=== PATIENT | female | born 1935 | race Caucasian/White ===

== ENCOUNTER 2024-03-14 18:04 | Inpatient (IN) | payer MEDICARE, BC, SELFPAY ==
[2024-03-14] VITALS (8 sets, daily range): BP systolic 104–124; BP diastolic 53–73; BMI 19.7
--- NOTE | 2024-03-14 12:52 | ED.GENMED ---
History of Present Illness
General
Chief Complaint: Skin Problem
Source: patient
Exam Limitations: none
Time Seen by Provider: 03/14/24 12:28
History of Present Illness
History of Present Illness:
88-year-old female insulin-dependent diabetic presents from [facility] with worsening redness and pain to the right third toe and foot. She denies fever. She thinks she has been on and off antibiotics for this wound. She has prior history of
multiple amputations onto the toes on her left foot. She denies chest pain or shortness of breath. She has a history of CHF, A-fib has a pacer defibrillator. No other complaints at this time
Past History
Past History
ED Past Medical History: Arrthythmia (AFib), Cancer (basal cell, breast), CHF, HTN, NIDDM, Other (difficulty with balance, DM, neuropathy, pancreatitis chronic A. fib, status post pacer defibrillator, fibromyalgia, PMR, AVMs, colon polyps) and Other
ED Past Surgical History: Cholecystectomy and Other (hysterectomy)
Social History
Tobacco: Non-smoker
Alcohol: None
Drug: None
Living: correction
Family History
Family History: Other (Father with HI in his 60s)
Phy Exam
Physical Exam
Physical Exam:
General: Well-appearing female no acute respiratory distress
HEENT: Normocephalic atraumatic neck is supple
Heart: Tachycardic
Lungs: Clear no wheeze
Abdomen: Soft nontender nondistended
Skin: Erythema to right third toe with wound to the medial aspect of the third toe dark in color. The erythema spreads to almost the midfoot on the right foot.
Vascular: The toes are warm to the touch on the right foot
Course
Orders/Labs/Results
Orders:
Orders
03/14/24 12:16
Electrocardiogram (*1) Urgent
Reason for Study: Other
Other Reason for Exam: Possible Sepsis
EKG- Treatment ONCE
03/14/24 12:40
CR Foot - Right Min 3 Views Urgent
Comment:
Reason For Exam: infection 3rd toe
03/14/24 13:06
Complete Blood Count/With Diff Urgent
Comprehensive Metabolic Panel Urgent
Blood Culture Q30M
LEDA Source: Blood/Venous
Specimen Description:
03/14/24 13:15
Blood Culture Q30M
LEDA Source: Blood/Venous
Specimen Description:
03/14/24 13:49
Acetaminophen [Tylenol] 650 mg PO NOW STA
03/14/24 14:40
Zosyn 3.375 grams IVPB NOW Piperacillin/Tazo 3.375 Gram [Zosyn] 3.375 gram in 50 ml IV NOW
03/14/24 16:00
*Vancomycin IV Pharmacy to Dose VANCOMYCIN Pharmacy to Dose [VANCOCIN Pharmacy to Dose] 1 each Pharmacy To Prepare [Call Pharmacy To Prepare] 0 ml IV PER PROTOCOL
Abnormal Lab Results
03/14/24
13:06
MCHC 31.2 L g/dL
(33.0-37.0)
RDW 17.3 H %
(11.5-14.5)
BUN 20 H mg/dl
(7-17)
Glucose 144 H mg/dl
(70-99)
Total Protein 6.1 L g/dl
(6.3-8.2)
03/14/24 13:06
03/14/24 13:06
Vital Signs
Initial and Last Documented VS:
Initial Vital Signs
Temp Pulse Resp BP Pulse Ox
98.2 F 118 20 121/68 100
03/14/24 12:05 03/14/24 12:05 03/14/24 12:05 03/14/24 12:05 03/14/24 12:05
Last Documented Vital Signs
Temp Pulse Resp BP Pulse Ox
98.2 F 118 20 121/68 100
03/14/24 12:05 03/14/24 12:05 03/14/24 12:05 03/14/24 12:05 03/14/24 12:05
MDM/Problems Addressed
Differential Diagnosis Includes:
Right foot diabetic foot wound/infection. Consider cellulitis versus underlying osteomyelitis. There is no evidence of drainable abscess
X-rays pending. Labs blood cultures pending. Will likely need admission to hospital for surgical intervention
*Critical Care Note
Total Time (30-74mins, 75-104mins- exclusive of procedures): Not Applicable
Update Note
Update Note:
X-ray shows no obvious osteomyelitis. Labs reviewed. Patient has diet foot infection/cellulitis. Will order antibiotics and admit to hospitalist
ED Attending Note
-
Portions of this chart may have been created with voice recognition software.� Occasional wrong word or��sound alike� substitutions may have occurred due to the inherent limitations of voice recognition software.
Discharge Plan
Departure
Patient Disposition: Admit
Date of Disposition: 03/14/24
Time of Disposition: 14:44
Admit to: Telemetry
Presentation/result/management discussed w/ accepting MD/DO: Hospitalist
Discharge Problem:
Cellulitis
Prescriptions:
No Action
estradiol [Estrace] 0.01 % (0.1 mg/gram) Cream
1 applic VAGINAL MOWEFR@2200 Qty: 0
acetaminophen 325 MG tablet
650 mg PO Q8HPRN MDD 3000 mg PRN (Reason: elevated temp>100)
atorvastatin 20 mg tablet
20 mg PO HS
magnesium hydroxide [Milk of Magnesia] 400 mg/5 mL Suspension
30 ml PO DAILY PRN (Reason: if no BM x 3 days)
bisacodyl [Dulcolax (bisacodyl)] 10 mg Suppository
10 mg [place] DAILY PRN (Reason: if MOM ineffective)
Fleet Enema 19-7 gram/118 mL Enema
118 ml [place] DAILY PRN (Reason: if dulcolax ineffective)
insulin lispro 100 unit/mL Solution
0 sliding scale dose SC MEALS
Rx Instructions:
03/14/2024, if BS<60 call md; 151-200 = 3 units; 201-250 = 6 units; 251-300 = 9 units; 301-350 = 12 units; 351-400 = 15 units; if BS>400 call md.
duloxetine 20 mg capsule,delayed release(DR/EC)
20 mg PO DAILY
potassium chloride 20 mEq Tablet Extended Release
20 meq PO DAILY
mirtazapine [Remeron] 15 mg Tablet
7.5 mg PO HS
aspirin 81 mg tablet,delayed release (DR/EC)
81 mg PO DAILY
pantoprazole 40 mg Tablet,Delayed Release (Dr/Ec)
40 mg PO BID Qty: 0 0RF
ferrous sulfate 325 mg (65 mg iron) tablet
325 mg PO DAILY Qty: 1 0RF
acetaminophen [Tylenol] 325 mg Tablet
650 mg PO TID MDD 3000 mg
metoprolol succinate 50 mg Tablet Extended Release 24 Hr
25 mg PO DAILY
Patient Comments:
03/14/2024, hold for SBP<100 and HR<60.
oxycodone 5 mg Tablet
5 mg PO Q8H PRN (Reason: severe pain)
Artificial Tears([id number]) 1-0.2-0.2 % Drops
1 drp BOTH EYES QID
azelastine 205.5 mcg (0.15 %) [place],Non-Aerosol
2 spray INTRANASAL BID
Jardiance 10 mg Tablet
10 mg PO DAILY
bumetanide 0.5 mg tablet
0.5 mg PO DAILY
insulin glargine [Lantus Solostar U-100 Insulin] 100 unit/mL (3 mL) insulin pen
15 unit SC DAILY
Referrals:
Baldo Martínez MD [Family Provider] -
Interventions
Interventions:
*Risk Screen - Suicide Last Done: 03/14/24 12:05
*General Assessment Last Done: 03/14/24 12:05
*Neglect/Abuse Screening Last Done: 03/14/24 12:05
Discharge Date and Time
Print Language: WELSH
[2024-03-14 13:16] LABS: % Basophils 0.5 % (0-2); % Eosinophils 4.8 % (0-6); % Immature Granulocytes 0.2 % (0-0.5); % Lymphocytes 20.6 % (20.5-51.1); % Monocytes 8.7 % (1.7-9.3); % Neutrophils 65.2 % (42.2-75.2); Absolute Eosinophils 0.3 10^3/uL (0-0.7); Absolute Lymphocytes 1.3 10^3/uL (1.2-3.4); Absolute Monocytes 0.5 10^3/uL (0.1-0.6); Hematocrit 39.7 % (37.0-47.0); Hemoglobin 12.4 g/dL (12.0-16.0); Mean Corp Hgb Conc. 31.2 g/dL (33.0-37.0); Mean Corpuscular Hgb 29.2 pg (27.0-31.0); Mean Corpuscular Volume 93.6 fL (81.0-99.0); Mean Platelet Volume 10.1 fL (7.4-10.4); Nucleated Red Blood Cells % 0 %; Platelet Count 193 10^3/uL (130-400); Red Blood Cell Count 4.24 10^6/uL (4.20-5.40); Red Cell Dist. Width 17.3 % (11.5-14.5); White Blood Cell Count 6.1 10^3/uL (4.8-10.8)
[2024-03-14 13:30] LABS: ALT (SGPT) 10 U/L (0-35); AST (SGOT) 24 U/L (14-36); Albumin 3.6 g/dl (3.5-5.0); Alkaline Phosphatase 98 U/L (38-126); Blood Urea Nitrogen 20 mg/dl (7-17); Calcium 9.1 mg/dl (8.4-10.2); Carbon Dioxide 29 mmol/L (22-30); Chloride 102 mmol/L (98-107); Glucose 144 mg/dl (70-99); Potassium 3.8 mmol/L (3.5-5.1); Sodium 137 mmol/L (135-145); Total Bilirubin 0.8 mg/dl (0.2-1.3); Total Protein 6.1 g/dl (6.3-8.2); eGFR > 60.00
[2024-03-14] MEDS: TYLENOL 650 MG PO ×2 (13:57→20:48)
[2024-03-14] MEDS: ZOSYN 50 IV ×2 (15:55→21:07)
--- NOTE | 2024-03-14 16:10 | HPS.HSE ---
Family Physician
-
Family Physician: Baldo Martínez
Chief Complaint
-
Right foot/toe pain/wound
History of Present Illness
87 female snf resident history of bilateral breast masses paroxysmal A-fib (not on anticoagulation due to hx GI bleeds) HFpEF status post pacer defibrillator moderate tricuspid regurgitation hypertension diabetes hyperlipidemia, hx toe
amputations left foot, fibromyalgia BELKIS not on CPAP anxiety/depression, recent hospitalization at this facility Sep 2023 for anemia rectal bleeding and COVID, presents with right foot/3rd toe pain/wound and associate erythema. Patient reports 3rd
toe wound has been present and progressive for past 5 weeks, treated with oral abx outpatient without improvement (unable to specify what abx and when). Denies fever chills but reports dysuria burning on urination unspecified duration. Bilateral
breast masses with associated ulcerations were noted last hospitalization for which patient was recommended to follow up with breast surgeon outpatient. Patient AOx3 reports bilateral breast lumps but denies following with Breast Surgeon
outpatient. Patient also reports being wheelchair bound for the past years and chronic double vision for the last 6 months corrected with glasses. Vital signs notable for sinus tachycardia, likely due to pain, otherwise stable respiratory status on
room air, no significant hypotension. Labs unremarkable. XR right foot noted no acute abn's. Wound however is concerning for possible probe to bone.
Medical History
Past Medical History
Past Medical History: Reports Other (as above)
Past Surgical History: Reports Other (as above)
Social History
Tobacco: Non-smoker
Alcohol: None
Drug: None
Personal:
Living: Group Home
Family History
Family History: Not pertinent (reviewed)
Allergies / Home Medications
Allergies reflects when Allergies were last updated in [facility].
Home Medications with original date entered in [facility]
Allergy/Medication List:
Allergies
Allergy/AdvReac Type Severity Reaction Status Date / Time
codeine Allergy Hives and Verified 03/14/24 12:15
'sick to
my stomach'
dofetilide [From Tikosyn] Allergy 'took all Verified 03/14/24 12:15
the K out
of my body
and I got
really
sick'
morphine Allergy pt states Verified 03/14/24 12:15
she is not
allergic
to this
oxycodone Allergy pt states Verified 03/14/24 12:15
this is
not an
allergy
tramadol Allergy pt states Verified 03/14/24 12:15
this is
not an
allergy
Home Medications
estradiol 0.01% (0.1 mg/gram) vaginal cream (Estrace) 1 applic vaginal MOWEFR@2200 Hormonal agent ##0 10/15/16
acetaminophen 325 mg tablet 650 mg PO Q8HPRN PRN elevated temp>100 07/03/17
atorvastatin 20 mg tablet 20 mg PO HS High cholesterol 12/27/22
bisacodyl 10 mg rectal suppository (Dulcolax (bisacodyl)) [address] DAILY PRN if MOM ineffective 12/27/22
duloxetine 20 mg capsule,delayed release 20 mg PO DAILY Mental Health/Anxiety 12/27/22
insulin lispro 100 unit/mL subcutaneous solution 0 sliding scale dose SC MEALS Diabetes 12/27/22
magnesium hydroxide 400 mg/5 mL oral suspension (Milk of Magnesia) 30 ml PO DAILY PRN if no BM x 3 days 12/27/22
sodium phosphates 19 gram-7 gram/118 mL enema (Fleet Enema) [address] DAILY PRN if dulcolax ineffective 12/27/22
potassium chloride 20 mEq tablet,extended release 20 meq PO DAILY Electrolyte Repletion 08/19/23
mirtazapine 15 mg tablet (Remeron) 7.5 mg PO HS Mental Health/Anxiety 09/13/23
aspirin 81 mg tablet,delayed release 81 mg PO DAILY Blood Clot Prevention/Tx 09/14/23
ferrous sulfate 325 mg (65 mg iron) tablet 325 mg PO DAILY Supplement #1 tab 10/10/23
pantoprazole 40 mg tablet,delayed release 40 mg PO BID Gastrointestinal issue #0 tabs 10/10/23
acetaminophen 325 mg tablet (Tylenol) 650 mg PO TID Pain 03/14/24
azelastine 205.5 mcg (0.15 %) nasal spray 2 spray intranasal BID Congestion 03/14/24
bumetanide 0.5 mg tablet 0.5 mg PO DAILY Fluid retention/Swelling 03/14/24
empagliflozin 10 mg tablet (Jardiance) 10 mg PO DAILY Heart Failure 03/14/24
insulin glargine 100 unit/mL (3 mL) subcutaneous pen (Lantus Solostar U-100 Insulin) 15 unit SC DAILY Diabetes 03/14/24
metoprolol succinate 50 mg tablet,extended release 24 hr 25 mg PO DAILY Heart Failure 03/14/24
oxycodone 5 mg tablet 5 mg PO Q8H PRN severe pain 03/14/24
peg [id number] 1 %-0.2 %-0.2 % eye drops (Artificial Tears ([id number])) 1 drp BOTH EYES QID Eye Condition 03/14/24
Review of Systems
-
A 12 point ROS was completed and negative except as noted: Yes
Physical Exam
Vital Signs
Vital Signs
Temp Pulse Resp BP Pulse Ox
98.2 F 118 20 121/68 100
03/14/24 12:05 03/14/24 12:05 03/14/24 12:05 03/14/24 12:05 03/14/24 12:05
Physical Exam
General: Other (as below)
Laboratory Results
-
03/14/24 13:06
03/14/24 13:06
Laboratory Results
Total Bilirubin 0.8 mg/dl (0.2-1.3) 03/14/24 13:06
AST 24 U/L (14-36) 03/14/24 13:06
ALT 10 U/L (0-35) 03/14/24 13:06
Alkaline Phosphatase 98 U/L (38-126) 03/14/24 13:06
Impression/Plan
-
ROS
General: Denies fever chills night sweats unexpected weight loss
Neuro: Denies seizure shaking loss of consciousness dizziness vertigo
Psych: denies depression hallucinations confusion manic episodes
Endocrine: Denies polyuria polydipsia polyphagia heat/cold intolerance
HEENT: reports chronic double vision for past 6 months corrected with glasses
Pulmonary: denies coughing hemoptysis sneezing sob dyspnea on exertion
Cardiovascular: denies chest pain palpitations leg swelling
Hematology: denies signs symptoms of anemia easy bruising/bleeding
Gastrointestinal: denies nausea vomiting diarrhea constipation hematemesis hematochezia melena
Genito-Urinary: Reports dysuria
Musculoskeletal: Reports right foot pain
Dermatology: reports right third toe ulceration/wound, right foot erythema
Physical Exam
General: No pallor, cyanosis, or jaundice.
HEENT: Throat clear. PERRLA Normocephalic atraumatic
NECK: Supple. No JVD Carotid Bruits
RESPIRATORY: Lungs clear to auscultation. No crackles wheezes stridor
CVS: S1, S2 Sinus tachy. No murmur, rub or gallop.
ABDOMEN: Soft, non-tender. No distension. BS+/normal.
EXTREMITIES: Right foot erythema 3rd toe wound with ulceration, Left foot s/p multiple toe amputations
FIXTURE BUILDER: Lethargic but arousable, oriented x3
IMPRESSION:
87 female snf resident history of bilateral breast masses paroxysmal A-fib (not on anticoagulation due to hx GI bleeds) HFpEF status post pacer defibrillator moderate tricuspid regurgitation hypertension diabetes hyperlipidemia, hx toe
amputations left foot, fibromyalgia BELKIS not on CPAP anxiety/depression, recent hospitalization at this facility Sep 2023 for anemia rectal bleeding and COVID, presents with right foot/3rd toe pain/wound and associate erythema. Patient reports 3rd
toe wound has been present and progressive for past 5 weeks, treated with oral abx outpatient without improvement (unable to specify what abx and when). Denies fever chills but reports dysuria burning on urination unspecified duration. Bilateral
breast masses with associated ulcerations were noted last hospitalization for which patient was recommended to follow up with breast surgeon outpatient. Patient AOx3 reports bilateral breast lumps but denies following with Breast Surgeon
outpatient. Patient also reports being wheelchair bound for the past years and chronic double vision for the last 6 months corrected with glasses. Vital signs notable for sinus tachycardia, likely due to pain, otherwise stable respiratory status on
room air, no significant hypotension. Initial Labs unremarkable. XR right foot noted no acute abn's. Wound however is concerning for possible probe to bone.
PLAN:
#Right diabetic foot wound infection
#Right 3rd toe ulceration
#Hx multiple Toe amputations left foot
cont empiric Vanc Zosyn
ID podiatry eval
tylenol prn fever/pain
pain control, cont home prn oxycodone
#Dysuria
check urinalysis reflex cx, abx as above
#Hx B/l Breast masses
Daughter Kirstin reports patient has followed up with Breast Surgeons at [place] (since discharge from this facility Sep 2023) and it was determined the masses were not malignant
#pAfib
#HFpEF s/p AICD/pacer
not on anticoagulation d/t hx GIB
cont home metoprolol with holding parameters
monitor on tele
currently sinus tachy d/t pain
cont home bumex with potassium supplementation
daily weight I/O
appears euvolemic at this time.
#Hx GIB
cont home protonix BID
#HTN
cont home metoprolol with holding parameters
#Diabetes
cont home lantus 15U
medium dose sliding scale
follow up A1c
#HLD
cont home statin
#BELKIS not on CPAP
observe
#Anxiety/Depression
cont home Mirtazapine
dvt ppx lovenox
gi ppx protonix
DNI as per patient
discussed with nurse and patient at bedside and patient's son Vasile and daughter MORENA Fulton over phone
I spent a total of 76 minutes with the patient or on the floor. More than 50% of this time involved counseling and coordination of care.
[2024-03-14] MEDS: VANCOCIN 300 MG IV (16:28)
[2024-03-14] MEDS: VANCOCIN 300 ML IV (16:28)
--- NOTE | 2024-03-14 19:30 | PTCARENOTE ---
Pt. received from Leana, JUAN x 3, vs stable, 93% RA, NSR with first degree AVB, call [facility] within reach.
[2024-03-14] MEDS: LOVENOX 40 MG SC (20:47)
[2024-03-14] MEDS: PROTONIX 40 MG PO (20:48)
[2024-03-14] MEDS: LIPITOR 20 MG PO (20:51)
[2024-03-14] MEDS: REMERON 7.5 MG PO (20:52)
[2024-03-14] MEDS: FLUSH (NSS) 2 FLUSH IV (21:08)
[2024-03-14] MEDS: ESTRACE 0.01% VAGINAL CREAM 1 APPLIC VAG (21:08)
[2024-03-14] MEDS: REFRESH EYE DROPS (PF) 1 DROPS BOTH EYES (21:11)
[2024-03-14 21:40] LABS: Glucose - Point of Care 148 mg/dl (70-99)
[2024-03-14 23:06] LABS: Urine Albumin Negative (Neg - Trace); Urine Bilirubin Negative (Negative); Urine Character Slightly Cloudy (Clear); Urine Color Yellow; Urine Glucose 3+ (Negative); Urine Ketone Negative (Negative); Urine Leukocyte 2+ (Negative); Urine Nitrite Negative (Negative); Urine Occult Blood Trace (Negative); Urine Specific Gravity 1.015 (<1.030); Urine Urobilinogen Negative (Neg - 1+)
[2024-03-14 23:24] LABS: Urine Squamous Cell >30 /LPF (Few)
[2024-03-14 23:25] LABS: Urine Urothelial Cell >30 /LPF (FEW)
[2024-03-14 23:31] LABS: Urine Yeast Few (Negative)
[2024-03-14 23:33] LABS: Urine Bacteria Moderate (Negative)
[2024-03-14 23:35] LABS: Urine Calcium Oxalate Crystals Seen
[2024-03-14 23:36] LABS: Urine White Cell >100 /HPF (0-5)
[2024-03-15 03:26] VITALS: BP 120/76
[2024-03-15] MEDS: ZOSYN 50 IV ×4 (05:14→21:01)
[2024-03-15 06:00] VITALS: BMI 19.3
[2024-03-15] MEDS: FLUSH (NSS) 2 FLUSH IV ×2 (06:26→21:01)
[2024-03-15] MEDS: VANCOCIN 150 IV (06:26)
[2024-03-15 07:07] VITALS: BP 130/80
[2024-03-15 07:45] LABS: Hematocrit 35.1 % (37.0-47.0); Hemoglobin 11.2 g/dL (12.0-16.0); Mean Corp Hgb Conc. 31.9 g/dL (33.0-37.0); Mean Corpuscular Hgb 29.2 pg (27.0-31.0); Mean Corpuscular Volume 91.4 fL (81.0-99.0); Mean Platelet Volume 10.2 fL (7.4-10.4); Platelet Count 196 10^3/uL (130-400); Red Blood Cell Count 3.84 10^6/uL (4.20-5.40); Red Cell Dist. Width 17.3 % (11.5-14.5); White Blood Cell Count 6.9 10^3/uL (4.8-10.8)
[2024-03-15 08:12] LABS: Blood Urea Nitrogen 17 mg/dl (7-17); Calcium 8.8 mg/dl (8.4-10.2); Carbon Dioxide 26 mmol/L (22-30); Chloride 104 mmol/L (98-107); Estimated Creatinine Clearance 46 ml/min; Glucose 97 mg/dl (70-99); Magnesium 1.7 mg/dl (1.6-2.3); Potassium 3.7 mmol/L (3.5-5.1); Sodium 139 mmol/L (135-145); eGFR > 60.00
[2024-03-15 08:15] LABS: Glucose - Point of Care 132 mg/dl (70-99)
[2024-03-15] MEDS: NOVOLOG FLEXPEN-MODERATE RESISTANCE SC (08:32)
--- NOTE | 2024-03-15 08:54 | W.PN.UPDATE ---
Update Note
Progress Note Update
dr shell to see pt
dw with her
--- NOTE | 2024-03-15 09:13 | PHA.VAN.IN ---
Assessment
- Assessment
Renal Function: Appears similar to baseline
Maximum Temperature: 99.2
Minimum Temperature: 98.2
Concomitant Antimicrobials: Piperacillin-tazobactam
AUC Dosing Plan
- Dosing Variables
Dosing Weight (kg): 52.7
Dosing CrCl (ml/min): 46
Vd coefficient (L/kg): 0.7
- Empiric Dosing
Initial / Loading Dose: Vanc 1500mg 03/14 at 1628
Maintenance Regimen: Vanc 750mg IV q24H
Estimated AUC (mcg*h/mL): 487
Estimated Peak (mcg*h/mL): 31.76
Estimated Trough (mcg/ml): 11.93
Estimated Half Life (H): 16.3
- Monitoring
No levels ordered at this time: Consider levels after 03/17 0600 dose
Pharmacokinetics Vancomycin I
- -
Patient Age: 88
Patient Sex: Female
Vancomycin Day #: 1
Indication: Skin And Soft Tissue
Requesting Provider: Nitin
Height / Weight:
Height 5 ft 5 in
Actual Weight 52.702 kg
IBW in k
Adjusted BW in kg: NA
Pertinent Past Medical History: Failed outpt abx for right 3rd toe wound (unknown abx)
- Vital Signs / Lab Results
Temp Pulse Resp BP Pulse Ox
98.2 F 119 17 120/76 96
03/15/24 03:26 03/15/24 03:26 03/15/24 03:26 03/15/24 03:26 03/15/24 03:26
Lab Results - Hematology
03/14/24 03/15/24
13:06 06:40
WBC 6.1 6.9
Lab Results - Chemistry
03/14/24 03/15/24
13:06 06:40
BUN 20 H 17
Creatinine 0.7 0.7
Estimated Creat Clear 46
Albumin 3.6
Lab Results - Urine
03/14/24
22:54
Urine Nitrite (Reflex) Negative
Leukocyte Esterase Rfl 2+ A
Urine WBC (Reflex) >100 A
Ur Squamous Epith Cells >30
Urine Bacteria (Reflex) Moderate A
--- NOTE | 2024-03-15 09:17 | W.PN.HOSP.TC ---
Today's Communication/Plan
-
see bold
Assessment / Plan
Assessment / Plan
HPI: 87 [facility] resident history of bilateral breast masses paroxysmal A-fib (not on anticoagulation due to hx GI bleeds) HFpEF status post pacer defibrillator moderate tricuspid regurgitation hypertension diabetes hyperlipidemia, hx toe
amputations left foot, fibromyalgia BELKIS not on CPAP anxiety/depression, recent hospitalization at this facility Sep 2023 for anemia rectal bleeding and COVID, presents with right foot/3rd toe pain/wound and associate erythema. Patient reports 3rd
toe wound has been present and progressive for past 5 weeks, treated with oral abx outpatient without improvement. Patient also reports being wheelchair bound for the past years and chronic double vision for the last 6 months corrected with glasses.
#Right diabetic foot wound infection
#Right 3rd toe ulceration
#Hx multiple Toe amputations left foot
Appreciate podiatry input, recommend vascular surgery consult, vascular studies ordered
Likely will need third toe amputation due to exposed bone
Continue IV Vanc Zosyn, pain meds
#Dysuria
Urine cultures pending, already on IV antibiotics for the above
#Hx B/l Breast masses
Daughter Kirstin reports patient has followed up with Breast Surgeons at [place] (since discharge from this facility Sep 2023) and it was determined the masses were not malignant
#pAfib
#HFpEF s/p AICD/pacer
not on anticoagulation d/t hx GIB
cont home metoprolol with holding parameters
currently sinus tachy d/t pain
cont home bumex with potassium supplementation
#Hx GIB
cont home protonix BID
#HTN
cont home metoprolol with holding parameters
#Diabetes
cont home lantus 15U
medium dose sliding scale
#HLD
cont home statin
#BELKIS not on CPAP
observe
#Anxiety/Depression
cont home Mirtazapine
DVT prophylaxis�subcu Lovenox
DNI as per patient
Total time spent to see the patient on the floor, examine the patient, review data and lab results, discuss treatment plan with patient, nursing staff around 51 minutes.
Physical Exam
General: No acute distress
HEENT: Normocephalic, Atraumatic, EOMI, MMM
Respiratory: Clear to Auscultation bilaterally
Cardiac: Normal S1/S2, Regular Rate and Rhythm
GI: Soft, Nontender, Nondistended, Normal Bowel Sounds
Extremities: No Clubbing, Cyanosis, or Edema
Left foot TMA
Right foot third necrotic toe
Neuro: Nonfocal/Grossly Intact
Psych: Calm, Cooperative
Derm: No Visible lesions
Anticipated Discharge: > 48 hours
Subjective/Interval History
-
Date of Service: March 15, 2024
Patient complains of severe right middle toe pain. No fever, no vomiting.
Objective Data
-
Labs:
Laboratory Results
03/15/24
06:40
WBC 6.9
Hgb 11.2 L
Hct 35.1 L
Plt Count 196
Sodium 139
Potassium 3.7
Chloride 104
Carbon Dioxide 26
BUN 17
Creatinine 0.7
Glucose 97
Calcium 8.8
Vital Signs:
Vital Signs
Temp Pulse Resp BP Pulse Ox
98.2 F 119 17 120/76 96
03/15/24 03:26 03/15/24 03:26 03/15/24 03:26 03/15/24 03:26 03/15/24 03:26
I&O
03/14/24 03/15/24 03/16/24
06:59 06:59 06:59
Intake Total 490 / 490
Balance 490 / 490
[2024-03-15] MEDS: ROXICODONE 5 MG PO ×2 (10:42→21:05)
[2024-03-15] MEDS: BUMEX 0.5 MG PO (10:43)
[2024-03-15] MEDS: PROTONIX 40 MG PO ×2 (10:43→20:59)
[2024-03-15] MEDS: JARDIANCE 10 MG PO (10:43)
[2024-03-15] MEDS: CYMBALTA DELAYED RELEASE 20 MG PO (10:43)
[2024-03-15] MEDS: ASPIR LOW (ENTERIC COATED) 81 MG PO (10:43)
[2024-03-15] MEDS: TOPROL XL 25 MG PO (10:46)
[2024-03-15] MEDS: KCL 20 MEQ PO (10:46)
[2024-03-15] MEDS: FEOSOL 325 MG PO (10:47)
[2024-03-15] MEDS: REFRESH EYE DROPS (PF) 1 DROPS BOTH EYES ×4 (10:48→21:00)
[2024-03-15 11:06] VITALS: BP 122/67
[2024-03-15 12:00] LABS: Glycohemoglobin (HgbA1c) 8.4 % (4.0-5.6)
--- NOTE | 2024-03-15 12:14 | W.CS.POD ---
Consult Summary - Podiatry
-
88 yo female residing at [facility] brought in to the hosp with Rt foot cellultis and Rt 3rd toe ulceration, She says that it started few wks ago and was treated which did not help heal and foot has gotten red, painful, she is
diabetic had LT partial foot amputation 2 yrs ago at [place] due to infection of her toes, She is stable LT foot. She is currently on IV abx , improved redness to lT foot, still painful toe , no fever, chills. She is awake, alert, oriented, no
acute distress.
Reviewed PMH, meds and allergies
Rt foot non palpable pedal pulses
Rt 3rd toe medial aspect / interdigital ulceration at PIPJ with exposed bone, has some purulence, improving erythema to forefoot, no necrosis , no foul odor noted. All other toes are with no open ulcerations . PResence of multiple digital
deformities noted, crowded toes
WBC count WNL
Xray no bone pathology,
A/P: Rt foot cellutlis
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
Digital deformities
Diabetic small vessel disease
Plan : Conrt IV abx
Will order non invasive vascular studies
possible Rt 3rd toe amputation needed due to exposed bone .
Will request vascular consult evaluation for healing potential after toe amputation .
Podiatry will follow
[2024-03-15 12:29] LABS: Glucose - Point of Care 217 mg/dl (70-99)
[2024-03-15] MEDS: TYLENOL 650 MG PO (13:02)
[2024-03-15] MEDS: NOVOLOG FLEXPEN-MODERATE RESISTANCE 3 UNITS SC (13:03)
--- NOTE | 2024-03-15 14:28 | CM ---
nc manager reviewed patient's chart and met with patient and patient resides at [facility], patient was able to use walker but lately she has been using the w/c at residential, plan is for patient to return to [facility] when stable foster care case manager left message for admissions at [facility] and sent a referral through [employer].
PCP: Dr Martínez
[facility]
Report [phone]

Plan; Patient to return to [facility] when stable.
[2024-03-15] MEDS: MORPHINE SULFATE 2 MG IV (15:15)
[2024-03-15 15:25] VITALS: BP 102/64
--- NOTE | 2024-03-15 15:49 | PTCARENOTE ---
Assumed care of pt from previous nurse. Pt with pain to right foot and toe, prn's provided, pain conts. TT to Dr. Adair, morphine ordered and provided, pt sleeping at this time. Pt call [facility] is within reach, pt rings elena. pt is on tele running sinus
tachy with first degree HB. Pt call [facility] is within reach, pt rings elena. will cont to monitor.
[2024-03-15 17:14] LABS: Glucose - Point of Care 195 mg/dl (70-99)
[2024-03-15] MEDS: NOVOLOG FLEXPEN-MODERATE RESISTANCE 1 UNITS SC (17:15)
[2024-03-15] MEDS: MIRALAX 17 GRAMS PO (17:15)
[2024-03-15] MEDS: TYLENOL 1000 MG PO ×2 (17:15→23:30)
[2024-03-15] MEDS: LOVENOX 40 MG SC (17:17)
[2024-03-15 19:58] VITALS: BP 104/56
[2024-03-15] MEDS: LIPITOR 20 MG PO (20:59)
[2024-03-15] MEDS: REMERON 7.5 MG PO (21:00)
[2024-03-15 21:21] LABS: Glucose - Point of Care 276 mg/dl (70-99)
[2024-03-15] MEDS: LANTUS 0.15 UNITS SC (23:30)
[2024-03-15 23:42] VITALS: BP 107/66
[2024-03-16 03:29] VITALS: BP 114/75
[2024-03-16] MEDS: FLUSH (NSS) 2 FLUSH IV (05:01)
[2024-03-16] MEDS: ZOSYN 50 IV ×4 (05:01→21:30)
[2024-03-16] MEDS: VANCOCIN 150 IV (05:05)
[2024-03-16 06:00] VITALS: BMI 19.5
[2024-03-16 07:12] VITALS: BP 137/77
[2024-03-16 07:48] LABS: Hematocrit 34.2 % (37.0-47.0); Hemoglobin 10.9 g/dL (12.0-16.0); Mean Corp Hgb Conc. 31.9 g/dL (33.0-37.0); Mean Corpuscular Hgb 29.4 pg (27.0-31.0); Mean Corpuscular Volume 92.2 fL (81.0-99.0); Mean Platelet Volume 10.2 fL (7.4-10.4); Platelet Count 171 10^3/uL (130-400); Red Blood Cell Count 3.71 10^6/uL (4.20-5.40); Red Cell Dist. Width 17.2 % (11.5-14.5); White Blood Cell Count 5.9 10^3/uL (4.8-10.8)
[2024-03-16 08:07] LABS: ALT (SGPT) < 10 U/L (0-35); AST (SGOT) 19 U/L (14-36); Alkaline Phosphatase 72 U/L (38-126); Blood Urea Nitrogen 19 mg/dl (7-17); Calcium 8.6 mg/dl (8.4-10.2); Carbon Dioxide 27 mmol/L (22-30); Chloride 100 mmol/L (98-107); Direct Bilirubin 0.3 mg/dl (0.0-0.4); Estimated Creatinine Clearance 41 ml/min; Glucose 92 mg/dl (70-99); Magnesium 1.8 mg/dl (1.6-2.3); Potassium 3.7 mmol/L (3.5-5.1); Sodium 136 mmol/L (135-145); Total Bilirubin 0.6 mg/dl (0.2-1.3); Total Protein 5.3 g/dl (6.3-8.2); eGFR > 60.00
[2024-03-16 08:56] LABS: Glucose - Point of Care 67 mg/dl (70-99)
--- NOTE | 2024-03-16 08:59 | PHA.VAN.FU ---
Vancomycin Assessment / Plan
- Assessment
Renal Function: Stable
WBC's are: Trending Down
In the past 24 hrs, patient has been: Afebrile
Concomitant Antimicrobials: Piperacillin-tazobactam
- Dosing Plan
Continue: Vanc 750mg IV Q24H
- Monitoring Plan
Peak Level: 03/17 at 0830
Trough Level: 03/18 at 0530
- Follow Up
Pharmacy will continue to follow.
Vancomycin Follow UP
- -
Patient Age: 88
Patient Sex: Female
Vancomycin Day #: 2
Indication: Skin And Soft Tissue
Requesting Provider: Nitin
Height / Weight:
Height 5 ft 5 in
Actual Weight 53.24 kg
IBW in k
Adjusted BW in kg: NA
Pertinent Past Medical History: Failed outpt abx for right 3rd toe wound (unknown abx)
- Vital Signs / Lab Results
Temp Pulse Resp BP Pulse Ox
97.9 F 111 20 114/75 96
03/16/24 03:29 03/16/24 03:29 03/16/24 03:29 03/16/24 03:29 03/16/24 03:29
Lab Results - Hematology
03/14/24 03/15/24 03/16/24
13:06 06:40 06:29
WBC 6.1 6.9 5.9
Lab Results - Chemistry
03/14/24 03/15/24 03/16/24
13:06 06:40 06:29
BUN 20 H 17 19 H
Creatinine 0.7 0.7 0.8
Estimated Creat Clear 46 41
Albumin 3.6 3.0 L
Microbiology Results
03/14/24 15:35 Blood Culture - Preliminary
Blood/Venous No Growth in 24 hours- Final report to follow
03/14/24 13:06 Blood Culture - Preliminary
Blood/Venous No Growth in 24 hours- Final report to follow
--- NOTE | 2024-03-16 09:11 | W.PN.HOSP.TC ---
Today's Communication/Plan
-
see bold
Assessment / Plan
Assessment / Plan
HPI: 87 female correction resident history of bilateral breast masses paroxysmal A-fib (not on anticoagulation due to hx GI bleeds) HFpEF status post pacer defibrillator moderate tricuspid regurgitation hypertension diabetes hyperlipidemia, hx toe
amputations left foot, fibromyalgia BELKIS not on CPAP anxiety/depression, recent hospitalization at this facility Sep 2023 for anemia rectal bleeding and COVID, presents with right foot/3rd toe pain/wound and associate erythema. Patient reports 3rd
toe wound has been present and progressive for past 5 weeks, treated with oral abx outpatient without improvement. Patient also reports being wheelchair bound for the past years and chronic double vision for the last 6 months corrected with glasses.
#Right diabetic foot wound infection
#Right 3rd toe ulceration
#Chronic critical limb ischemia
Appreciate podiatry input, vascular studies ordered
Likely will need third toe amputation due to exposed bone
Appreciate vascular surgery input, will need right lower extremity arteriogram tomorrow
Continue IV Vanc Zosyn, pain meds
#Peripheral artery disease
Continue aspirin, statin
#Dysuria
Urine cultures with Amairani, 10,000 colony
#Hx B/l Breast masses
Daughter Kirstin reports patient has followed up with [facility] at [facility] (since discharge from this facility Sep 2023) and it was determined the masses were not malignant
#pAfib
#HFpEF s/p AICD/pacer
not on anticoagulation d/t hx GIB
cont home metoprolol with holding parameters
currently sinus tachy d/t pain
cont home bumex with potassium supplementation
#Hx GIB
cont home protonix BID
#HTN
cont home metoprolol with holding parameters
#Diabetes
cont home lantus 15U
medium dose sliding scale
#HLD
cont home statin
#BELKIS not on CPAP
observe
#Anxiety/Depression
cont home Mirtazapine
DVT prophylaxis�subcu Lovenox
DNI as per patient
Total time spent to see the patient on the floor, examine the patient, review data and lab results, discuss treatment plan with patient, nursing staff around 35 minutes.
Physical Exam
General: No acute distress
HEENT: Normocephalic, Atraumatic, EOMI, MMM
Respiratory: Clear to Auscultation bilaterally
Cardiac: Normal S1/S2, Regular Rate and Rhythm
GI: Soft, Nontender, Nondistended, Normal Bowel Sounds
Extremities: No Clubbing, Cyanosis, or Edema
Left foot TMA
Right foot third necrotic toe
Neuro: Nonfocal/Grossly Intact
Psych: Calm, Cooperative
Derm: No Visible lesions
Anticipated Discharge: > 48 hours
Subjective/Interval History
-
Date of Service: March 16, 2024
Patient's right third toe pain has improved. No fever, no vomiting.
Objective Data
-
Labs:
Laboratory Results
03/16/24
06:29
WBC 5.9
Hgb 10.9 L
Hct 34.2 L
Plt Count 171
Sodium 136
Potassium 3.7
Chloride 100
Carbon Dioxide 27
BUN 19 H
Creatinine 0.8
Glucose 92
Calcium 8.6
Total Bilirubin 0.6
AST 19
ALT < 10
Alkaline Phosphatase 72
Vital Signs:
Vital Signs
Temp Pulse Resp BP Pulse Ox
97.9 F 111 20 114/75 96
03/16/24 03:29 03/16/24 03:29 03/16/24 03:29 03/16/24 03:29 03/16/24 03:29
I&O
03/15/24 03/16/24 03/17/24
06:59 06:59 06:59
Intake Total 490 / 490 470 / 470
Balance 490 / 490 470 / 470
[2024-03-16 09:16] LABS: Glucose - Point of Care 77 mg/dl (70-99)
[2024-03-16] MEDS: NOVOLOG FLEXPEN-MODERATE RESISTANCE SC ×2 (10:14→13:37)
[2024-03-16] MEDS: PROTONIX 40 MG PO ×2 (10:26→20:07)
[2024-03-16] MEDS: TOPROL XL 25 MG PO (10:26)
[2024-03-16] MEDS: FEOSOL 325 MG PO (10:26)
[2024-03-16] MEDS: BUMEX 0.5 MG PO (10:26)
[2024-03-16] MEDS: TYLENOL 1000 MG PO ×3 (10:27→21:30)
[2024-03-16] MEDS: KCL 20 MEQ PO (10:27)
[2024-03-16] MEDS: ASPIR LOW (ENTERIC COATED) 81 MG PO (10:27)
[2024-03-16] MEDS: JARDIANCE 10 MG PO (10:27)
[2024-03-16] MEDS: REFRESH EYE DROPS (PF) 1 DROPS BOTH EYES ×4 (10:28→21:31)
[2024-03-16] MEDS: CYMBALTA DELAYED RELEASE 20 MG PO (10:28)
[2024-03-16] MEDS: ROXICODONE 5 MG PO ×2 (10:28→20:40)
[2024-03-16] MEDS: MIRALAX 17 GRAMS PO (10:29)
[2024-03-16 11:15] VITALS: BP 126/72
[2024-03-16 11:25] LABS: Glucose - Point of Care 108 mg/dl (70-99)
--- NOTE | 2024-03-16 11:28 | W.PN.UPDATE ---
Update Note
Progress Note Update
Seen and examined. Full consultation to follow. Briefly 87-year-old female with extensive medical history. Known A-fib, heart failure with preserved ejection fraction, diabetes, hyperlipidemia, history of left foot toe amputations. Presents with
right foot and third toe pain and wound. She notes pain worse at night when she is in bed. She does note improvement with hanging the leg off the bed. She notes this has been present for about 5 weeks. She thinks it is from her toes rubbing
together. Of note she does note generalized lesions throughout her body (had undergone breast biopsies or excision of masses for breast masses, but notes that she has them all over her body including her right leg).
On exam/she is awake and alert. In no acute distress. Breathing is unlabored. Abdomen is soft, nondistended, nontender. Lower extremity with 2+ femoral pulses palpable bilaterally. Right thigh with a couple firm subcutaneous masses. She has a
1+/2+ palpable right popliteal pulse. Difficulty palpating left. Nonpalpable distally bilaterally. Right foot demonstrates evidence of dependent rubor and elevation pallor. Right third toe is noted with dry necrosis/gangrene.
Plan/ I had extensive discussion with the patient regarding findings. Discussed that she has chronic limb threatening ischemia. Discussed my recommendations for arteriogram and revascularization. Discussed the procedure as well as anticipated
outcomes. Discussed potential scenarios/outcomes of arteriography to be: #1 successful revascularization with endovascular technique, #2 need for staged surgical bypass (with pursuant discussion to assess candidacy for such procedure if needed), #3
no unreconstructable distal obliterative disease. In that scenario (third scenario) persistent limb loss throughout exist. Discussed procedural risks including but not limited to bleeding, arterial injury/worsened or acute limb ischemia, renal
failure. She understands all these things and wishes to proceed. She asked me to call her son and/or daughter. I spoke to her son over the phone and explained the entirety as I discussed with her. He understands all and agrees to proceed as well.
--- NOTE | 2024-03-16 12:22 | CON.VAS ---
Consultation
Consultation Request
Performing Provider: Amrik
Reason for Consultation: PAD evaluation
Medical History
-
Chief Complaint: Right foot and toe pain
History of Present Illness:
87-year-old female with extensive medical history. Known A-fib, heart failure with preserved ejection fraction, diabetes, hyperlipidemia, history of left foot toe amputations. Presents with right foot and third toe pain and wound. She notes pain
worse at night when she is in bed. She does note improvement with hanging the leg off the bed. She notes this has been present for about 5 weeks. She thinks it is from her toes rubbing together. Of note she does note generalized lesions
throughout her body (had undergone breast biopsies or excision of masses for breast masses, but notes that she has them all over her body including her right leg).
On exam/she is awake and alert. In no acute distress. Breathing is unlabored. Abdomen is soft, nondistended, nontender. Lower extremity with 2+ femoral pulses palpable bilaterally. Right thigh with a couple firm subcutaneous masses. She has a
1+/2+ palpable right popliteal pulse. Difficulty palpating left. Nonpalpable distally bilaterally. Right foot demonstrates evidence of dependent rubor and elevation pallor. Right third toe is noted with dry necrosis/gangrene.
Past Medical History
Past Medical History: Arrhythmias (afib, not on anticoagulation due to hx GI bleeds), CHF, HTN, IDDM, Valvular Disease, Psychiatric and Other (bilateral breast masses, hyperlipidemia, fibromyalgia, obstructive sleep apnea, anemia, rectal bleed,
recent COVID)
Past Surgical History: Cardiac (AICD) and Other (Left foot toe amputations)
Social History
Tobacco: Non-Smoker
Alcohol: None
Drug: None
Personal:
Living: [facility]
Family History
Family History: Reviewed & Not Pertinent
Allergies / Home Medications
Allergy/AdvReac Type Severity Reaction Status Date / Time
codeine Allergy Hives and Verified 03/14/24 12:15
'sick to
my stomach'
dofetilide [From Tikosyn] Allergy 'took all Verified 03/14/24 12:15
the K out
of my body
and I got
really
sick'
�Medication �Instructions �Recorded �Confirmed �Type
estradiol 0.01% (0.1 mg/gram) 1 applic vaginal MOWEFR@2200 10/15/16 03/14/24 History
vaginal cream (Estrace) Hormonal agent ##0
acetaminophen 325 mg tablet 650 mg PO Q8HPRN PRN elevated 07/03/17 03/14/24 History
temp>100
atorvastatin 20 mg tablet 20 mg PO HS High cholesterol 12/27/22 03/14/24 History
bisacodyl 10 mg rectal suppository 10 mg TX DAILY PRN if MOM 12/27/22 03/14/24 History
(Dulcolax (bisacodyl)) ineffective
duloxetine 20 mg capsule,delayed 20 mg PO DAILY Mental 12/27/22 03/14/24 History
release Health/Anxiety
insulin lispro 100 unit/mL 0 sliding scale dose SC MEALS 12/27/22 03/14/24 History
subcutaneous solution Diabetes
magnesium hydroxide 400 mg/5 mL 30 ml PO DAILY PRN if no BM x 3 12/27/22 03/14/24 History
oral suspension (Milk of Magnesia) days
sodium phosphates 19 gram-7 118 ml TX DAILY PRN if dulcolax 12/27/22 03/14/24 History
gram/118 mL enema (Fleet Enema) ineffective
potassium chloride 20 mEq 20 meq PO DAILY Electrolyte 08/19/23 03/14/24 History
tablet,extended release Repletion
mirtazapine 15 mg tablet (Remeron) 7.5 mg PO HS Mental Health/Anxiety 09/13/23 03/14/24 History
aspirin 81 mg tablet,delayed 81 mg PO DAILY Blood Clot 09/14/23 03/14/24 History
release Prevention/Tx
ferrous sulfate 325 mg (65 mg 325 mg PO DAILY Supplement #1 tab 10/10/23 03/14/24 Rx
iron) tablet
pantoprazole 40 mg tablet,delayed 40 mg PO BID Gastrointestinal 10/10/23 03/14/24 Rx
release issue #0 tabs
acetaminophen 325 mg tablet 650 mg PO TID Pain 03/14/24 03/14/24 History
(Tylenol)
azelastine 205.5 mcg (0.15 %) 2 spray intranasal BID Congestion 03/14/24 03/14/24 History
nasal spray
bumetanide 0.5 mg tablet 0.5 mg PO DAILY Fluid 03/14/24 03/14/24 History
retention/Swelling
empagliflozin 10 mg tablet 10 mg PO DAILY Heart Failure 03/14/24 03/14/24 History
(Jardiance)
insulin glargine 100 unit/mL (3 15 unit SC DAILY Diabetes 03/14/24 03/14/24 History
mL) subcutaneous pen (Lantus
Solostar U-100 Insulin)
metoprolol succinate 50 mg 25 mg PO DAILY Heart Failure 03/14/24 03/14/24 History
tablet,extended release 24 hr
oxycodone 5 mg tablet 5 mg PO Q8H PRN severe pain 03/14/24 03/14/24 History
peg [id number] 1 1 drp BOTH EYES QID Eye Condition 03/14/24 03/14/24 History
%-0.2 %-0.2 % eye drops
(Artificial Tears
([id number]))
Review of Systems
-
History Source: Patient
All other systems: Negative unless noted
Constitutional: Reports No Symptoms
EENT: Reports No Symptoms
Respiratory: Reports No Symptoms
Cardiac: Reports No Symptoms
Vascular: Denies Leg Pain / Claudication
Abdomen/GI: Reports No Symptoms
: Reports No Symptoms
Musculoskeletal: Reports Edema
Skin: Reports Other (Toe wounds)
Neurological: Reports No Symptoms
Endocrine: Reports No Symptoms
Physical Exam
Vital Signs
Temp Pulse Resp BP Pulse Ox
98.1 F 104 18 103/45 96
03/17/24 03:05 03/17/24 03:05 03/17/24 03:05 03/17/24 03:05 03/17/24 03:05
Physical Exam
General: No Apparent Distress
HEENT: Normocephalic and Atraumatic
Respiratory: Non Labored Respirations
Cardiac: Negative JVD
Breast: Deferred by me
GI: Soft and Non Tender
Musculoskeletal: No Clubbing, No Cyanosis and Edema
Skin: Other (See wound care notes)
Neuro: Awake, Alert and Oriented
Psych: Calm
Pulses: Bilateral Femoral: +2 and Right Popliteal: +1
Assessment / Plan
-
Plan/ I had extensive discussion with the patient regarding findings. Discussed that she has chronic limb threatening ischemia. Discussed my recommendations for arteriogram and revascularization. Discussed the procedure as well as anticipated
outcomes. Discussed potential scenarios/outcomes of arteriography to be: #1 successful revascularization with endovascular technique, #2 need for staged surgical bypass (with pursuant discussion to assess candidacy for such procedure if needed), #3
no unreconstructable distal obliterative disease. In that scenario (third scenario) persistent limb loss throughout exist. Discussed procedural risks including but not limited to bleeding, arterial injury/worsened or acute limb ischemia, renal
failure. She understands all these things and wishes to proceed. She asked me to call her son and/or daughter. I spoke to her son over the phone and explained the entirety as I discussed with her. He understands all and agrees to proceed as well.
Data Reviewed
-
Labs: Labs Reviewed by me
--- NOTE | 2024-03-16 12:50 | CON.ID ---
Consultation
-
Date/Time Consultation Requested: 03/14/23 18:26
Date/Time Consultation Performed: 03/16/24 12:52
Requesting Provider: Dr Taveras
Performing Provider: Dr Vela
Reason for Consultation: right 3rd toe diabetic wound infxn failed outpt
Chief Complaint / Past History
Chief Complaint
Right foot/toe pain/wound
History of Present Illness
Ms Alfredo is an 88 year old female with history of DM2 uncontrolled a1c 8.4, history of toe amputations L foot who presented here for right 3rd toe wound x5 weeks now with redness, tenderness. Pain in the foot worst at night and better with hanging
the leg off of the bed. No fevers or chills. She was treated with oral antibiotics as an outpatient however with progression. Providers have noted probe to bone from the wound. Previous surgeries were at [facility].
Reports some dysuria on arrival.
Since arrival here patient has been afebrile, bp stable, wbc 6.1 now 5.9, hgb 10.9, plt 171, no L shift, cr 0.8, a1c 8.4, t bili 0.6, ast 19, alt 10, alk phos 72, Xray foot: no acute osseous abnormalities noted, blood cultures x2 no growth at 24
hrs, UA contaminated with high number of squamous cells, urine culture with amairani albicans 10 K
Past History
Additional Past Medical History:
Arrthythmia (AFib), Cancer (basal cell, breast), CHF, HTN, NIDDM, Other (difficulty with balance, DM, neuropathy, pancreatitis chronic A. fib, status post pacer defibrillator, fibromyalgia, PMR, AVMs, colon polyps)
Additional Past Surgical History:
Cholecystectomy and Other (hysterectomy)
Allergy History:
codeine Allergy (Verified 03/14/24 12:15)
Hives and 'sick to my stomach'
dofetilide [From Tikosyn] Allergy (Verified 03/14/24 12:15)
'took all the K out of my body and I got really sick'
Medications Reviewed: Yes
Social History
Tobacco: Non-Smoker
Alcohol: None
Drug: None
Review of Systems
Review of Systems
General: Negative Fever or Chills
All systems: All other systems were reviewed and were negative
Vital Signs
Temp Pulse Resp BP Pulse Ox
98 F 96 18 137/77 99
03/16/24 07:12 03/16/24 07:12 03/16/24 07:12 03/16/24 07:12 03/16/24 07:12
Physical Exam
Physical Exam
Constitutional: No Acute Distress
Cardiovascular: Regular Rate and S1/S2; Negative Murmur or Rub
Pulmonary: Clear and Symmetric; Negative Wheezes, Rales or Rhonchi
Gastrointestinal: Soft, Non Tender, Non Distended and Normal Bowel Sounds
Skin: Warm and Dry; Negative Rash or Jaundice
Lab / Diagnostic Study Results
03/16/24 06:29
03/16/24 06:29
Abs Immat Gran (auto) 0.0 10^3/uL (0-0.05) 03/14/24 13:06
Absolute Neuts (auto) 4.0 10^3/uL (1.4-6.5) 03/14/24 13:06
Absolute Lymphs (auto) 1.3 10^3/uL (1.2-3.4) 03/14/24 13:06
Absolute Monos (auto) 0.5 10^3/uL (0.1-0.6) 03/14/24 13:06
Absolute Basos (auto) 0.0 10^3/uL (0-0.2) 03/14/24 13:06
Immature Gran % 0.2 % (0-0.5) 03/14/24 13:06
Neutrophils % 65.2 % (42.2-75.2) 03/14/24 13:06
Lymphocytes % 20.6 % (20.5-51.1) 03/14/24 13:06
Monocytes % 8.7 % (1.7-9.3) 03/14/24 13:06
Eosinophils % 4.8 % (0-6) 03/14/24 13:06
Basophils % 0.5 % (0-2) 03/14/24 13:06
Ur Squamous Epith Cells >30 /LPF (Few) 03/14/24 22:54
Microbiology Results
Micro:
03/14/24 22:54 Urine Culture - Final
Urine Amairani albicans
03/14/24 15:35 Blood Culture - Preliminary
Blood/Venous No Growth in 24 hours- Final report to follow
03/14/24 13:06 Blood Culture - Preliminary
Blood/Venous No Growth in 24 hours- Final report to follow
Assessment / Plan
Diabetic Foot infection
DM2 uncontrolled
Chronic Limb Threatening Ischemia
- blood cultures x2 in progress
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
- agree with amputation of the affected digit
- continue vancomcyin, mrsa nasal swab ordered
- continue zosyn for now
Urine culture with 10K yeast and >30 squamous cells on the UA
- not consistent with a UTI, yeast is contamination from skin jacque
[2024-03-16 15:00] VITALS: BP 113/68
[2024-03-16 16:45] LABS: Glucose - Point of Care 155 mg/dl (70-99)
[2024-03-16] MEDS: LOVENOX 40 MG SC (16:56)
[2024-03-16] MEDS: NOVOLOG FLEXPEN-MODERATE RESISTANCE 1 UNITS SC (16:57)
[2024-03-16 19:05] VITALS: BP 121/63
[2024-03-16] MEDS: LOPRESSOR 5 MG IV (20:08)
[2024-03-16 21:30] LABS: Glucose - Point of Care 258 mg/dl (70-99)
[2024-03-16] MEDS: REMERON 7.5 MG PO (21:30)
[2024-03-16] MEDS: LIPITOR 20 MG PO (21:31)
[2024-03-16] MEDS: LANTUS 0.15 UNITS SC (21:38)
[2024-03-16 23:05] VITALS: BP 105/53
--- NOTE | 2024-03-16 23:13 | PTCARENOTE ---
Patient`s HR sustaining in 120`s-140`s in afib at 1900. Nurse practitioner made aware. See MAR for new order. HR now in 90`s.
[2024-03-17] VITALS (22 sets, daily range): BP systolic 16–152; BP diastolic 45–93; BMI 20.3
[2024-03-17 03:35] LABS: Glucose - Point of Care 122 mg/dl (70-99)
[2024-03-17] MEDS: ZOSYN 50 IV ×4 (03:37→21:44)
[2024-03-17] MEDS: VANCOCIN 150 IV (06:01)
[2024-03-17 06:07] LABS: Glucose - Point of Care 105 mg/dl (70-99)
[2024-03-17] MEDS: NOVOLOG FLEXPEN-MODERATE RESISTANCE SC ×2 (06:09→13:16)
--- NOTE | 2024-03-17 07:38 | W.PN.HOSP.TC ---
Today's Communication/Plan
-
see bold
Assessment / Plan
Assessment / Plan
HPI: 87 female halfway resident history of bilateral breast masses paroxysmal A-fib (not on anticoagulation due to hx GI bleeds) HFpEF status post pacer defibrillator moderate tricuspid regurgitation hypertension diabetes hyperlipidemia, hx toe
amputations left foot, fibromyalgia BELKIS not on CPAP anxiety/depression, recent hospitalization at this facility Sep 2023 for anemia rectal bleeding and COVID, presents with right foot/3rd toe pain/wound and associate erythema. Patient reports 3rd
toe wound has been present and progressive for past 5 weeks, treated with oral abx outpatient without improvement. Patient also reports being wheelchair bound for the past years and chronic double vision for the last 6 months corrected with glasses.
#Right diabetic foot wound infection
#Right 3rd toe ulceration
Appreciate podiatry input, plan for right third toe amputation tomorrow
Consult cardiology for perioperative risk assessment since she has a history of paroxysmal atrial fibrillation, CHF status post AICD/pacer
Appreciate ID input, continue IV Vanc Zosyn, pain meds
#Chronic critical limb ischemia
#Peripheral artery disease
Appreciate vascular surgery input, s/p RLE arteriogram 03/17 showing no sign. iliac/fem/pop stenosis, occluded ARELIS s/p balloon
Follow-up on JC
Continue aspirin, statin
#Dysuria
Urine cultures with Amairani, 10,000 colony
Contaminated per ID
#Hx B/l Breast masses
Daughter Kirstin reports patient has followed up with [facility] at [facility] (since discharge from this facility Sep 2023) and it was determined the masses were not malignant
#pAfib
#HFpEF s/p AICD/pacer
not on anticoagulation d/t hx GIB
cont home metoprolol with holding parameters
currently sinus tachy d/t pain
cont home bumex with potassium supplementation
#Hx GIB
cont home protonix BID
#HTN
cont home metoprolol with holding parameters
#Diabetes
cont home lantus 15U
medium dose sliding scale
#HLD
cont home statin
#BELKIS not on CPAP
observe
#Anxiety/Depression
cont home Mirtazapine
DVT prophylaxis�subcu Lovenox
DNI as per patient
Total time spent to see the patient on the floor, examine the patient, review data and lab results, discuss treatment plan with patient, nursing staff around 52 minutes.
Physical Exam
General: No acute distress
HEENT: Normocephalic, Atraumatic, EOMI, MMM
Respiratory: Clear to Auscultation bilaterally
Cardiac: Normal S1/S2, Regular Rate and Rhythm
GI: Soft, Nontender, Nondistended, Normal Bowel Sounds
Extremities: No Clubbing, Cyanosis, or Edema
Left foot TMA
Right foot third necrotic toe
Neuro: Nonfocal/Grossly Intact
Psych: Calm, Cooperative
Derm: No Visible lesions
Anticipated Discharge: > 48 hours
Subjective/Interval History
-
Date of Service: March 17, 2024
Patient reports her right foot pain is tolerable. No fever, no vomiting.
Objective Data
-
Labs:
Laboratory Results
03/17/24
06:00
WBC Pending
Hgb Pending
Hct Pending
Plt Count Pending
Sodium Pending
Potassium Pending
Chloride Pending
Carbon Dioxide Pending
BUN Pending
Creatinine Pending
Glucose Pending
Calcium Pending
Vital Signs:
Vital Signs
Temp Pulse Resp BP Pulse Ox
98.1 F 104 18 103/45 96
03/17/24 03:05 03/17/24 03:05 03/17/24 03:05 03/17/24 03:05 03/17/24 03:05
I&O
03/16/24 03/17/24 03/18/24
06:59 06:59 06:59
Intake Total 470 / 470 1200 / 1200
Balance 470 / 470 1200 / 1200
--- NOTE | 2024-03-17 07:40 | W.SUR.PREOP ---
Pre-Operative Surgical Note
-
I have examined this patient prior to the performance of the scheduled procedure.
The patient's condition is unchanged from the time of the current History and
Physical and the patient is able to undergo the scheduled procedure.
--- NOTE | 2024-03-17 08:39 | W.SUR.POST ---
Surgical Immediate Post Op
Note
Pre Op Diagnosis: PAD
Post Op Diagnosis: Same
Procedure Performed: Right lower extremity arteriogram, balloon angioplasty and shockwave lithotripsy to the right anterior tibial artery
Primary Surgeon: Amrik
Anesthesia: Local and sedation
Estimated Blood Loss: < 5 cc
Fluids: See anesthesia flowsheet
Drains/Shunts: None
Specimens/Cultures: None
Doppler/Duplex/Angio (Y/N): Y
Complications: None
Operative Findings: Small vessel disease
[2024-03-17 08:54] LABS: Glucose - Point of Care 105 mg/dl (70-99)
[2024-03-17 09:52] LABS: Glucose - Point of Care 116 mg/dl (70-99)
[2024-03-17] MEDS: NSS 1000 IV (10:23)
--- NOTE | 2024-03-17 10:31 | OR.RPT ---
Operative Report
Operative Report
PROCEDURE DATE: 03/17/2024
Preoperative diagnosis: Chronic limb threatening ischemia right lower extremity with third toe ulcer/gangrene/exposed bone.
Postoperative diagnosis: Same
Procedure:
1. Duplex assisted left common femoral artery cannulation.
2. Aortogram and pelvic angiogram.
3. Right lower extremity arteriogram with third order vessel catheterization of right dorsalis pedis artery via left common femoral artery puncture.
4. Balloon angioplasty of right distal anterior tibial artery occlusion with 2 mm standard angioplasty balloon, 2.5 mm shockwave intravascular lithotripsy balloon, 2.5 mm standard angioplasty balloon.
5. Left femoral angiogram.
6. Supervision and interpretation.
Surgeon: Amrik
Coding Team Lead: None
Complications: None
Anesthesia: Local, sedation
Fluoroscopy:
18.9 min
30 mGy
8.50 Gy.cm2
Indications for procedure:
Right third toe gangrene/exposed bone. Nonpalpable pulses. Concern for PAD. Risk/benefit/alternatives of angiography were discussed. Patient understood all wish to proceed.
Description of procedure:
Patient was identified, brought to the operating room. Placed on the table in the supine position. After the adequate administration of anesthesia, the patient was prepped and draped in the standard surgical fashion. A standard preoperative
timeout was undertaken and everybody was in agreement with the plan.
The left common femoral artery was accessed with a micropuncture kit under direct duplex ultrasound guidance. A 5 Libyan sheath was then advanced over a 0.035 inch wire, and a gaitan's hook catheter was advanced into the abdominal aorta.
Aortogram and pelvic angiogram was obtained. Findings as follows:
Infrarenal aorta: Eccentric calcified plaque but no significant stenosis in the infrarenal aorta and bilateral common and external iliac arteries. Generalized slow flow noted throughout all vessels.
Using a floppy angled hydrophilic wire, the right common femoral artery was cannulated and the catheter was advanced. Right lower extremity arteriogram was obtained. Findings as follows:
Common femoral artery: Patent with no significant stenosis.
Profunda femoris artery: Patent with eccentric plaque but no significant stenosis.
Superficial femoral artery: Patent with eccentric plaque but no significant stenosis. The right superficial femoral artery was cannulated now and catheter advanced for the remainder of the lower extremity angiogram.
Popliteal artery: Patent with no significant stenosis.
Anterior tibial artery: Patent proximally with very slow filling and then occluded at the ankle for approximately 3 to 4 cm. Reconstituted flow seen in the dorsalis pedis from peroneal collaterals. Relatively small diseased dorsalis pedis artery
but could not see flow beyond the proximal to mid foot but could be from underfilling.
Tibial peroneal trunk: Patent with no significant stenosis.
Peroneal artery: Patent with no severe stenosis. However diminutive throughout its course and minimal collateralization's with 1 small collateral seen at the level of the ankle.
Posterior tibial artery: Patent with no significant stenosis. Relatively smaller stature throughout. At the level of the ankle became very small and gave rise to one of the plantar branches on the foot. Very diseased distal posterior tibial and
plantar (calcified plaque and small stature), but no treatable focal stenosis.
Relatively weak filling to the level of the toes. Mainly from the posterior tibial artery side from the plantar. However there is a little filling from collaterals from the DP.
At this point I exchanged for a Storq wire in the SFA and then an up and over 5 Libyan 70 cm sheath. The patient was given 4000 intervention is heparin. Next under roadmap assisted guidance I was able to cannulate the anterior tibial artery
(slightly difficult due to the angulation at the origin but I ended up using a 4 Libyan glide catheter to get the ankle right). Once I cannulated this, I used a 0.014 inch steerable verónica wire. With some difficulty was finally able to traverse
the area of occlusion and gain wire access into the dorsalis pedis artery. I then used a 2 mm angioplasty balloon to predilate the occlusion area. Angiogram demonstrated now reasonable flow through here but again noted very poor flow beyond the
proximal to mid foot in the DP. There was a small shelf of plaque in the proximal angioplasty site/occlusion site likely with a residual dissection here. At this point I felt that this artery therefore would be better treated with a shockwave
lithotripsy (intravascular lithotripsy) angioplasty balloon. I therefore then used a 2.5 mm x 40 mm shockwave balloon and inflated to 4 era and delivered 1 set of lithotripsy. I then inflated the balloon to 6 era and then deflated it. I pulled
negative on the balloon. However I was unable to advance the balloon more distally at all. I tried multiple times, I brennon further negative. Unable to advance it. I therefore then walked this balloon off and use a standard 2.5 mm balloon which I
was able to get through without any difficulty. I then performed balloon angioplasty with that balloon of that segment of the distal anterior tibial artery. Completion angiogram now demonstrated excellent result. No residual stenosis seen in the
prior occluded segment. However as noted earlier the DP barely filled beyond the proximal to mid foot. Very weak collaterals noted. Not much more I could render here at this point. Essentially obliterative small vessel disease. Therefore at
this point I withdrew my sheath to the left distal external iliac artery. Left femoral angiogram demonstrated good puncture in the left common femoral artery. At this point the catheters and wires were withdrawn. The sheath was withdrawn and
manual pressure was applied. Hemostasis was fully achieved. The patient tolerated the procedure well.
--- NOTE | 2024-03-17 10:59 | CM ---
Patient out of room to OR. CM reviewed chart and spoke with Francoise from [facility] [place]; update provided patient is a LTC patient and will return to SNF when medically appropriate. CM will need to sent updated clinical notes to [facility] when closer to discharge. CM
will continue to follow for discharge planning needs.
Plan; return to SNF; [facility] watch for possible IV antibioitic needs.
--- NOTE | 2024-03-17 11:03 | PHA.VAN.FU ---
Vancomycin Assessment / Plan
- Assessment
Renal Function: Stable
WBC's are: WNL
In the past 24 hrs, patient has been: Afebrile
Concomitant Antimicrobials: Piperacillin/Tazobactam
- Dosing Plan
Continue: 750mg Q24H
Patient was unavailable for peak level to be collected. Rescheduled Peak and Trough
- Monitoring Plan
Peak Level: 03/18 @ 08:30
Trough Level: 03/19 @ 05:30
- Follow Up
Pharmacy will continue to follow.
Vancomycin Follow UP
- -
Patient Age: 88
Patient Sex: Female
Vancomycin Day #: 3
Indication: Skin And Soft Tissue
Requesting Provider: Nitin
Height / Weight:
Height 5 ft 5 in
Actual Weight 55.423 kg
IBW in k
Adjusted BW in kg: NA
Pertinent Past Medical History: Failed outpt abx for right 3rd toe wound (unknown abx)
- Vital Signs / Lab Results
Temp Pulse Resp BP Pulse Ox
98.4 F 81 16 114/69 99
03/17/24 10:40 03/17/24 10:40 03/17/24 10:40 03/17/24 10:40 03/17/24 10:40
Lab Results - Hematology
03/14/24 03/15/24 03/16/24
13:06 06:40 06:29
WBC 6.1 6.9 5.9
Lab Results - Chemistry
03/14/24 03/15/24 03/16/24
13:06 06:40 06:29
BUN 20 H 17 19 H
Creatinine 0.7 0.7 0.8
Estimated Creat Clear 46 41
Albumin 3.6 3.0 L
Microbiology Results
03/16/24 15:25 Nasal Screen MRSA (PCR) - Final
Nose Staph aureus MRSA
03/14/24 15:35 Blood Culture - Preliminary
Blood/Venous No Growth in 48 hours- Final report to follow
03/14/24 13:06 Blood Culture - Preliminary
Blood/Venous No Growth in 48 hours- Final report to follow
03/14/24 22:54 Urine Culture - Final
Urine Amairani albicans
Therapeutic Drug Monitoring
Vancomycin Peak Cancelled 03/17/24 08:30
[2024-03-17 11:49] LABS: Glucose - Point of Care 137 mg/dl (70-99)
[2024-03-17] MEDS: JARDIANCE 10 MG PO (13:08)
[2024-03-17] MEDS: REFRESH EYE DROPS (PF) 1 DROPS BOTH EYES ×3 (13:08→21:52)
[2024-03-17] MEDS: MIRALAX 17 GRAMS PO (13:08)
[2024-03-17] MEDS: PROTONIX 40 MG PO ×2 (13:09→20:02)
[2024-03-17] MEDS: FEOSOL 325 MG PO (13:10)
[2024-03-17] MEDS: BUMEX 0.5 MG PO (13:10)
[2024-03-17] MEDS: ASPIR LOW (ENTERIC COATED) 81 MG PO (13:10)
[2024-03-17] MEDS: CYMBALTA DELAYED RELEASE 20 MG PO (13:11)
[2024-03-17] MEDS: TOPROL XL 25 MG PO (13:11)
[2024-03-17] MEDS: KCL 20 MEQ PO (13:11)
[2024-03-17] MEDS: REFRESH EYE DROPS (PF) BOTH EYES (13:11)
[2024-03-17] MEDS: TYLENOL PO (13:13)
[2024-03-17] MEDS: ROXICODONE 5 MG PO (13:29)
--- NOTE | 2024-03-17 15:07 | W.PN.UPDATE ---
Update Note
Progress Note Update
Called to see patient at bedside for new left foot tingling/coolness status post left groin puncture for angiogram.
At bedside patient is comfortable, denies pain, admits to tingling in the left foot. Patient has foot drop at baseline and not much function to test. Foot is cool to touch. Easily palpable +2 femoral and popliteal pulses. Doppler PT signal.
Left puncture site clean dry intact, soft, no drainage
Right foot warm with palpable DP pulse
Patient on her way downstairs to ultrasound for JC/TBI, I added left lower extremity duplex as well. Discussed with Dr. Rowley. Will continue to monitor.
--- NOTE | 2024-03-17 15:19 | W.PN.POD ---
Today's Communication
Today's Communication
For Rt 3rd toe amputation tomorrow afternoon
Assessment / Plan
-
Rt foot cellutlis with gangrenous changes to Rt 3rd toe
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
Digital deformities
Diabetic small vessel disease
Plan : Cont IV abx per ID.
Patient had Rt lower leg angiogram with balloon angioplasty to Rt AT, does show poor flow to the forefoot as per vascular surgery,
D/W Dr. Rowley , high risk of non healing after toe amputation.
Rt 3rd toe amputation needed due to exposed bone and gangrenous changes tot the toe
D/W patient's Son Vasile Kaur over he phone explained the possible risk of non healing and gangrenous changes with infection of the toe and leading to amputation, he understands and will d/w his mother as well, but he agrees to proceed with
amputation, no guarantees given to save the limb or life.
Patient will sign the consent after d/w her son.
Will schedule or toe amputation tomorrow afternoon.medical clearance by hsop service
Podiatry will follow
Subjective
Chief Complaint
rt foot cellultis and rt 3rd toe osteomyelitis .
Subjective
Patient seen at bedside, doing well, c/o painful Rt 3rd toe , improved redness to the Rt forefoot , no fever, chills. PT had angiogram this morning
Objective
Temp Pulse Resp BP Pulse Ox
98.0 F 97 18 133/79 100
03/17/24 13:30 03/17/24 13:30 03/17/24 13:30 03/17/24 13:30 03/17/24 13:30
03/17/24 06:00
Vital Signs and Lab results were reviewed.
Rt foot palpable Dp and diminished PT pedal pulses
Rt 3rd toe medial aspect / interdigital ulceration at PIPJ with exposed bone, has purplish discoloration to the toe , some purulence, improving erythema to forefoot, no foul odor noted. All other toes are with no open ulcerations . Presence of
multiple digital deformities noted, crowded toes
--- NOTE | 2024-03-17 16:14 | W.PN.ID1 ---
Date of Service
Date of Service: March 17, 2024
Today's Communication
- agree with amputation of the affected digit - planned for tomorrow afternoon
- continue vancomcyin; colonized with MRSA
- continue zosyn for now
- likely transition to oral antibiotics post operatively
Assessment / Plan
Diabetic Foot infection
DM2 uncontrolled
Chronic Limb Threatening Ischemia
- blood cultures x2 in progress
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
- agree with amputation of the affected digit - planned for tomorrow afternoon
- continue vancomcyin; colonized with MRSA
- continue zosyn for now
- likely transition to oral antibiotics post operatively
Urine culture with 10K yeast and >30 squamous cells on the UA
- not consistent with a UTI, yeast is contamination from skin jacque
Chief Complaint
-: Other (diabetic foot infection)
Subjective / Review of Systems
remains afebrile
bp stable
nasal screen positive for mrsa
note plans for Rt 3rd toe amputation tomorrow afternoon
s/p angiogram
toe with darkened skin around the wound, no longer red, it is quite cool
Vital Signs / Physical Exam
Vital Signs
Vital Signs
Temp Pulse Resp BP Pulse Ox
96.2 F L 104 18 152/93 100
03/17/24 14:30 03/17/24 14:30 03/17/24 14:30 03/17/24 14:30 03/17/24 14:30
Physical Exam
Constitutional: No Acute Distress
Cardiovascular: Regular Rate and S1/S2; Negative Murmur or Rub
Pulmonary: Clear and Symmetric; Negative Wheezes or Rales
Gastrointestinal: Soft, Non Tender, Non Distended and Normal Bowel Sounds
Skin: Warm and Dry; Negative Rash or Jaundice
Wound: Other (no erythema, warmth; toe is cool and with necrotic tissue around the wound)
Objective Data
Lab Data
Lab Results
03/17/24 06:00
Estimated Creat Clear 41 ml/min 03/16/24 06:29
Total Bilirubin 0.6 mg/dl (0.2-1.3) 03/16/24 06:29
AST 19 U/L (14-36) 03/16/24 06:29
ALT < 10 U/L (0-35) 03/16/24 06:29
Alkaline Phosphatase 72 U/L (38-126) 03/16/24 06:29
Most recent labs reviewed.
Micro Results:
03/14/24 15:35 Blood Culture - Preliminary
Blood/Venous No Growth in 72 hours- Final report to follow
03/14/24 13:06 Blood Culture - Preliminary
Blood/Venous No Growth in 72 hours- Final report to follow
03/16/24 15:25 Nasal Screen MRSA (PCR) - Final
Nose Staph aureus MRSA
03/14/24 22:54 Urine Culture - Final
Urine Amairani albicans
[2024-03-17] MEDS: TYLENOL 1000 MG PO ×2 (16:31→21:44)
[2024-03-17] MEDS: MORPHINE SULFATE 2 MG IV (16:32)
[2024-03-17 16:42] LABS: Glucose - Point of Care 321 mg/dl (70-99)
--- NOTE | 2024-03-17 16:49 | CON.CAR ---
Addendum entered and electronically signed by Elly Proctor MD 03/17/24 19:21:
I saw and examined the patient.
The BULB WEEDER's note was reviewed and I agree with the note.
Comment: a 88-year-old female (known to her primary lye boiler, Dr. Garcia at [facility]), with paroxysmal atrial fibrillation (no oral anticoagulation due to prior GI bleeding), ICD, HFpEF(recovered EF),mild to mod MR, Pulmonary hypertnesion
dyslipidemia, NIDDM, tricuspid regurgitation, PAD, and BELKIS who we are asked to see in preop risk stratification prior to 3 toe amputaton on ther right foot. OVerall, she is without complaint. She has no cp or sob. She is in the wheelchair typically
and can ambulate about 200ft with a walker. She is rrr, no m/r/g, lungs are CTA. 3 toe is red with areas of necrosis. ECG shows accelerate junction with poor jaramillo progression, compare to the prior junciton has replaced afib. She has an elevated
but not prohibitive risk to proceeding to ampuation tomorrow. She is not in any chf. She has no cp. She has not had issues with anesthesia in the past.
She has stable chronic cardiac disease. Will follow up post procedure.
Original Note:
Consultation
Consultation Request
Date/Time Consultation Requested: 03/17/2024 16:00
Date/Time Consultation Performed: 03/17/2024 16:15
Requesting Provider: Dr. Adair
Performing Provider: RONAL Hernandez for Dr. Proctor
Reason for Consultation: Pre-op risk assessment
Medical History
-
Chief Complaint: Rigth 3rd toe pain
History of Present Illness:
Jessi Alfredo is a 88-year-old female (known to her primary lye boiler, Dr. Garcia at [facility]), with paroxysmal atrial fibrillation (no oral anticoagulation due to prior GI bleeding), ICD, HFpEF, dyslipidemia, NIDDM, tricuspid regurgitation, PAD,
and BELKIS who presented to the emergency department with pain in her right third toe. She had an associated wound. She had tried outpatient antibiotics and the wound did not appear any better. She believes the wound started more than 1 month ago.
The pain in her foot was worse at night and would improve with hanging it over the side of the bed. Today, she had a right lower extremity arteriogram with Dr. Rowley. Recommendation for amputation was made. Podiatry is planning for this tomorrow
pending the outcome of cardiac risk assessment.
Past Medical History
Past Medical History: Arrhythmias (paroxysmal atrial fibrillation), CHF, Hypercholesterolemia, NIDDM, Valvular Disease (Tricuspid regurgitation) and Other (PAD, BELKIS, GIB)
Social History
Tobacco: Non-Smoker
Alcohol: None
Drug: None
Personal:
Living: Alf
Employment: Retired
Family History
Family History: Reviewed & Not Pertinent
Allergies / Home Medications
Allergy/AdvReac Type Severity Reaction Status Date / Time
codeine Allergy Hives and Verified 03/14/24 12:15
'sick to
my stomach'
dofetilide [From Tikosyn] Allergy 'took all Verified 03/14/24 12:15
the K out
of my body
and I got
really
sick'
�Medication �Instructions �Recorded �Confirmed �Type
estradiol 0.01% (0.1 mg/gram) 1 applic vaginal MOWEFR@2200 10/15/16 03/14/24 History
vaginal cream (Estrace) Hormonal agent ##0
acetaminophen 325 mg tablet 650 mg PO Q8HPRN PRN elevated 07/03/17 03/14/24 History
temp>100
atorvastatin 20 mg tablet 20 mg PO HS High cholesterol 12/27/22 03/14/24 History
bisacodyl 10 mg rectal suppository 10 mg MO DAILY PRN if MOM 12/27/22 03/14/24 History
(Dulcolax (bisacodyl)) ineffective
duloxetine 20 mg capsule,delayed 20 mg PO DAILY Mental 12/27/22 03/14/24 History
release Health/Anxiety
insulin lispro 100 unit/mL 0 sliding scale dose SC MEALS 12/27/22 03/14/24 History
subcutaneous solution Diabetes
magnesium hydroxide 400 mg/5 mL 30 ml PO DAILY PRN if no BM x 3 12/27/22 03/14/24 History
oral suspension (Milk of Magnesia) days
sodium phosphates 19 gram-7 118 ml MO DAILY PRN if dulcolax 12/27/22 03/14/24 History
gram/118 mL enema (Fleet Enema) ineffective
potassium chloride 20 mEq 20 meq PO DAILY Electrolyte 08/19/23 03/14/24 History
tablet,extended release Repletion
mirtazapine 15 mg tablet (Remeron) 7.5 mg PO HS Mental Health/Anxiety 09/13/23 03/14/24 History
aspirin 81 mg tablet,delayed 81 mg PO DAILY Blood Clot 09/14/23 03/14/24 History
release Prevention/Tx
ferrous sulfate 325 mg (65 mg 325 mg PO DAILY Supplement #1 tab 10/10/23 03/14/24 Rx
iron) tablet
pantoprazole 40 mg tablet,delayed 40 mg PO BID Gastrointestinal 10/10/23 03/14/24 Rx
release issue #0 tabs
acetaminophen 325 mg tablet 650 mg PO TID Pain 03/14/24 03/14/24 History
(Tylenol)
azelastine 205.5 mcg (0.15 %) 2 spray intranasal BID Congestion 03/14/24 03/14/24 History
nasal spray
bumetanide 0.5 mg tablet 0.5 mg PO DAILY Fluid 03/14/24 03/14/24 History
retention/Swelling
empagliflozin 10 mg tablet 10 mg PO DAILY Heart Failure 03/14/24 03/14/24 History
(Jardiance)
insulin glargine 100 unit/mL (3 15 unit SC DAILY Diabetes 03/14/24 03/14/24 History
mL) subcutaneous pen (Lantus
Solostar U-100 Insulin)
metoprolol succinate 50 mg 25 mg PO DAILY Heart Failure 03/14/24 03/14/24 History
tablet,extended release 24 hr
oxycodone 5 mg tablet 5 mg PO Q8H PRN severe pain 03/14/24 03/14/24 History
peg [id number] 1 1 drp BOTH EYES QID Eye Condition 03/14/24 03/14/24 History
%-0.2 %-0.2 % eye drops
(Artificial Tears
([id number]))
Review of Systems
-
History Source: Patient
All other systems: Negative unless noted
Constitutional: No Symptoms
EENT: No Symptoms
Respiratory: No Symptoms
Cardiac: No Symptoms
Abdomen/GI: No Symptoms
: No Symptoms
Musculoskeletal: Joint Pain (right 3rd toe)
Skin: No Symptoms
Neurological: No Symptoms
Endocrine: No Symptoms
Hematologic/Lymphatic: No Symptoms
Physical Exam
Vital Signs
Temp Pulse Resp BP Pulse Ox
96.2 F L 104 18 152/93 100
03/17/24 14:30 03/17/24 14:30 03/17/24 14:30 03/17/24 14:30 03/17/24 14:30
Lab Results
03/17/24 06:00
Physical Exam
General: Well Developed, No Apparent Distress and Comfortable
HEENT: Normocephalic, Anicteric and Moist Mucous Membranes
Respiratory: Clear and Non Labored Respirations
Cardiac: S1/S2 and Regular Rhythm
Breast: Deferred by me
GI: Soft, Non Tender, Non Distended and Normal Bowel Sounds
Rectal: Deferred by Provider
Genito-urinary: No Costovertebral Tender
Musculoskeletal: No Clubbing, No Cyanosis and No Edema
Skin: Warm and Dry
Neuro: AO x 3
Hematologic/Lymphatic: No Lymphadenopathy
Psych: Calm
Impression / Plan
-
Cardiac risk assessment - right third toe amputation
-Denies chest pain & anginal symptoms
-She is wheelchair bound
-Pre-op EKG ordered
Right diabetic foot wound with third toe ulceration, amputation per podiatry tomorrow
Paroxysmal atrial fibrillation
-Currently in sinus
-No oral anticoagulation due to prior GI bleed
HFpEF, chronic
-She does not appear to be in acute/decompensated heart failure
-Continue current medical therapy
ICD, appears Biotronik, followed by [facility]
NIDDM, per primary
Tricuspid regurgitation, moderate, maintain euvolemia
PAD, vascular surgery following
Data Reviewed
-
Radiology: Report Reviewed by me (Right foot XR: No acute osseous abnormalities.)
Medical Tests (Nuc Med, Echo etc): Report Reviewed by me (Prior TTE)
Labs: Labs Reviewed by me
Old Records: Requested
[2024-03-17 17:19] LABS: Blood Urea Nitrogen 23 mg/dl (7-17); Calcium 8.3 mg/dl (8.4-10.2); Carbon Dioxide 24 mmol/L (22-30); Chloride 100 mmol/L (98-107); Estimated Creatinine Clearance 43 ml/min; Glucose 311 mg/dl (70-99); Magnesium 1.7 mg/dl (1.6-2.3); Potassium 4.4 mmol/L (3.5-5.1); Sodium 133 mmol/L (135-145); eGFR > 60.00
[2024-03-17] MEDS: LOVENOX 40 MG SC (18:02)
[2024-03-17] MEDS: NOVOLOG FLEXPEN-MODERATE RESISTANCE 7 UNITS SC (18:02)
[2024-03-17 20:49] LABS: Glucose - Point of Care 358 mg/dl (70-99)
[2024-03-17] MEDS: REMERON 7.5 MG PO (21:44)
[2024-03-17] MEDS: LIPITOR 20 MG PO (21:44)
[2024-03-17] MEDS: ESTRACE 0.01% VAGINAL CREAM 1 APPLIC VAG (21:45)
[2024-03-17] MEDS: LANTUS 0.15 UNITS SC (21:45)
[2024-03-18] VITALS (14 sets, daily range): BP systolic 99–146; BP diastolic 61–89; BMI 20.3
[2024-03-18 00:12] LABS: Glucose - Point of Care 295 mg/dl (70-99)
[2024-03-18] MEDS: NOVOLOG FLEXPEN-MODERATE RESISTANCE 5 UNITS SC (00:55)
[2024-03-18] MEDS: ZOSYN 50 IV ×4 (04:35→22:09)
[2024-03-18] MEDS: VANCOCIN 150 IV (05:16)
--- NOTE | 2024-03-18 06:14 | W.PN.HOSP.TC ---
Today's Communication/Plan
-
NPO for right 3rd toe amputation with podiatry
at elevated risk surgical complication but risk is not prohibitive
pain control
glycemic control
cont abx
Assessment / Plan
Assessment / Plan
HPI: 87 female assisted resident history of bilateral breast masses paroxysmal A-fib (not on anticoagulation due to hx GI bleeds) HFpEF status post pacer defibrillator moderate tricuspid regurgitation hypertension diabetes hyperlipidemia, hx toe
amputations left foot, fibromyalgia BELKIS not on CPAP anxiety/depression, recent hospitalization at this facility Sep 2023 for anemia rectal bleeding and COVID, presents with right foot/3rd toe pain/wound and associate erythema. Patient reports 3rd
toe wound has been present and progressive for past 5 weeks, treated with oral abx outpatient without improvement. Patient also reports being wheelchair bound for the past years and chronic double vision for the last 6 months corrected with glasses.
#Right diabetic foot wound infection
#Right 3rd toe ulceration
Appreciate podiatry input, plan for right third toe amputation today 03/18
Cardiology eval appreciated pt at elevated risk but risk is not prohibitive to surgery
Appreciate ID input, continue IV Vanc Zosyn, pain meds
#Chronic critical limb ischemia
#Peripheral artery disease
JC results appreciated
Appreciate vascular surgery input, s/p RLE arteriogram 03/17 showing no sign. iliac/fem/pop stenosis, occluded ARELIS s/p balloon
Continue aspirin, statin
#Dysuria
Urine cultures with Amairani, 10,000 colony
Contaminated per ID
#Hx B/l Breast masses
Daughter Kirstin reports patient has followed up with [facility] at [place] (since discharge from this facility Sep 2023) and it was determined the masses were not malignant
Patient however is noted to have multiple bumps throughout her body including inner right thigh and forehead
#pAfib
#HFpEF s/p AICD/pacer
not on anticoagulation d/t hx GIB
cont home metoprolol with holding parameters
currently sinus tachy d/t pain
cont home bumex with potassium supplementation
#Hx GIB
cont home protonix BID
#HTN
cont home metoprolol with holding parameters
#Diabetes
cont home lantus 15U
medium dose sliding scale
#HLD
cont home statin
#BELKIS not on CPAP
observe
#Anxiety/Depression
cont home Mirtazapine
DVT prophylaxis�subcu Lovenox
DNI as per patient
Total time spent to see the patient on the floor, examine the patient, review data and lab results, discuss treatment plan with patient, nursing staff around 52 minutes.
Physical Exam
General: No acute distress
HEENT: Normocephalic, Atraumatic, EOMI, MMM
Respiratory: Clear to Auscultation bilaterally
Cardiac: Normal S1/S2, Regular Rate and Rhythm
GI: Soft, Nontender, Nondistended, Normal Bowel Sounds
Extremities: No Clubbing, Cyanosis, or Edema, swelling inner right thigh noted tender to palpation
Left foot TMA
Right foot third necrotic toe
Neuro: Lethargic but arousable conversant coherent
Psych: Calm, Cooperative
Derm: palpable bump noted on patient's forehead and inner right thigh
Anticipated Discharge: 24 - 48 hours
Subjective/Interval History
-
Date of Service: March 18, 2024
No acute distress resting comfortably in bed. pain controlled with current pain regimen. Lethargic but arousable conversant coherent.
Objective Data
-
Labs:
Laboratory Results
03/18/24
06:00
WBC Pending
Hgb Pending
Hct Pending
Plt Count Pending
Sodium Pending
Potassium Pending
Chloride Pending
Carbon Dioxide Pending
BUN Pending
Creatinine Pending
Glucose Pending
Calcium Pending
Vital Signs:
Vital Signs
Temp Pulse Resp BP Pulse Ox
98.0 F 105 20 99/61 95
03/18/24 03:15 03/18/24 03:15 03/18/24 03:15 03/18/24 03:15 03/18/24 03:15
I&O
03/16/24 03/17/24 03/18/24
06:59 06:59 06:59
Intake Total 470 / 470 1200 / 1200 1540 / 1540
Balance 470 / 470 1200 / 1200 1540 / 1540
[2024-03-18 06:48] LABS: Glucose - Point of Care 224 mg/dl (70-99)
[2024-03-18] MEDS: NOVOLOG FLEXPEN-MODERATE RESISTANCE 3 UNITS SC ×2 (07:11→12:02)
[2024-03-18 08:23] LABS: Hematocrit 32.8 % (37.0-47.0); Hemoglobin 10.3 g/dL (12.0-16.0); Mean Corp Hgb Conc. 31.4 g/dL (33.0-37.0); Mean Corpuscular Volume 92.4 fL (81.0-99.0); Mean Platelet Volume 9.7 fL (7.4-10.4); Platelet Count 171 10^3/uL (130-400); Red Blood Cell Count 3.55 10^6/uL (4.20-5.40); Red Cell Dist. Width 16.6 % (11.5-14.5); White Blood Cell Count 6.6 10^3/uL (4.8-10.8)
[2024-03-18] MEDS: BUMEX 0.5 MG PO (08:39)
[2024-03-18] MEDS: CYMBALTA DELAYED RELEASE 20 MG PO (08:39)
[2024-03-18] MEDS: ASPIR LOW (ENTERIC COATED) 81 MG PO (08:39)
[2024-03-18] MEDS: REFRESH EYE DROPS (PF) 1 DROPS BOTH EYES ×2 (08:40→12:05)
[2024-03-18] MEDS: FEOSOL 325 MG PO (08:40)
[2024-03-18] MEDS: JARDIANCE 10 MG PO (08:40)
[2024-03-18] MEDS: PROTONIX 40 MG PO (08:40)
[2024-03-18] MEDS: KCL 20 MEQ PO (08:40)
[2024-03-18] MEDS: TOPROL XL 25 MG PO (08:40)
[2024-03-18] MEDS: TYLENOL 1000 MG PO ×2 (08:40→15:34)
[2024-03-18] MEDS: MIRALAX 17 GRAMS PO (08:40)
[2024-03-18 08:44] LABS: Vancomycin Peak 20.5 ug/ml (18-26)
[2024-03-18 08:50] LABS: Blood Urea Nitrogen 27 mg/dl (7-17); Calcium 8.6 mg/dl (8.4-10.2); Carbon Dioxide 27 mmol/L (22-30); Chloride 100 mmol/L (98-107); Estimated Creatinine Clearance 38 ml/min; Glucose 211 mg/dl (70-99); Magnesium 1.8 mg/dl (1.6-2.3); Potassium 4.4 mmol/L (3.5-5.1); Sodium 135 mmol/L (135-145); eGFR > 60.00
--- NOTE | 2024-03-18 09:01 | PHA.VAN.FU ---
Vancomycin Assessment / Plan
- Assessment
Renal Function: Stable
WBC's are: WNL
Concomitant Antimicrobials: piperacillin/tazobactam
- Dosing Plan
Continue: Vanc 750mg Q24H
- Monitoring Plan
Peak Level: peak = 20.5 - will assess with trough in AM
Trough Level: 03/19 05:30
Monitoring Comments: levels drawn after 3rd maintenance dose
- Follow Up
Pharmacy will continue to follow.
Vancomycin Follow UP
- -
Patient Age: 88
Patient Sex: Female
Vancomycin Day #: 4
Indication: Skin And Soft Tissue
Requesting Provider: Nitin
Pertinent Antimicrobial Allergies:
no pertinent antibiotic allergies
Height / Weight:
Height 5 ft 5 in
Actual Weight 55.338 kg
IBW in k
Adjusted BW in kg: NA
Pertinent Past Medical History: DM 2
- Vital Signs / Lab Results
Temp Pulse Resp BP Pulse Ox
97.7 F 89 16 116/74 95
03/18/24 08:46 03/18/24 08:46 03/18/24 08:46 03/18/24 08:46 03/18/24 08:46
Lab Results - Hematology
03/16/24 03/17/24 03/18/24
06: 06:00 08:11
WBC 5.9 Cancelled 6.6
Lab Results - Chemistry
03/16/24 03/17/24 03/18/24
06:29 16:41 08:11
BUN 19 H 23 H 27 H
Creatinine 0.8 0.8 0.9
Estimated Creat Clear 41 43 38
Albumin 3.0 L
Microbiology Results
03/14/24 15:35 Blood Culture - Preliminary
Blood/Venous No Growth in 72 hours- Final report to follow
03/14/24 13:06 Blood Culture - Preliminary
Blood/Venous No Growth in 72 hours- Final report to follow
03/16/24 15:25 Nasal Screen MRSA (PCR) - Final
Nose Staph aureus MRSA
03/14/24 22:54 Urine Culture - Final
Urine Amairani albicans
Therapeutic Drug Monitoring
Vancomycin Peak 20.5 ug/ml (18-26) 03/18/24 08:11
--- NOTE | 2024-03-18 09:08 | W.PN.VS ---
Today's Communication / Plan
-
See below.
Assessment/Plan
-
Assessment: 88-year-old female POD #1 Right lower extremity arteriogram and Balloon angioplasty of right distal anterior tibial artery occlusion with 2 mm standard angioplasty balloon, 2.5 mm shockwave intravascular lithotripsy balloon, 2.5 mm
standard angioplasty balloon
Plan:
Can remove left groin Tegaderm dressing later this afternoon and can keep open to air
Patient can follow-up in our office as scheduled, appointment left in discharge instructions
Prior to discharge will obtain venous ultrasound to evaluate for possibility of endovascular limflow procedure (if patient continues to have difficulty healing at right foot), will continue workup for this procedure in the outpatient setting
We will sign off please call with questions or concerns
Subjective Data
-
Date of Service: March 18, 2024
Patient seen and examined at bedside, denies left groin pain at puncture site but does endorse continued pain at the right third digit wound. Denies nausea, vomiting, fever, and chills. Denies changes to left foot.
Objective Data
-
Vital Signs
Temp Pulse Resp BP Pulse Ox
97.7 F 89 16 116/74 95
03/18/24 08:46 03/18/24 08:46 03/18/24 08:46 03/18/24 08:46 03/18/24 08:46
Intake and Output
03/17/24 03/18/24 03/19/24
06:59 06:59 06:59
Intake Total 1200 / 1200 2019
Balance 1200 / 1200 2019
Intake:
Oral fluids 1200 / 1200 1919 / 1919
IV piggybacks 100 / 100
Other:
Number of approximated MODERATE 5
amounts of urine
How many times incontinent 3 2
MODERATE amount urine
How many times incontinent 3
SATURATED amount urine
Lab Results
03/18/24 08:11
03/18/24 08:11
Calcium 8.6 mg/dl (8.4-10.2) 03/18/24 08:11
Magnesium 1.8 mg/dl (1.6-2.3) 03/18/24 08:11
Total Bilirubin 0.6 mg/dl (0.2-1.3) 03/16/24 06:29
Direct Bilirubin 0.3 mg/dl (0.0-0.4) 03/16/24:
AST 19 U/L (14-36) 03/16/24:
ALT < 10 U/L (0-35) 03/16/24:
Alkaline Phosphatase 72 U/L (38-126) 03/16/24 06:29
Total Protein 5.3 g/dl (6.3-8.2) L 03/16/24 06:29
Albumin 3.0 g/dl (3.5-5.0) L 03/16/24 06:29
Physical Exam
-
No apparent distress, resting bed comfortably
Irregular rhythm, no tachycardia
No dyspnea on room air
ABD flat, nontender, nondistended
Left groin site CDI, surrounding areas soft, no evidence of hematoma
Doppler right foot DP and PT signal, left foot with dopplerable PT signal, bilateral feet warm
--- NOTE | 2024-03-18 09:56 | PTCARENOTE ---
pt aaox3. states no pain or sob. room air. breath sounds clear. right 3rd toe black.
--- NOTE | 2024-03-18 10:17 | W.PN.ID1 ---
Date of Service
Date of Service: March 18, 2024
Today's Communication
- continue vancomcyin; colonized with MRSA
- continue zosyn for now
- likely transition to oral antibiotics post operatively
Assessment / Plan
Diabetic Foot infection
DM2 uncontrolled
Chronic Limb Threatening Ischemia
- blood cultures x2 in progress
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
- agree with amputation of the affected digit - planned for tomorrow afternoon
- continue vancomcyin; colonized with MRSA
- continue zosyn for now
- likely transition to oral antibiotics post operatively
Urine culture with 10K yeast and >30 squamous cells on the UA
- not consistent with a UTI, yeast is contamination from skin jacque
Chief Complaint
-: Other (diabetic foot infection)
Subjective / Review of Systems
afebrile
bp stable
without leukocytosis
cr stable
amputation pending
Vital Signs / Physical Exam
Vital Signs
Vital Signs
Temp Pulse Resp BP Pulse Ox
97.7 F 89 16 116/74 95
03/18/24 07:05 03/18/24 07:05 03/18/24 07:05 03/18/24 08:40 03/18/24 07:05
Physical Exam
Constitutional: No Acute Distress
Cardiovascular: Regular Rate and S1/S2; Negative Murmur or Rub
Pulmonary: Clear and Symmetric; Negative Wheezes or Rales
Gastrointestinal: Soft, Non Tender, Non Distended and Normal Bowel Sounds
Musculoskeletal: Other (necrotic tissue of the right 3rd toe stable without surrounding cellulitis at this tis)
Skin: Warm and Dry; Negative Rash or Jaundice
Objective Data
Lab Data
Lab Results
03/18/24 08:11
03/18/24 08:11
Estimated Creat Clear 38 ml/min 03/18/24 08:11
Total Bilirubin 0.6 mg/dl (0.2-1.3) 03/16/24 06:29
AST 19 U/L (14-36) 03/16/24 06:29
ALT < 10 U/L (0-35) 03/16/24 06:29
Alkaline Phosphatase 72 U/L (38-126) 03/16/24 06:29
Most recent labs reviewed.
Micro Results:
03/14/24 15:35 Blood Culture - Preliminary
Blood/Venous No Growth in 72 hours- Final report to follow
03/14/24 13:06 Blood Culture - Preliminary
Blood/Venous No Growth in 72 hours- Final report to follow
03/16/24 15:25 Nasal Screen MRSA (PCR) - Final
Nose Staph aureus MRSA
03/14/24 22:54 Urine Culture - Final
Urine Amairani albicans
[2024-03-18] MEDS: ROXICODONE 5 MG PO (10:45)
[2024-03-18 11:50] LABS: Glucose - Point of Care 208 mg/dl (70-99)
--- NOTE | 2024-03-18 17:34 | PTCARENOTE ---
pt taken to or.
[2024-03-18 17:40] LABS: Glucose - Point of Care 150 mg/dl (70-99)
--- NOTE | 2024-03-18 18:50 | W.SUR.POST ---
Surgical Immediate Post Op
Note
Pre Op Diagnosis: Rt 3rd toe acute osteomyelitis and gangrene
Post Op Diagnosis: Same as above
Procedure Performed: Right 3rd toe amputation with primary closure
Primary Surgeon: Velma Goddard
Secondary Surgeons: None
Anesthesia: MAC with local block
Estimated Blood Loss: 2cc's
Fluids: None
Drains/Shunts: None
Specimens/Cultures: Aerobic and anaerobic
Doppler/Duplex/Angio (Y/N): N
Complications: None
Operative Findings: No deep tissue purulence noted, scanat blood flow to the surgical wound margins
[2024-03-18 18:54] LABS: Glucose - Point of Care 130 mg/dl (70-99)
--- NOTE | 2024-03-18 19:30 | PTCARENOTE ---
Pt returned to [facility] from OR. Pt is AAOx3, VS stable. Pt resting comfortably in bed, denies pain at this time. Will continue to monitor.
[2024-03-18] MEDS: LOVENOX 40 MG SC (21:05)
[2024-03-18] MEDS: PROTONIX PO ×2 (21:05→21:08)
[2024-03-18] MEDS: REFRESH EYE DROPS (PF) BOTH EYES ×2 (21:08→22:16)
[2024-03-18] MEDS: NOVOLOG FLEXPEN-MODERATE RESISTANCE SC (21:12)
[2024-03-18 21:27] LABS: Glucose - Point of Care 120 mg/dl (70-99)
[2024-03-18] MEDS: LANTUS 0.15 UNITS SC (22:09)
[2024-03-18] MEDS: REMERON PO (22:16)
[2024-03-18] MEDS: LIPITOR PO (22:16)
[2024-03-18] MEDS: TYLENOL PO (22:17)
[2024-03-19 03:21] VITALS: BP 146/94
[2024-03-19] MEDS: ZOSYN 50 IV ×2 (04:06→09:00)
[2024-03-19 05:28] LABS: Hematocrit 31.9 % (37.0-47.0); Hemoglobin 10.2 g/dL (12.0-16.0); Mean Corpuscular Hgb 29.1 pg (27.0-31.0); Mean Corpuscular Volume 90.9 fL (81.0-99.0); Platelet Count 178 10^3/uL (130-400); Red Blood Cell Count 3.51 10^6/uL (4.20-5.40); Red Cell Dist. Width 17.1 % (11.5-14.5); White Blood Cell Count 7.4 10^3/uL (4.8-10.8)
[2024-03-19 05:49] LABS: Vancomycin Trough 14.3 ug/ml (5-20)
[2024-03-19] MEDS: VANCOCIN 150 IV (05:56)
[2024-03-19 05:59] LABS: ALT (SGPT) < 10 U/L (0-35); AST (SGOT) 22 U/L (14-36); Albumin 3.1 g/dl (3.5-5.0); Alkaline Phosphatase 56 U/L (38-126); Blood Urea Nitrogen 29 mg/dl (7-17); Calcium 8.4 mg/dl (8.4-10.2); Carbon Dioxide 28 mmol/L (22-30); Chloride 103 mmol/L (98-107); Estimated Creatinine Clearance 42 ml/min; Glucose 45 mg/dl (70-99); Magnesium 1.9 mg/dl (1.6-2.3); Phosphorus 3.4 mg/dl (2.5-4.5); Potassium 3.5 mmol/L (3.5-5.1); Sodium 138 mmol/L (135-145); Total Bilirubin 0.5 mg/dl (0.2-1.3); Total Protein 5.6 g/dl (6.3-8.2); eGFR > 60.00
[2024-03-19 06:00] VITALS: BMI 20.6
[2024-03-19 06:04] LABS: Glucose - Point of Care 50 mg/dl (70-99)
[2024-03-19 06:25] LABS: Glucose - Point of Care 69 mg/dl (70-99)
[2024-03-19 07:00] VITALS: BP 116/78
[2024-03-19 07:01] LABS: Glucose - Point of Care 121 mg/dl (70-99)
--- NOTE | 2024-03-19 07:26 | W.PN.HOSP.TC ---
Addendum entered and electronically signed by Chino Taveras MD 03/20/24 08:02:
Chronic HFpEF
Original Note:
Today's Communication/Plan
-
pain control
glycemic control
wound care as per Podiatry
Monitor of Abx
increased beta daniel as per Cardio
Assessment / Plan
Assessment / Plan
HPI: 87 [facility] resident history of bilateral breast masses paroxysmal A-fib (not on anticoagulation due to hx GI bleeds) HFpEF status post pacer defibrillator moderate tricuspid regurgitation hypertension diabetes hyperlipidemia, hx toe
amputations left foot, fibromyalgia BELKIS not on CPAP anxiety/depression, recent hospitalization at this facility Sep 2023 for anemia rectal bleeding and COVID, presents with right foot/3rd toe pain/wound and associate erythema. Patient reports 3rd
toe wound has been present and progressive for past 5 weeks, treated with oral abx outpatient without improvement. Patient also reports being wheelchair bound for the past years and chronic double vision for the last 6 months corrected with glasses.
#Right diabetic foot wound infection
#Right 3rd toe ulceration
Appreciate podiatry input, right third toe amputation e 03/18
-Patient to use wheel chair for 2 wks, to help heal her amputation site well.
-follow up post op care next SundayMarch 26
Appreciate ID input, empiric IV Vanc Zosyn discontinued following amputation
pain control
#Chronic critical limb ischemia
#Peripheral artery disease
JC results appreciated
Appreciate vascular surgery input, s/p RLE arteriogram 03/17 showing no sign. iliac/fem/pop stenosis, occluded ARELIS s/p balloon
Continue aspirin, statin
#shooting pain suspect neuropathic
low dose gabapentin 100 mg tid started
#Dysuria
Urine cultures with Amairani, 10,000 colony
Contaminated per ID
#Hx B/l Breast masses
Daughter Kirstin reports patient has followed up with [facility] at [place] (since discharge from this facility Sep 2023) and it was determined the masses were not malignant
Patient however is noted to have multiple bumps throughout her body including inner right thigh and forehead. Reports lumps have been present for years. Also reports lumps were previously worked up but unclear as to results of the work up. Will
defer further work up/evaluation/consultations to primary care provider at this time.
#pAfib
#HFpEF s/p AICD/pacer
not on anticoagulation d/t hx GIB
cont home metoprolol with holding parameters, increased from 25 mg to 50 mg daily as per Cardio
cont home bumex with potassium supplementation
#Hx GIB
cont home protonix BID
#HTN
cont home metoprolol with holding parameters
#Diabetes
cont home lantus 15U
medium dose sliding scale
Regular diet as per patient's request
#HLD
cont home statin
#BELKIS not on CPAP
observe
#Anxiety/Depression
cont home Mirtazapine
DVT prophylaxis�subcu Lovenox
DNI as per patient
Total time spent to see the patient on the floor, examine the patient, review data and lab results, discuss treatment plan with patient, nursing staff around 52 minutes.
Physical Exam
General: No acute distress
HEENT: Normocephalic, Atraumatic, EOMI, MMM
Respiratory: Clear to Auscultation bilaterally
Cardiac: Normal S1/S2, Regular Rate and Rhythm
GI: Soft, Nontender, Nondistended, Normal Bowel Sounds
Extremities: No Clubbing, Cyanosis, or Edema, swelling inner right thigh noted tender to palpation
Left foot TMA
Right foot third necrotic toe
Neuro: Lethargic but arousable conversant coherent
Psych: Calm, Cooperative
Derm: palpable bump noted on patient's forehead and inner right thigh
Anticipated Discharge: Within 24 hours
Subjective/Interval History
-
Date of Service: March 19, 2024
requesting regular diet, refusing to eat as result for dietary restrictions. Diet subsequently switched to regular as per patient's wishes. Patient also reports pain somewhat well controlled. Notes shooting pain suspect neuropathic.
Objective Data
-
Labs:
Laboratory Results
03/19/24
05:18
WBC 7.4
Hgb 10.2 L
Hct 31.9 L
Plt Count 178
Sodium 138
Potassium 3.5
Chloride 103
Carbon Dioxide 28
BUN 29 H
Creatinine 0.8
Glucose 45 L*
Calcium 8.4
Total Bilirubin 0.5
AST 22
ALT < 10
Alkaline Phosphatase 56
Vital Signs:
Vital Signs
Temp Pulse Resp BP Pulse Ox
98.7 F 78 20 146/94 98
03/19/24 03:21 03/19/24 03:21 03/19/24 03:21 03/19/24 03:21 03/19/24 03:21
I&O
03/18/24 03/19/24 03/20/24
06:59 06:59 06:59
Intake Total 2019 1110 / 1110
Balance 2019 1110 / 1110
[2024-03-19 07:30] LABS: Glucose - Point of Care 105 mg/dl (70-99)
[2024-03-19] MEDS: NOVOLOG FLEXPEN-MODERATE RESISTANCE SC ×3 (08:25→17:41)
[2024-03-19] MEDS: REFRESH EYE DROPS (PF) 1 DROPS BOTH EYES ×4 (08:32→21:28)
[2024-03-19] MEDS: KCL 20 MEQ PO (08:33)
[2024-03-19] MEDS: TYLENOL 1000 MG PO ×3 (08:33→21:27)
[2024-03-19] MEDS: TOPROL XL 25 MG PO ×2 (08:33→13:05)
[2024-03-19] MEDS: PROTONIX 40 MG PO ×2 (08:33→21:27)
[2024-03-19] MEDS: CYMBALTA DELAYED RELEASE 20 MG PO (08:33)
[2024-03-19] MEDS: FEOSOL 325 MG PO (08:33)
[2024-03-19] MEDS: ASPIR LOW (ENTERIC COATED) 81 MG PO (08:34)
[2024-03-19] MEDS: BUMEX 0.5 MG PO (08:34)
[2024-03-19] MEDS: JARDIANCE 10 MG PO (08:34)
[2024-03-19] MEDS: MIRALAX 17 GRAMS PO (08:34)
--- NOTE | 2024-03-19 09:04 | PHA.VAN.FU ---
Vancomycin Assessment / Plan
- Assessment
Renal Function: Stable (BUN slowly increasing 17-->19-->23-->27-->29)
WBC's are: WNL
In the past 24 hrs, patient has been: Afebrile
Concomitant Antimicrobials: piperacillin/tazobactam
- Assessment - Therapeutic Drug Monitoring
Extrapolated Cmax (mcg/mL): 21.2
Peak level was drawn: Appropriately (drawn ~1.9H after end of previous infusion)
Extrapolated Cmin (mcg/mL): 14.3
Trough Drawn: Appropriately
Levels were drawn: At steady state (levels drawn after 3rd maintenance dose)
Calculated AUC (mcg*h/mL): 421
Calculated ke: 0.0171
Calculated half life (H): 40.6
Calculated Vd (L): 105 (~1.9 L/kg)
Calculated Vanc CL (ml/min): 29.7
- Dosing Plan
Adjust Regimen to: dosing by level given prolonged half-life - expect additional accumulation
Dosing Comments: vanc clearance may be decreased post vascular procedures
Received 750mg dose this AM at 05:56
- Monitoring Plan
Random Level: 03/20 0600 to follow trend
- Follow Up
Pharmacy will continue to follow.
Vancomycin Follow UP
- -
Patient Age: 88
Patient Sex: Female
Vancomycin Day #: 5
Indication: Skin And Soft Tissue
Requesting Provider: Dr. Taveras / Mir[facility]
Pertinent Antimicrobial Allergies:
no pertinent antibiotic allergies
Height / Weight:
Height 5 ft 5 in
Actual Weight 56.019 kg
IBW in k
Pertinent Past Medical History: DM 2
- Vital Signs / Lab Results
Temp Pulse Resp BP Pulse Ox
97.6 F 102 14 116/78 97
03/19/24 07:00 03/19/24 07:00 03/19/24 07:00 03/19/24 07:00 03/19/24 07:00
Lab Results - Hematology
03/17/24 03/18/24 03/19/24
06:00 08:11 05:18
WBC Cancelled 6.6 7.4
Lab Results - Chemistry
03/17/24 03/18/24 03/19/24
16:41 08:11 05:18
BUN 23 H 27 H 29 H
Creatinine 0.8 0.9 0.8
Estimated Creat Clear 43 38 42
Albumin 3.1 L
Microbiology Results
03/18/24 18:18 Gram Stain - Preliminary
Toe
03/14/24 15:35 Blood Culture - Preliminary
Blood/Venous No Growth in 4 days- Final report to follow
03/14/24 13:06 Blood Culture - Preliminary
Blood/Venous No Growth in 4 days- Final report to follow
03/16/24 15:25 Nasal Screen MRSA (PCR) - Final
Nose Staph aureus MRSA
Therapeutic Drug Monitoring
Vancomycin Peak 20.5 ug/ml (18-26) 03/18/24 08:11
Vancomycin Trough 14.3 ug/ml (5-20) 03/19/24 05:18
[2024-03-19 09:08] LABS: Glucose - Point of Care 95 mg/dl (70-99)
--- NOTE | 2024-03-19 10:26 | PN.CDI ---
CDI
- -
CDI:
Physician Documentation Request
Admit Date: 03/14/24 18:04
Dear Doctor Nitin,
Patient admitted for critical limb ischemia.
03/18 Hospitalist PN: 'HFpEF s/p AICD/pacer, not on anticoagulation d/t hx GIB, cont home metoprolol with holding parameters'
Clarify which of the following accurately represents the acuity of the heart failure. Possible options might include:
Chronic
Acute
Other
Use of terms such as suspected, likely, concern for, or probable (associated with a specific diagnosis that is being evaluated, monitored, or treated as if it exists) are acceptable and can be coded in the inpatient setting, when documented at the
time of discharge.
Thank you,
Holli Smith RN, BSN
CDI Specialist
Available via [facility] text
Please use your independent medical judgment in providing your response.
[2024-03-19 11:17] VITALS: BP 126/86
--- NOTE | 2024-03-19 11:36 | W.PN.CD ---
Addendum entered and electronically signed by Gary Raygoza MD 03/19/24 17:19:
I saw and examined the patient.
The [employer] SPECIALIST's note was reviewed and I agree with the note.
Comment: BB and monitor tele
Original Note:
Today's Communication / Plan
-
increase BB and monitor tele and BP
Impression / Plan
-
88-year-old female (known to her primary stratigraphy teacher, Dr. Garcia at [facility]), with paroxysmal atrial fibrillation (no oral anticoagulation due to prior GI bleeding), ICD, HFpEF(recovered EF),mild to mod MR, Pulmonary hypertension, dyslipidemia,
NIDDM, tricuspid regurgitation, PAD, and BELKIS who is now s/p right 3rd toe amputation.
Right 3rd toe osteo and gangrene s/p right third toe amputation 03/18/24:
-post-op management per podiatry
-seems to be recovering well overall
Paroxysmal atrial fibrillation
-currently in AFIB, rates mildly elevated. No symptoms- denies CP, SOB, palpitations. Looks good overall. Earlier this admit said to have accelerated junctional rhythm, as well as sinus. Will increase BB and follow.
-No oral anticoagulation due to prior GI bleed
HFpEF, chronic
-stable
-does not appear volume overloaded
-follow volume
ICD, appears Biotronik, followed by [facility]
NIDDM, per primary
Tricuspid regurgitation, moderate, maintain euvolemia
PAD, vascular surgery following
Physical Exam
Vital Signs/Labs
Vital Signs
Temp Pulse Resp BP Pulse Ox
97.9 F 110 14 126/86 97
03/19/24 11:17 03/19/24 11:17 03/19/24 11:17 03/19/24 11:17 03/19/24 11:19
03/18/24 03/19/24 03/20/24
06:59 06:59 06:59
Actual Weight 55.338 kg 56.019 kg
03/19/24 05:18
03/19/24 05:18
Magnesium 1.9 mg/dl (1.6-2.3) 03/19/24 05:18
Physical Exam
Constitutional: No acute distress
EENT: Anicteric
Cardiovascular: Rhythm/rate is irregular
Respiratory: Respiratory effort normal and Lungs clear to auscul.
Neuro/Psych: AO x 3
Other: Skin (right leg dressing CDI)
Data Reviewed
-
Date of Service: March 19, 2024
EKG: Other (Tele AFIB RVR 110's)
Labs: Labs Reviewed by me
--- NOTE | 2024-03-19 11:41 | W.PN.POD ---
Today's Communication
Today's Communication
Patient stable from podiatry
Assessment / Plan
-
S/P Rt 3rd toe amputation with primary closure POD #1
Rt foot cellutlis - resolved
Digital deformities
Diabetic small vessel disease
Plan : abx per ID.
Changed surgical dressings, Applied adaptic, dry gauze, kerlix, once daily.
Patient to use wheel chair for 2 wks, to help heal her amputation site well.
Patient stable per podiatry to d/c
Patient will follow up in my office for all post op care next SundayMarch 26
Subjective
Chief Complaint
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
Subjective
Patient seen at bedside, doing well, no new complaints, resolved Rt foot pain. No fever, chills, Minimal strike through bleeding in Rt foot surgical dressings , denies any Rt calf pain, no numbness or tingling of the foot
Objective
Temp Pulse Resp BP Pulse Ox
97.9 F 110 14 126/86 97
03/19/24 11:17 03/19/24 11:17 03/19/24 11:17 03/19/24 11:17 03/19/24 11:19
03/19/24 05:18
03/19/24 05:18
Vital Signs and Lab results were reviewed.
Rt foot intact ct vascular status, rt foot palpable DP , no edema
Rt 3rd tote amputation site clean, dry, no bleeding, surgical margins appear pink, no necrosis, well coapted wound margins, intact sutures, Resolved erythema to Rt forefoot. no drainage,
[2024-03-19 11:47] LABS: Glucose - Point of Care 52 mg/dl (70-99)
[2024-03-19] MEDS: ROXICODONE 5 MG PO ×2 (11:52→19:52)
[2024-03-19 12:06] LABS: Glucose - Point of Care 51 mg/dl (70-99)
[2024-03-19 12:24] LABS: Glucose - Point of Care 79 mg/dl (70-99)
--- NOTE | 2024-03-19 14:43 | W.PN.ID1 ---
Date of Service
Date of Service: March 19, 2024
Today's Communication
- s/p amputation of the affected digit - infected tissue has been resected and patient closed primarirly
- stop antibiotics
- follow up with podiatry
Assessment / Plan
Diabetic Foot infection s/p amputation
DM2 uncontrolled
Chronic Limb Threatening Ischemia
- blood cultures x2 NGTD
- s/p amputation of the affected digit - infected tissue has been resected and patient closed primarirly
- stop antibiotics
- follow up with podiatry
Chief Complaint
-: Other (diabetic foot infection)
Subjective / Review of Systems
afebrile
bp stable
without leukocytosis
cr stable
s/p amputation of infected tissue with primary closure
Vital Signs / Physical Exam
Vital Signs
Vital Signs
Temp Pulse Resp BP Pulse Ox
97.9 F 110 14 126/86 97
03/19/24 11:17 03/19/24 11:17 03/19/24 11:17 03/19/24 11:17 03/19/24 14:03
Physical Exam
Constitutional: No Acute Distress
Cardiovascular: Regular Rate
Pulmonary: Symmetric and Non Labored
Gastrointestinal: Non Tender and Non Distended
Skin: Warm and Dry; Negative Rash or Jaundice
Wound: Other (dressing clean, dry, intact, deferred take down)
Objective Data
Lab Data
Lab Results
03/19/24 05:18
03/19/24 05:18
Estimated Creat Clear 42 ml/min 03/19/24 05:18
Total Bilirubin 0.5 mg/dl (0.2-1.3) 03/19/24 05:18
AST 22 U/L (14-36) 03/19/24 05:18
ALT < 10 U/L (0-35) 03/19/24 05:18
Alkaline Phosphatase 56 U/L (38-126) 03/19/24 05:18
Most recent labs reviewed.
Micro Results:
03/18/24 18:18 Wound Culture - Preliminary
Toe Staphylococcus aureus
Gram Stain - Preliminary
03/18/24 18:18 Anaerobic Culture - Preliminary
Toe Culture pending. Anaerobic cultures are examined after 3
days incubation. Additional information to follow.
03/14/24 13:06 Blood Culture - Final
Blood/Venous No Growth - Final Report
03/14/24 15:35 Blood Culture - Preliminary
Blood/Venous No Growth in 4 days- Final report to follow
03/16/24 15:25 Nasal Screen MRSA (PCR) - Final
Nose Staph aureus MRSA
03/14/24 22:54 Urine Culture - Final
Urine Amairani albicans
--- NOTE | 2024-03-19 14:49 | PTCARENOTE ---
Q2H x2 accuchecks per protocol after hypoglycemia on previous shift. Morning accucheck resulted 105. Pt refused breakfast due to dietary restriction. Stated she wouldn't eat unless you was able to order exactly what she wanted. Importance of dietary
restriction in setting of diabetic ulcer stressed to patient. Pt states she wanted to go back to sleep. Lunchtime accucheck completed, resulting 52. OJ administered with follow up accucheck resulting 51. Additional OJ administration with accucheck
79. Lunch ordered for patient and patient ate.
[2024-03-19 14:52] LABS: Glucose - Point of Care 118 mg/dl (70-99)
[2024-03-19 15:00] VITALS: BP 116/73
--- NOTE | 2024-03-19 15:24 | CM ---
CM reviewed chart- ADC 1-2 days
POD#1 toe amp
Pt LTC resident from [facility]
Updated clinicals sent via [facility] to [facility]F
Discharge Disposition- return [facility] for LTC
phone [phone]/fax [phone]
[2024-03-19 16:19] LABS: Glucose - Point of Care 122 mg/dl (70-99)
[2024-03-19] MEDS: MORPHINE SULFATE 2 MG IV ×2 (17:43→21:35)
[2024-03-19] MEDS: LOVENOX 40 MG SC (17:43)
[2024-03-19] MEDS: NEURONTIN 100 MG PO ×2 (17:44→21:26)
--- NOTE | 2024-03-19 18:27 | PTCARENOTE ---
Pt now with HRs 130s - 150s in A Fib. BP 127/60. Denying palpitations. Dr. Grossman notified. New order for Metoprolol Succinate 50mg PO X1.
[2024-03-19 19:20] VITALS: BP 100/61
[2024-03-19 21:09] LABS: Glucose - Point of Care 149 mg/dl (70-99)
[2024-03-19] MEDS: LIPITOR 20 MG PO (21:26)
[2024-03-19] MEDS: REMERON 7.5 MG PO (21:26)
[2024-03-19] MEDS: TOPROL XL 50 MG PO (21:29)
[2024-03-19] MEDS: LANTUS 0.15 UNITS SC (21:30)
[2024-03-19] MEDS: ESTRACE 0.01% VAGINAL CREAM 1 APPLIC VAG (22:36)
[2024-03-19 23:25] VITALS: BP 109/76
[2024-03-20 02:49] LABS: Glucose - Point of Care 57 mg/dl (70-99)
[2024-03-20 03:19] LABS: Glucose - Point of Care 45 mg/dl (70-99)
[2024-03-20 03:25] VITALS: BP 148/101
[2024-03-20 03:39] LABS: Glucose - Point of Care 62 mg/dl (70-99)
[2024-03-20 04:00] LABS: Glucose - Point of Care 69 mg/dl (70-99)
[2024-03-20 04:39] LABS: Glucose - Point of Care 71 mg/dl (70-99)
--- NOTE | 2024-03-20 04:59 | PTCARENOTE ---
Patient 3 am BG was 57, per protocol, given juice and rechecked 15 minutes later with result of 45. After 45 result, rechecked 15 minutes later with result of 62, contacted Provider with no new order other than to keep repeating juice and rechecking
in 15 minutes. Next recheck after juice was 69. Patient given another juice and rechecked 15 minutes later at 71. Next check in 2 hours. Patient asymptomatic entire time.
[2024-03-20 05:18] VITALS: BMI 20.6
--- NOTE | 2024-03-20 06:20 | PTCARENOTE ---
Patient heart rate fluctuated throughout shift from 80s-140s but never sustaining higher than 109. Patient denies palpitations or chest discomfort. call out clerk AMBULANCE DRIVER made aware with no new orders at this time.
[2024-03-20 06:41] LABS: Glucose - Point of Care 105 mg/dl (70-99)
[2024-03-20] MEDS: MORPHINE SULFATE 2 MG IV ×4 (06:43→23:25)
[2024-03-20 07:00] VITALS: BP 106/77
--- NOTE | 2024-03-20 07:19 | W.PN.HOSP.TC ---
Today's Communication/Plan
-
pain control
cont low dose gabapentin
start Tizanidine 2mg TID w/ holding parameters
abx as per ID
glycemic control
rate control as per Cardio
Assessment / Plan
Assessment / Plan
HPI: 87 female halfway resident history of bilateral breast masses paroxysmal A-fib (not on anticoagulation due to hx GI bleeds) HFpEF status post pacer defibrillator moderate tricuspid regurgitation hypertension diabetes hyperlipidemia, hx toe
amputations left foot, fibromyalgia BELKIS not on CPAP anxiety/depression, recent hospitalization at this facility Sep 2023 for anemia rectal bleeding and COVID, presents with right foot/3rd toe pain/wound and associate erythema. Patient reports 3rd
toe wound has been present and progressive for past 5 weeks, treated with oral abx outpatient without improvement. Patient also reports being wheelchair bound for the past years and chronic double vision for the last 6 months corrected with glasses.
#Right diabetic foot wound infection
#Right 3rd toe ulceration
Appreciate podiatry input, right third toe amputation Tue 03/18
-Patient to use wheel chair for 2 wks, to help heal her amputation site well.
-follow up post op care next SundayMarch 26
Appreciate ID input, empiric IV Vanc Zosyn discontinued following amputation, wound cx pos for MRSA however, started on oral doxycycline
pain control
#Chronic critical limb ischemia
#Peripheral artery disease
JC results appreciated
Appreciate vascular surgery input, s/p RLE arteriogram 03/17 showing no sign. iliac/fem/pop stenosis, occluded ARELIS s/p balloon
Continue aspirin, statin
#shooting pain suspect neuropathic, spasticity noted
low dose gabapentin 100 mg tid started, cont
tizanidine added TID with holding parameters if sedated
#Dysuria
Urine cultures with Amairani, 10,000 colony
Contaminated per ID
#Hx B/l Breast masses
Daughter Kirstin reports patient has followed up with [facility] at [place] (since discharge from this facility Sep 2023) and it was determined the masses were not malignant
Patient however is noted to have multiple bumps throughout her body including inner right thigh and forehead. Reports lumps have been present for years. Also reports lumps were previously worked up but unclear as to results of the work up. Will
defer further work up/evaluation/consultations to primary care provider at this time.
#pAfib
#Chronic HFpEF s/p AICD/pacer
not on anticoagulation d/t hx GIB
cont home metoprolol with holding parameters, gradually increased from 25 mg daily to 50 mg BID as per Cardio
cont home bumex with potassium supplementation
#Hx GIB
cont home protonix BID
#HTN
cont home metoprolol with holding parameters
#Diabetes
cont home lantus 15U
medium dose sliding scale
Regular diet as per patient's request
#HLD
cont home statin
#BELKIS not on CPAP
observe
#Anxiety/Depression
cont home Mirtazapine
DVT prophylaxis�subcu Lovenox
DNI as per patient
Total time spent to see the patient on the floor, examine the patient, review data and lab results, discuss treatment plan with patient, nursing staff around 52 minutes.
Physical Exam
General: No acute distress
HEENT: Normocephalic, Atraumatic, EOMI, MMM
Respiratory: Clear to Auscultation bilaterally
Cardiac: Normal S1/S2, Regular Rate and Rhythm
GI: Soft, Nontender, Nondistended, Normal Bowel Sounds
Extremities: No Clubbing, Cyanosis, or Edema, swelling inner right thigh noted tender to palpation
Left foot TMA
Right foot third necrotic toe
Neuro: Lethargic but arousable conversant coherent
Psych: Calm, Cooperative
Derm: palpable bump noted on patient's forehead and inner right thigh
Anticipated Discharge: 24 - 48 hours
Subjective/Interval History
-
Date of Service: March 20, 2024
Continues to report shooting pain/spasticity. HR notably elevated possibly d/t pain vs uncontrolled afib
Objective Data
-
Labs:
Laboratory Results
03/20/24
06:00
WBC Pending
Hgb Pending
Hct Pending
Plt Count Pending
Sodium Pending
Potassium Pending
Chloride Pending
Carbon Dioxide Pending
BUN Pending
Creatinine Pending
Glucose Pending
Calcium Pending
Vital Signs:
Vital Signs
Temp Pulse Resp BP Pulse Ox
97.8 F 111 20 148/101 97
03/20/24 03:25 03/20/24 03:25 03/20/24 03:25 03/20/24 03:25 03/20/24 03:25
I&O
03/19/24 03/20/24 03/21/24
06:59 06:59 06:59
Intake Total 1999 1590 / 1590 960 / 960
Balance 1999 1590 / 1590 960 / 960
[2024-03-20] MEDS: TYLENOL 1000 MG PO ×3 (07:37→21:21)
[2024-03-20] MEDS: NEURONTIN 100 MG PO ×3 (07:38→21:21)
[2024-03-20] MEDS: CYMBALTA DELAYED RELEASE 20 MG PO (07:38)
[2024-03-20] MEDS: TOPROL XL 50 MG PO ×2 (07:39→19:13)
[2024-03-20] MEDS: ASPIR LOW (ENTERIC COATED) 81 MG PO (07:40)
[2024-03-20] MEDS: PROTONIX 40 MG PO ×2 (07:40→19:10)
[2024-03-20] MEDS: KCL 20 MEQ PO (07:40)
[2024-03-20] MEDS: ROXICODONE 5 MG PO (07:40)
[2024-03-20] MEDS: REFRESH EYE DROPS (PF) 1 DROPS BOTH EYES ×4 (07:41→21:24)
[2024-03-20] MEDS: FEOSOL 325 MG PO (07:41)
[2024-03-20] MEDS: BUMEX 0.5 MG PO (07:41)
[2024-03-20] MEDS: MIRALAX PO (07:50)
[2024-03-20 07:53] LABS: Hematocrit 31.7 % (37.0-47.0); Hemoglobin 10.4 g/dL (12.0-16.0); Mean Corp Hgb Conc. 32.8 g/dL (33.0-37.0); Mean Corpuscular Hgb 29.4 pg (27.0-31.0); Mean Corpuscular Volume 89.5 fL (81.0-99.0); Mean Platelet Volume 10.3 fL (7.4-10.4); Platelet Count 175 10^3/uL (130-400); Red Blood Cell Count 3.54 10^6/uL (4.20-5.40); Red Cell Dist. Width 17.3 % (11.5-14.5); White Blood Cell Count 6.9 10^3/uL (4.8-10.8)
[2024-03-20 08:35] LABS: Glucose - Point of Care 108 mg/dl (70-99)
[2024-03-20 08:52] LABS: Blood Urea Nitrogen 27 mg/dl (7-17); Calcium 8.6 mg/dl (8.4-10.2); Carbon Dioxide 26 mmol/L (22-30); Chloride 103 mmol/L (98-107); Estimated Creatinine Clearance 38 ml/min; Glucose 90 mg/dl (70-99); Magnesium 1.9 mg/dl (1.6-2.3); Phosphorus 3.8 mg/dl (2.5-4.5); Potassium 4.6 mmol/L (3.5-5.1); Sodium 137 mmol/L (135-145); eGFR > 60.00
[2024-03-20] MEDS: NOVOLOG FLEXPEN-MODERATE RESISTANCE SC ×3 (10:21→18:12)
[2024-03-20] MEDS: JARDIANCE PO (10:21)
--- NOTE | 2024-03-20 10:39 | CM ---
Per physician patient possible for return to SNF soon pending medical needs. CM will update Francoise at [facility]. CM will continue to follow for discharge planning needs.
Plan; return to SNF
--- NOTE | 2024-03-20 10:42 | W.PN.CD ---
Today's Communication / Plan
-
I increased metoprolol
Impression / Plan
-
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 Garcia at [facility]), with paroxysmal atrial fibrillation (no oral anticoagulation due to prior GI bleeding), ICD, HFpEF(recovered EF),mild to mod MR, Pulmonary hypertension, dyslipidemia,
NIDDM, tricuspid regurgitation, PAD, and BELKIS who is now s/p right 3rd toe amputation.
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
- No cardiac complication detected
Atrial fibrillation, pattern uncertain, pt says she is always in AFib but I am not certain I can rely on her Hx
Rates still over 100 ==> will increaes metoprolol 50 daily => 50 BID.
-No oral anticoagulation due to prior GI bleed
HFpEF, chronic
-stable
-does not appear volume overloaded
-follow volume
ICD, appears Biotronik, followed by [facility]
NIDDM, per primary
Tricuspid regurgitation, moderate, maintain euvolemia
PAD, vascular surgery following
Subjective:
No CP or dyspnea or palpitations
Physical Exam
Vital Signs/Labs
Vital Signs
Temp Pulse Resp BP Pulse Ox
98.1 F 124 16 106/77 91
03/20/24 07:00 03/20/24 07:00 03/20/24 07:00 03/20/24 07:00 03/20/24 07:00
03/19/24 03/20/24 03/21/24
06:59 06:59 06:59
Actual Weight 56.019 kg 56.245 kg
03/20/24 07:32
03/20/24 07:32
Magnesium 1.9 mg/dl (1.6-2.3) 03/20/24 07:32
Physical Exam
Constitutional: No acute distress
Cardiovascular: Rhythm/rate is irregular
Respiratory: Respiratory effort normal
GI: Distention absent
Neuro/Psych: Alert
Data Reviewed
-
Date of Service: March 20, 2024
[2024-03-20 11:24] VITALS: BP 120/65
[2024-03-20 12:10] LABS: Glucose - Point of Care 120 mg/dl (70-99)
--- NOTE | 2024-03-20 12:16 | W.PN.ID1 ---
Date of Service
Date of Service: March 20, 2024
Today's Communication
- start doxycycline 100 mg PO BID x6 weeks
- follow up with podiatry
Assessment / Plan
Diabetic Foot infection s/p amputation
DM2 uncontrolled
Chronic Limb Threatening Ischemia
- operative culture from the margin with MRSA, path pending
- blood cultures x2 NGTD
- start doxycycline 100 mg PO BID x6 weeks
- follow up with podiatry
Chief Complaint
-: Other (diabetic foot infection)
Subjective / Review of Systems
afebrile
bp stable
without leukocytosis
cr stable
03/18 wound cx: staph aureus
Vital Signs / Physical Exam
Vital Signs
Vital Signs
Temp Pulse Resp BP Pulse Ox
97.9 F 89 14 120/65 91
03/20/24 11:24 03/20/24 11:24 03/20/24 11:24 03/20/24 11:24 03/20/24 11:24
Physical Exam
Constitutional: No Acute Distress
Cardiovascular: Regular Rate
Pulmonary: Clear and Symmetric; Negative Wheezes or Rales
Gastrointestinal: Non Distended and Normal Bowel Sounds
Skin: Dry; Negative Rash or Jaundice
Wound: Other (dressing clean, dry intact)
Objective Data
Lab Data
Lab Results
03/20/24 07:32
03/20/24 07:32
Estimated Creat Clear 38 ml/min 03/20/24 07:32
Total Bilirubin 0.5 mg/dl (0.2-1.3) 03/19/24 05:18
AST 22 U/L (14-36) 03/19/24 05:18
ALT < 10 U/L (0-35) 03/19/24 05:18
Alkaline Phosphatase 56 U/L (38-126) 03/19/24 05:18
Most recent labs reviewed.
Micro Results:
03/18/24 18:18 Wound Culture - Preliminary
Toe Staph aureus MRSA
Gram Stain - Preliminary
03/14/24 15:35 Blood Culture - Final
Blood/Venous No Growth - Final Report
03/18/24 18:18 Anaerobic Culture - Preliminary
Toe Culture pending. Anaerobic cultures are examined after 3
days incubation. Additional information to follow.
03/14/24 13:06 Blood Culture - Final
Blood/Venous No Growth - Final Report
03/16/24 15:25 Nasal Screen MRSA (PCR) - Final
Nose Staph aureus MRSA
03/14/24 22:54 Urine Culture - Final
Urine Amairani albicans
Care Review
Plan reviewed with: Physician (podiatry - culture)
[2024-03-20] MEDS: VIBRAMYCIN 100 MG PO ×2 (14:15→19:10)
[2024-03-20 15:00] VITALS: BP 97/61
[2024-03-20] MEDS: ZANAFLEX PO (16:44)
[2024-03-20 16:50] LABS: Glucose - Point of Care 111 mg/dl (70-99)
[2024-03-20] MEDS: LOVENOX 40 MG SC (18:13)
[2024-03-20 19:00] VITALS: BP 118/71
[2024-03-20] MEDS: LIPITOR 20 MG PO (21:21)
[2024-03-20] MEDS: REMERON 7.5 MG PO (21:21)
[2024-03-20] MEDS: ZANAFLEX 2 MG PO (21:21)
[2024-03-20] MEDS: LANTUS 0.15 UNITS SC (21:28)
[2024-03-20 21:29] LABS: Glucose - Point of Care 237 mg/dl (70-99)
[2024-03-20 23:15] VITALS: BP 99/63
[2024-03-21] VITALS (7 sets, daily range): BP systolic 83–118; BP diastolic 56–75; BMI 21.2
[2024-03-21 03:12] LABS: Glucose - Point of Care 203 mg/dl (70-99)
[2024-03-21] MEDS: ROXICODONE 5 MG PO (04:41)
--- NOTE | 2024-03-21 07:21 | W.PN.HOSP.TC ---
Today's Communication/Plan
-
glycemic control
rate control
pain control
cont gabapentin
cont abx
discontinue tizanidine
Assessment / Plan
Assessment / Plan
HPI: 87 female care home resident history of bilateral breast masses paroxysmal A-fib (not on anticoagulation due to hx GI bleeds) HFpEF status post pacer defibrillator moderate tricuspid regurgitation hypertension diabetes hyperlipidemia, hx toe
amputations left foot, fibromyalgia BELKIS not on CPAP anxiety/depression, recent hospitalization at this facility Sep 2023 for anemia rectal bleeding and COVID, presents with right foot/3rd toe pain/wound and associate erythema. Patient reports 3rd
toe wound has been present and progressive for past 5 weeks, treated with oral abx outpatient without improvement. Patient also reports being wheelchair bound for the past years and chronic double vision for the last 6 months corrected with glasses.
#Right diabetic foot wound infection
#Right 3rd toe ulceration
Appreciate podiatry input, right third toe amputation Tue 03/18
-Patient to use wheel chair for 2 wks, to help heal her amputation site well.
-follow up post op care next SundayMarch 26
Appreciate ID input, empiric IV Vanc Zosyn discontinued following amputation, wound cx pos for MRSA however, started on oral doxycycline 100 mg BID for 6 weeks
pain control
#Chronic critical limb ischemia
#Peripheral artery disease
JC results appreciated
Appreciate vascular surgery input, s/p RLE arteriogram 03/17 showing no sign. iliac/fem/pop stenosis, occluded ARELIS s/p balloon
Continue aspirin, statin
#shooting pain suspect neuropathic, spasticity noted
low dose gabapentin 100 mg tid started, cont
tizanidine added but later discontinued d/t sedation
#Dysuria
Urine cultures with Amairani, 10,000 colony
Contaminated per ID
#Hx B/l Breast masses
Daughter Kirstin reports patient has followed up with [facility] at [place] (since discharge from this facility Sep 2023) and it was determined the masses were not malignant
Patient however is noted to have multiple bumps throughout her body including inner right thigh and forehead. Reports lumps have been present for years. Also reports lumps were previously worked up but unclear as to results of the work up. Will
defer further work up/evaluation/consultations to primary care provider at this time.
#pAfib
#intermittently tachy
#Chronic HFpEF s/p AICD/pacer
not on anticoagulation d/t hx GIB
cont home metoprolol with holding parameters, gradually increased from 25 mg daily to 50 mg BID as per Cardio
cont home bumex with potassium supplementation
ECHO appreciated EF mildly reduced EF 45-50% moderate MR moderate TR
Mild Hypotension with associate tachycardia suspect low volume
-small IVF boluses 250 cc given x2 03/21
#Hx GIB
cont home protonix BID
#HTN
cont home metoprolol with holding parameters
#Diabetes
cont home lantus 15U
medium dose sliding scale
Regular diet as per patient's request
#HLD
cont home statin
#BELKIS not on CPAP
observe
#Anxiety/Depression
cont home Mirtazapine
DVT prophylaxis�subcu Lovenox
DNI as per patient
Total time spent to see the patient on the floor, examine the patient, review data and lab results, discuss treatment plan with patient, nursing staff around 52 minutes.
Physical Exam
General: No acute distress
HEENT: Normocephalic, Atraumatic, EOMI, MMM
Respiratory: Clear to Auscultation bilaterally
Cardiac: Normal S1/S2, Regular Rate and Rhythm
GI: Soft, Nontender, Nondistended, Normal Bowel Sounds
Extremities: No Clubbing, Cyanosis, or Edema, swelling inner right thigh noted tender to palpation
Left foot TMA
Right foot third necrotic toe
Neuro: Lethargic but arousable conversant coherent
Psych: Calm, Cooperative
Derm: palpable bump noted on patient's forehead and inner right thigh
Anticipated Discharge: 24 - 48 hours
Subjective/Interval History
-
Date of Service: March 21, 2024
Patient seems more sedated this morning. Notably tachy. Low though normotensive pressures. Continues to report uncontrolled pain.
Objective Data
-
Labs:
Laboratory Results
03/21/24
06:00
WBC Pending
Hgb Pending
Hct Pending
Plt Count Pending
Sodium Pending
Potassium Pending
Chloride Pending
Carbon Dioxide Pending
BUN Pending
Creatinine Pending
Glucose Pending
Calcium Pending
Vital Signs:
Vital Signs
Temp Pulse Resp BP Pulse Ox
98.4 F 110 18 99/64 96
03/21/24 03:57 03/21/24 03:57 03/21/24 03:57 03/21/24 04:04 03/21/24 03:57
I&O
03/20/24 03/21/24 03/22/24
06:59 06:59 06:59
Intake Total 1590 / 1590 1919
Balance 1590 / 1590 1919
[2024-03-21 07:49] LABS: Glucose - Point of Care 214 mg/dl (70-99)
[2024-03-21] MEDS: KCL 20 MEQ PO (08:14)
[2024-03-21] MEDS: VIBRAMYCIN 100 MG PO ×2 (08:14→20:27)
[2024-03-21] MEDS: BUMEX 0.5 MG PO (08:14)
[2024-03-21] MEDS: TYLENOL 1000 MG PO ×3 (08:15→22:01)
[2024-03-21] MEDS: NEURONTIN 100 MG PO ×3 (08:16→20:27)
[2024-03-21] MEDS: TOPROL XL 50 MG PO ×2 (08:16→20:27)
[2024-03-21] MEDS: JARDIANCE 10 MG PO (08:16)
[2024-03-21] MEDS: ZANAFLEX 2 MG PO (08:17)
[2024-03-21] MEDS: CYMBALTA DELAYED RELEASE 20 MG PO (08:17)
[2024-03-21] MEDS: ASPIR LOW (ENTERIC COATED) 81 MG PO (08:17)
[2024-03-21] MEDS: PROTONIX 40 MG PO ×2 (08:17→20:27)
[2024-03-21] MEDS: REFRESH EYE DROPS (PF) 1 DROPS BOTH EYES ×4 (08:17→20:27)
[2024-03-21] MEDS: FEOSOL 325 MG PO (08:17)
[2024-03-21] MEDS: NOVOLOG FLEXPEN-MODERATE RESISTANCE 3 UNITS SC (08:18)
[2024-03-21] MEDS: MIRALAX 17 GRAMS PO (08:18)
[2024-03-21 08:46] LABS: Hematocrit 33.9 % (37.0-47.0); Hemoglobin 10.9 g/dL (12.0-16.0); Mean Corp Hgb Conc. 32.2 g/dL (33.0-37.0); Mean Corpuscular Hgb 29.3 pg (27.0-31.0); Mean Corpuscular Volume 91.1 fL (81.0-99.0); Mean Platelet Volume 10.8 fL (7.4-10.4); Platelet Count 192 10^3/uL (130-400); Red Blood Cell Count 3.72 10^6/uL (4.20-5.40); Red Cell Dist. Width 17.4 % (11.5-14.5); White Blood Cell Count 7.1 10^3/uL (4.8-10.8)
--- NOTE | 2024-03-21 09:02 | W.PN.POD ---
Today's Communication
Today's Communication
Patient stable from podiatry
Assessment / Plan
-
S/P Rt 3rd toe amputation with primary closure POD #3
Rt foot cellutlis - resolved
Digital deformities
Diabetic small vessel disease
Plan : abx per ID.
Changed surgical dressings, Applied adaptic, dry gauze, kerlix, once daily.
Patient to use wheel chair for 2 wks, to help heal her amputation site well.
Patient stable per podiatry to d/c
Patient will follow up in my office for all post op care in 1 wk after discharge
Subjective
Chief Complaint
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
Subjective
Patient seen at bedside, doing well, no new complaints, resolved Rt foot pain. No fever, chills, Minimal strike through bleeding in Rt foot surgical dressings , denies any Rt calf pain, no numbness or tingling of the foot
Objective
Temp Pulse Resp BP Pulse Ox
97.4 F 118 18 90/60 91
03/21/24 07:00 03/21/24 07:00 03/21/24 07:00 03/21/24 07:00 03/21/24 07:00
03/21/24 07:54
Vital Signs and Lab results were reviewed.
Rt foot intact ct vascular status, rt foot palpable DP , no edema
Rt 3rd tote amputation site clean, dry, no bleeding, surgical margins appear pink, no necrosis, well coapted wound margins, intact sutures, Resolved erythema to Rt forefoot. no drainage,
[2024-03-21 09:07] LABS: Blood Urea Nitrogen 28 mg/dl (7-17); Calcium 8.6 mg/dl (8.4-10.2); Carbon Dioxide 27 mmol/L (22-30); Chloride 103 mmol/L (98-107); Estimated Creatinine Clearance 39 ml/min; Glucose 133 mg/dl (70-99); Phosphorus 3.2 mg/dl (2.5-4.5); Potassium 4.7 mmol/L (3.5-5.1); Sodium 136 mmol/L (135-145); eGFR > 60.00
--- NOTE | 2024-03-21 09:32 | W.PN.CD ---
Today's Communication / Plan
-
-Heart rates fairly controlled overall.
-Continue Toprol-XL 50 mg BID (dose was increased yesterday), which should be home dose.
-No further cardiac recommendations at this time; patient can follow-up with her primary Automatic Dr[employer] Re[employer] as an outpatient.
Impression / Plan
-
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 Garcia at [facility]), with paroxysmal atrial fibrillation (no oral anticoagulation due to prior GI bleeding), ICD, HFpEF(recovered EF),mild to mod MR, Pulmonary hypertension, dyslipidemia,
NIDDM, tricuspid regurgitation, PAD, and BELKIS who is now s/p right 3rd toe amputation.
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
- No cardiac complication detected
Paroxysmal atrial fibrillation:
-Heart rates fairly controlled overall.
-Continue Toprol-XL 50 mg BID (dose was increased yesterday), which should be home dose.
-No oral anticoagulation due to prior GI bleed
HFpEF, chronic
-stable
-Continue current dose of Bumex.
ICD, appears Biotronik, followed by [facility]
NIDDM, per primary
Tricuspid regurgitation, moderate, maintain euvolemia
PAD, vascular surgery following
Subjective:
No major events overnight.
Physical Exam
Vital Signs/Labs
Vital Signs
Temp Pulse Resp BP Pulse Ox
97.4 F 118 18 90/60 91
03/21/24 07:00 03/21/24 07:00 03/21/24 07:00 03/21/24 07:00 03/21/24 07:00
03/20/24 03/21/24 03/22/24
06:59 06:59 06:59
Actual Weight 56.245 kg 57.805 kg
03/21/24 07:54
03/21/24 07:54
Magnesium 2.0 mg/dl (1.6-2.3) 03/21/24 07:54
Physical Exam
Constitutional: No acute distress and Comfortable
EENT: Anicteric
Cardiovascular: Pedal edema is absent, Rhythm/rate is irregular, Systolic murmur present (09/29) and S1S2 is normal
Respiratory: Respiratory effort normal and Lungs clear to auscul.
GI: Soft
Neuro/Psych: Alert
Other: Skin (Warm, dry)
Data Reviewed
-
Date of Service: March 21, 2024
EKG: Tracing Personally Visualized and interpreted (Telemetry: A-fib)
Labs: Labs Reviewed by me
[2024-03-21] MEDS: NSS 250 IV ×2 (10:05→17:43)
[2024-03-21] MEDS: MORPHINE SULFATE 2 MG IV ×2 (12:15→22:01)
[2024-03-21 12:16] LABS: Glucose - Point of Care 149 mg/dl (70-99)
[2024-03-21] MEDS: NOVOLOG FLEXPEN-MODERATE RESISTANCE SC ×2 (12:18→17:44)
--- NOTE | 2024-03-21 12:58 | CM ---
Patient not for discharge today per physician. CM updated [facility] admissions. Please call to admissions over the weekend if patient is for discharge. [phone]. CM will continue to follow for discharge planning needs.
Plan; discharge back to [facility] pending physician assessment
call report to [phone]/fax [phone]
--- NOTE | 2024-03-21 15:28 | W.PN.ID1 ---
Date of Service
Date of Service: March 21, 2024
Today's Communication
start doxycycline 100 mg PO BID x6 weeks
ID service will no longer actively follow this patient please recall for further questions
Assessment / Plan
Diabetic Foot infection s/p amputation
DM2 uncontrolled
Chronic Limb Threatening Ischemia
- operative culture from the margin with MRSA, path pending
- blood cultures x2 NGTD
- start doxycycline 100 mg PO BID x6 weeks
- follow up with podiatry
ID service will no longer actively follow this patient please recall for further questions
Chief Complaint
-: Other (diabetic foot infection)
Subjective / Review of Systems
afebrile
bp stable
without leukocytosis
cr stable
complains of cough - sounds nonproductive
Vital Signs / Physical Exam
Vital Signs
Vital Signs
Temp Pulse Resp BP Pulse Ox
97.6 F 113 16 112/75 91
03/21/24 11:12 03/21/24 11:12 03/21/24 11:12 03/21/24 11:12 03/21/24 11:12
Physical Exam
Constitutional: No Acute Distress
Cardiovascular: Regular Rate and S1/S2; Negative Murmur or Rub
Pulmonary: Clear and Symmetric; Negative Wheezes or Rales
Gastrointestinal: Soft, Non Tender, Non Distended and Normal Bowel Sounds
Skin: Warm and Dry; Negative Rash or Jaundice
Objective Data
Lab Data
Lab Results
03/21/24 07:54
03/21/24 07:54
Estimated Creat Clear 39 ml/min 03/21/24 07:54
Total Bilirubin 0.5 mg/dl (0.2-1.3) 03/19/24 05:18
AST 22 U/L (14-36) 03/19/24 05:18
ALT < 10 U/L (0-35) 03/19/24 05:18
Alkaline Phosphatase 56 U/L (38-126) 03/19/24 05:18
Most recent labs reviewed.
Micro Results:
03/18/24 18:18 Anaerobic Culture - Preliminary
Toe Culture pending. Anaerobic cultures are examined after 3
days incubation. Additional information to follow.
03/18/24 18:18 Wound Culture - Preliminary
Toe Staph aureus MRSA
Gram Stain - Preliminary
03/14/24 15:35 Blood Culture - Final
Blood/Venous No Growth - Final Report
03/14/24 13:06 Blood Culture - Final
Blood/Venous No Growth - Final Report
03/16/24 15:25 Nasal Screen MRSA (PCR) - Final
Nose Staph aureus MRSA
03/14/24 22:54 Urine Culture - Final
Urine Amairani albicans
[2024-03-21 17:01] LABS: Glucose - Point of Care 134 mg/dl (70-99)
[2024-03-21] MEDS: LOVENOX 40 MG SC (17:45)
[2024-03-21] MEDS: REMERON 7.5 MG PO (20:27)
[2024-03-21] MEDS: LIPITOR 20 MG PO (20:27)
[2024-03-21] MEDS: ESTRACE 0.01% VAGINAL CREAM 1 APPLIC VAG (20:28)
[2024-03-21 21:40] LABS: Glucose - Point of Care 228 mg/dl (70-99)
[2024-03-21] MEDS: LANTUS 0.15 UNITS SC (22:01)
[2024-03-22] VITALS (8 sets, daily range): BP systolic 92–131; BP diastolic 59–79; BMI 21.0
[2024-03-22] MEDS: ROXICODONE 5 MG PO (00:29)
[2024-03-22 03:14] LABS: Glucose - Point of Care 187 mg/dl (70-99)
[2024-03-22] MEDS: MORPHINE SULFATE 2 MG IV (03:18)
--- NOTE | 2024-03-22 07:10 | W.PN.HOSP.TC ---
Today's Communication/Plan
-
ibuprofen added for mod pain, oxycodone reserved for severe pain, morphine remains available for breakthrough pain
glycemic control
rate control
gabapentin discontinued d/t concern oversedation
Assessment / Plan
Assessment / Plan
HPI: 87 female retirement resident history of bilateral breast masses paroxysmal A-fib (not on anticoagulation due to hx GI bleeds) HFpEF status post pacer defibrillator moderate tricuspid regurgitation hypertension diabetes hyperlipidemia, hx toe
amputations left foot, fibromyalgia BELKIS not on CPAP anxiety/depression, recent hospitalization at this facility Sep 2023 for anemia rectal bleeding and COVID, presents with right foot/3rd toe pain/wound and associate erythema. Patient reports 3rd
toe wound has been present and progressive for past 5 weeks, treated with oral abx outpatient without improvement. Patient also reports being wheelchair bound for the past years and chronic double vision for the last 6 months corrected with glasses.
#Right diabetic foot wound infection
#Right 3rd toe ulceration
Appreciate podiatry input, right third toe amputation 03/18
-Patient to use wheel chair for 2 wks, to help heal her amputation site well.
-follow up post op care next SundayMarch 26
Appreciate ID input, empiric IV Vanc Zosyn discontinued following amputation, wound cx pos for MRSA however, started on oral doxycycline 100 mg BID for 6 weeks
pain control ibuprofen added for moderate pain, oxycodone for severe pain, morphine for breakthrough
#Chronic critical limb ischemia
#Peripheral artery disease
JC results appreciated
Appreciate vascular surgery input, s/p RLE arteriogram 03/17 showing no sign. iliac/fem/pop stenosis, occluded ARELIS s/p balloon
Continue aspirin, statin
#shooting pain suspect neuropathic, spasticity noted
gabapentin and tizanidine started later discontinued d/t concern oversedation
#Dysuria
Urine cultures with Amairani, 10,000 colony
Contaminated per ID
#Hx B/l Breast masses
Daughter Kirstin reports patient has followed up with [facility] at [place] (since discharge from this facility Sep 2023) and it was determined the masses were not malignant
Patient however is noted to have multiple bumps throughout her body including inner right thigh and forehead. Reported lumps have been present for years. Also reported lumps were previously worked up but unclear as to results of the work up were.
Will defer further work up/evaluation/consultations to outpatient primary care provider at this time.
#pAfib
#intermittently tachy
#Chronic HFpEF s/p AICD/pacer
not on anticoagulation d/t hx GIB
cont home metoprolol with holding parameters, gradually increased from 25 mg daily to 50 mg BID as per Cardio
cont home bumex with potassium supplementation
ECHO appreciated EF mildly reduced EF 45-50% moderate MR moderate TR
Mild Hypotension with associate tachycardia suspect low volume vs oversedation
-small IVF boluses 250 cc given x2 03/21
-BP since improved
#Hx GIB
cont home protonix BID
#HTN
cont home metoprolol with holding parameters
#Diabetes
cont home lantus 15U
medium dose sliding scale
Regular diet as per patient's request
#HLD
cont home statin
#BELKIS not on CPAP
observe
#Anxiety/Depression
cont home Mirtazapine
DVT prophylaxis�subcu Lovenox
DNI as per patient
Total time spent to see the patient on the floor, examine the patient, review data and lab results, discuss treatment plan with patient, nursing staff around 52 minutes.
Physical Exam
General: No acute distress
HEENT: Normocephalic, Atraumatic, EOMI, MMM
Respiratory: Clear to Auscultation bilaterally
Cardiac: Normal S1/S2, Regular Rate and Rhythm
GI: Soft, Nontender, Nondistended, Normal Bowel Sounds
Extremities: No Clubbing, Cyanosis, or Edema, swelling inner right thigh noted tender to palpation
Left foot TMA
Right foot third necrotic toe
Neuro: Lethargic but arousable conversant coherent
Psych: Calm, Cooperative
Derm: palpable bump noted on patient's forehead and inner right thigh
Anticipated Discharge: 24 - 48 hours
Subjective/Interval History
-
Date of Service: March 22, 2024
Seen and examined at bedside in no acute distress resting comfortably in bed. Lethargic but arousable. Continues to report pain though appears improved at this time. Drifting off to sleep in the middle of conversation. Reports sleep associated
hallucinations. Conversation concerning for oversedation.
Objective Data
-
Labs:
Laboratory Results
03/22/24
06:00
WBC Pending
Hgb Pending
Hct Pending
Plt Count Pending
Sodium Pending
Potassium Pending
Chloride Pending
Carbon Dioxide Pending
BUN Pending
Creatinine Pending
Glucose Pending
Calcium Pending
Vital Signs:
Vital Signs
Temp Pulse Resp BP Pulse Ox
99.2 F 80 18 114/69 96
03/22/24 03:26 03/22/24 03:26 03/22/24 03:26 03/22/24 03:26 03/22/24 03:26
I&O
03/21/24 03/22/24 03/23/24
06:59 06:59 06:59
Intake Total 1919 1020 / 1020
Balance 1919 1020 / 1020
[2024-03-22 08:39] LABS: Hematocrit 31.7 % (37.0-47.0); Hemoglobin 10.1 g/dL (12.0-16.0); Mean Corp Hgb Conc. 31.9 g/dL (33.0-37.0); Mean Corpuscular Hgb 29.4 pg (27.0-31.0); Mean Corpuscular Volume 92.4 fL (81.0-99.0); Mean Platelet Volume 11.4 fL (7.4-10.4); Platelet Count 194 10^3/uL (130-400); Red Blood Cell Count 3.43 10^6/uL (4.20-5.40); Red Cell Dist. Width 17.5 % (11.5-14.5); White Blood Cell Count 7.7 10^3/uL (4.8-10.8)
[2024-03-22] MEDS: TYLENOL 1000 MG PO ×3 (09:19→21:33)
[2024-03-22] MEDS: CYMBALTA DELAYED RELEASE 20 MG PO (09:19)
[2024-03-22] MEDS: VIBRAMYCIN 100 MG PO ×2 (09:19→20:23)
[2024-03-22] MEDS: TOPROL XL 50 MG PO ×2 (09:20→20:24)
[2024-03-22] MEDS: REFRESH EYE DROPS (PF) 1 DROPS BOTH EYES ×4 (09:21→21:33)
[2024-03-22 09:22] LABS: Glucose - Point of Care 150 mg/dl (70-99)
[2024-03-22] MEDS: FEOSOL 325 MG PO (09:22)
[2024-03-22] MEDS: BUMEX PO (09:22)
[2024-03-22] MEDS: ASPIR LOW (ENTERIC COATED) 81 MG PO (09:22)
[2024-03-22] MEDS: PROTONIX 40 MG PO ×2 (09:23→20:23)
[2024-03-22] MEDS: KCL 20 MEQ PO (09:23)
[2024-03-22] MEDS: NEURONTIN 100 MG PO (09:23)
[2024-03-22] MEDS: NOVOLOG FLEXPEN-MODERATE RESISTANCE 1 UNITS SC (09:24)
[2024-03-22] MEDS: JARDIANCE 10 MG PO (09:24)
[2024-03-22] MEDS: MIRALAX PO (09:31)
[2024-03-22] MEDS: SENOKOT-S 1 TABLET PO (09:37)
[2024-03-22 10:06] LABS: Blood Urea Nitrogen 32 mg/dl (7-17); Calcium 8.4 mg/dl (8.4-10.2); Carbon Dioxide 24 mmol/L (22-30); Chloride 103 mmol/L (98-107); Estimated Creatinine Clearance 35 ml/min; Glucose 165 mg/dl (70-99); Magnesium 1.8 mg/dl (1.6-2.3); Phosphorus 3.4 mg/dl (2.5-4.5); Potassium 4.4 mmol/L (3.5-5.1); Sodium 133 mmol/L (135-145); eGFR 54.19
[2024-03-22 12:45] LABS: Glucose - Point of Care 207 mg/dl (70-99)
[2024-03-22] MEDS: NOVOLOG FLEXPEN-MODERATE RESISTANCE 3 UNITS SC ×2 (12:50→17:03)
[2024-03-22 16:44] LABS: Glucose - Point of Care 210 mg/dl (70-99)
[2024-03-22] MEDS: LOVENOX 40 MG SC (17:04)
[2024-03-22 21:26] LABS: Glucose - Point of Care 277 mg/dl (70-99)
[2024-03-22] MEDS: LANTUS 0.15 UNITS SC (21:33)
[2024-03-22] MEDS: REMERON 7.5 MG PO (21:33)
[2024-03-22] MEDS: LIPITOR 20 MG PO (21:33)
[2024-03-23 03:14] VITALS: BP 109/58
[2024-03-23 05:17] VITALS: BMI 21.4
--- NOTE | 2024-03-23 06:31 | W.PN.HOSP.TC ---
Today's Communication/Plan
-
ibuprofen converted to scheduled
morphine reduced from 2 to 1mg severe breakthrough pain given concerns oversedation
pain control
glycemic control
wound care
Assessment / Plan
Assessment / Plan
HPI: 87 female [facility] resident history of bilateral breast masses paroxysmal A-fib (not on anticoagulation due to hx GI bleeds) HFpEF status post pacer defibrillator moderate tricuspid regurgitation hypertension diabetes hyperlipidemia, hx toe
amputations left foot, fibromyalgia BELKIS not on CPAP anxiety/depression, recent hospitalization at this facility Sep 2023 for anemia rectal bleeding and COVID, presents with right foot/3rd toe pain/wound and associate erythema. Patient reports 3rd
toe wound has been present and progressive for past 5 weeks, treated with oral abx outpatient without improvement. Patient also reports being wheelchair bound for the past years and chronic double vision for the last 6 months corrected with glasses.
#Right diabetic foot wound infection
#Right 3rd toe ulceration
Appreciate podiatry input, right third toe amputation 03/18
-Patient to use wheel chair for 2 wks, to help heal her amputation site well.
-follow up post op care next SundayMarch 26
Appreciate ID input, empiric IV Vanc Zosyn discontinued following amputation, wound cx pos for MRSA however, started on oral doxycycline 100 mg BID for 6 weeks
pain control ibuprofen switched to schedule (hasn't been receiving as mod prn), oxycodone for mod severe pain, morphine for breakthrough (dose reduced to 1 mg from 2 given concern oversedation)
#Chronic critical limb ischemia
#Peripheral artery disease
JC results appreciated
Appreciate vascular surgery input, s/p RLE arteriogram 03/17 showing no sign. iliac/fem/pop stenosis, occluded ARELIS s/p balloon
Continue aspirin, statin
#shooting pain suspect neuropathic, spasticity noted
gabapentin and tizanidine started later discontinued d/t concern oversedation
#Dysuria
Urine cultures with Amairani, 10,000 colony
Contaminated per ID
#Hx B/l Breast masses
Daughter Kirstin reports patient has followed up with [facility] at [place] (since discharge from this facility Sep 2023) and it was determined the masses were not malignant
Patient however is noted to have multiple bumps throughout her body including inner right thigh and forehead. Reported lumps have been present for years (past 2 years as per daughter). Also reported lumps were previously worked up but unclear as
to results of the work up were. Will defer further work up/evaluation/consultations to outpatient primary care provider at this time.
#Reported hx post-menopause vaginal bleeding
discussed with daughter Kirstin, patient has outpatient follow up gynecology due
#pAfib
#intermittently tachy (resolved)
#Chronic HFpEF s/p AICD/pacer
not on anticoagulation d/t hx GIB
cont home metoprolol with holding parameters, gradually increased from 25 mg daily to 50 mg BID as per Cardio
cont home bumex with potassium supplementation
ECHO appreciated EF mildly reduced EF 45-50% moderate MR moderate TR
Mild Hypotension with associate tachycardia suspect low volume vs oversedation
-small IVF boluses 250 cc given x2 03/21
-BP since improved
#Hx GIB
cont home protonix BID
#HTN
cont home metoprolol with holding parameters
#Diabetes
cont home lantus 15U
medium dose sliding scale
Regular diet as per patient's request
#HLD
cont home statin
#BELKIS not on CPAP
observe
#Anxiety/Depression
cont home Mirtazapine
DVT prophylaxis�subcu Lovenox
DNI as per patient
Discussed with patient bedside and patient's daughter Kirstin over phone
Total time spent to see the patient on the floor, examine the patient, review data and lab results, discuss treatment plan with patient, nursing staff around 52 minutes.
Physical Exam
General: No acute distress
HEENT: Normocephalic, Atraumatic, EOMI, MMM
Respiratory: Clear to Auscultation bilaterally
Cardiac: Normal S1/S2, Regular Rate and Rhythm
GI: Soft, Nontender, Nondistended, Normal Bowel Sounds
Extremities: No Clubbing, Cyanosis, or Edema, swelling inner right thigh noted tender to palpation
Left foot TMA
Right foot third necrotic toe
Neuro: Lethargic but arousable conversant coherent
Psych: Calm, Cooperative
Derm: palpable bump noted on patient's forehead and inner right thigh
Anticipated Discharge: 24 - 48 hours
Subjective/Interval History
-
Date of Service: March 23, 2024
Pain uncontrolled this morning requiring morphine for severe breakthrough pain causing sedation.
Objective Data
-
Labs:
Laboratory Results
03/23/24
06:00
WBC Pending
Hgb Pending
Hct Pending
Plt Count Pending
Sodium Pending
Potassium Pending
Chloride Pending
Carbon Dioxide Pending
BUN Pending
Creatinine Pending
Glucose Pending
Calcium Pending
Vital Signs:
Vital Signs
Temp Pulse Resp BP Pulse Ox
98.1 F 82 18 109/58 98
03/23/24 03:14 03/23/24 03:14 03/23/24 03:14 03/23/24 03:14 03/23/24 03:14
I&O
03/21/24 03/22/24 03/23/24
06:59 06:59 06:59
Intake Total 1919 1020 / 1020 1230 / 1230
Balance 1919 1020 / 1020 1230 / 1230
[2024-03-23 07:10] LABS: Hematocrit 32.5 % (37.0-47.0); Hemoglobin 10.8 g/dL (12.0-16.0); Mean Corp Hgb Conc. 33.2 g/dL (33.0-37.0); Mean Corpuscular Hgb 29.8 pg (27.0-31.0); Mean Corpuscular Volume 89.5 fL (81.0-99.0); Mean Platelet Volume 10.4 fL (7.4-10.4); Platelet Count 231 10^3/uL (130-400); Red Blood Cell Count 3.63 10^6/uL (4.20-5.40); Red Cell Dist. Width 17.7 % (11.5-14.5); White Blood Cell Count 7.9 10^3/uL (4.8-10.8)
[2024-03-23 07:29] LABS: Blood Urea Nitrogen 32 mg/dl (7-17); Calcium 8.4 mg/dl (8.4-10.2); Carbon Dioxide 23 mmol/L (22-30); Chloride 106 mmol/L (98-107); Estimated Creatinine Clearance 39 ml/min; Glucose 145 mg/dl (70-99); Magnesium 1.9 mg/dl (1.6-2.3); Potassium 3.9 mmol/L (3.5-5.1); Sodium 137 mmol/L (135-145); eGFR > 60.00
[2024-03-23 08:00] VITALS: BP 97/47
[2024-03-23] MEDS: VIBRAMYCIN 100 MG PO ×2 (08:30→20:00)
[2024-03-23] MEDS: REFRESH EYE DROPS (PF) 1 DROPS BOTH EYES ×4 (08:30→21:18)
[2024-03-23] MEDS: KCL 20 MEQ PO (08:30)
[2024-03-23] MEDS: ROXICODONE 5 MG PO ×2 (08:30)
[2024-03-23] MEDS: TYLENOL 1000 MG PO ×3 (08:30→21:13)
[2024-03-23] MEDS: ASPIR LOW (ENTERIC COATED) 81 MG PO (08:31)
[2024-03-23] MEDS: TOPROL XL 50 MG PO ×2 (08:31→20:00)
[2024-03-23 08:32] LABS: Glucose - Point of Care 146 mg/dl (70-99)
[2024-03-23] MEDS: JARDIANCE 10 MG PO (08:32)
[2024-03-23] MEDS: MIRALAX PO (08:32)
[2024-03-23] MEDS: PROTONIX 40 MG PO ×2 (08:32→20:00)
[2024-03-23] MEDS: FEOSOL 325 MG PO (08:33)
[2024-03-23] MEDS: BUMEX PO (08:37)
[2024-03-23] MEDS: CYMBALTA DELAYED RELEASE 20 MG PO (08:37)
[2024-03-23] MEDS: NOVOLOG FLEXPEN-MODERATE RESISTANCE SC ×2 (08:39→12:27)
[2024-03-23] MEDS: MORPHINE SULFATE 2 MG IV (09:31)
[2024-03-23 11:31] LABS: Glucose - Point of Care 142 mg/dl (70-99)
[2024-03-23 12:08] VITALS: BP 113/58
[2024-03-23] MEDS: MOTRIN 400 MG PO ×3 (12:28→23:54)
[2024-03-23 15:30] VITALS: BP 115/59
[2024-03-23 16:50] LABS: Glucose - Point of Care 184 mg/dl (70-99)
[2024-03-23] MEDS: NOVOLOG FLEXPEN-MODERATE RESISTANCE 1 UNITS SC (17:37)
[2024-03-23] MEDS: LOVENOX 40 MG SC (17:41)
[2024-03-23 19:20] VITALS: BP 102/54
[2024-03-23 21:07] LABS: Glucose - Point of Care 258 mg/dl (70-99)
[2024-03-23] MEDS: LANTUS 0.15 UNITS SC (21:12)
[2024-03-23] MEDS: LIPITOR 20 MG PO (21:13)
[2024-03-23] MEDS: REMERON 7.5 MG PO (21:13)
[2024-03-23 23:55] VITALS: BP 108/56
[2024-03-24 03:31] VITALS: BP 99/54
[2024-03-24 06:00] VITALS: BMI 21.3
[2024-03-24] MEDS: MOTRIN 400 MG PO ×3 (06:08→17:29)
[2024-03-24 07:20] VITALS: BP 115/58
[2024-03-24 07:30] LABS: Hematocrit 30.4 % (37.0-47.0); Hemoglobin 9.6 g/dL (12.0-16.0); Mean Corp Hgb Conc. 31.6 g/dL (33.0-37.0); Mean Corpuscular Hgb 29.4 pg (27.0-31.0); Mean Corpuscular Volume 93.3 fL (81.0-99.0); Mean Platelet Volume 10.4 fL (7.4-10.4); Platelet Count 225 10^3/uL (130-400); Red Blood Cell Count 3.26 10^6/uL (4.20-5.40); Red Cell Dist. Width 17.9 % (11.5-14.5); White Blood Cell Count 6.6 10^3/uL (4.8-10.8)
[2024-03-24 08:00] LABS: Glucose - Point of Care 81 mg/dl (70-99)
[2024-03-24] MEDS: CYMBALTA DELAYED RELEASE 20 MG PO (08:15)
[2024-03-24] MEDS: BUMEX 0.5 MG PO (08:15)
[2024-03-24] MEDS: NOVOLOG FLEXPEN-MODERATE RESISTANCE SC ×2 (08:15→12:29)
[2024-03-24] MEDS: FEOSOL 325 MG PO (08:15)
[2024-03-24] MEDS: TYLENOL 1000 MG PO ×3 (08:15→23:05)
[2024-03-24] MEDS: KCL 20 MEQ PO (08:15)
[2024-03-24] MEDS: TOPROL XL 50 MG PO ×2 (08:15→21:06)
[2024-03-24] MEDS: ASPIR LOW (ENTERIC COATED) 81 MG PO (08:15)
[2024-03-24] MEDS: PROTONIX 40 MG PO ×2 (08:15→21:02)
[2024-03-24] MEDS: REFRESH EYE DROPS (PF) 1 DROPS BOTH EYES ×4 (08:15→21:03)
[2024-03-24] MEDS: MIRALAX 17 GRAMS PO (08:16)
[2024-03-24] MEDS: JARDIANCE 10 MG PO (08:17)
[2024-03-24] MEDS: VIBRAMYCIN 100 MG PO ×2 (08:17→21:02)
[2024-03-24 08:20] LABS: Blood Urea Nitrogen 39 mg/dl (7-17); Calcium 8.3 mg/dl (8.4-10.2); Carbon Dioxide 23 mmol/L (22-30); Chloride 108 mmol/L (98-107); Estimated Creatinine Clearance 29 ml/min; Glucose 81 mg/dl (70-99); Magnesium 1.9 mg/dl (1.6-2.3); Phosphorus 3.4 mg/dl (2.5-4.5); Potassium 4.1 mmol/L (3.5-5.1); Sodium 139 mmol/L (135-145); eGFR 43.54
--- NOTE | 2024-03-24 09:07 | W.PN.HOSP.TC ---
Today's Communication/Plan
-
Discharge tomorrow
Assessment / Plan
Assessment / Plan
HPI: 87 female [facility] resident history of bilateral breast masses paroxysmal A-fib (not on anticoagulation due to hx GI bleeds) HFpEF status post pacer defibrillator moderate tricuspid regurgitation hypertension diabetes hyperlipidemia, hx toe
amputations left foot, fibromyalgia BELKIS not on CPAP anxiety/depression, recent hospitalization at this facility Sep 2023 for anemia rectal bleeding and COVID, presents with right foot/3rd toe pain/wound and associate erythema. Patient reports 3rd
toe wound has been present and progressive for past 5 weeks, treated with oral abx outpatient without improvement. Patient also reports being wheelchair bound for the past years and chronic double vision for the last 6 months corrected with glasses.
#Right diabetic foot wound infection
#Right 3rd toe ulceration
Appreciate podiatry input, s/p right third toe amputation e 03/18
-Patient to use wheel chair for 2 wks, to help heal her amputation site well.
-follow up post op care next SundayMarch 26
Appreciate ID input, empiric IV Vanc Zosyn discontinued following amputation, wound cx pos for MRSA however, started on oral doxycycline 100 mg BID for 6 weeks
pain control ibuprofen switched to schedule (hasn't been receiving as mod prn), oxycodone for mod severe pain, has not required - morphine for breakthrough (dose reduced to 1 mg from 2 given concern oversedation)
#Chronic critical limb ischemia
#Peripheral artery disease
JC results appreciated
Appreciate vascular surgery input, s/p RLE arteriogram 03/17 showing no significant iliac/fem/pop stenosis, occluded ARELIS s/p balloon
Continue aspirin, statin
#shooting pain suspect neuropathic, spasticity noted
gabapentin and tizanidine started later discontinued d/t concern oversedation
#Dysuria
Urine cultures with Amairani, 10,000 colony
Contaminated per ID
#Hx B/l Breast masses
Daughter Kirstin reports patient has followed up with [facility] at [place] (since discharge from this facility Sep 2023) and it was determined the masses were not malignant
Patient however is noted to have multiple bumps throughout her body including inner right thigh and forehead. Reported lumps have been present for years (past 2 years as per daughter). Also reported lumps were previously worked up but unclear as
to results of the work up were. Will defer further work up/evaluation/consultations to outpatient primary care provider at this time.
#Reported hx post-menopause vaginal bleeding
discussed with daughter Kirstin, patient has outpatient follow up gynecology due
#pAfib
#intermittently tachy (resolved)
#Chronic HFpEF s/p AICD/pacer
not on anticoagulation d/t hx GIB
cont home metoprolol with holding parameters, gradually increased from 25 mg daily to 50 mg BID as per Cardio
cont home bumex with potassium supplementation
ECHO appreciated EF mildly reduced EF 45-50% moderate MR moderate TR
Mild Hypotension with associate tachycardia suspect low volume vs oversedation
-small IVF boluses 250 cc given x2 03/21
-BP since improved
#Hx GIB
cont home protonix BID
#HTN
cont home metoprolol with holding parameters
#Diabetes
cont home lantus 15U
medium dose sliding scale
Regular diet as per patient's request
#HLD
cont home statin
#BELKIS not on CPAP
observe
#Anxiety/Depression
cont home Mirtazapine
DVT prophylaxis�subcu Lovenox
DNI as per patient
Total time spent to see the patient on the floor, examine the patient, review data and lab results, discuss treatment plan with patient, nursing staff around 37 minutes.
Physical Exam
General: No acute distress
HEENT: Normocephalic, Atraumatic, EOMI, MMM
Respiratory: Clear to Auscultation bilaterally
Cardiac: Normal S1/S2, Regular Rate and Rhythm
GI: Soft, Nontender, Nondistended, Normal Bowel Sounds
Extremities: No Clubbing, Cyanosis, or Edema, swelling inner right thigh noted tender to palpation
Left foot TMA
Right foot third toe amp side dressed
Neuro: Lethargic but arousable conversant coherent
Psych: Calm, Cooperative
Derm: palpable bump noted on patient's forehead and inner right thigh
Anticipated Discharge: Within 24 hours
Subjective/Interval History
-
Date of Service: March 24, 2024
Patient reports that her foot pain is tolerable. She complains of pain on her sacrum. No fever, no vomiting.
Objective Data
-
Labs:
Laboratory Results
03/24/24
06:26
WBC 6.6
Hgb 9.6 L
Hct 30.4 L
Plt Count 225
Sodium 139
Potassium 4.1
Chloride 108 H
Carbon Dioxide 23
BUN 39 H
Creatinine 1.2 H
Glucose 81
Calcium 8.3 L
Vital Signs:
Vital Signs
Temp Pulse Resp BP Pulse Ox
97.6 F 61 18 115/58 96
03/24/24 07:20 03/24/24 07:20 03/24/24 07:20 03/24/24 07:20 03/24/24 07:20
I&O
03/23/24 03/24/24 03/25/24
06:59 06:59 06:59
Intake Total 1230 / 1230 360 / 360
Balance 1230 / 1230 360 / 360
[2024-03-24 11:00] VITALS: BP 94/45
[2024-03-24 12:28] LABS: Glucose - Point of Care 139 mg/dl (70-99)
[2024-03-24 15:15] VITALS: BP 107/63
[2024-03-24 15:55] LABS: Glucose - Point of Care 171 mg/dl (70-99)
[2024-03-24] MEDS: NOVOLOG FLEXPEN-MODERATE RESISTANCE 1 UNITS SC (16:03)
--- NOTE | 2024-03-24 16:54 | CM ---
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
will need medical nec form for ambulance .
Shayla
report [phone]
fax [phone]
PLAN Return to [facility]
[2024-03-24] MEDS: LOVENOX 40 MG SC (17:29)
[2024-03-24] MEDS: LIPITOR 20 MG PO (21:02)
[2024-03-24] MEDS: REMERON 7.5 MG PO (21:03)
[2024-03-24] MEDS: ESTRACE 0.01% VAGINAL CREAM 1 APPLIC VAG (21:05)
[2024-03-24 21:43] LABS: Glucose - Point of Care 199 mg/dl (70-99)
[2024-03-24] MEDS: LANTUS 0.15 UNITS SC (22:19)
[2024-03-24] MEDS: TYLENOL PO ×2 (22:20→22:27)
[2024-03-24] MEDS: TUMS 2 TABLET PO (22:24)
[2024-03-24 23:08] VITALS: BP 132/71
[2024-03-25] MEDS: MOTRIN PO ×2 (00:57→11:26)
[2024-03-25] MEDS: ROXICODONE 5 MG PO ×2 (03:37→17:11)
[2024-03-25] MEDS: MOTRIN 400 MG PO (05:55)
[2024-03-25 06:00] VITALS: BMI 21.4
[2024-03-25 07:09] LABS: Hematocrit 31.2 % (37.0-47.0); Mean Corp Hgb Conc. 32.1 g/dL (33.0-37.0); Mean Corpuscular Hgb 29.7 pg (27.0-31.0); Mean Corpuscular Volume 92.6 fL (81.0-99.0); Mean Platelet Volume 10.4 fL (7.4-10.4); Platelet Count 247 10^3/uL (130-400); Red Blood Cell Count 3.37 10^6/uL (4.20-5.40); White Blood Cell Count 7.3 10^3/uL (4.8-10.8)
[2024-03-25 07:30] VITALS: BP 107/51
[2024-03-25 07:30] LABS: Glucose - Point of Care 119 mg/dl (70-99)
[2024-03-25] MEDS: NOVOLOG FLEXPEN-MODERATE RESISTANCE SC ×3 (08:05→17:13)
[2024-03-25] MEDS: TYLENOL 1000 MG PO ×2 (08:07→22:12)
[2024-03-25] MEDS: BUMEX 0.5 MG PO (08:07)
[2024-03-25] MEDS: REFRESH EYE DROPS (PF) 1 DROPS BOTH EYES ×4 (08:07→22:10)
[2024-03-25] MEDS: FEOSOL 325 MG PO (08:07)
[2024-03-25] MEDS: VIBRAMYCIN 100 MG PO ×2 (08:07→22:10)
[2024-03-25] MEDS: PROTONIX 40 MG PO ×2 (08:09→22:12)
[2024-03-25] MEDS: ASPIR LOW (ENTERIC COATED) 81 MG PO (08:09)
[2024-03-25] MEDS: CYMBALTA DELAYED RELEASE 20 MG PO (08:09)
[2024-03-25] MEDS: TOPROL XL 50 MG PO ×2 (08:09→22:11)
[2024-03-25] MEDS: KCL 20 MEQ PO (08:09)
[2024-03-25] MEDS: JARDIANCE 10 MG PO (08:09)
[2024-03-25] MEDS: MIRALAX PO (08:10)
[2024-03-25 08:26] LABS: Chloride 108 mmol/L (98-107); Sodium 138 mmol/L (135-145)
[2024-03-25 08:28] LABS: Blood Urea Nitrogen 39 mg/dl (7-17); Calcium 8.4 mg/dl (8.4-10.2); Carbon Dioxide 21 mmol/L (22-30); Estimated Creatinine Clearance 27 ml/min; Glucose 129 mg/dl (70-99); Magnesium 1.9 mg/dl (1.6-2.3); Phosphorus 3.7 mg/dl (2.5-4.5); Potassium 4.2 mmol/L (3.5-5.1); eGFR 39.55
--- NOTE | 2024-03-25 09:08 | W.PN.HOSP.TC ---
Addendum entered and electronically signed by Villa Adair MD 03/25/24 16:40:
#Acute kidney injury
Discontinue ibuprofen
Hold Bumex
Trend creatinine
Original Note:
Today's Communication/Plan
-
see bold
Assessment / Plan
Assessment / Plan
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
amputations left foot, fibromyalgia BELKIS not on CPAP anxiety/depression, recent hospitalization at this facility Sep 2023 for anemia rectal bleeding and COVID, presents with right foot/3rd toe pain/wound and associate erythema. Patient reports 3rd
toe wound has been present and progressive for past 5 weeks, treated with oral abx outpatient without improvement. Patient also reports being wheelchair bound for the past years and chronic double vision for the last 6 months corrected with glasses.
#Right diabetic foot wound infection
#Right 3rd toe ulceration
Appreciate podiatry input, s/p right third toe amputation 03/18
-Patient to use wheel chair for 2 wks, to help heal her amputation site well.
-follow up post op care next SundayMarch 26
Appreciate ID input, empiric IV Vanc Zosyn discontinued following amputation, wound cx pos for MRSA however, started on oral doxycycline 100 mg BID for 6 weeks
pain control ibuprofen switched to schedule (hasn't been receiving as mod prn), oxycodone for mod severe pain, has not required - morphine for breakthrough (dose reduced to 1 mg from 2 given concern oversedation)
#Severe intertrigo
Start miconazole ointment, Diflucan
Already on antibiotics for the above
#Chronic critical limb ischemia
#Peripheral artery disease
JC results appreciated
Appreciate vascular surgery input, s/p RLE arteriogram 03/17 showing no significant iliac/fem/pop stenosis, occluded ARELIS s/p balloon
Continue aspirin, statin
#shooting pain suspect neuropathic, spasticity noted
gabapentin and tizanidine started later discontinued d/t concern oversedation
#Dysuria
Urine cultures with Amairani, 10,000 colony
Contaminated per ID
#Hx B/l Breast masses
Daughter Kirstin reports patient has followed up with [facility] at [place] (since discharge from this facility Sep 2023) and it was determined the masses were not malignant
Patient however is noted to have multiple bumps throughout her body including inner right thigh and forehead. Reported lumps have been present for years (past 2 years as per daughter). Also reported lumps were previously worked up but unclear as
to results of the work up were. Will defer further work up/evaluation/consultations to outpatient primary care provider at this time.
#Reported hx post-menopause vaginal bleeding
discussed with daughter Kirstin, patient has outpatient follow up gynecology due
#pAfib
#intermittently tachy (resolved)
#Chronic HFpEF s/p AICD/pacer
not on anticoagulation d/t hx GIB
cont home metoprolol with holding parameters, gradually increased from 25 mg daily to 50 mg BID as per Cardio
cont home bumex with potassium supplementation
ECHO appreciated EF mildly reduced EF 45-50% moderate MR moderate TR
Mild Hypotension with associate tachycardia suspect low volume vs oversedation
-s/p small IVF boluses 250 cc given x2 03/21
-BP since improved
#Hx GIB
cont home protonix BID
#HTN
cont home metoprolol with holding parameters
#Diabetes
cont home lantus 15U
medium dose sliding scale
Regular diet as per patient's request
#HLD
cont home statin
#BELKIS not on CPAP
observe
#Anxiety/Depression
cont home Mirtazapine
DVT prophylaxis�subcu Lovenox
DNI as per patient
Total time spent to see the patient on the floor, examine the patient, review data and lab results, discuss treatment plan with patient, nursing staff around 40 minutes.
Physical Exam
General: No acute distress
HEENT: Normocephalic, Atraumatic, EOMI, MMM
Respiratory: Clear to Auscultation bilaterally
Cardiac: Normal S1/S2, Regular Rate and Rhythm
GI: Soft, Nontender, Nondistended, Normal Bowel Sounds
Extremities: No Clubbing, Cyanosis, or Edema, swelling inner right thigh noted tender to palpation
Left foot TMA
Right foot third toe amp side dressed
Neuro: Lethargic but arousable conversant coherent
Psych: Calm, Cooperative
Derm: palpable bump noted on patient's forehead and inner right thigh
Beefy red erythematous dermatitis noted at gluteal crack extending to the groin
Anticipated Discharge: Within 24 hours
Subjective/Interval History
-
Date of Service: March 25, 2024
Patient complains of severe pain in her bottom. No fever, no vomiting.
Objective Data
-
Labs:
Laboratory Results
03/25/24 03/25/24
06:12 06:13
WBC 7.3
Hgb 10.0 L
Hct 31.2 L
Plt Count 247
Sodium 138
Potassium 4.2
Chloride 108 H
Carbon Dioxide 21 L
BUN 39 H
Creatinine 1.3 H
Glucose 129 H
Calcium 8.4
Vital Signs:
Vital Signs
Temp Pulse Resp BP Pulse Ox
98.6 F 65 17 107/51 96
03/25/24 07:30 03/25/24 07:30 03/25/24 07:30 03/25/24 07:30 03/25/24 07:30
I&O
03/24/24 03/25/24 03/26/24
06:59 06:59 06:59
Intake Total 360 / 360 1140 / 1140
Balance 360 / 360 1140 / 1140
[2024-03-25 11:23] LABS: Glucose - Point of Care 115 mg/dl (70-99)
[2024-03-25 12:49] LABS: Urine Albumin 2+ (Neg - Trace); Urine Bilirubin Negative (Negative); Urine Character Very Cloudy (Clear); Urine Color Yellow; Urine Glucose 2+ (Negative); Urine Ketone Negative (Negative); Urine Leukocyte 2+ (Negative); Urine Nitrite Negative (Negative); Urine Occult Blood 3+ (Negative); Urine Specific Gravity 1.015 (<1.030); Urine Urobilinogen Negative (Neg - 1+)
[2024-03-25 13:11] LABS: Urine White Cell >100 /HPF (0-5)
[2024-03-25] MEDS: DIFLUCAN 100 MG PO (14:39)
[2024-03-25] MEDS: MYCOSTATIN OINTMENT 1 APPLIC TOPICAL ×2 (14:39→22:13)
--- NOTE | 2024-03-25 15:33 | W.PN.POD ---
Addendum entered and electronically signed by Estiven Jarquin DPM 03/25/24 15:39:
Daily wound care with dry gauze and kerlix , no adaptic needed
Original Note:
Today's Communication
Today's Communication
Patient stable per podiatry.
Assessment / Plan
-
S/P Rt 3rd toe amputation with primary closure 03/18
Rt foot cellutlis - resolved
Digital deformities
Diabetic small vessel disease
Plan : abx per ID.
Changed Rt foot dressings, Applied dry gauze, kerlix, once daily.
Patient to use wheel chair for 2 wks, to help heal her amputation site well.
Patient stable per podiatry
Patient will follow up in my office for all post op care in 1 wk after discharge
Subjective
Chief Complaint
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
Subjective
Patient seen at bedside, doing well, no new complaints, resolved Rt foot pain. No fever, chills, Minimal strike through bleeding in Rt foot surgical dressings , denies any Rt calf pain, no numbness or tingling of the foot
Objective
Temp Pulse Resp BP Pulse Ox
98.6 F 65 17 107/51 98
03/25/24 07:30 03/25/24 07:30 03/25/24 07:30 03/25/24 07:30 03/25/24 08:15
03/25/24 06:12
03/25/24 06:13
Vital Signs and Lab results were reviewed.
Rt foot intact ct vascular status, rt foot palpable DP , no edema
Rt 3rd tote amputation site clean, dry, no bleeding, surgical margins appear pink, no necrosis, well coapted wound margins, intact sutures, Resolved erythema to Rt forefoot. no drainage,
--- NOTE | 2024-03-25 15:45 | PN.CDI ---
CDI
- -
CDI:
Physician Documentation Request
Admit Date: 03/14/24 18:04
Dear Doctor Do,
Patient admitted with foot wound infection.
Laboratory Tests
03/23/24 03/24/24
07:04 06:26
Creatinine 0.9 1.2 H
Clarify which of the following accurately represents the patient's renal status:
TATIANA
Rise in creatinine only
Other
Criteria for TATIANA*
1 Increase in serum creatinine by > or = to 0.3 mg/dL (> or = to 26.5 micromol/L) within 48 hours, OR
2 Increase in serum creatinine to > or = to 1.5 times baseline, which is known or presumed to have occurred within 7 days, OR
3 Urine volume < 0.5 nL/kg/hour for six hours
Use of terms such as suspected, likely, concern for, or probable (associated with a specific diagnosis that is being evaluated, monitored, or treated as if it exists) are acceptable and can be coded in the inpatient setting, when documented at the
time of discharge.
Thank you,
Holli Smith RN, BSN
CDI Specialist
Available via [place] text
Please use your independent medical judgment in providing your response.
*Source: Kidney Disease: Improving Global Outcomes (KDIGO) 2012
[2024-03-25 15:49] VITALS: BP 118/60
[2024-03-25] MEDS: LOVENOX 40 MG SC (17:09)
[2024-03-25] MEDS: TYLENOL PO (17:09)
[2024-03-25 17:11] LABS: Glucose - Point of Care 123 mg/dl (70-99)
[2024-03-25 22:02] LABS: Glucose - Point of Care 172 mg/dl (70-99)
[2024-03-25] MEDS: LIPITOR 20 MG PO (22:09)
[2024-03-25] MEDS: REMERON 7.5 MG PO (22:10)
[2024-03-25] MEDS: LANTUS 0.15 UNITS SC (22:16)
[2024-03-25 23:49] VITALS: BP 118/65
[2024-03-26 06:00] VITALS: BMI 21.1
[2024-03-26 07:47] LABS: Glucose - Point of Care 111 mg/dl (70-99)
[2024-03-26 07:58] VITALS: BP 101/48
--- NOTE | 2024-03-26 08:28 | W.PN.HOSP.TC ---
Today's Communication/Plan
-
Pure wick
Wound care
Assessment / Plan
Assessment / Plan
HPI: 87 female [facility] resident history of bilateral breast masses paroxysmal A-fib (not on anticoagulation due to hx GI bleeds) HFpEF status post pacer defibrillator moderate tricuspid regurgitation hypertension diabetes hyperlipidemia, hx toe
amputations left foot, fibromyalgia BELKIS not on CPAP anxiety/depression, recent hospitalization at this facility Sep 2023 for anemia rectal bleeding and COVID, presents with right foot/3rd toe pain/wound and associate erythema. Patient reports 3rd
toe wound has been present and progressive for past 5 weeks, treated with oral abx outpatient without improvement. Patient also reports being wheelchair bound for the past years and chronic double vision for the last 6 months corrected with glasses.
#Right diabetic foot wound infection
#Right 3rd toe ulceration
Appreciate podiatry input, s/p right third toe amputation 03/18
-Patient to use wheel chair for 2 wks, to help heal her amputation site well.
-follow up post op care next SundayMarch 26
Appreciate ID input, empiric IV Vanc Zosyn discontinued following amputation, wound cx pos for MRSA however, started on oral doxycycline 100 mg BID for 6 weeks
pain control ibuprofen switched to schedule (hasn't been receiving as mod prn), oxycodone for mod severe pain, has not required - morphine for breakthrough (dose reduced to 1 mg from 2 given concern oversedation)
#Severe intertrigo
Started miconazole ointment, Diflucan 03/25
Pure wick to avoid moisture, wound care
Already on antibiotics for the above
#Acute kidney injury
Discontinue ibuprofen
Resolved, resume Bumex
#Chronic critical limb ischemia
#Peripheral artery disease
JC results appreciated
Appreciate vascular surgery input, s/p RLE arteriogram 03/17 showing no significant iliac/fem/pop stenosis, occluded ARELIS s/p balloon
Continue aspirin, statin
#shooting pain suspect neuropathic, spasticity noted
gabapentin and tizanidine started later discontinued d/t concern oversedation
#Dysuria
Urine cultures with Amairani, 10,000 colony
Contaminated per ID
#Hx B/l Breast masses
Daughter Kirstin reports patient has followed up with [facility] at [place] (since discharge from this facility Sep 2023) and it was determined the masses were not malignant
Patient however is noted to have multiple bumps throughout her body including inner right thigh and forehead. Reported lumps have been present for years (past 2 years as per daughter). Also reported lumps were previously worked up but unclear as
to results of the work up were. Will defer further work up/evaluation/consultations to outpatient primary care provider at this time.
#Reported hx post-menopause vaginal bleeding
discussed with daughter Kirstin, patient has outpatient follow up gynecology due
#pAfib
#intermittently tachy (resolved)
#Chronic HFpEF s/p AICD/pacer
not on anticoagulation d/t hx GIB
cont home metoprolol with holding parameters, gradually increased from 25 mg daily to 50 mg BID as per Cardio
cont home bumex with potassium supplementation
ECHO appreciated EF mildly reduced EF 45-50% moderate MR moderate TR
Mild Hypotension with associate tachycardia suspect low volume vs oversedation
-s/p small IVF boluses 250 cc given x2 03/21
-BP since improved
#Hx GIB
cont home protonix BID
#HTN
cont home metoprolol with holding parameters
#Diabetes
cont home lantus 15U
medium dose sliding scale
Regular diet as per patient's request
#HLD
cont home statin
#BELKIS not on CPAP
observe
#Anxiety/Depression
cont home Mirtazapine
DVT prophylaxis�subcu Lovenox
DNI as per patient
Total time spent to see the patient on the floor, examine the patient, review data and lab results, discuss treatment plan with patient, nursing staff around 50 minutes.
Physical Exam
General: No acute distress
HEENT: Normocephalic, Atraumatic, EOMI, MMM
Respiratory: Clear to Auscultation bilaterally
Cardiac: Normal S1/S2, Regular Rate and Rhythm
GI: Soft, Nontender, Nondistended, Normal Bowel Sounds
Extremities: No Clubbing, Cyanosis, or Edema, swelling inner right thigh noted tender to palpation
Left foot TMA
Right foot third toe amp side dressed
Neuro: Lethargic but arousable conversant coherent
Psych: Calm, Cooperative
Derm: palpable bump noted on patient's forehead and inner right thigh
Beefy red erythematous dermatitis noted at gluteal crack extending to the groin
Anticipated Discharge: 24 - 48 hours
Subjective/Interval History
-
Date of Service: March 25, 2024
Patient's sacrum and groin pain is mildly improved. No fever, no vomiting.
Objective Data
-
Labs:
Laboratory Results
03/25/24 03/25/24
06:12 06:13
WBC 7.3
Hgb 10.0 L
Hct 31.2 L
Plt Count 247
Sodium 138
Potassium 4.2
Chloride 108 H
Carbon Dioxide 21 L
BUN 39 H
Creatinine 1.3 H
Glucose 129 H
Calcium 8.4
Vital Signs:
Vital Signs
Temp Pulse Resp BP Pulse Ox
99.1 F 64 17 118/60 99
03/25/24 15:49 03/25/24 15:49 03/25/24 15:49 03/25/24 15:49 03/25/24 15:49
I&O
03/24/24 03/25/24 03/26/24
06:59 06:59 06:59
Intake Total 360 / 360 1140 / 1140
Balance 360 / 360 1140 / 1140
[2024-03-26] MEDS: ROXICODONE 5 MG PO ×2 (09:25→22:06)
[2024-03-26] MEDS: MIRALAX 17 GRAMS PO (09:26)
[2024-03-26] MEDS: CYMBALTA DELAYED RELEASE 20 MG PO (09:29)
[2024-03-26] MEDS: PROTONIX 40 MG PO ×2 (09:29→21:02)
[2024-03-26] MEDS: REFRESH EYE DROPS (PF) 1 DROPS BOTH EYES ×4 (09:30→22:58)
[2024-03-26] MEDS: TOPROL XL 50 MG PO ×2 (09:30→21:03)
[2024-03-26] MEDS: TYLENOL 1000 MG PO ×3 (09:30→21:53)
[2024-03-26] MEDS: VIBRAMYCIN 100 MG PO ×2 (09:30→21:04)
[2024-03-26] MEDS: KCL 20 MEQ PO (09:31)
[2024-03-26] MEDS: JARDIANCE 10 MG PO (09:31)
[2024-03-26] MEDS: FEOSOL 325 MG PO (09:31)
[2024-03-26] MEDS: ASPIR LOW (ENTERIC COATED) 81 MG PO (09:32)
[2024-03-26] MEDS: DIFLUCAN 100 MG PO (09:33)
[2024-03-26] MEDS: NOVOLOG FLEXPEN-MODERATE RESISTANCE SC ×3 (09:33→15:44)
[2024-03-26] MEDS: MYCOSTATIN OINTMENT 1 APPLIC TOPICAL ×2 (09:34→21:02)
--- NOTE | 2024-03-26 10:00 | WOUNDNOTE ---
R 3RD TOE AMP
--- NOTE | 2024-03-26 10:00 | WOUNDNOTE ---
[facility] RN note: Patient admitted with R diabetic foot infection. S/p L 3rd toe amp by Dr. Jarquin 03/18/24. Patient resides at [facility].
See H&P for complete history.
PMH: bilateral breast non malignant masses, a fib, CHF, pacer/AICD, HTN, DM, L foot toe amp, BELKIS, anxiety/depression.
Wound Location and type/assessment: Patient admitted with: MASD rosalie/coccyx skin patient states she's had prior to admission. Coccyx/rosalie skin with denuded open skin area and is very tender. Patient incontinent of urine.
Appetite: fair.
Pressure redistribution devices in place: [employer] Accumax. Patient turns herself frequently in bed. Pillow off loading heels.
Plan: Rosalie care given. Antifungal ointment and Calazime applied. Diaper removed. RN Kirstin agrees with no diaper for patient in bed. Kirstin to evaluate if Purewick appropriate. Draw sheet and Ultrasorb pad applied (long ways). Heels off bed with
pillows. Air chair cushion placed under sacral/buttocks. Dr. Adair was in during beginning of visit. R 3rd toe amp site dressing changed. Will update and clarify dressing changes with Dr. Jarquin.
Care plan to be updated and will follow as needed. Patient to follow up with Dr. Jarquin.
--- NOTE | 2024-03-26 10:15 | WOUNDNOTE ---
[facility] RN Note: Hitesh texted Dr. Jarquin R toe amp pictures and that gauze pad stuck during removal this morning and asked to clarify if the dressing change is dry gauze or adaptic and dry gauze. R 3rd toe amp incision with some dry brown and
moist yellow tissue, scant serous drainage. +erythema just dorsal/proximal of incision. Dry gauze was applied today per rural route carrier's report yesterday. Dr. Jarquin responded can apply adaptic and gauze (no Xeroform). Nursing care plan and
discharge instructions updated.
[2024-03-26 10:59] LABS: Hematocrit 34.9 % (37.0-47.0); Mean Corp Hgb Conc. 31.5 g/dL (33.0-37.0); Mean Corpuscular Hgb 29.5 pg (27.0-31.0); Mean Corpuscular Volume 93.6 fL (81.0-99.0); Mean Platelet Volume 10.5 fL (7.4-10.4); Platelet Count 262 10^3/uL (130-400); Red Blood Cell Count 3.73 10^6/uL (4.20-5.40); Red Cell Dist. Width 18.3 % (11.5-14.5); White Blood Cell Count 6.6 10^3/uL (4.8-10.8)
[2024-03-26 12:37] LABS: Blood Urea Nitrogen 37 mg/dl (7-17); Calcium 8.3 mg/dl (8.4-10.2); Carbon Dioxide 21 mmol/L (22-30); Chloride 111 mmol/L (98-107); Estimated Creatinine Clearance 35 ml/min; Glucose 85 mg/dl (70-99); Magnesium 1.8 mg/dl (1.6-2.3); Phosphorus 4.2 mg/dl (2.5-4.5); Potassium 4.6 mmol/L (3.5-5.1); Sodium 139 mmol/L (135-145); eGFR 54.19
[2024-03-26 12:41] LABS: Glucose - Point of Care 88 mg/dl (70-99)
[2024-03-26 14:58] VITALS: BP 99/52
--- NOTE | 2024-03-26 15:02 | CM ---
Per , probable d/c Sunday. Francoise/ Shayla updated.
[facility] updated.
will need medical nec form for ambulance.
[facility] ([facility]
report [phone]
fax [phone]
Plan:Return to [facility]
[2024-03-26 15:36] LABS: Glucose - Point of Care 117 mg/dl (70-99)
[2024-03-26] MEDS: LOVENOX 40 MG SC (15:44)
--- NOTE | 2024-03-26 17:56 | PTCARENOTE ---
Seen by wound care today- air cushion provided for patient while in bed. Patient turned every 2 hours, she is able to assist with this, no brief used. Purewick placed as per recommendation to keep rosalie skin dry . Patient pain controlled with
Tylenol and roxycodone. Able to make her needs known.
[2024-03-26 21:40] LABS: Glucose - Point of Care 171 mg/dl (70-99)
[2024-03-26] MEDS: REMERON 7.5 MG PO (21:53)
[2024-03-26] MEDS: LIPITOR 20 MG PO (21:58)
[2024-03-26] MEDS: LANTUS 0.15 UNITS SC (21:59)
[2024-03-26] MEDS: ESTRACE 0.01% VAGINAL CREAM 1 APPLIC VAG (22:02)
[2024-03-26 23:00] VITALS: BP 119/58
[2024-03-26] MEDS: TUMS 2 TABLET PO (23:09)
[2024-03-27 06:00] VITALS: BMI 21.7
[2024-03-27 07:00] VITALS: BP 156/68
[2024-03-27 08:04] LABS: Glucose - Point of Care 77 mg/dl (70-99)
[2024-03-27] MEDS: KCL 20 MEQ PO (08:22)
[2024-03-27] MEDS: VIBRAMYCIN 100 MG PO ×2 (08:22→19:49)
[2024-03-27] MEDS: MIRALAX 17 GRAMS PO (08:22)
[2024-03-27] MEDS: TOPROL XL 50 MG PO ×2 (08:22→19:50)
[2024-03-27] MEDS: REFRESH EYE DROPS (PF) 1 DROPS BOTH EYES ×4 (08:22→22:24)
[2024-03-27] MEDS: ASPIR LOW (ENTERIC COATED) 81 MG PO (08:22)
[2024-03-27] MEDS: TYLENOL 1000 MG PO ×3 (08:23→22:25)
[2024-03-27] MEDS: JARDIANCE 10 MG PO (08:23)
[2024-03-27] MEDS: FEOSOL 325 MG PO (08:23)
[2024-03-27] MEDS: BUMEX 0.5 MG PO (08:23)
[2024-03-27] MEDS: DIFLUCAN 100 MG PO (08:23)
[2024-03-27] MEDS: CYMBALTA DELAYED RELEASE 20 MG PO (08:23)
[2024-03-27] MEDS: PROTONIX 40 MG PO ×2 (08:23→19:49)
[2024-03-27] MEDS: MYCOSTATIN OINTMENT 1 APPLIC TOPICAL ×2 (08:24→19:48)
[2024-03-27] MEDS: ROXICODONE 5 MG PO ×2 (08:27→19:49)
[2024-03-27] MEDS: NOVOLOG FLEXPEN-MODERATE RESISTANCE SC ×3 (08:40→18:01)
[2024-03-27 08:51] LABS: Blood Urea Nitrogen 32 mg/dl (7-17); Calcium 8.6 mg/dl (8.4-10.2); Carbon Dioxide 23 mmol/L (22-30); Chloride 111 mmol/L (98-107); Estimated Creatinine Clearance 39 ml/min; Glucose 64 mg/dl (70-99); Potassium 4.5 mmol/L (3.5-5.1); Sodium 140 mmol/L (135-145); eGFR > 60.00
--- NOTE | 2024-03-27 08:56 | W.PN.HOSP.TC ---
Today's Communication/Plan
-
Discharge to the group home tomorrow
Assessment / Plan
Assessment / Plan
HPI: 87 female group home resident history of bilateral breast masses paroxysmal A-fib (not on anticoagulation due to hx GI bleeds) HFpEF status post pacer defibrillator moderate tricuspid regurgitation hypertension diabetes hyperlipidemia, hx toe
amputations left foot, fibromyalgia BELKIS not on CPAP anxiety/depression, recent hospitalization at this facility Sep 2023 for anemia rectal bleeding and COVID, presents with right foot/3rd toe pain/wound and associate erythema. Patient reports 3rd
toe wound has been present and progressive for past 5 weeks, treated with oral abx outpatient without improvement. Patient also reports being wheelchair bound for the past years and chronic double vision for the last 6 months corrected with glasses.
#Right diabetic foot wound infection
#Right 3rd toe ulceration
Appreciate podiatry input, s/p right third toe amputation 03/18
-Patient to use wheel chair for 2 wks, to help heal her amputation site well.
Appreciate ID input, empiric IV Vanc Zosyn discontinued following amputation, wound cx pos for MRSA however, started on oral doxycycline 100 mg BID for 6 weeks
pain control ibuprofen switched to schedule (hasn't been receiving as mod prn), oxycodone for mod severe pain, has not required - morphine for breakthrough (dose reduced to 1 mg from 2 given concern oversedation)
#Severe intertrigo
Started miconazole ointment, Diflucan 03/25
Pure wick to avoid moisture, wound care
Already on antibiotics for the above
#Acute kidney injury
Discontinue ibuprofen
Resolved, resume Bumex
#Dysuria
03/25 Urine cultures with greater than 100,000 colonies of gram-negative rods, follow-up on sensitivities
#Chronic critical limb ischemia
#Peripheral artery disease
JC results appreciated
Appreciate vascular surgery input, s/p RLE arteriogram 03/17 showing no significant iliac/fem/pop stenosis, occluded ARELIS s/p balloon
Continue aspirin, statin
#shooting pain suspect neuropathic, spasticity noted
gabapentin and tizanidine started later discontinued d/t concern oversedation
#Hx B/l Breast masses
Daughter Kirstin reports patient has followed up with [facility] at [place] (since discharge from this facility Sep 2023) and it was determined the masses were not malignant
Patient however is noted to have multiple bumps throughout her body including inner right thigh and forehead. Reported lumps have been present for years (past 2 years as per daughter). Also reported lumps were previously worked up but unclear as
to results of the work up were. Will defer further work up/evaluation/consultations to outpatient primary care provider at this time.
#Reported hx post-menopause vaginal bleeding
discussed with daughter Kirstin, patient has outpatient follow up gynecology due
#pAfib
#intermittently tachy (resolved)
#Chronic HFpEF s/p AICD/pacer
not on anticoagulation d/t hx GIB
cont home metoprolol with holding parameters, gradually increased from 25 mg daily to 50 mg BID as per Cardio
cont home bumex with potassium supplementation
ECHO appreciated EF mildly reduced EF 45-50% moderate MR moderate TR
Mild Hypotension with associate tachycardia suspect low volume vs oversedation
-s/p small IVF boluses 250 cc given x2 03/21
-BP since improved
#Hx GIB
cont home protonix BID
#HTN
cont home metoprolol with holding parameters
#Diabetes
cont home lantus 15U
medium dose sliding scale
Regular diet as per patient's request
#HLD
cont home statin
#BELKIS not on CPAP
observe
#Anxiety/Depression
cont home Mirtazapine
DVT prophylaxis�subcu Lovenox
DNI as per patient
Total time spent to see the patient on the floor, examine the patient, review data and lab results, discuss treatment plan with patient, nursing staff around 38 minutes.
Physical Exam
General: No acute distress
HEENT: Normocephalic, Atraumatic, EOMI, MMM
Respiratory: Clear to Auscultation bilaterally
Cardiac: Normal S1/S2, Regular Rate and Rhythm
GI: Soft, Nontender, Nondistended, Normal Bowel Sounds
Extremities: No Clubbing, Cyanosis, or Edema, swelling inner right thigh noted tender to palpation
Left foot TMA
Right foot third toe amp side dressed
Neuro: Lethargic but arousable conversant coherent
Psych: Calm, Cooperative
Derm: palpable bump noted on patient's forehead and inner right thigh
Beefy red erythematous dermatitis noted at gluteal crack extending to the groin
Anticipated Discharge: Within 24 hours
Subjective/Interval History
-
Date of Service: March 27, 2024
Patient complains of her right foot pain, and her sacral pain. Both are overall improved. No fever, no vomiting.
Objective Data
-
Labs:
Laboratory Results
03/27/24
08:10
Sodium 140
Potassium 4.5
Chloride 111 H
Carbon Dioxide 23
BUN 32 H
Creatinine 0.9
Glucose 64 L
Calcium 8.6
Vital Signs:
Vital Signs
Temp Pulse Resp BP Pulse Ox
98.0 F 67 18 156/68 98
03/27/24 07:00 03/27/24 07:00 03/27/24 07:00 03/27/24 07:00 03/27/24 07:00
I&O
03/26/24 03/27/24 03/28/24
06:59 06:59 06:59
Intake Total 1020 / 1020 680 / 680
Output Total 100 / 100
Balance 1020 / 1020 580 / 580
[2024-03-27 12:12] LABS: Glucose - Point of Care 73 mg/dl (70-99)
[2024-03-27 15:00] VITALS: BP 122/74
[2024-03-27] MEDS: LOVENOX 40 MG SC (17:26)
[2024-03-27 17:53] LABS: Glucose - Point of Care 121 mg/dl (70-99)
[2024-03-27 21:55] LABS: Glucose - Point of Care 191 mg/dl (70-99)
[2024-03-27] MEDS: LANTUS 0.15 UNITS SC (22:23)
[2024-03-27] MEDS: REMERON 7.5 MG PO (22:24)
[2024-03-27] MEDS: LIPITOR 20 MG PO (22:24)
[2024-03-27 23:00] VITALS: BP 138/76
[2024-03-28] MEDS: ROXICODONE 5 MG PO ×3 (01:21→18:20)
[2024-03-28 07:24] LABS: Glucose - Point of Care 49 mg/dl (70-99)
[2024-03-28 07:40] LABS: Glucose - Point of Care 56 mg/dl (70-99)
[2024-03-28 08:07] LABS: Glucose - Point of Care 101 mg/dl (70-99)
[2024-03-28 08:25] VITALS: BP 121/59
[2024-03-28] MEDS: MYCOSTATIN OINTMENT 1 APPLIC TOPICAL ×2 (08:40→20:48)
[2024-03-28] MEDS: MIRALAX 17 GRAMS PO (08:40)
[2024-03-28] MEDS: NOVOLOG FLEXPEN-MODERATE RESISTANCE SC ×2 (08:40→11:32)
[2024-03-28] MEDS: TYLENOL 1000 MG PO ×2 (08:41→16:07)
--- NOTE | 2024-03-28 08:41 | W.PN.HOSP.TC ---
Addendum entered and electronically signed by Villa Adair MD 03/28/24 15:23:
Patient hypoglycemic this morning, blood sugar 49. She was asymptomatic.
Will decrease Lantus from 15 units units at bedtime to 5 units at bedtime.
Original Note:
Today's Communication/Plan
-
see bold
Assessment / Plan
Assessment / Plan
HPI: 87 female [facility] resident history of bilateral breast masses paroxysmal A-fib (not on anticoagulation due to hx GI bleeds) HFpEF status post pacer defibrillator moderate tricuspid regurgitation hypertension diabetes hyperlipidemia, hx toe
amputations left foot, fibromyalgia BELKIS not on CPAP anxiety/depression, recent hospitalization at this facility Sep 2023 for anemia rectal bleeding and COVID, presents with right foot/3rd toe pain/wound and associate erythema. Patient reports 3rd
toe wound has been present and progressive for past 5 weeks, treated with oral abx outpatient without improvement. Patient also reports being wheelchair bound for the past years and chronic double vision for the last 6 months corrected with glasses.
#Right diabetic foot wound infection
#Right 3rd toe ulceration
Appreciate podiatry input, s/p right third toe amputation 03/18
-Patient to use wheel chair for 2 wks, to help heal her amputation site well.
Appreciate ID input, empiric IV Vanc Zosyn discontinued following amputation, wound cx pos for MRSA however, started on oral doxycycline 100 mg BID for 6 weeks
pain control ibuprofen switched to schedule (hasn't been receiving as mod prn), oxycodone for mod severe pain, has not required - morphine for breakthrough (dose reduced to 1 mg from 2 given concern oversedation)
#Severe intertrigo
Started miconazole ointment, Diflucan 03/25
Pure wick to avoid moisture, wound care
Already on antibiotics for the above
#Acute kidney injury
Discontinue ibuprofen
Resolved, resume Bumex
#Dysuria
#Acute urinary tract infection
03/25 Urine cultures growing greater than 100,000 colonies of Enterobacter, start cefdinir 300 mg twice a day for 5 days on 03/28
#Chronic critical limb ischemia
#Peripheral artery disease
JC results appreciated
Appreciate vascular surgery input, s/p RLE arteriogram 03/17 showing no significant iliac/fem/pop stenosis, occluded ARELIS s/p balloon
Continue aspirin, statin
#shooting pain suspect neuropathic, spasticity noted
gabapentin and tizanidine started later discontinued d/t concern oversedation
#Hx B/l Breast masses
Daughter Kirstin reports patient has followed up with [facility] at [place] (since discharge from this facility Sep 2023) and it was determined the masses were not malignant
Patient however is noted to have multiple bumps throughout her body including inner right thigh and forehead. Reported lumps have been present for years (past 2 years as per daughter). Also reported lumps were previously worked up but unclear as
to results of the work up were. Will defer further work up/evaluation/consultations to outpatient primary care provider at this time.
#Reported hx post-menopause vaginal bleeding
discussed with daughter Kirstin, patient has outpatient follow up gynecology due
#pAfib
#intermittently tachy (resolved)
#Chronic HFpEF s/p AICD/pacer
not on anticoagulation d/t hx GIB
Patient was tachycardic, increase Toprol XL from 50 mg twice a day to 75 mg twice a day
cont home bumex with potassium supplementation
ECHO appreciated EF mildly reduced EF 45-50% moderate MR moderate TR
Mild Hypotension with associate tachycardia suspect low volume vs oversedation
-s/p small IVF boluses 250 cc given x2 03/21
-BP since improved
#Hx GIB
cont home protonix BID
#HTN
cont home metoprolol with holding parameters
#Diabetes
cont home lantus 15U
medium dose sliding scale
Regular diet as per patient's request
#HLD
cont home statin
#BELKIS not on CPAP
observe
#Anxiety/Depression
cont home Mirtazapine
DVT prophylaxis�subcu Lovenox
DNI as per patient
Total time spent to see the patient on the floor, examine the patient, review data and lab results, discuss treatment plan with patient, nursing staff around 51 minutes.
Physical Exam
General: No acute distress
HEENT: Normocephalic, Atraumatic, EOMI, MMM
Respiratory: Clear to Auscultation bilaterally
Cardiac: Normal S1/S2, tachycardic rate and Rhythm
GI: Soft, Nontender, Nondistended, Normal Bowel Sounds
Extremities: No Clubbing, Cyanosis, or Edema, swelling inner right thigh noted tender to palpation
Left foot TMA
Right foot third toe amp side dressed
Neuro: Lethargic but arousable conversant coherent
Psych: Calm, Cooperative
Derm: palpable bump noted on patient's forehead and inner right thigh
Beefy red erythematous dermatitis noted at gluteal crack extending to the groin
Anticipated Discharge: Within 24 hours
Subjective/Interval History
-
Date of Service: March 28, 2024
Patient complains of right foot pain and pain in her sacrum. No fever, no vomiting.
Objective Data
-
Vital Signs:
Vital Signs
Temp Pulse Resp BP Pulse Ox
98.0 F 105 14 121/59 95
03/28/24 08:25 03/28/24 08:25 03/28/24 08:25 03/28/24 08:25 03/28/24 08:25
I&O
03/27/24 03/28/24 03/29/24
06:59 06:59 06:59
Intake Total 680 / 680 840 / 840
Output Total 100 / 100 600 / 600
Balance 580 / 580 240 / 240
[2024-03-28] MEDS: ASPIR LOW (ENTERIC COATED) 81 MG PO (08:42)
[2024-03-28] MEDS: VIBRAMYCIN 100 MG PO ×2 (08:42→20:50)
[2024-03-28] MEDS: BUMEX 0.5 MG PO (08:42)
[2024-03-28] MEDS: REFRESH EYE DROPS (PF) 1 DROPS BOTH EYES ×3 (08:43→17:23)
[2024-03-28] MEDS: FEOSOL 325 MG PO (08:43)
[2024-03-28] MEDS: PROTONIX 40 MG PO ×2 (08:43→20:50)
[2024-03-28] MEDS: DIFLUCAN 100 MG PO (08:43)
[2024-03-28] MEDS: JARDIANCE 10 MG PO (08:43)
[2024-03-28] MEDS: TOPROL XL 50 MG PO (08:44)
[2024-03-28] MEDS: KCL 20 MEQ PO (08:44)
[2024-03-28] MEDS: CYMBALTA DELAYED RELEASE 20 MG PO (08:44)
[2024-03-28 10:08] LABS: Glucose - Point of Care 127 mg/dl (70-99)
--- NOTE | 2024-03-28 10:08 | PTCARENOTE ---
BS 49 this am recheck after 4 oz of juice it was 55. Recheck after another 4 oz of juice 101. 2 hour check was 127
[2024-03-28 11:32] LABS: Glucose - Point of Care 128 mg/dl (70-99)
[2024-03-28] MEDS: TOPROL XL 25 MG PO (12:14)
--- NOTE | 2024-03-28 12:41 | PTCARENOTE ---
Hospitalist aware of low blood sugar this am, Also aware heart rate 106. EKG completed and sent to physician.
--- NOTE | 2024-03-28 14:26 | CM ---
Per , probable d/c Sunday. Francosie/ Shayla updated.
Will need medical nec form for ambulance.
[facility]
report [phone]
fax [phone]
Plan:Return to [facility]
[2024-03-28 15:39] VITALS: BP 126/74
[2024-03-28] MEDS: OMNICEF 300 MG PO ×2 (16:07→20:49)
[2024-03-28 16:30] LABS: Glucose - Point of Care 172 mg/dl (70-99)
[2024-03-28] MEDS: NOVOLOG FLEXPEN-MODERATE RESISTANCE 1 UNITS SC (16:39)
[2024-03-28] MEDS: LOVENOX 40 MG SC (17:22)
[2024-03-28] MEDS: TOPROL XL 75 MG PO (20:50)
[2024-03-28 21:35] LABS: Glucose - Point of Care 218 mg/dl (70-99)
[2024-03-28 23:32] VITALS: BP 127/77
[2024-03-29] MEDS: LANTUS 0.05 UNITS SC ×2 (00:26→22:26)
[2024-03-29] MEDS: LIPITOR 20 MG PO ×2 (00:27→22:26)
[2024-03-29] MEDS: REMERON 7.5 MG PO ×2 (00:27→22:26)
[2024-03-29] MEDS: REFRESH EYE DROPS (PF) 1 DROPS BOTH EYES ×5 (00:27→22:26)
[2024-03-29] MEDS: TYLENOL 1000 MG PO ×4 (00:28→22:27)
[2024-03-29] MEDS: ESTRACE 0.01% VAGINAL CREAM 1 APPLIC VAG (00:45)
[2024-03-29 02:54] LABS: Glucose - Point of Care 127 mg/dl (70-99)
[2024-03-29 06:22] VITALS: BMI 20.9
[2024-03-29 07:34] LABS: Glucose - Point of Care 85 mg/dl (70-99)
[2024-03-29] MEDS: NOVOLOG FLEXPEN-MODERATE RESISTANCE SC (07:35)
[2024-03-29] MEDS: ASPIR LOW (ENTERIC COATED) 81 MG PO (07:36)
[2024-03-29] MEDS: PROTONIX 40 MG PO ×2 (07:36→20:40)
[2024-03-29] MEDS: BUMEX 0.5 MG PO (07:36)
[2024-03-29] MEDS: CYMBALTA DELAYED RELEASE 20 MG PO (07:36)
[2024-03-29] MEDS: VIBRAMYCIN 100 MG PO ×2 (07:37→20:40)
[2024-03-29] MEDS: DIFLUCAN 100 MG PO (07:37)
[2024-03-29] MEDS: ROXICODONE 5 MG PO ×2 (07:37→14:57)
[2024-03-29] MEDS: KCL 20 MEQ PO (07:37)
[2024-03-29] MEDS: FEOSOL 325 MG PO (07:37)
[2024-03-29] MEDS: TOPROL XL 75 MG PO ×2 (07:38→20:44)
[2024-03-29] MEDS: MYCOSTATIN OINTMENT 1 APPLIC TOPICAL ×2 (07:38→20:42)
[2024-03-29] MEDS: OMNICEF 300 MG PO (07:38)
[2024-03-29] MEDS: JARDIANCE 10 MG PO (07:38)
[2024-03-29] MEDS: MIRALAX 17 GRAMS PO (07:39)
[2024-03-29 07:52] VITALS: BP 118/58
--- NOTE | 2024-03-29 08:06 | W.PN.HOSP.TC ---
Today's Communication/Plan
-
see bold
Assessment / Plan
Assessment / Plan
HPI: 87 female long term resident history of bilateral breast masses paroxysmal A-fib (not on anticoagulation due to hx GI bleeds) HFpEF status post pacer defibrillator moderate tricuspid regurgitation hypertension diabetes hyperlipidemia, hx toe
amputations left foot, fibromyalgia BELKIS not on CPAP anxiety/depression, recent hospitalization at this facility Sep 2023 for anemia rectal bleeding and COVID, presents with right foot/3rd toe pain/wound and associate erythema. Patient reports 3rd
toe wound has been present and progressive for past 5 weeks, treated with oral abx outpatient without improvement. Patient also reports being wheelchair bound for the past years and chronic double vision for the last 6 months corrected with glasses.
#Right diabetic foot wound infection
#Right 3rd toe ulceration
Appreciate podiatry input, s/p right third toe amputation Tue 03/18
-Patient to use wheel chair for 2 wks, to help heal her amputation site well.
Appreciate ID input, empiric IV Vanc Zosyn discontinued following amputation, wound cx pos for MRSA however, started on oral doxycycline 100 mg BID for 6 weeks
pain control ibuprofen switched to schedule (hasn't been receiving as mod prn), oxycodone for mod severe pain, has not required - morphine for breakthrough (dose reduced to 1 mg from 2 given concern oversedation)
#Severe intertrigo
Started miconazole ointment, Diflucan 03/25
03/29 Inserted saeed to avoid moisture, wound care
Already on antibiotics for the above
#Acute kidney injury
Discontinue ibuprofen
Resolved, resumed Bumex
#Dysuria
#Acute urinary tract infection
03/25 Urine cultures growing greater than 100,000 colonies of Enterobacter & ESBL + E Coli
Started merrem 03/29, rec for 3 days
#Chronic critical limb ischemia
#Peripheral artery disease
JC results appreciated
Appreciate vascular surgery input, s/p RLE arteriogram 03/17 showing no significant iliac/fem/pop stenosis, occluded ARELIS s/p balloon
Continue aspirin, statin
#shooting pain suspect neuropathic, spasticity noted
gabapentin and tizanidine started later discontinued d/t concern oversedation
#Hx B/l Breast masses
Daughter Kirstin reports patient has followed up with [facility] at [place] (since discharge from this facility Sep 2023) and it was determined the masses were not malignant
Patient however is noted to have multiple bumps throughout her body including inner right thigh and forehead. Reported lumps have been present for years (past 2 years as per daughter). Also reported lumps were previously worked up but unclear as
to results of the work up were. Will defer further work up/evaluation/consultations to outpatient primary care provider at this time.
#Reported hx post-menopause vaginal bleeding
discussed with daughter Kirstin, patient has outpatient follow up gynecology due
#pAfib
#intermittently tachy (resolved)
#Chronic HFpEF s/p AICD/pacer
not on anticoagulation d/t hx GIB
Patient was tachycardic, increased Toprol XL from 50 mg twice a day to 75 mg twice a day
cont home bumex with potassium supplementation
ECHO appreciated EF mildly reduced EF 45-50% moderate MR moderate TR
Mild Hypotension with associate tachycardia suspect low volume vs oversedation
-s/p small IVF boluses 250 cc given x2 03/21
-BP since improved
#Hx GIB
cont home protonix BID
#HTN
cont home metoprolol with holding parameters
#Diabetes
decreased lantus to 5 U HS due to hypoglycemia
medium dose sliding scale
Regular diet as per patient's request
#HLD
cont home statin
#BELKIS not on CPAP
observe
#Anxiety/Depression
cont home Mirtazapine
DVT prophylaxis�subcu Lovenox
DNI as per patient
Total time spent to see the patient on the floor, examine the patient, review data and lab results, discuss treatment plan with patient, nursing staff around 50 minutes.
Physical Exam
General: No acute distress
HEENT: Normocephalic, Atraumatic, EOMI, MMM
Respiratory: Clear to Auscultation bilaterally
Cardiac: Normal S1/S2, tachycardic rate and Rhythm
GI: Soft, Nontender, Nondistended, Normal Bowel Sounds
Extremities: No Clubbing, Cyanosis, or Edema, swelling inner right thigh noted tender to palpation
Left foot TMA
Right foot third toe amp side dressed
Neuro: Lethargic but arousable conversant coherent
Psych: Calm, Cooperative
Derm: palpable bump noted on patient's forehead and inner right thigh
Beefy red erythematous dermatitis noted at gluteal crack extending to the groin
Anticipated Discharge: 24 - 48 hours
Subjective/Interval History
-
Date of Service: March 29, 2024
Patient complains of pain in her right foot as well as sacrum. No fever, no vomiting.
Objective Data
-
Labs:
Laboratory Results
03/29/24
06:00
WBC Pending
Hgb Pending
Hct Pending
Plt Count Pending
Sodium Pending
Potassium Pending
Chloride Pending
Carbon Dioxide Pending
BUN Pending
Creatinine Pending
Glucose Pending
Calcium Pending
Vital Signs:
Vital Signs
Temp Pulse Resp BP Pulse Ox
97.1 F 58 18 118/58 97
03/29/24 07:52 03/29/24 07:52 03/29/24 07:52 03/29/24 07:52 03/29/24 07:52
I&O
03/28/24 03/29/24 03/30/24
06:59 06:59 06:59
Intake Total 840 / 840 960 / 960
Output Total 600 / 600 1600 / 1600
Balance 240 / 240 -640 / -640
--- NOTE | 2024-03-29 09:57 | PTOTSP ---
Speech Language Pathology:
Clinical Swallow Evaluation
88F admitted since 03/14 for rt diabetic foot wound infection. New c/o difficulty swallowing w/ globus sensation. Discharge planned for today.
P/w mildly impaired oropharyngeal swallow characterized by slow mastication and intermittent globus sensation with regular solids. Endorses s/s concerning for esophageal dysphagia.
Recommendations:
1. Soft and bite sized diet (IDDSI 6), thin liquid (IDDSI 0)
2. Medications as tolerated
3. Safe swallowing strategies/aspiration precautions: small bites, single sips, alternate bites and sips (1:1), opt for soft/moist foods
4. Reflux precautions: upright 90 degrees up to 30 minutes after eating
5. Per d/c today, recommend f/u with [facility] service at the next level of care to assess diet level tolerance and reinforce/continue to train safe swallowing strategies. Might benefit from outpatient GI consult if s/s of esophageal dysphagia persist.
--- NOTE | 2024-03-29 10:53 | CM ---
Addendum entered by Gricelda Alaniz RN 03/29/24 10:56:
IMM reviewed with patient and placed on chart.
Original Note:
Plan: Discharge to [facility]
report [phone]
fax [phone]
Medical necessity and transport forms on chart.
[2024-03-29] MEDS: MORPHINE SULFATE 1 MG IV ×2 (10:58→12:06)
[2024-03-29 11:41] LABS: Glucose - Point of Care 172 mg/dl (70-99)
[2024-03-29 11:44] LABS: Hematocrit 32.4 % (37.0-47.0); Hemoglobin 10.9 g/dL (12.0-16.0); Mean Corp Hgb Conc. 33.6 g/dL (33.0-37.0); Mean Corpuscular Hgb 29.8 pg (27.0-31.0); Mean Corpuscular Volume 88.5 fL (81.0-99.0); Mean Platelet Volume 10.2 fL (7.4-10.4); Platelet Count 193 10^3/uL (130-400); Red Blood Cell Count 3.66 10^6/uL (4.20-5.40); Red Cell Dist. Width 17.7 % (11.5-14.5); White Blood Cell Count 6.5 10^3/uL (4.8-10.8)
[2024-03-29] MEDS: NOVOLOG FLEXPEN-MODERATE RESISTANCE 1 UNITS SC ×2 (11:44→16:59)
[2024-03-29] MEDS: STERILE WATER FOR INJECTION 10 ML IV ×2 (12:50→20:39)
[2024-03-29] MEDS: MERREM 500 MG IV ×2 (12:50→20:39)
[2024-03-29 15:00] VITALS: BP 127/68
[2024-03-29 15:32] LABS: Blood Urea Nitrogen 26 mg/dl (7-17); Calcium 8.8 mg/dl (8.4-10.2); Carbon Dioxide 24 mmol/L (22-30); Chloride 106 mmol/L (98-107); Estimated Creatinine Clearance 44 ml/min; Glucose 145 mg/dl (70-99); Magnesium 1.7 mg/dl (1.6-2.3); Phosphorus 4.6 mg/dl (2.5-4.5); Potassium 4.7 mmol/L (3.5-5.1); Sodium 135 mmol/L (135-145); eGFR > 60.00
[2024-03-29 16:04] LABS: Glucose - Point of Care 173 mg/dl (70-99)
[2024-03-29] MEDS: LOVENOX 40 MG SC (16:59)
[2024-03-29 21:46] LABS: Glucose - Point of Care 288 mg/dl (70-99)
[2024-03-29 23:00] VITALS: BP 129/68
[2024-03-30] MEDS: ROXICODONE 5 MG PO ×4 (01:18→23:21)
[2024-03-30] MEDS: MERREM 500 MG IV ×3 (03:08→19:57)
[2024-03-30] MEDS: STERILE WATER FOR INJECTION 10 ML IV ×3 (03:08→19:57)
[2024-03-30 06:00] VITALS: BMI 20.7
[2024-03-30 07:00] VITALS: BP 126/58
[2024-03-30] MEDS: BUMEX 0.5 MG PO (07:38)
[2024-03-30] MEDS: NOVOLOG FLEXPEN-MODERATE RESISTANCE SC (07:38)
[2024-03-30 07:39] LABS: Glucose - Point of Care 125 mg/dl (70-99)
[2024-03-30] MEDS: ASPIR LOW (ENTERIC COATED) 81 MG PO (07:39)
[2024-03-30] MEDS: DIFLUCAN 100 MG PO (07:39)
[2024-03-30] MEDS: PROTONIX 40 MG PO ×2 (07:39→19:57)
[2024-03-30] MEDS: KCL 20 MEQ PO (07:39)
[2024-03-30] MEDS: TOPROL XL 75 MG PO ×2 (07:39→20:06)
[2024-03-30] MEDS: FEOSOL 325 MG PO (07:39)
[2024-03-30] MEDS: VIBRAMYCIN 100 MG PO ×2 (07:40→19:59)
[2024-03-30] MEDS: TYLENOL 1000 MG PO ×3 (07:40→21:43)
[2024-03-30] MEDS: REFRESH EYE DROPS (PF) 1 DROPS BOTH EYES ×4 (07:40→21:43)
[2024-03-30] MEDS: MYCOSTATIN OINTMENT 1 APPLIC TOPICAL ×2 (07:41→19:59)
[2024-03-30] MEDS: MIRALAX PO (07:41)
[2024-03-30] MEDS: JARDIANCE 10 MG PO (07:49)
[2024-03-30] MEDS: CYMBALTA DELAYED RELEASE 20 MG PO (07:49)
--- NOTE | 2024-03-30 08:34 | W.PN.HOSP.TC ---
Today's Communication/Plan
-
see bold
Assessment / Plan
Assessment / Plan
HPI: 87 female [facility] resident history of bilateral breast masses paroxysmal A-fib (not on anticoagulation due to hx GI bleeds) HFpEF status post pacer defibrillator moderate tricuspid regurgitation hypertension diabetes hyperlipidemia, hx toe
amputations left foot, fibromyalgia BELKIS not on CPAP anxiety/depression, recent hospitalization at this facility Sep 2023 for anemia rectal bleeding and COVID, presents with right foot/3rd toe pain/wound and associate erythema. Patient reports 3rd
toe wound has been present and progressive for past 5 weeks, treated with oral abx outpatient without improvement. Patient also reports being wheelchair bound for the past years and chronic double vision for the last 6 months corrected with glasses.
#Right diabetic foot wound infection
#Right 3rd toe ulceration
Appreciate podiatry input, s/p right third toe amputation Tue 03/18
-Patient to use wheel chair for 2 wks, to help heal her amputation site well.
Appreciate ID input, empiric IV Vanc Zosyn discontinued following amputation, wound cx pos for MRSA however, started on oral doxycycline 100 mg BID for 6 weeks
pain control ibuprofen switched to schedule (hasn't been receiving as mod prn), oxycodone for mod severe pain, has not required - morphine for breakthrough (dose reduced to 1 mg from 2 given concern oversedation)
#Dysuria
#Acute urinary tract infection
#Acute ESBL positive E. coli and Enterobacter UTI
03/25 Urine cultures growing greater than 100,000 colonies of Enterobacter & ESBL + E Coli
Started merrem 03/29, rec for 3 days through 03/31
#Severe intertrigo
Started miconazole ointment, Diflucan 03/25
03/29 Inserted saeed to avoid moisture, wound care
Recommend maintaining Saeed for 1 week upon discharge to promote wound healing
Already on antibiotics for the above
#Acute kidney injury
Discontinue ibuprofen
Resolved, resumed Bumex
#Chronic critical limb ischemia
#Peripheral artery disease
JC results appreciated
Appreciate vascular surgery input, s/p RLE arteriogram 03/17 showing no significant iliac/fem/pop stenosis, occluded ARELIS s/p balloon
Continue aspirin, statin
#shooting pain suspect neuropathic, spasticity noted
gabapentin and tizanidine started later discontinued d/t concern oversedation
#Hx B/l Breast masses
Daughter Kirstin reports patient has followed up with [facility] at [place] (since discharge from this facility Sep 2023) and it was determined the masses were not malignant
Patient however is noted to have multiple bumps throughout her body including inner right thigh and forehead. Reported lumps have been present for years (past 2 years as per daughter). Also reported lumps were previously worked up but unclear as
to results of the work up were. Will defer further work up/evaluation/consultations to outpatient primary care provider at this time.
#Reported hx post-menopause vaginal bleeding
discussed with daughter Kirstin, patient has outpatient follow up gynecology due
#pAfib
#intermittently tachy (resolved)
#Chronic HFpEF s/p AICD/pacer
not on anticoagulation d/t hx GIB
03/28 Patient was tachycardic, increased Toprol XL from 50 mg twice a day to 75 mg twice a day
cont home bumex with potassium supplementation
ECHO appreciated EF mildly reduced EF 45-50% moderate MR moderate TR
Mild Hypotension with associate tachycardia suspect low volume vs oversedation
-s/p small IVF boluses 250 cc given x2 03/21
-BP since improved
#Hx GIB
cont home protonix BID
#HTN
cont home metoprolol with holding parameters
#Diabetes
Decreased lantus to 5 U HS due to hypoglycemia
medium dose sliding scale
Regular diet as per patient's request
#HLD
cont home statin
#BELKIS not on CPAP
observe
#Anxiety/Depression
cont home Mirtazapine
DVT prophylaxis�subcu Lovenox
DNI as per patient
Total time spent to see the patient on the floor, examine the patient, review data and lab results, discuss treatment plan with patient, nursing staff around 51 minutes.
Physical Exam
General: No acute distress
HEENT: Normocephalic, Atraumatic, EOMI, MMM
Respiratory: Clear to Auscultation bilaterally
Cardiac: Normal S1/S2, tachycardic rate and Rhythm
GI: Soft, Nontender, Nondistended, Normal Bowel Sounds
Extremities: No Clubbing, Cyanosis, or Edema, swelling inner right thigh noted tender to palpation
Left foot TMA
Right foot third toe amp side dressed
Neuro: Lethargic but arousable conversant coherent
Psych: Calm, Cooperative
Derm: palpable bump noted on patient's forehead and inner right thigh
Beefy red erythematous dermatitis noted at gluteal crack extending to the groin
Anticipated Discharge: 24 - 48 hours
Subjective/Interval History
-
Date of Service: March 30, 2024
Patient complains of right foot pain, and sacrum pain. No fever, no vomiting.
Objective Data
-
Vital Signs:
Vital Signs
Temp Pulse Resp BP Pulse Ox
97.3 F 59 18 126/58 98
03/30/24 07:00 03/30/24 07:39 03/30/24 07:00 03/30/24 07:39 03/30/24 07:00
I&O
03/29/24 03/30/24 03/31/24
06:59 06:59 06:59
Intake Total 960 / 960 720 / 720
Output Total 1600 / 1600 1900 / 1900
Balance -640 / -640 -1180 / -1180
[2024-03-30 11:21] LABS: Glucose - Point of Care 202 mg/dl (70-99)
[2024-03-30] MEDS: NOVOLOG FLEXPEN-MODERATE RESISTANCE 3 UNITS SC ×2 (11:24→17:01)
[2024-03-30 15:00] VITALS: BP 96/38
[2024-03-30 16:54] LABS: Glucose - Point of Care 213 mg/dl (70-99)
[2024-03-30] MEDS: LOVENOX 40 MG SC (17:01)
[2024-03-30] MEDS: SENOKOT-S 1 TABLET PO (20:03)
[2024-03-30] MEDS: MILK OF MAGNESIA 30 ML PO (20:04)
[2024-03-30] MEDS: LIPITOR 20 MG PO (21:43)
[2024-03-30] MEDS: REMERON 7.5 MG PO (21:43)
[2024-03-30 22:05] LABS: Glucose - Point of Care 128 mg/dl (70-99)
[2024-03-30] MEDS: LANTUS 0.05 UNITS SC (22:10)
[2024-03-30 23:33] VITALS: BP 112/54
[2024-03-31] MEDS: STERILE WATER FOR INJECTION 10 ML IV ×3 (03:14→20:03)
[2024-03-31] MEDS: MERREM 500 MG IV ×3 (03:14→20:03)
[2024-03-31 03:22] LABS: Glucose - Point of Care 154 mg/dl (70-99)
[2024-03-31 06:00] VITALS: BMI 20.4
[2024-03-31 07:00] VITALS: BP 109/44
--- NOTE | 2024-03-31 07:35 | W.PN.HOSP.TC ---
Today's Communication/Plan
-
Last day of IV merrem
cont doxycycline as per ID
glycemic control
pain control
trial low dose gabapentin
Assessment / Plan
Assessment / Plan
HPI: 87 [facility] history of bilateral breast masses paroxysmal A-fib (not on anticoagulation due to hx GI bleeds) HFpEF status post pacer defibrillator moderate tricuspid regurgitation hypertension diabetes hyperlipidemia, hx toe
amputations left foot, fibromyalgia BELKIS not on CPAP anxiety/depression, recent hospitalization at this facility Sep 2023 for anemia rectal bleeding and COVID, presents with right foot/3rd toe pain/wound and associate erythema. Patient reports 3rd
toe wound has been present and progressive for past 5 weeks, treated with oral abx outpatient without improvement. Patient also reports being wheelchair bound for the past years and chronic double vision for the last 6 months corrected with glasses.
#Right diabetic foot wound infection
#Right 3rd toe ulceration
Appreciate podiatry input, s/p right third toe amputation Tue 03/18
-Patient to use wheel chair for 2 wks, to help heal her amputation site well.
Appreciate ID input, empiric IV Vanc Zosyn discontinued following amputation, wound cx pos for MRSA however, started on oral doxycycline 100 mg BID for 6 weeks
oxycodone for mod severe pain, morphine for breakthrough (dose reduced to 1 mg from 2 given concern oversedation)
#Dysuria
#Acute urinary tract infection
#Acute ESBL positive E. coli and Enterobacter UTI
03/25 Urine cultures growing greater than 100,000 colonies of Enterobacter & ESBL + E Coli
Started merrem 03/29, rec for 3 days through 03/31
#Severe intertrigo
Started miconazole ointment, Diflucan 03/25
03/29 Inserted saeed to avoid moisture, wound care
Recommend maintaining Saeed for 1 week upon discharge to promote wound healing
Already on antibiotics for the above
#Acute kidney injury
Discontinued ibuprofen
Resolved, resumed Bumex
#Chronic critical limb ischemia
#Peripheral artery disease
JC results appreciated
Appreciate vascular surgery input, s/p RLE arteriogram 03/17 showing no significant iliac/fem/pop stenosis, occluded ARELIS s/p balloon
Continue aspirin, statin
#shooting pain likely neuropathy
trial gabapentin resumed (previously discontinued d/t concern oversedation mental status since improved on reduced opiate/morphine as above)
#Hx B/l Breast masses
Daughter Kirstin reports patient has followed up with [facility] at [place] (since discharge from this facility Sep 2023) and it was determined the masses were not malignant
Patient however is noted to have multiple bumps throughout her body including inner right thigh and forehead. Reported lumps have been present for years (past 2 years as per daughter). Also reported lumps were previously worked up but unclear as
to results. Will defer further work up/evaluation/consultations to outpatient primary care provider at this time.
#Reported hx post-menopause vaginal bleeding
discussed with daughter Kirstin, patient has outpatient follow up gynecology due
#pAfib
#intermittently tachy (resolved)
#Chronic HFpEF s/p AICD/pacer
not on anticoagulation d/t hx GIB
03/28 Patient was tachycardic, increased Toprol XL from 50 mg twice a day to 75 mg twice a day
cont home bumex with potassium supplementation
ECHO appreciated EF mildly reduced EF 45-50% moderate MR moderate TR
Mild Hypotension with associate tachycardia suspect low volume vs oversedation
-s/p small IVF boluses 250 cc given x2 03/21
-BP since improved
#Hx GIB
cont home protonix BID
#HTN
cont home metoprolol with holding parameters
#Diabetes
Decreased lantus to 5 U HS due to hypoglycemia
medium dose sliding scale
Regular diet as per patient's request
#HLD
cont home statin
#BELKIS not on CPAP
observe
#Anxiety/Depression
cont home Mirtazapine
DVT prophylaxis�subcu Lovenox
DNI as per patient
Total time spent to see the patient on the floor, examine the patient, review data and lab results, discuss treatment plan with patient, nursing staff around 51 minutes.
Physical Exam
General: No acute distress
HEENT: Normocephalic, Atraumatic, EOMI, MMM
Respiratory: Clear to Auscultation bilaterally
Cardiac: Normal S1/S2, tachycardic rate and Rhythm
GI: Soft, Nontender, Nondistended, Normal Bowel Sounds
Extremities: No Clubbing, Cyanosis, or Edema, swelling inner right thigh noted tender to palpation
Left foot TMA
Right foot third toe amp side dressed
Neuro: Lethargic but arousable conversant coherent
Psych: Calm, Cooperative
Derm: palpable bump noted on patient's forehead and inner right thigh
Beefy red erythematous dermatitis noted at gluteal crack extending to the groin
Anticipated Discharge: 24 - 48 hours
Subjective/Interval History
-
Date of Service: March 31, 2024
Continues to report shooting pain paraesthesia RLE foot.
Objective Data
-
Labs:
Laboratory Results
03/31/24
06:59
WBC Pending
Hgb Pending
Hct Pending
Plt Count Pending
Sodium Pending
Potassium Pending
Chloride Pending
Carbon Dioxide Pending
BUN Pending
Creatinine Pending
Glucose Pending
Calcium Pending
Vital Signs:
Vital Signs
Temp Pulse Resp BP Pulse Ox
98 F 58 15 112/54 94
03/30/24 23:33 03/30/24 23:33 03/30/24 23:33 03/30/24 23:33 03/30/24 23:33
I&O
03/30/24 03/31/24 04/01/24
06:59 06:59 06:59
Intake Total 720 / 720 660 / 660
Output Total 1900 / 1900 1215 / 1215
Balance -1180 / -1180 -555 / -555
[2024-03-31 07:47] LABS: Glucose - Point of Care 108 mg/dl (70-99)
[2024-03-31] MEDS: VIBRAMYCIN 100 MG PO ×2 (07:54→19:46)
[2024-03-31] MEDS: NOVOLOG FLEXPEN-MODERATE RESISTANCE SC ×2 (07:54→12:18)
[2024-03-31] MEDS: ASPIR LOW (ENTERIC COATED) 81 MG PO (07:54)
[2024-03-31] MEDS: MIRALAX 17 GRAMS PO (07:54)
[2024-03-31] MEDS: REFRESH EYE DROPS (PF) 1 DROPS BOTH EYES ×4 (07:54→21:16)
[2024-03-31] MEDS: KCL 20 MEQ PO (07:55)
[2024-03-31] MEDS: BUMEX PO (07:57)
[2024-03-31] MEDS: PROTONIX 40 MG PO ×2 (07:58→19:46)
[2024-03-31] MEDS: FEOSOL 325 MG PO (07:58)
[2024-03-31] MEDS: DIFLUCAN 100 MG PO (07:58)
[2024-03-31] MEDS: TOPROL XL PO ×2 (08:02→20:07)
[2024-03-31] MEDS: TYLENOL 1000 MG PO ×3 (08:03→21:15)
[2024-03-31 08:04] LABS: Hematocrit 33.3 % (37.0-47.0); Hemoglobin 11.1 g/dL (12.0-16.0); Mean Corp Hgb Conc. 33.3 g/dL (33.0-37.0); Mean Corpuscular Hgb 29.6 pg (27.0-31.0); Mean Corpuscular Volume 88.8 fL (81.0-99.0); Mean Platelet Volume 10.2 fL (7.4-10.4); Platelet Count 271 10^3/uL (130-400); Red Blood Cell Count 3.75 10^6/uL (4.20-5.40); Red Cell Dist. Width 17.6 % (11.5-14.5); White Blood Cell Count 6.2 10^3/uL (4.8-10.8)
[2024-03-31] MEDS: CYMBALTA DELAYED RELEASE 20 MG PO (08:06)
[2024-03-31] MEDS: JARDIANCE 10 MG PO (08:06)
[2024-03-31] MEDS: MYCOSTATIN OINTMENT 1 APPLIC TOPICAL ×2 (08:12→19:48)
[2024-03-31 08:47] LABS: Blood Urea Nitrogen 27 mg/dl (7-17); Calcium 8.8 mg/dl (8.4-10.2); Carbon Dioxide 25 mmol/L (22-30); Chloride 104 mmol/L (98-107); Estimated Creatinine Clearance 43 ml/min; Glucose 104 mg/dl (70-99); Magnesium 1.9 mg/dl (1.6-2.3); Phosphorus 4.2 mg/dl (2.5-4.5); Potassium 4.6 mmol/L (3.5-5.1); Sodium 136 mmol/L (135-145); eGFR > 60.00
[2024-03-31 11:41] LABS: Glucose - Point of Care 111 mg/dl (70-99)
--- NOTE | 2024-03-31 13:09 | CM ---
Patient not medically cleared for d/c. Possibly tomorrow.
[facility] liaison Francoise updated.
Plan: Discharge to [facility] when medically stable.
[facility]
report [phone]
fax [phone]
Medical necessity and transport forms on chart.
[2024-03-31 15:00] VITALS: BP 103/42
[2024-03-31] MEDS: MORPHINE SULFATE 1 MG IV ×2 (15:30→20:01)
[2024-03-31 16:52] LABS: Glucose - Point of Care 216 mg/dl (70-99)
[2024-03-31] MEDS: NOVOLOG FLEXPEN-MODERATE RESISTANCE 3 UNITS SC (17:06)
[2024-03-31] MEDS: LOVENOX 40 MG SC (17:07)
[2024-03-31] MEDS: ROXICODONE 5 MG PO (17:08)
[2024-03-31 21:15] LABS: Glucose - Point of Care 192 mg/dl (70-99)
[2024-03-31] MEDS: LANTUS 0.05 UNITS SC (21:15)
[2024-03-31] MEDS: ESTRACE 0.01% VAGINAL CREAM 1 APPLIC VAG (21:15)
[2024-03-31] MEDS: LIPITOR 20 MG PO (21:16)
[2024-03-31] MEDS: NEURONTIN 100 MG PO (21:16)
[2024-03-31] MEDS: REMERON 7.5 MG PO (21:16)
[2024-03-31 23:53] VITALS: BP 94/45
[2024-04-01 06:00] VITALS: BMI 20.1
[2024-04-01 07:00] VITALS: BP 125/45
[2024-04-01 07:19] LABS: Glucose - Point of Care 126 mg/dl (70-99)
--- NOTE | 2024-04-01 07:34 | W.PN.HOSP.TC ---
Today's Communication/Plan
-
Gabapentin changed to 300 mg HS to minimize daytime sleepiness/sedation
cont pain control
glycemic control
wound care
Assessment / Plan
Assessment / Plan
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
amputations left foot, fibromyalgia BELKIS not on CPAP anxiety/depression, recent hospitalization at this facility Sep 2023 for anemia rectal bleeding and COVID, presents with right foot/3rd toe pain/wound and associate erythema. Patient reports 3rd
toe wound has been present and progressive for past 5 weeks, treated with oral abx outpatient without improvement. Patient also reports being wheelchair bound for the past years and chronic double vision for the last 6 months corrected with glasses.
#Right diabetic foot wound infection
#Right 3rd toe ulceration
Appreciate podiatry input, s/p right third toe amputation Tue 03/18
-Patient to use wheel chair for 2 wks, to help heal her amputation site well.
Appreciate ID input, empiric IV Vanc Zosyn discontinued following amputation, wound cx pos for MRSA however, started on oral doxycycline 100 mg BID for 6 weeks
oxycodone for mod severe pain, morphine for breakthrough (dose reduced to 1 mg from 2 given concern oversedation)
gabapentin added to pain regimen as below
#Dysuria
#Acute urinary tract infection
#Acute ESBL positive E. coli and Enterobacter UTI
03/25 Urine cultures growing greater than 100,000 colonies of Enterobacter & ESBL + E Coli
completed 3 days merrem, dysuria since resolved
#Severe intertrigo
Started miconazole ointment, Diflucan 03/25
03/29 Inserted saeed to avoid moisture, wound care
Recommend maintaining Saeed for 1 week upon discharge to promote wound healing
Already on antibiotics for the above
#Acute kidney injury
Discontinued ibuprofen
Resolved, resumed Bumex
#Chronic critical limb ischemia
#Peripheral artery disease
JC results appreciated
Appreciate vascular surgery input, s/p RLE arteriogram 03/17 showing no significant iliac/fem/pop stenosis, occluded ARELIS s/p balloon
Continue aspirin, statin
#shooting pain likely neuropathy
trial gabapentin resumed (previously discontinued d/t concern oversedation mental status since improved on reduced opiate/morphine as above)
Pain improved but again seems overly sedated, 100 mg TID gabapentin converted to 300 mg HS in order to avoid daytime sedation
#Hx B/l Breast masses
#Multiple palpable skin bumps on body including forehead and right inner thigh
Daughter Kirstin reports patient has followed up with [facility] at [place] (since discharge from this facility Sep 2023) and it was determined the masses were not malignant
Patient however is noted to have multiple bumps throughout her body including inner right thigh and forehead. Reported lumps have been present for years (past 2 years as per daughter). Also reported lumps were previously worked up but unclear as
to results.
Outpatient follow up w/ dermatology recommended.
#Reported hx post-menopause vaginal bleeding
discussed with daughter Kirstin, patient has outpatient follow up gynecology due
#pAfib
#intermittently tachy (resolved)
#Chronic HFpEF s/p AICD/pacer
not on anticoagulation d/t hx GIB
03/28 Patient was tachycardic, increased Toprol XL from 50 mg twice a day to 75 mg twice a day
cont home bumex with potassium supplementation
ECHO appreciated EF mildly reduced EF 45-50% moderate MR moderate TR
Mild Hypotension with associate tachycardia suspect low volume vs oversedation
-s/p small IVF boluses 250 cc given x2 03/21
-BP since improved
#Hx GIB
cont home protonix BID
#HTN
cont home metoprolol with holding parameters
#Diabetes
Decreased lantus to 5 U HS due to hypoglycemia
medium dose sliding scale
Regular diet as per patient's request
#HLD
cont home statin
#BELKIS not on CPAP
observe
#Anxiety/Depression
cont home Mirtazapine
DVT prophylaxis�subcu Lovenox
DNI as per patient
Total time spent to see the patient on the floor, examine the patient, review data and lab results, discuss treatment plan with patient, nursing staff around 51 minutes.
Physical Exam
General: No acute distress
HEENT: Normocephalic, Atraumatic, EOMI, MMM
Respiratory: Clear to Auscultation bilaterally
Cardiac: Normal S1/S2, tachycardic rate and Rhythm
GI: Soft, Nontender, Nondistended, Normal Bowel Sounds
Extremities: No Clubbing, Cyanosis, or Edema, swelling inner right thigh noted tender to palpation
Left foot TMA
Right foot third toe amp side dressed
Neuro: Lethargic but arousable conversant coherent
Psych: Calm, Cooperative
Derm: palpable bump noted on patient's forehead and inner right thigh
Anticipated Discharge: 24 - 48 hours
Subjective/Interval History
-
Date of Service: April 01, 2024
Sedated but arousable though limited conversation. Reports pain significantly improved but feeling 'goofy' possibly d/t pain meds including newly started gabapentin.
Objective Data
-
Vital Signs:
Vital Signs
Temp Pulse Resp BP Pulse Ox
98.1 F 69 14 94/45 95
03/31/24 23:53 03/31/24 23:53 03/31/24 23:53 03/31/24 23:53 03/31/24 23:53
I&O
03/31/24 04/01/24 04/02/24
06:59 06:59 06:59
Intake Total 660 / 660 240 / 240
Output Total 1215 / 1215 475 / 475
Balance -555 / -555 -235 / -235
[2024-04-01] MEDS: NOVOLOG FLEXPEN-MODERATE RESISTANCE SC (08:58)
[2024-04-01] MEDS: TYLENOL 1000 MG PO ×3 (09:02→21:46)
[2024-04-01] MEDS: VIBRAMYCIN 100 MG PO ×2 (09:02→20:08)
[2024-04-01] MEDS: DIFLUCAN 100 MG PO (09:03)
[2024-04-01] MEDS: KCL 20 MEQ PO (09:03)
[2024-04-01] MEDS: ASPIR LOW (ENTERIC COATED) 81 MG PO (09:03)
[2024-04-01] MEDS: JARDIANCE 10 MG PO (09:03)
[2024-04-01] MEDS: PROTONIX 40 MG PO ×2 (09:03→20:08)
[2024-04-01] MEDS: REFRESH EYE DROPS (PF) 1 DROPS BOTH EYES ×4 (09:03→21:46)
[2024-04-01] MEDS: CYMBALTA DELAYED RELEASE 20 MG PO (09:03)
[2024-04-01] MEDS: TOPROL XL 75 MG PO ×2 (09:03→20:09)
[2024-04-01] MEDS: FEOSOL 325 MG PO (09:04)
[2024-04-01] MEDS: MIRALAX 17 GRAMS PO (09:04)
[2024-04-01] MEDS: BUMEX 0.5 MG PO (09:04)
[2024-04-01] MEDS: NEURONTIN 100 MG PO (09:04)
[2024-04-01] MEDS: MYCOSTATIN OINTMENT 1 APPLIC TOPICAL ×2 (09:06→20:16)
[2024-04-01 14:28] LABS: Glucose - Point of Care 184 mg/dl (70-99)
[2024-04-01] MEDS: NOVOLOG FLEXPEN-MODERATE RESISTANCE 1 UNITS SC (14:31)
[2024-04-01 15:00] VITALS: BP 109/51
[2024-04-01 15:37] LABS: Venous Blood Gas B.E. 1.3 mmol/L (-4 to +4); Venous Blood Gas HCO3 26.6 mmol/L (22-27); Venous Blood Gas pCO2 44 mmHg (35-48); Venous Blood Gas pH 7.39 (7.32-7.43); Venous Blood Gas pO2 191 mmHg (30-50)
[2024-04-01] MEDS: LOVENOX 40 MG SC (17:22)
[2024-04-01 18:22] LABS: Glucose - Point of Care 227 mg/dl (70-99)
[2024-04-01] MEDS: NOVOLOG FLEXPEN-MODERATE RESISTANCE 3 UNITS SC (18:23)
[2024-04-01] MEDS: REMERON 7.5 MG PO (21:46)
[2024-04-01] MEDS: NEURONTIN 300 MG PO (21:46)
[2024-04-01] MEDS: LIPITOR 20 MG PO (21:46)
[2024-04-01] MEDS: LANTUS 0.05 UNITS SC (21:47)
[2024-04-01 21:48] LABS: Glucose - Point of Care 253 mg/dl (70-99)
[2024-04-02 00:12] VITALS: BP 94/39
[2024-04-02] MEDS: ROXICODONE 5 MG PO (01:30)
[2024-04-02] MEDS: MORPHINE SULFATE 1 MG IV (05:16)
--- NOTE | 2024-04-02 07:18 | W.PN.HOSP.TC ---
Today's Communication/Plan
-
pain control
start 2mg Tizanidine Bedtime
check CT lumbar spine
Glycemic control
Assessment / Plan
Assessment / Plan
HPI: 87 female [facility] history of bilateral breast masses paroxysmal A-fib (not on anticoagulation due to hx GI bleeds) HFpEF status post pacer defibrillator moderate tricuspid regurgitation hypertension diabetes hyperlipidemia, hx toe
amputations left foot, fibromyalgia BELKIS not on CPAP anxiety/depression, recent hospitalization at this facility Sep 2023 for anemia rectal bleeding and COVID, presents with right foot/3rd toe pain/wound and associate erythema. Patient reports 3rd
toe wound has been present and progressive for past 5 weeks, treated with oral abx outpatient without improvement. Patient also reports being wheelchair bound for the past years and chronic double vision for the last 6 months corrected with glasses.
#Right diabetic foot wound infection
#Right 3rd toe ulceration
Appreciate podiatry input, s/p right third toe amputation Tue 03/18
-Patient to use wheel chair for 2 wks, to help heal her amputation site well.
Appreciate ID input, empiric IV Vanc Zosyn discontinued following amputation, wound cx pos for MRSA however, started on oral doxycycline 100 mg BID for 6 weeks
oxycodone for mod severe pain, morphine for breakthrough (dose reduced to 1 mg from 2 given concern oversedation)
gabapentin added to pain regimen as below
#Dysuria
#Acute urinary tract infection
#Acute ESBL positive E. coli and Enterobacter UTI
03/25 Urine cultures growing greater than 100,000 colonies of Enterobacter & ESBL + E Coli
completed 3 days merrem, dysuria since resolved
#Severe intertrigo
Started miconazole ointment, Diflucan 03/25
03/29 Inserted saeed to avoid moisture, wound care
Recommend maintaining Saeed for 1 week upon discharge to promote wound healing
Already on antibiotics for the above
#Acute kidney injury
Discontinued ibuprofen
Resolved, resumed Bumex
#Chronic critical limb ischemia
#Peripheral artery disease
JC results appreciated
Appreciate vascular surgery input, s/p RLE arteriogram 03/17 showing no significant iliac/fem/pop stenosis, occluded ARELIS s/p balloon
Continue aspirin, statin
#shooting pain likely neuropathy
trial gabapentin resumed (previously discontinued d/t concern oversedation mental status since improved on reduced opiate/morphine as above)
Pain improved but concerns for oversedation, 100 mg TID gabapentin converted to 300 mg HS in order to avoid daytime sedation
Tizanidine 2 mg bedtime started 04/[address] lumbar spine
#Hx B/l Breast masses
#Multiple palpable skin bumps on body including forehead and right inner thigh
Daughter Kirstin reports patient has followed up with [facility] at [place] (since discharge from this facility Sep 2023) and it was determined the masses were not malignant
Patient however is noted to have multiple bumps throughout her body including inner right thigh and forehead. Reported lumps have been present for years (past 2 years as per daughter). Also reported lumps were previously worked up but unclear as
to results.
Discussed with surgery who recommends outpatient follow up for biopsy.
#Reported hx post-menopause vaginal bleeding
discussed with daughter Kirstin, patient has outpatient follow up gynecology due
#pAfib
#intermittently tachy (resolved)
#Chronic HFpEF s/p AICD/pacer
not on anticoagulation d/t hx GIB
03/28 Patient was tachycardic, increased Toprol XL from 50 mg twice a day to 75 mg twice a day
cont home bumex with potassium supplementation
ECHO appreciated EF mildly reduced EF 45-50% moderate MR moderate TR
Mild Hypotension with associate tachycardia suspect low volume vs oversedation
-s/p small IVF boluses 250 cc given x2 03/21
-BP since improved
#Hx GIB
cont home protonix BID
#HTN
cont home metoprolol with holding parameters
#Diabetes
Decreased lantus to 5 U HS due to hypoglycemia
medium dose sliding scale
Regular diet as per patient's request
#HLD
cont home statin
#BELKIS not on CPAP
observe
#Anxiety/Depression
cont home Mirtazapine
DVT prophylaxis�subcu Lovenox
DNI as per patient
Total time spent to see the patient on the floor, examine the patient, review data and lab results, discuss treatment plan with patient, nursing staff around 51 minutes.
Physical Exam
General: No acute distress
HEENT: Normocephalic, Atraumatic, EOMI, MMM
Respiratory: Clear to Auscultation bilaterally
Cardiac: Normal S1/S2, tachycardic rate and Rhythm
GI: Soft, Nontender, Nondistended, Normal Bowel Sounds
Extremities: No Clubbing, Cyanosis, or Edema, swelling inner right thigh noted tender to palpation
Left foot TMA
Right foot third toe amp side dressed
Neuro: AOx3
Psych: Calm, Cooperative
Derm: palpable bump noted on patient's forehead and inner right thigh
Anticipated Discharge: 24 - 48 hours
Subjective/Interval History
-
Date of Service: April 02, 2024
Continues to report periodic uncontrolled shooting pain burning sole of foot required prn morphine this morning.
Objective Data
-
Labs:
Laboratory Results
04/02/24
07:01
WBC Pending
Hgb Pending
Hct Pending
Plt Count Pending
Sodium Pending
Potassium Pending
Chloride Pending
Carbon Dioxide Pending
BUN Pending
Creatinine Pending
Glucose Pending
Calcium Pending
Vital Signs:
Vital Signs
Temp Pulse Resp BP Pulse Ox
98.4 F 75 17 94/39 94
04/02/24 00:12 04/02/24 00:12 04/02/24 00:12 04/02/24 00:12 04/02/24 00:12
I&O
04/01/24 04/02/24 04/03/24
06:59 06:59 06:59
Intake Total 240 / 240 720 / 720
Output Total 475 / 475 1900 / 190
Balance -235 / -235 -1180 / -1180
[2024-04-02 07:25] VITALS: BP 100/44
[2024-04-02 07:51] LABS: Glucose - Point of Care 220 mg/dl (70-99)
[2024-04-02 08:07] LABS: Blood Urea Nitrogen 27 mg/dl (7-17); Calcium 8.6 mg/dl (8.4-10.2); Carbon Dioxide 27 mmol/L (22-30); Chloride 104 mmol/L (98-107); Estimated Creatinine Clearance 42 ml/min; Glucose 176 mg/dl (70-99); Magnesium 1.9 mg/dl (1.6-2.3); Phosphorus 4.2 mg/dl (2.5-4.5); Potassium 4.5 mmol/L (3.5-5.1); Sodium 137 mmol/L (135-145); eGFR > 60.00
[2024-04-02] MEDS: TYLENOL 1000 MG PO ×3 (09:06→22:20)
[2024-04-02] MEDS: REFRESH EYE DROPS (PF) 1 DROPS BOTH EYES ×4 (09:06→22:20)
[2024-04-02] MEDS: KCL 20 MEQ PO (09:06)
[2024-04-02] MEDS: JARDIANCE 10 MG PO (09:07)
[2024-04-02] MEDS: VIBRAMYCIN 100 MG PO ×2 (09:07→22:20)
[2024-04-02] MEDS: CYMBALTA DELAYED RELEASE 20 MG PO (09:08)
[2024-04-02] MEDS: DIFLUCAN 100 MG PO (09:08)
[2024-04-02] MEDS: FEOSOL 325 MG PO (09:08)
[2024-04-02] MEDS: PROTONIX 40 MG PO ×2 (09:08→22:19)
[2024-04-02] MEDS: ASPIR LOW (ENTERIC COATED) 81 MG PO (09:08)
[2024-04-02] MEDS: TOPROL XL PO (09:09)
[2024-04-02] MEDS: MIRALAX 17 GRAMS PO (09:10)
[2024-04-02] MEDS: MYCOSTATIN OINTMENT 1 APPLIC TOPICAL ×2 (09:10→20:20)
[2024-04-02] MEDS: BUMEX PO (09:11)
[2024-04-02] MEDS: NOVOLOG FLEXPEN-MODERATE RESISTANCE 3 UNITS SC ×2 (09:13→17:13)
[2024-04-02 09:18] LABS: Hematocrit 31.7 % (37.0-47.0); Hemoglobin 10.5 g/dL (12.0-16.0); Mean Corp Hgb Conc. 33.1 g/dL (33.0-37.0); Mean Corpuscular Hgb 30.3 pg (27.0-31.0); Mean Corpuscular Volume 91.4 fL (81.0-99.0); Mean Platelet Volume 10.2 fL (7.4-10.4); Platelet Count 228 10^3/uL (130-400); Red Blood Cell Count 3.47 10^6/uL (4.20-5.40); Red Cell Dist. Width 17.5 % (11.5-14.5); White Blood Cell Count 6.4 10^3/uL (4.8-10.8)
[2024-04-02 11:21] VITALS: BMI 20.1
--- NOTE | 2024-04-02 11:48 | CM ---
Patient not medically cleared for d/c. Pain management.
[facility] liaison Francoise updated.
Plan: Discharge to [facility] when medically stable, possibly tomorrow.
[facility]
report [phone]
fax [phone]
Medical necessity and transport forms on chart.
[2024-04-02 12:25] LABS: Glucose - Point of Care 138 mg/dl (70-99)
[2024-04-02] MEDS: NOVOLOG FLEXPEN-MODERATE RESISTANCE SC (12:26)
[2024-04-02 15:00] VITALS: BP 116/58
--- NOTE | 2024-04-02 15:40 | WOUNDNOTE ---
R 3RD TO AMP SITE (LATERAL EDGE)
--- NOTE | 2024-04-02 15:45 | WOUNDNOTE ---
R 3RD TOE AMP SITE
[2024-04-02 16:34] LABS: Glucose - Point of Care 226 mg/dl (70-99)
--- NOTE | 2024-04-02 16:40 | WOUNDNOTE ---
[facility] RN note: Patient seen around 1540. R 3rd toe amp incision with dry black scab appearance with some pink tissue on 4th toe side. Scant serous drainage. Less erythema locally. Sacral/rosalie excoriation improved from last week. Fungal appearing rash
remained. Patient has a Shaw catheter. Skin on heels intact. R pedal pulse heard via portable Doppler. Appetite good. R foot dressing changed. Heels off bed with pillow. Patient turned to L semi side lying position. Patient can turn self in bed.
Instructed patient pressure injury prevention measures. Updated and discussed air mattress vs air overlay with REECE Mason who will plan to switch bed to an air bed or add an air overlay. t/c Spoke with supervisor film processing Mark and requested an
air bed (red sign). Updated Dr. Jarquin via tiger text including L 3rd toe amp site picture. Dr. Jarquin responded to add clean with saline to wound care instructions. Clarified pressure tank operator prefers Kerlix over Emery wrap. Care plan and
discharge instructions updated. Will follow as needed.
[2024-04-02] MEDS: LOVENOX 40 MG SC (17:13)
[2024-04-02 20:28] VITALS: BP 105/44
[2024-04-02 21:59] LABS: Glucose - Point of Care 164 mg/dl (70-99)
[2024-04-02] MEDS: LANTUS 0.05 UNITS SC (22:17)
[2024-04-02] MEDS: ESTRACE 0.01% VAGINAL CREAM 1 APPLIC VAG (22:18)
[2024-04-02] MEDS: TOPROL XL 75 MG PO (22:19)
[2024-04-02] MEDS: REMERON 7.5 MG PO (22:20)
[2024-04-02] MEDS: LIPITOR 20 MG PO (22:20)
[2024-04-02] MEDS: NEURONTIN 300 MG PO (22:20)
[2024-04-02] MEDS: ZANAFLEX 2 MG PO (22:21)
[2024-04-02 23:30] VITALS: BP 106/51
--- NOTE | 2024-04-03 06:50 | W.PN.HOSP.TC ---
Today's Communication/Plan
-
cont pain control
likely discharge tomorrow back to SNF
Assessment / Plan
Assessment / Plan
HPI: 87 female intermediate resident history of bilateral breast masses paroxysmal A-fib (not on anticoagulation due to hx GI bleeds) HFpEF status post pacer defibrillator moderate tricuspid regurgitation hypertension diabetes hyperlipidemia, hx toe
amputations left foot, fibromyalgia BELKIS not on CPAP anxiety/depression, recent hospitalization at this facility Sep 2023 for anemia rectal bleeding and COVID, presents with right foot/3rd toe pain/wound and associate erythema. Patient reports 3rd
toe wound has been present and progressive for past 5 weeks, treated with oral abx outpatient without improvement. Patient also reports being wheelchair bound for the past years and chronic double vision for the last 6 months corrected with glasses.
#Right diabetic foot wound infection
#Right 3rd toe ulceration
Appreciate podiatry input, s/p right third toe amputation Tue 03/18
-Patient to use wheel chair for 2 wks, to help heal her amputation site well.
Appreciate ID input, empiric IV Vanc Zosyn discontinued following amputation, wound cx pos for MRSA however, started on oral doxycycline 100 mg BID for 6 weeks
oxycodone for mod severe pain, morphine for breakthrough (dose reduced to 1 mg from 2 given concern oversedation)
gabapentin added to pain regimen as below
#Dysuria
#Acute urinary tract infection
#Acute ESBL positive E. coli and Enterobacter UTI
03/25 Urine cultures growing greater than 100,000 colonies of Enterobacter & ESBL + E Coli
completed 3 days merrem, dysuria since resolved
#Severe intertrigo
Started miconazole ointment, Diflucan 03/25
03/29 Inserted saeed to avoid moisture, wound care
Recommend maintaining Saeed for 1 week upon discharge to promote wound healing
Already on antibiotics for the above
#Acute kidney injury
Discontinued ibuprofen
Resolved, resumed Bumex
#Chronic critical limb ischemia
#Peripheral artery disease
JC results appreciated
Appreciate vascular surgery input, s/p RLE arteriogram 03/17 showing no significant iliac/fem/pop stenosis, occluded ARELIS s/p balloon
Continue aspirin, statin
#shooting pain likely neuropathy
trial gabapentin resumed (previously discontinued d/t concern oversedation mental status since improved on reduced opiate/morphine as above)
Pain improved but concerns for oversedation, 100 mg TID gabapentin converted to 300 mg HS in order to avoid daytime sedation
Tizanidine 2 mg bedtime started 04/02 further improvement in pain control noted with improvement daytime sleepiness/sedation
CT lumbar spine noted degenerative disc disease no compression fractures
#Hx B/l Breast masses
#Multiple palpable skin bumps on body including forehead and right inner thigh
Daughter Kirstin reports patient has followed up with [facility] at [place] (since discharge from this facility Sep 2023) and it was determined the masses were not malignant
Patient however is noted to have multiple bumps throughout her body including inner right thigh and forehead. Reported lumps have been present for years (past 2 years as per daughter). Also reported lumps were previously worked up but unclear as
to results.
Discussed with surgery who recommends outpatient follow up for biopsy.
#Reported hx post-menopause vaginal bleeding
discussed with daughter Kirstin, patient has outpatient follow up gynecology due
#pAfib
#intermittently tachy (resolved)
#Chronic HFpEF s/p AICD/pacer
not on anticoagulation d/t hx GIB
03/28 Patient was tachycardic, increased Toprol XL from 50 mg twice a day to 75 mg twice a day
cont home bumex with potassium supplementation
ECHO appreciated EF mildly reduced EF 45-50% moderate MR moderate TR
Mild Hypotension with associate tachycardia suspect low volume vs oversedation
-s/p small IVF boluses 250 cc given x2 03/21
-BP since improved
#Hx GIB
cont home protonix BID
#HTN
cont home metoprolol with holding parameters
#Diabetes
Decreased lantus to 5 U HS due to hypoglycemia
medium dose sliding scale
Regular diet as per patient's request
#HLD
cont home statin
#BELKIS not on CPAP
observe
#Anxiety/Depression
cont home Mirtazapine
DVT prophylaxis�subcu Lovenox
DNI as per patient
Total time spent to see the patient on the floor, examine the patient, review data and lab results, discuss treatment plan with patient, nursing staff around 40 minutes.
Physical Exam
General: No acute distress
HEENT: Normocephalic, Atraumatic, EOMI, MMM
Respiratory: Clear to Auscultation bilaterally
Cardiac: Normal S1/S2, tachycardic rate and Rhythm
GI: Soft, Nontender, Nondistended, Normal Bowel Sounds
Extremities: No Clubbing, Cyanosis, or Edema, swelling inner right thigh noted tender to palpation
Left foot TMA
Right foot third toe amp side dressed
Neuro: AOx3
Psych: Calm, Cooperative
Derm: palpable bump noted on patient's forehead and inner right thigh
Anticipated Discharge: Within 24 hours
Subjective/Interval History
-
Date of Service: April 03, 2024
Pain improved. Has not required prn morphine since start Tizanidine bedtime alongside gabapentin. Reports sleeping well overnight without issues.
Objective Data
-
Labs:
Laboratory Results
04/03/24
06:00
WBC Pending
Hgb Pending
Hct Pending
Plt Count Pending
Sodium Pending
Potassium Pending
Chloride Pending
Carbon Dioxide Pending
BUN Pending
Creatinine Pending
Glucose Pending
Calcium Pending
Vital Signs:
Vital Signs
Temp Pulse Resp BP Pulse Ox
98.3 F 66 14 106/51 99
04/02/24 23:30 04/02/24 23:30 04/02/24 23:30 04/02/24 23:30 04/02/24 23:30
I&O
04/01/24 04/02/24 04/03/24
06:59 06:59 06:59
Intake Total 240 / 240 720 / 720 480 / 480
Output Total 475 / 475 1900 / 1900 1425 / 1425
Balance -235 / -235 -1180 / -1180 -945 / -945
[2024-04-03 07:29] LABS: Glucose - Point of Care 284 mg/dl (70-99)
[2024-04-03 07:51] VITALS: BP 112/64
[2024-04-03 08:39] LABS: Hematocrit 31.8 % (37.0-47.0); Hemoglobin 10.4 g/dL (12.0-16.0); Mean Corp Hgb Conc. 32.7 g/dL (33.0-37.0); Mean Corpuscular Hgb 29.5 pg (27.0-31.0); Mean Corpuscular Volume 90.1 fL (81.0-99.0); Mean Platelet Volume 9.9 fL (7.4-10.4); Platelet Count 216 10^3/uL (130-400); Red Blood Cell Count 3.53 10^6/uL (4.20-5.40); Red Cell Dist. Width 17.6 % (11.5-14.5); White Blood Cell Count 5.6 10^3/uL (4.8-10.8)
[2024-04-03] MEDS: VIBRAMYCIN 100 MG PO ×2 (08:39→19:33)
[2024-04-03] MEDS: TYLENOL 1000 MG PO ×3 (08:39→22:21)
[2024-04-03] MEDS: CYMBALTA DELAYED RELEASE 20 MG PO (08:39)
[2024-04-03] MEDS: NOVOLOG FLEXPEN-MODERATE RESISTANCE 5 UNITS SC (08:39)
[2024-04-03] MEDS: TOPROL XL 75 MG PO ×2 (08:40→19:28)
[2024-04-03] MEDS: JARDIANCE 10 MG PO (08:41)
[2024-04-03] MEDS: KCL 20 MEQ PO (08:41)
[2024-04-03] MEDS: PROTONIX 40 MG PO ×2 (08:41→19:33)
[2024-04-03] MEDS: MIRALAX 17 GRAMS PO (08:41)
[2024-04-03] MEDS: ASPIR LOW (ENTERIC COATED) 81 MG PO (08:41)
[2024-04-03] MEDS: BUMEX 0.5 MG PO (08:41)
[2024-04-03] MEDS: FEOSOL 325 MG PO (08:41)
[2024-04-03] MEDS: REFRESH EYE DROPS (PF) 1 DROPS BOTH EYES ×4 (08:41→22:21)
[2024-04-03] MEDS: MYCOSTATIN OINTMENT 1 APPLIC TOPICAL ×2 (08:42→19:37)
[2024-04-03 09:18] LABS: Blood Urea Nitrogen 26 mg/dl (7-17); Calcium 8.7 mg/dl (8.4-10.2); Carbon Dioxide 26 mmol/L (22-30); Chloride 105 mmol/L (98-107); Estimated Creatinine Clearance 48 ml/min; Glucose 169 mg/dl (70-99); Magnesium 1.9 mg/dl (1.6-2.3); Phosphorus 4.4 mg/dl (2.5-4.5); Potassium 4.5 mmol/L (3.5-5.1); Sodium 137 mmol/L (135-145); eGFR > 60.00
[2024-04-03 10:22] VITALS: BMI 20.5
[2024-04-03 11:44] LABS: Glucose - Point of Care 72 mg/dl (70-99)
[2024-04-03] MEDS: NOVOLOG FLEXPEN-MODERATE RESISTANCE SC (12:18)
--- NOTE | 2024-04-03 12:39 | W.PN.POD ---
Today's Communication
Today's Communication
Patient stable per podiatry to D/C
Assessment / Plan
-
S/P Rt 3rd toe amputation with primary closure 03/18, POD #16
Digital deformities
Diabetic small vessel disease
Plan : Removed all sutures from RT 3rd toe amputation site
Applied dry gauze dressings once daily.
Will start Santyl to Rt 3rd toe area with dressing changes
Patient to use wheel chair for 2 wks, to help heal her amputation site well.
Patient stable per podiatry to D/C
Patient will follow up in my office for all post op care in 1 wk after discharge
Subjective
Chief Complaint
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
Subjective
Patient seen at bedside, doing well, no new pedal complaints offered, She was getting treated for UTI , she is alert, awake and oriented, No SOB, no CP, No fever, chills, She is probably getting D/C ed to her NF
Objective
Temp Pulse Resp BP Pulse Ox
97.7 F 58 16 112/64 98
04/03/24 07:51 04/03/24 07:51 04/03/24 07:51 04/03/24 07:51 04/03/24 07:51
04/03/24 08:07
04/03/24 08:07
Vital Signs and Lab results were reviewed.
Rt foot intact vascular status, rt foot palpable DP , no edema
Rt 3rd tote amputation site with some loose fibrous slough noted, no local erythema, no active drainage noted, no SOI, slowly healing, sutures noted, no bleeding, no necrosis,
--- NOTE | 2024-04-03 13:20 | CM ---
Plan: Per Attending, patient will be stable for discharge tomorrow, 04/04. Notified Francoise @ [facility]
Report [phone]

Medical necessity and transport forms on chart.
[2024-04-03 14:40] VITALS: BP 128/60
[2024-04-03 16:32] LABS: Glucose - Point of Care 186 mg/dl (70-99)
[2024-04-03] MEDS: NOVOLOG FLEXPEN-MODERATE RESISTANCE 1 UNITS SC (16:47)
[2024-04-03] MEDS: LOVENOX 40 MG SC (16:49)
[2024-04-03] MEDS: ROXICODONE 5 MG PO (19:36)
[2024-04-03 21:55] LABS: Glucose - Point of Care 249 mg/dl (70-99)
[2024-04-03] MEDS: REMERON 7.5 MG PO (22:20)
[2024-04-03] MEDS: LANTUS 0.05 UNITS SC (22:20)
[2024-04-03] MEDS: LIPITOR 20 MG PO (22:21)
[2024-04-03] MEDS: NEURONTIN 300 MG PO (22:21)
[2024-04-03] MEDS: ZANAFLEX 2 MG PO (22:21)
[2024-04-03 23:40] VITALS: BP 110/53
[2024-04-04 06:02] VITALS: BMI 20.3
[2024-04-04 07:15] VITALS: BP 109/45
--- NOTE | 2024-04-04 07:31 | W.PN.HOSP.TC ---
Today's Communication/Plan
-
discharge
Assessment / Plan
Assessment / Plan
HPI: 87 female [facility] resident history of bilateral breast masses paroxysmal A-fib (not on anticoagulation due to hx GI bleeds) HFpEF status post pacer defibrillator moderate tricuspid regurgitation hypertension diabetes hyperlipidemia, hx toe
amputations left foot, fibromyalgia BELKIS not on CPAP anxiety/depression, recent hospitalization at this facility Sep 2023 for anemia rectal bleeding and COVID, presents with right foot/3rd toe pain/wound and associate erythema. Patient reports 3rd
toe wound has been present and progressive for past 5 weeks, treated with oral abx outpatient without improvement. Patient also reports being wheelchair bound for the past years and chronic double vision for the last 6 months corrected with glasses.
#Right diabetic foot wound infection
#Right 3rd toe ulceration
Appreciate podiatry input, s/p right third toe amputation Tue 03/18
-Patient to use wheel chair for 2 wks, to help heal her amputation site well.
Appreciate ID input, empiric IV Vanc Zosyn discontinued following amputation, wound cx pos for MRSA however, started on oral doxycycline 100 mg BID for 6 weeks
oxycodone for mod severe pain, morphine for breakthrough (dose reduced to 1 mg from 2 given concern oversedation) has not needed morphine since start gabapentin and tizanidine as below
gabapentin added to pain regimen as below
#Dysuria
#Acute urinary tract infection
#Acute ESBL positive E. coli and Enterobacter UTI
03/25 Urine cultures growing greater than 100,000 colonies of Enterobacter & ESBL + E Coli
completed 3 days merrem, dysuria since resolved
#Severe intertrigo
Started miconazole ointment, completed 9 days Diflucan 03/25
03/29 Inserted saeed to avoid moisture, wound care
Recommend maintaining Saeed for 1 week upon discharge to promote wound healing
#Acute kidney injury
Discontinued ibuprofen
Resolved, resumed Bumex
#Chronic critical limb ischemia
#Peripheral artery disease
JC results appreciated
Appreciate vascular surgery input, s/p RLE arteriogram 03/17 showing no significant iliac/fem/pop stenosis, occluded ARELIS s/p balloon
Continue aspirin, statin
#shooting pain likely neuropathy
trial gabapentin resumed (previously discontinued d/t concern oversedation mental status since improved on reduced opiate/morphine as above)
Pain improved but concerns for oversedation, 100 mg TID gabapentin converted to 300 mg HS in order to avoid daytime sedation
Tizanidine 2 mg bedtime started 04/02 further improvement in pain control noted with improvement daytime sleepiness/sedation
CT lumbar spine noted degenerative disc disease no compression fractures
#Hx B/l Breast masses
#Multiple palpable skin bumps on body including forehead and right inner thigh
Daughter Kirstin reports patient has followed up with [facility] at [place] (since discharge from this facility Sep 2023) and it was determined the masses were not malignant
Patient however is noted to have multiple bumps throughout her body including inner right thigh and forehead. Reported lumps have been present for years (past 2 years as per daughter). Also reported lumps were previously worked up but unclear as
to results.
Discussed with surgery who recommends outpatient follow up for biopsy.
#Reported hx post-menopause vaginal bleeding
discussed with daughter Kirstin, patient has outpatient follow up gynecology due
#pAfib
#intermittently tachy (resolved)
#Chronic HFpEF s/p AICD/pacer
not on anticoagulation d/t hx GIB
03/28 Patient was tachycardic, increased Toprol XL from 50 mg twice a day to 75 mg twice a day
cont home bumex with potassium supplementation
ECHO appreciated EF mildly reduced EF 45-50% moderate MR moderate TR
#Hx GIB
cont home protonix BID
#HTN
cont home metoprolol with holding parameters
#Diabetes
Decreased lantus to 5 U HS due to hypoglycemia
medium dose sliding scale
Regular diet as per patient's request
#HLD
cont home statin
#BELKIS not on CPAP
observe
#Anxiety/Depression
cont home Mirtazapine
DVT prophylaxis�subcu Lovenox
DNI as per patient
Medically stable for discharge back to SNF with outpatient follow up recommendations
Discussed with Patient at bedside and patient's daughter Kirstin over phone
Total Time Preparing Discharge __50 minutes including examination of the patient, summary of the hospital stay, instructions for continuing care to all relevant caregivers; and preparation of discharge records, prescriptions, and referral
forms if necessary.
Physical Exam
General: No acute distress
HEENT: Normocephalic, Atraumatic, EOMI, MMM
Respiratory: Clear to Auscultation bilaterally
Cardiac: Normal S1/S2, tachycardic rate and Rhythm
GI: Soft, Nontender, Nondistended, Normal Bowel Sounds
Extremities: No Clubbing, Cyanosis, or Edema, swelling inner right thigh noted tender to palpation
Left foot TMA
Right foot third toe amp side dressed
Neuro: AOx3
Psych: Calm, Cooperative
Derm: palpable bump noted on patient's forehead and inner right thigh
Anticipated Discharge: Today
Subjective/Interval History
-
Date of Service: April 04, 2024
Seen and examined at bedside in no acute distress resting comfortably in bed. denies new acute issues at this time. Reports overall feeling well. Pain well controlled at this time.
Objective Data
-
Labs:
Laboratory Results
04/04/24
06:00
WBC Cancelled
Hgb Cancelled
Hct Cancelled
Plt Count Cancelled
Sodium Cancelled
Potassium Cancelled
Chloride Cancelled
Carbon Dioxide Cancelled
BUN Cancelled
Creatinine Cancelled
Glucose Cancelled
Calcium Cancelled
Vital Signs:
Vital Signs
Temp Pulse Resp BP Pulse Ox
98.5 F 75 17 110/53 95
04/03/24 23:40 04/03/24 23:40 04/03/24 23:40 04/03/24 23:40 04/03/24 23:40
I&O
04/03/24 04/04/24 04/05/24
06:59 06:59 06:59
Intake Total 480 / 480 960 / 960
Output Total 1425 / 1425 1200 / 1200
Balance -945 / -945 -240 / -240
[2024-04-04 07:51] LABS: Glucose - Point of Care 156 mg/dl (70-99)
[2024-04-04] MEDS: CYMBALTA DELAYED RELEASE 20 MG PO (08:05)
[2024-04-04] MEDS: TYLENOL 1000 MG PO ×2 (08:05→15:08)
[2024-04-04] MEDS: REFRESH EYE DROPS (PF) 1 DROPS BOTH EYES ×2 (08:05→12:11)
[2024-04-04] MEDS: VIBRAMYCIN 100 MG PO (08:05)
[2024-04-04] MEDS: MIRALAX 17 GRAMS PO (08:05)
[2024-04-04] MEDS: FEOSOL 325 MG PO (08:06)
[2024-04-04] MEDS: PROTONIX 40 MG PO (08:06)
[2024-04-04] MEDS: JARDIANCE 10 MG PO (08:06)
[2024-04-04] MEDS: KCL 20 MEQ PO (08:08)
[2024-04-04] MEDS: ASPIR LOW (ENTERIC COATED) 81 MG PO (08:08)
[2024-04-04] MEDS: SANTYL OINTMENT 1 APPLIC TOPICAL (08:09)
[2024-04-04] MEDS: NOVOLOG FLEXPEN-MODERATE RESISTANCE 1 UNITS SC ×2 (08:09→14:17)
[2024-04-04] MEDS: BUMEX PO (08:23)
[2024-04-04] MEDS: TOPROL XL PO (08:24)
[2024-04-04] MEDS: MYCOSTATIN OINTMENT 1 APPLIC TOPICAL (08:27)
[2024-04-04 13:51] LABS: Glucose - Point of Care 191 mg/dl (70-99)
--- NOTE | 2024-04-04 14:29 | CM ---
Plan: stable for discharge today 04/04.
Notified Francoise @ [facility]
Notified son of transport time.
Ambulance transport forms on chart.
IMM completed.
[facility]
Report [phone]
[2024-04-04 15:10] VITALS: BP 151/78
--- NOTE | 2024-04-04 15:26 | W.DCSUMMARY ---
Discharge Summary
Discharge Data
Date of Admission: 03/14/24
Date of Discharge: 04/04/24
-
Pending Results: No
Discharge Plan
-
Patient Disposition: Care Home/SNF
Discharge Diagnosis/Procedures: Right diabetic foot wound infection
Right 3rd toe ulceration
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
Urinary tract infection due to multidrug resistant bacteria, completed IV antibiotics treatment.
Severe Intertrigo maintain Shaw for 1 week upon discharge to promote wound healing
Acute kidney injury resolved
Chronic critical limb ischemia, Peripheral artery disease, status post right lower extremity arteriogram 03/17 showing no significant iliac/fem/pop stenosis, occluded Anterior Tibial Artery status post balloon angioplasty
Neuropathy/Muscle Spasm
Skin Lesions Bumps including right inner thigh mass
paroxysmal atrial fibrillation
Chronic Heart Failure Preserved Ejection fraction status post AICD/pacer
History GI bleed
Hypertension
Diabetes
Hyperlipidemia
Anxiety/Depression
Obstructive Sleep Apnea not on CPAP
Condition: Fair
Diet: Regular
Activity: Do not bear weight R leg and Other activity
Additional Activity: Wheelchair for 2 weeks to promote healing amputation site
Driving Restrictions: No driving
Bathing Restrictions: None
Blood Work: Please repeat CBC and BMP with primary care provider in 1 week of discharge.
Activity Restrictions/Additional Instructions:
Wound Care Instructions
R 3rd toe amp incisional wound-clean with saline, Santyl ointment, cover with dry gauze with a few drops of saline on it, cover with dry dressing. Change daily.
NWB RLE. Darco shoe. Patient to use wheel chair for 2 wks, to help heal her amputation site well.
Elevate heels off bed with pillow/s.
Pressure redistributing chair cushion (i.e. Air chair cushion).
Antifungal ointment to sacral/buttocks/rosalie followed by zinc barrier ointment bid.
Patient to follow up in mold parter Dr. Jarquin's office for all post op care in 1 wk after discharge
Follow up at wound care center if needed, call for an appointment.
ID recommending doxycycline 100 mg twice a day, 04/30/24 last day of antibiotics.
Gabpentin and Tizanidine bedtime started for neuropathy/muscle spasm.
Home Metoprolol increased to 75 mg twice a day for better heart rate control paroxysmal atrial fibrillation.
Oxycodone as needed for severe pain has been prescribed for 5 days.
Insulin Lantus has been reduced to 5U at bedtime due to episodes of hypoglycemia
Please follow up with primary care provider and Podiatry in 1 week of discharge. In 1-2 weeks of discharge, follow up with vascular surgeon and (for evaluation/biopsy skin lesion/masses) follow up with surgeon.
Please take medications as prescribed/recommended and follow up with primary care provider and/or other healthcare provider involved in your care for refills and/or further adjustment to your medication regimen as necessary.
Stand Alone Forms: DC Instr - Vascular OR
Referrals:
Baldo Martínez MD [Family Provider] - in one week
Tod Goel MD [Active] - in one to two weeks
Henry Rowley MD [Active] - in one to two weeks
Estiven Jarquin DPM [Specified Professional Personl] - in one week
Prescriptions:
New
nystatin 100,000 unit/gram Ointment
1 applic topical BID Qty: 15 0RF
gabapentin 300 mg Capsule
300 mg PO HS 30 Days Qty: 30 0RF
Santyl 250 unit/gram Ointment
1 applic topical DAILY Qty: 30 0RF
doxycycline hyclate 100 mg Capsule
100 mg PO Q12 Qty: 53 0RF
Rx Instructions:
Last day of antibiotics 04/30/24
metoprolol succinate 25 mg Tablet Extended Release 24 Hr
75 mg PO BID 30 Days Qty: 180 0RF
tizanidine 2 mg Tablet
2 mg PO HS 30 Days Qty: 30 0RF
oxycodone 5 mg tablet
5 mg PO DAILYPRN PRN (Reason: severe pain) Qty: 5 0RF
Continued
estradiol [Estrace] 0.01 % (0.1 mg/gram) Cream
1 applic VAGINAL MOWEFR@2200 Qty: 0
acetaminophen 325 MG tablet
650 mg PO Q8HPRN MDD 3000 mg PRN (Reason: elevated temp>100)
atorvastatin 20 mg tablet
20 mg PO HS
magnesium hydroxide [Milk of Magnesia] 400 mg/5 mL Suspension
30 ml PO DAILY PRN (Reason: if no BM x 3 days)
bisacodyl [Dulcolax (bisacodyl)] 10 mg Suppository
10 mg MD DAILY PRN (Reason: if MOM ineffective)
Fleet Enema 19-7 gram/118 mL Enema
118 ml MD DAILY PRN (Reason: if dulcolax ineffective)
insulin lispro 100 unit/mL Solution
0 sliding scale dose SC MEALS
Rx Instructions:
03/14/2024, if BS<60 call md; 151-200 = 3 units; 201-250 = 6 units; 251-300 = 9 units; 301-350 = 12 units; 351-400 = 15 units; if BS>400 call md.
duloxetine 20 mg capsule,delayed release(DR/EC)
20 mg PO DAILY
potassium chloride 20 mEq Tablet Extended Release
20 meq PO DAILY
mirtazapine [Remeron] 15 mg Tablet
7.5 mg PO HS
aspirin 81 mg tablet,delayed release (DR/EC)
81 mg PO DAILY
pantoprazole 40 mg Tablet,Delayed Release (Dr/Ec)
40 mg PO BID Qty: 0 0RF
ferrous sulfate 325 mg (65 mg iron) tablet
325 mg PO DAILY Qty: 1 0RF
acetaminophen [Tylenol] 325 mg Tablet
650 mg PO TID MDD 3000 mg
Artificial Tears(gv-vugy-pjud) 1-0.2-0.2 % Drops
1 drp BOTH EYES QID
azelastine 205.5 mcg (0.15 %) [place],Non-Aerosol
2 spray INTRANASAL BID
Jardiance 10 mg Tablet
10 mg PO DAILY
bumetanide 0.5 mg tablet
0.5 mg PO DAILY
Changed
insulin glargine [Lantus Solostar U-100 Insulin] 100 unit/mL (3 mL) insulin pen
5 unit SC DAILY Qty: 0 0RF
Discontinued
metoprolol succinate 50 mg Tablet Extended Release 24 Hr
25 mg PO DAILY
Patient Comments:
03/14/2024, hold for SBP<100 and HR<60.
oxycodone 5 mg Tablet
5 mg PO Q8H PRN (Reason: severe pain)
Discharge Orders:
Discharge Patient (As Directed); Ordered 04/04/24
Ordered By: Chino Taveras
Discharge Date and Time
Print Language: SAUDI ARABIAN
== END 2024-04-04 17:00 | DRG 279 ==
LOC: 4 WEST ACU 18:04
PROVIDERS: Emergency Medicine; Family Medicine; ADMITTING PHYSICIAN Internal Medicine; CONSULT PHYSICIAN Internal Medicine Cardiovascular Disease; CONSULT PHYSICIAN Student in an Organized Health Care Education/Training Program; CONSULT PHYSICIAN Surgery Vascular Surgery; EMERGENCY PHYSICIAN Emergency Medicine; FAMILY PHYSICIAN Internal Medicine; OTHER PHYSICIAN Podiatrist Foot & Ankle Surgery
PROC: B4101ZZ Fluoroscopy of Abdominal Aorta using Low Osmolar Contrast (ICD-10-PCS; 2024-03-17)
PROC: B41F1ZZ Fluoroscopy of Right Lower Extremity Arteries using Low Osmolar Contrast (ICD-10-PCS; 2024-03-17)
PROC: 04FP3ZZ Fragmentation of Right Anterior Tibial Artery, Percutaneous Approach (ICD-10-PCS; 2024-03-17)
PROC: B41C1ZZ Fluoroscopy of Pelvic Arteries using Low Osmolar Contrast (ICD-10-PCS; 2024-03-17)
PROC: 0Y6T0Z0 Detachment at Right 3rd Toe, Complete, Open Approach (ICD-10-PCS; 2024-03-18)
DX: E11.52 Type 2 diabetes mellitus with diabetic peripheral angiopathy with gangrene (principal); I50.32 Chronic diastolic (congestive) heart failure; K86.1 Other chronic pancreatitis; L03.115 Cellulitis of right lower limb; M86.171 Other acute osteomyelitis, right ankle and foot; N39.0 Urinary tract infection, site not specified; N17.9 Acute kidney failure, unspecified; E11.69 Type 2 diabetes mellitus with other specified complication; I70.235 Atherosclerosis of native arteries of right leg with ulceration of other part of foot; E11.621 Type 2 diabetes mellitus with foot ulcer; I48.0 Paroxysmal atrial fibrillation; L97.519 Non-pressure chronic ulcer of other part of right foot with unspecified severity; E78.5 Hyperlipidemia, unspecified; E11.628 Type 2 diabetes mellitus with other skin complications; M79.7 Fibromyalgia; I11.0 Hypertensive heart disease with heart failure; G47.33 Obstructive sleep apnea (adult) (pediatric); I08.1 Rheumatic disorders of both mitral and tricuspid valves; E11.65 Type 2 diabetes mellitus with hyperglycemia; F32.A Depression, unspecified; F41.9 Anxiety disorder, unspecified; N63.20 Unspecified lump in the left breast, unspecified quadrant; N63.10 Unspecified lump in the right breast, unspecified quadrant; M35.3 Polymyalgia rheumatica; L30.4 Erythema intertrigo; N95.0 Postmenopausal bleeding; E11.40 Type 2 diabetes mellitus with diabetic neuropathy, unspecified; I95.9 Hypotension, unspecified; E11.649 Type 2 diabetes mellitus with hypoglycemia without coma; Z22.322 Carrier or suspected carrier of Methicillin resistant Staphylococcus aureus; Z79.4 Long term (current) use of insulin; Z79.82 Long term (current) use of aspirin; Z79.899 Other long term (current) drug therapy; Z86.16 Personal history of COVID-19; Z89.432 Acquired absence of left foot; Z95.810 Presence of automatic (implantable) cardiac defibrillator; Z99.3 Dependence on wheelchair
CPT/HCPCS: 88305; 88311; 72131; 73630; 75625; 75716; 76937; 80048; 80053; 80202; 81003; 81015; 82248; 82805; 82962; 83036; 83735; 84100; 85025; 85027; 86850; 86900; 86901; 87040; 87070; 87075; 87077; 87086; 87147; 87186; 87205; 87641; 92610; 93005; 93306; 93922; 93925; 93971; 96365; 96375; 99285; C1725; C1769; C1894; C9772; Q9967

== ENCOUNTER → 2024-08-15 09:37 | Outpatient (REF) | payer MEDICARE, BC, SELFPAY | LOC: RAD 09:37 | PROVIDERS: ATTENDING PHYSICIAN Surgery Vascular Surgery | DX: I73.9 Peripheral vascular disease, unspecified (principal); Z01.818 Encounter for other preprocedural examination | CPT/HCPCS: 93922; 93925 ==

== ENCOUNTER 2024-09-10 06:25 | Inpatient (IN) | payer MEDICARE, BC, SELFPAY ==
[2024-09-10] VITALS (16 sets, daily range): BP systolic 98–126; BP diastolic 63–96; BMI 26.6
[2024-09-10 07:30] LABS: Hematocrit 42.9 % (37.0-47.0); Hemoglobin 13.5 g/dL (12.0-16.0); Mean Corp Hgb Conc. 31.5 g/dL (33.0-37.0); Mean Corpuscular Volume 98.6 fL (81.0-99.0); Mean Platelet Volume 11.1 fL (7.4-10.4); Platelet Count 136 10^3/uL (130-400); Red Blood Cell Count 4.35 10^6/uL (4.20-5.40); Red Cell Dist. Width 15.4 % (11.5-14.5); White Blood Cell Count 6.6 10^3/uL (4.8-10.8)
[2024-09-10 07:31] LABS: Glucose - Point of Care 260 mg/dl (70-99)
[2024-09-10] MEDS: PERIDEX 0.12% ORAL RINSE 15 ML PO (07:31)
[2024-09-10] MEDS: BACTROBAN NASAL 1 GRAM NASAL (07:31)
[2024-09-10] MEDS: NSS 500 IV (07:31)
[2024-09-10 07:47] LABS: Blood Urea Nitrogen 29 mg/dl (7-17); Calcium 9.3 mg/dl (8.4-10.2); Carbon Dioxide 31 mmol/L (22-30); Chloride 96 mmol/L (98-107); Estimated Creatinine Clearance 44 ml/min; Glucose 280 mg/dl (70-99); Potassium 4.8 mmol/L (3.5-5.1); Sodium 135 mmol/L (135-145); eGFR > 60.00
[2024-09-10 10:15] LABS: Glucose - Point of Care 177 mg/dl (70-99)
[2024-09-10 11:59] LABS: Glucose - Point of Care 175 mg/dl (70-99)
[2024-09-10] MEDS: LOPRESSOR 5 MG IV (12:21)
[2024-09-10 12:40] LABS: INR 1.21; PT 15.8 Sec (11.4-14.6)
[2024-09-10 12:41] LABS: APTT 43.3 Sec (23.4-35.0)
[2024-09-10] MEDS: XARELTO 2.5 MG PO ×2 (14:44→21:41)
[2024-09-10] MEDS: NSS 1000 IV (14:47)
--- NOTE | 2024-09-10 15:02 | OR.RPT ---
Operative Report
Operative Report
PROCEDURE DATE: 09/10/24
Preoperative diagnosis: Chronic limb threatening ischemia (CLTI) right lower extremity.
Postoperative diagnosis: Same
Procedure:
1.� Duplex assisted cannulation of right lower extremity lateral plantar vein.
2.� Duplex assisted cannulation of right distal common femoral/proximal superficial femoral artery.
3.� Balloon angioplasty of proximal posterior tibial artery with 3 mm angioplasty balloon.
4.� Transcatheter arterialization of the deep veins (TADV) right lower extremity - LimFlow procedure with placement of overlapping LimFlow stents (5.5 mm x 200 mm, 5.5 mm x 150 mm, 5.5 to 3.5 mm tapered 60 mm length). (CPT CODE 0620T)
5.� Balloon angioplasty of deep veins including pedal venous system/pedal venous loop.
6.� Supervision and interpretation.
Surgeon: Amrik
Flute Teacher: None
Complications: None
Anesthesia: General
Indications for procedure:
Chronic limb threatening ischemia with distal small vessel obliterative disease.� Prior had angioplastied distal anterior artery. No further revasc options. Had discussed TADV. Risk/benefits and alternatives of attempted LimFlow procedure were
all fully discussed.� In addition the risk of technical inability to perform this were discussed.� Patient understood all wished to proceed.
Description of procedure:
Patient was identified, brought to the operating room. Placed on the table in the supine position. After the adequate administration of anesthesia and perioperative antibiotics, the patient was prepped and draped in the standard surgical fashion.
A standard preoperative timeout was undertaken and everybody was in agreement with the plan.
Duplex assisted cannulation of the right lower extremity lateral plantar vein on the foot was attempted. I gained access but could not pass the wire. I therefore then used a sterile tourniquet to the right calf to help increase the girth of the
vein to access. Again I was able to access it now but again had difficulty with wire. I therefore then turned my probe to the longitudinal direction then was able to clearly visualize my needle and wire going to the vein. I then still had a
little difficulty with the wire but saw that I was in the true lumen and therefore was able to just push forward and able to guide the wire through and it went easily after that. It appeared that it was getting held up on a valve.
An 0.018 wire was inserted and upsized to a 4Fr sheath. A glidewire was advanced through the Lateral Plantar Vein into the Posterior Tibial Vein. Attention was then turned to the patient�s right groin. We first obtained antegrade percutaneous access
in the right distal common femoral/proximal superficial artery (slightly high bifurcation) using fluoroscopic and ultrasound guidance. This was done with a micropuncture kit. And then via the micropuncture sheath, I exchanged out for a 0.035 inch
wire and then upsized to a 5Fr sheath over a SeeClickFix wire, which was advanced into the Superficial Femoral Artery (SFA). We obtained a right lower extremity angiogram, Which confirmed successful access in the superficial femoral artery. Also Right
lower extremity runoff demonstrated patent SFA and popliteal artery. However, the filling of the tibials was very slow on today's angiogram. The anterior tibial, tibioperoneal trunk and then posterior tibial/peroneal artery all filled proximally.
However, if feeling distally was very slow, and this was a change compared to her prior angiogram a few months prior. The peroneal artery now appeared to be the dominant runoff vessel and give collaterals in the ankle to the foot. The posterior
tibial artery now appear to cut off at the ankle. On delayed imaging there was some collateral filling around which reconstituted a plantar which was very weakly filling the foot.
Based on this finding, and this change in the runoff compared to the last angiogram, I favored maintaining flow through the [place] peroneal artery, and performing our LimFlow TADV percutaneous anastomosis between the posterior tibial vein and
posterior tibial artery.
Next, I exchanged my 0.018 inch wire in the venous system over a CXI catheter for a 0.014 inch run-through wire.
Over a 0.035 inch wire, the sheath was upsized to a 7Fr x 45cm Kameron sheath. Systemic heparin was administered. Under roadmap assisted guidance using a steerable Salome advantage of 0.018 inch wire and a 2.6 Kyrgyz CXI catheter, I gained access into
the posterior tibial artery. I then exchanged for a 0.014 inch wire (SOLAR PROJECT COORDINATION SPECIALIST wire). We advanced the LimFlow ARC� Arterial Catheter into the proximal Right Posterior Tibial Artery. However, I initially had difficulty advancing that arterial catheter
into the posterior tibial artery, and therefore angioplastied the proximal posterior tibial artery with a 3.0 mm angioplasty balloon. I then was able to advance the arterial catheter. I advanced the LimFlow V-Ceiver� Venous Catheter to the
Posterior Tibial vein from the Lateral Plantar Vein sheath at the same approximate level. The fluoroscopy unit was rotated in such a way as to overlay the crossing device and snare. The LimFlow crossing device (ARC) needle was deployed into the
Posterior Tibial Vein. A 0.014 wire was advanced through the crossing device into the venous snare (V-Ceiver) where it was captured and subsequently withdrawn through the venous sheath, providing through and through wire access. Of course, this did
not happen with the first attempt, and several attempts had to be made changing the obliquity of the gantry, and rotating the needle until we found to the right angle. Once we had through and through wire access, we then advanced the CXI (2.6F)
catheter all the way from the arterial entry site out the venous sheath, and exchanged for a 0.018 Salome Advantage wire.
The arteriovenous connection was ballooned with a 3.0 x40 balloon. Next, the forward cutting LimFlow Vector� Valvulotome was advanced from the arterial sheath across the arteriovenous connection into the Posterior Tibial Vein. The valvulotome was
deployed and advanced down the vein in order to lyse the venous valves to the distal-most aspect of the Lateral Plantar Vein. A 5 x 200 balloon was used to angioplasty the donor vein to confirm adequate valve effacement and absence of stricture
within the donor vein in preparation for stent placement. There was an area of residual stenosis near the ankle for which I could not get the balloon to completely expand. Focal area of stenosis. Tried advancing a 0.035 inch wire based
high-pressure balloon but could not advance it due to some disease/narrowing in the posterior tibial artery proximally. I did use a 0.018 inch additional balloon to try to angioplasty but could not resolve the waist. Then I used the valvulotome
again to lyse some more of the valve there. And then I was able to angioplasty slightly better and got a better result but not complete obliteration of that stenosis. However, elected to proceed with stenting at this point. I then deployed two
LimFlow cylindrical stent grafts (5.5mm x 200mm distally and 5.5mm x 150mm overlapping more proximally) in the Posterior Tibial Vein from the ankle extending proximally up the calf. Next the tapered conical stent (3.5-5.5mm x 60 mm) was deployed
proximally across the level of the arteriovenous connection. We used a Glow and Tell tape adhered to the patient's calf to facilitate marking positions of the arteriovenous anastomosis and the lengths of stents.
The stent grafts were post-dilated to 3.5mm in the arterial segment and 5.5mm in the venous segment. And in fact, now when I angioplasty that distal segment of the stent where there was slight residual stenosis, the waist completely resolved and I
was able to angioplasty it to full profile.
At this point, angiography demonstrated excellent filling across the arteriovenous anastomosis through the stents and into the posterior tibial vein at the level of the ankle. At the ankle, there was then filling on the medial aspect and then up
the deep veins. However it did not cross the pedal loop onto the medial veins.
Plantar sheath was retracted to allow for wiring of the metatarsal aspect of the Lateral Plantar Vein (the through and through wire was withdrawn out of the venous sheath and was used to steer through the pedal venous loop). I was indeed able to
gain wire access around the loop, ascending up the medial veins. We reintroduced the valvulotome (Vector) and advanced to efface any remaining valves in the distal aspect of the Lateral Plantar Vein. A 3.0 x 80 balloon was placed across the venous
pedal loop and was inflated. The pedal sheath was removed and venous access hemostasis was obtained. The balloon was then deflated and removed. A completion angiogram demonstrated some still limited flow around the venous loop. We felt that there
was likely a residual valve in the vicinity of the distal calcaneus. Therefore we used a valvulotome yet again and clearly lysed an additional valve. I then exchanged for a 4 mm angioplasty balloon and ballooned the loop with a 4 mm angioplasty
balloon. Completion angiogram demonstrated some improvement but still some distal hold-up. Therefore I then advanced the valvulotome even further onto the region of the metatarsals. Now I again ballooned with a 4 mm angioplasty balloon.
Completion angiogram now demonstrated widely patent stents and robust filling of the pedal venous system into the pedal loop. At this point I was very satisfied with results.
We exchanged for a short 6 Kyrgyz sheath in the right groin (arterial). The patient was taken to the recovery room where the sheath was withdrawn and manual pressure was applied to the puncture site. Hemostasis was fully achieved. The patient had
excellent dopplerable signals in the distal posterior tibial vein/lateral plantar vein and outflow anterior tibial vein as well.. Dry sterile dressings had been applied.
[2024-09-10] MEDS: REFRESH EYE DROPS (PF) 1 DROPS BOTH EYES ×3 (15:58→21:41)
[2024-09-10 17:38] LABS: Glucose - Point of Care 241 mg/dl (70-99)
[2024-09-10] MEDS: TYLENOL 650 MG PO (19:39)
[2024-09-10] MEDS: ROXICODONE 5 MG PO (20:43)
[2024-09-10 21:35] LABS: Glucose - Point of Care 380 mg/dl (70-99)
[2024-09-10] MEDS: TOPROL XL 75 MG PO (21:40)
[2024-09-10] MEDS: PROTONIX 40 MG PO (21:40)
[2024-09-10] MEDS: NEURONTIN 400 MG PO (21:40)
[2024-09-10] MEDS: ZANAFLEX 2 MG PO (21:40)
[2024-09-10] MEDS: ZINC OXIDE OINTMENT 1 APPLIC TOPICAL (21:42)
[2024-09-10] MEDS: LANTUS 0.05 UNITS SC (21:42)
[2024-09-10] MEDS: REMERON 7.5 MG PO (21:44)
[2024-09-10] MEDS: LIPITOR 20 MG PO (21:44)
[2024-09-10] MEDS: NOVOLOG FLEXPEN 5 UNITS SC (22:12)
[2024-09-11] VITALS (8 sets, daily range): BP systolic 91–115; BP diastolic 59–73; BMI 21.5
[2024-09-11 00:17] LABS: Glucose - Point of Care 360 mg/dl (70-99)
[2024-09-11] MEDS: NOVOLOG FLEXPEN 10 UNITS SC (00:48)
[2024-09-11 03:17] LABS: Glucose - Point of Care 293 mg/dl (70-99)
[2024-09-11 07:28] LABS: Glucose - Point of Care 202 mg/dl (70-99)
--- NOTE | 2024-09-11 08:36 | W.PN.VS ---
Addendum entered and electronically signed by Henry Rowley MD 09/11/24 13:40:
Seen and examined with SHELBIE Arias. Agree with findings as noted below. I had seen her earlier this a.m., this is a late entry. Right groin flat, no hematoma puncture site. Right foot warm. No hematoma puncture site. Foot is soft, compartments
soft. Foot is warm. Excellent phasic signals in the foot veins including the posterior tibial vein, plantar vein as well as around onto the dorsal foot veins. Plan/as discussed and noted below. Continue Compass protocol Xarelto.
Addendum entered and electronically signed by RONAL Childs 09/11/24 10:55:
Heart rate noted to be 120�130s irregular, atrial fibrillation rhythm, consulted cardiology for recommendations on medical management of increased rate.
Original Note:
Today's Communication / Plan
-
Patient seen and examined at bedside with Dr. Henry Rowley, below plan reviewed with attending.
Assessment/Plan
-
Assessment: 88-year-old female POD #1
1. Duplex assisted cannulation of right lower extremity lateral plantar vein.
2. Duplex assisted cannulation of right distal common femoral/proximal superficial femoral artery.
3. Balloon angioplasty of proximal posterior tibial artery with 3 mm angioplasty balloon.
4. Transcatheter arterialization of the deep veins (TADV) right lower extremity - LimFlow procedure with placement of overlapping LimFlow stents (5.5 mm x 200 mm, 5.5 mm x 150 mm, 5.5 to 3.5 mm tapered 60 mm length). (CPT CODE 0620T)
5. Balloon angioplasty of deep veins including pedal venous system/pedal venous loop.
6. Supervision and interpretation.
Plan:
Intermittent tachycardia noted, will obtain twelve-lead EKG. patient with history of atrial fibrillation, continuing home medication metoprolol
Continue Compass protocol of Xarelto 2.5 mg p.o. twice daily and aspirin 81 mg p.o. daily for newly placed stents
Possible discharge later this afternoon
Subjective Data
-
Date of Service: September 11, 2024
Patient seen and evaluated bedside, offers no complaints. Ports adequate postoperative pain management. Denies nausea, vomiting, fever, and chills. Intermittent episodes of tachycardia noted on vital sign checks, patient endorses history of
permanent atrial fibrillation.
Objective Data
-
Vital Signs
Temp Pulse Resp BP Pulse Ox
97.7 F 127 16 92/59 95
09/11/24 07:40 09/11/24 07:40 09/11/24 07:40 09/11/24 07:40 09/11/24 07:40
Intake and Output
09/10/24 09/11/24 09/12/24
06:59 06:59 06:59
Intake Total 540 / 540
Balance 540 / 540
Intake:
IV fluids (Total) 300 / 300
NSS 300 / 300
IV piggybacks 240 / 240
Other:
How many times incontinent 1
Calcium 9.3 mg/dl (8.4-10.2) 09/10/24 07:18
Physical Exam
-
No apparent distress, resting bed comfortably
Irregular rhythm
No dyspnea on room air
ABD flat, nontender, nondistended
Right groin site CDI, surrounding areas soft, no evidence of hematoma, right foot puncture site CDI
Doppler right foot DP and PT signal, bilateral feet warm
[2024-09-11 08:38] LABS: Hematocrit 34.2 % (37.0-47.0); Hemoglobin 11.1 g/dL (12.0-16.0); Mean Corp Hgb Conc. 32.5 g/dL (33.0-37.0); Mean Corpuscular Hgb 31.1 pg (27.0-31.0); Mean Corpuscular Volume 95.8 fL (81.0-99.0); Mean Platelet Volume 11.5 fL (7.4-10.4); Platelet Count 125 10^3/uL (130-400); Red Blood Cell Count 3.57 10^6/uL (4.20-5.40); Red Cell Dist. Width 15.1 % (11.5-14.5); White Blood Cell Count 6.6 10^3/uL (4.8-10.8)
[2024-09-11] MEDS: FEOSOL 325 MG PO (08:51)
[2024-09-11] MEDS: NOVOLOG FLEXPEN-LOW RESISTANCE 2 UNITS SC (08:51)
[2024-09-11] MEDS: PROTONIX 40 MG PO ×2 (08:51→20:03)
[2024-09-11] MEDS: ASPIR LOW (ENTERIC COATED) 81 MG PO (08:51)
[2024-09-11] MEDS: TOPROL XL PO (08:52)
[2024-09-11 08:53] LABS: INR 1.49; PT 18.5 Sec (11.4-14.6)
[2024-09-11] MEDS: CYMBALTA DELAYED RELEASE 20 MG PO (08:53)
[2024-09-11] MEDS: XARELTO 2.5 MG PO ×2 (08:53→20:03)
[2024-09-11] MEDS: BUMEX PO (08:53)
[2024-09-11] MEDS: FARXIGA 10 MG PO (08:53)
[2024-09-11] MEDS: KCL 20 MEQ PO (08:53)
[2024-09-11] MEDS: REFRESH EYE DROPS (PF) 1 DROPS BOTH EYES ×4 (08:53→21:33)
[2024-09-11] MEDS: ZINC OXIDE OINTMENT 1 APPLIC TOPICAL ×2 (08:54→21:33)
[2024-09-11] MEDS: TOPROL XL 75 MG PO (09:07)
[2024-09-11] MEDS: BUMEX 0.5 MG PO (09:08)
[2024-09-11 09:28] LABS: Blood Urea Nitrogen 40 mg/dl (7-17); Calcium 8.5 mg/dl (8.4-10.2); Carbon Dioxide 24 mmol/L (22-30); Chloride 98 mmol/L (98-107); Estimated Creatinine Clearance 39 ml/min; Glucose 197 mg/dl (70-99); Potassium 4.7 mmol/L (3.5-5.1); Sodium 132 mmol/L (135-145); eGFR > 60.00
--- NOTE | 2024-09-11 11:03 | CON.CAR ---
Addendum entered and electronically signed by Vasile Lincoln MD 09/11/24 15:10:
Patient seen and examined in collaboration with CARTON STAMPER; agree with below. 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
peripheral vascular disease who underwent vascular procedure today as documented below. Cardiology was consulted atrial fibrillation with RVR.
-A-fib with RVR: The patient currently has heart rates in 120-130 bpm
-The patient has had transient renal insufficiency over the past year (creatinine is currently normal); will try to not use digoxin for now.
-Will increase Toprol-XL to 100 mg twice daily, although blood pressure may limit aggressive uptitration of this.
-Continue awake overnight monitor.
-Will reassess tomorrow; may ultimately have to use digoxin if blood pressure limits up titration of beta-daniel.
Original Note:
Consultation
Consultation Request
Date/Time Consultation Requested: 09/11/24 1054
Date/Time Consultation Performed: 09/11/24 1100
Requesting Provider: Barbara Arias NP
Performing Provider: Alla VILLEDA for Dr. Lincoln
Reason for Consultation: AFIB with RVR
Medical History
-
Chief Complaint: PAD
History of Present Illness:
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
lower extremity s/p surgery with Dr. Rowley 09/10/24. We are consulted due to AFIB with RVR. She does not feel it. Blood pressures are soft. She reports post-op pain, but is in no distress at the time of my assessment.
Past Medical History
Past Medical History: Arrhythmias, CHF, Hypercholesterolemia and Other (as above)
Social History
Tobacco: Non-Smoker
Living: [facility]
Family History
Family History: Reviewed & Not Pertinent
Allergies / Home Medications
Allergy/AdvReac Type Severity Reaction Status Date / Time
codeine Allergy Unknown Hives and Verified 09/10/24 07:28
'sick to
my stomach'
dofetilide [From Tikosyn] Allergy 'took all Verified 09/10/24 07:28
the K out
of my body
and I got
really
sick'
morphine Allergy Unknown Verified 09/10/24 07:28
�Medication �Instructions �Recorded �Confirmed �Type
atorvastatin 20 mg tablet 20 mg PO HS High cholesterol 12/27/22 09/10/24 History
bisacodyl 10 mg rectal suppository 10 mg MD DAILY PRN if MOM 12/27/22 09/09/24 History
(Dulcolax (bisacodyl)) ineffective
duloxetine 20 mg capsule,delayed 20 mg PO DAILY depression/anxiety 12/27/22 09/10/24 History
release
insulin lispro 100 unit/mL 0 sliding scale dose SC MEALS 12/27/22 09/10/24 History
subcutaneous solution Diabetes
magnesium hydroxide 400 mg/5 mL 30 ml PO DAILY PRN if no BM x 3 12/27/22 09/10/24 History
oral suspension (Milk of Magnesia) days
sodium phosphates 19 gram-7 118 ml MD DAILY PRN if dulcolax 12/27/22 09/10/24 History
gram/118 mL enema (Fleet Enema) ineffective
potassium chloride 20 mEq 20 meq PO DAILY Electrolyte 08/19/23 09/10/24 History
tablet,extended release Repletion
mirtazapine 15 mg tablet (Remeron) 7.5 mg PO HS Mental Health/Anxiety 09/13/23 09/10/24 History
aspirin 81 mg tablet,delayed 81 mg PO DAILY Blood Clot 09/14/23 09/10/24 History
release Prevention/Tx
ferrous sulfate 325 mg (65 mg 325 mg PO DAILY Supplement #1 tab 10/10/23 09/10/24 Rx
iron) tablet
pantoprazole 40 mg tablet,delayed 40 mg PO BID Gastrointestinal 10/10/23 09/10/24 Rx
release issue #0 tabs
acetaminophen 325 mg tablet 650 mg PO TID Pain 03/14/24 09/10/24 History
(Tylenol)
bumetanide 0.5 mg tablet 0.5 mg PO DAILY Fluid 03/14/24 09/10/24 History
retention/Swelling
peg [id number] 1 1 drp BOTH EYES QID Eye Condition 03/14/24 09/10/24 History
%-0.2 %-0.2 % eye drops
(Artificial Tears
([id number]))
metoprolol succinate 25 mg 75 mg (3 x 25 mg) PO BID 30 days 04/04/24 09/10/24 Rx
tablet,extended release 24 hr #180 tabs
tizanidine 2 mg tablet 2 mg PO HS 30 days #30 tabs 04/04/24 09/10/24 Rx
canagliflozin 100 mg tablet 100 mg PO DAILY Diabetes 09/09/24 09/10/24 History
(Invokana)
cranberry fruit 450 mg tablet 450 mg PO DAILY Supplement 09/09/24 09/10/24 History
(cranberry)
dextrose 40 % oral gel (Glucose 1 ea PO PRN PRN hypoglycemia 09/09/24 09/10/24 History
Gel)
gabapentin 400 mg capsule 400 mg PO HS pain 09/09/24 09/10/24 History
glucagon HCl 1 mg solution for 1 mg IM PRN PRN hypoglycemia 09/09/24 09/10/24 History
injection (Glucagon (HCl)
Emergency Kit)
insulin glargine 100 unit/mL (3 5 unit SC HS Diabetes 09/09/24 09/10/24 History
mL) subcutaneous pen (Lantus
Solostar U-100 Insulin)
oxycodone 5 mg tablet 5 mg PO Q8H Pain 09/09/24 09/10/24 History
zinc oxide 13 % topical cream 1 applic topical BID Skin Issues 09/09/24 09/10/24 History
Review of Systems
-
History Source: Patient
All other systems: Negative unless noted
Musculoskeletal: Other (RLE discomfort and non-healing wound)
Physical Exam
Vital Signs
Temp Pulse Resp BP Pulse Ox
97.7 F 122 16 101/70 95
09/11/24 07:40 09/11/24 09:07 09/11/24 07:40 09/11/24 09:08 09/11/24 07:40
Lab Results
09/11/24 07:31
09/11/24 07:31
Physical Exam
General: Well Developed and No Apparent Distress
HEENT: Normocephalic and Anicteric
Respiratory: Clear and Non Labored Respirations
Cardiac: Irregular Rhythm (tachcyardia)
Musculoskeletal: No Edema
Skin: Warm and Dry
Neuro: Awake and Alert
Psych: Calm
Impression / Plan
-
Chronic limb threatening ischemia to right lower extremity s/p surgery with Dr. Rowley 09/10/24:
-surgery details: Duplex assisted cannulation of right lower extremity lateral plantar vein. Duplex assisted cannulation of right distal common femoral/proximal superficial femoral artery. Balloon angioplasty of proximal posterior tibial artery
with 3 mm angioplasty balloon. Transcatheter arterialization of the deep veins right lower extremity - LimFlow procedure with placement of overlapping LimFlow stents. Balloon angioplasty of deep veins including pedal venous system/pedal venous loop.
-post-op management per vascular surgery
AFIB, likely persistent or permanent at this point:
-per chart, not on OAC due to hx GIB
-rates fast 120-130 range. She does not feel it. Continue metoprolol- will increase dose for better rate-control. Follow telemetry.
HFmEF:
-does not appear volume overloaded to assessment
-on bumex as OP
-follow volume
BS ICD in place:
-follow telemetry
Data Reviewed
-
EKG: Tracing Personally Visualized and interpreted (AFIB 126 BPM)
Radiology: Report Reviewed by me
Medical Tests (Nuc Med, Echo etc): Report Reviewed by me (Echo 03/21/24: EF is 45 to 50%. Mild diffuse hypokinesis. Severe biatrial dilation. Moderate mitral regurgitation. Moderate tricuspid regurgitation. PAP 40 mmHg.)
Labs: Labs Reviewed by me
--- NOTE | 2024-09-11 11:30 | CM ---
Patient seen at bedside.
IA Completed.
Dx: Chronic limb threatening ischemia RLE
procedure by Dr. Rowley 09/10
Patient is a LTC resident of [facility] - referral entered in [facility]
Spoke with Francoise ross has bed hold
PLOF: Francoise states assist 1 w/c
DME: wheelchair
PCP: Dr. Maier
Pharmacy: [facility]
PLAN: Discharge when medically stable, Return to [facility]
--- NOTE | 2024-09-11 12:33 | PN.CDI ---
CDI
- -
CDI:
Physician Documentation Request
Admit Date: 09/10/24 06:25
Dear Vascular,
Please review the following and provide your response in the progress notes.
Clinical Indicators:
- 09/10 RN skin assessments indicate Stage 1 sacrum pressure injury, POA
Physician documentation of the type and location of wounds is required for compliant documentation. Based on the above clinical findings and your assessment, please provide the following in your progress note:
1. Location of the ulcer/wound, including laterality.
2. Type (etiology) of ulcer/wound:
- Diabetic ulcer
- Pressure (decubitus) ulcer
- Other
Use of terms such as suspected, likely, concern for, or probable (associated with a specific diagnosis that is being evaluated, monitored, or treated as if it exists) are acceptable and can be coded in the inpatient setting, when documented at the
time of discharge.
Thank you,
Aleisha Genao RN
CDI Specialist
Please use your independent medical judgment in providing your response.
*Source: National Pressure Ulcer Advisory Panel (NPUAP)
[2024-09-11 12:55] LABS: Glucose - Point of Care 299 mg/dl (70-99)
[2024-09-11] MEDS: NOVOLOG FLEXPEN-LOW RESISTANCE 3 UNITS SC (13:04)
[2024-09-11] MEDS: ROXICODONE 5 MG PO ×2 (13:51→20:02)
[2024-09-11 17:33] LABS: Glucose - Point of Care 237 mg/dl (70-99)
[2024-09-11] MEDS: NOVOLOG FLEXPEN-MODERATE RESISTANCE 3 UNITS SC (17:34)
[2024-09-11 21:07] LABS: Glucose - Point of Care 240 mg/dl (70-99)
[2024-09-11] MEDS: NEURONTIN 400 MG PO (21:32)
[2024-09-11] MEDS: LIPITOR 20 MG PO (21:33)
[2024-09-11] MEDS: TOPROL XL 100 MG PO (21:33)
[2024-09-11] MEDS: REMERON 7.5 MG PO (21:33)
[2024-09-11] MEDS: ZANAFLEX 2 MG PO (21:33)
[2024-09-11] MEDS: LANTUS 0.05 UNITS SC (21:34)
[2024-09-11] MEDS: TYLENOL 650 MG PO (21:34)
[2024-09-12 03:10] VITALS: BP 112/76
[2024-09-12 06:26] VITALS: BMI 21.6
[2024-09-12 06:37] LABS: Hematocrit 36.6 % (37.0-47.0); Hemoglobin 12.3 g/dL (12.0-16.0); Mean Corp Hgb Conc. 33.6 g/dL (33.0-37.0); Mean Corpuscular Hgb 31.5 pg (27.0-31.0); Mean Corpuscular Volume 93.8 fL (81.0-99.0); Mean Platelet Volume 11.4 fL (7.4-10.4); Platelet Count 146 10^3/uL (130-400); White Blood Cell Count 8.5 10^3/uL (4.8-10.8)
[2024-09-12 07:01] LABS: Blood Urea Nitrogen 55 mg/dl (7-17); Calcium 8.5 mg/dl (8.4-10.2); Carbon Dioxide 22 mmol/L (22-30); Chloride 97 mmol/L (98-107); Estimated Creatinine Clearance 32 ml/min; Glucose 259 mg/dl (70-99); Potassium 4.8 mmol/L (3.5-5.1); Sodium 131 mmol/L (135-145); eGFR 48.33
[2024-09-12 07:15] VITALS: BP 108/74
--- NOTE | 2024-09-12 08:11 | W.PN.CD ---
Today's Communication / Plan
-
- Rate are better controlled
- Watchman implant assessment as outpatient.
Impression / Plan
-
Chronic limb threatening ischemia to right lower extremity s/p surgery with Dr. Rowley 09/10/24:
-surgery details: Duplex assisted cannulation of right lower extremity lateral plantar vein. Duplex assisted cannulation of right distal common femoral/proximal superficial femoral artery. Balloon angioplasty of proximal posterior tibial artery
with 3 mm angioplasty balloon. Transcatheter arterialization of the deep veins right lower extremity - LimFlow procedure with placement of overlapping LimFlow stents. Balloon angioplasty of deep veins including pedal venous system/pedal venous loop.
-post-op management per vascular surgery
AFIB, likely persistent or permanent at this point:
-per chart, not on OAC due to hx GIB
-CHADSVasc is at least 6 (Age, gender, HTN, PAD, DM, CHF)
-rates are improved now
-Continue metoprolol- will increase dose for better rate-control. Follow telemetry.
Stroke prevention
-Given GI bleed and inability to stay on terminal clerk anticoagulation warrants alternative stoke prevention measures like Watchman
-High CHADSvasc score - should consider either Eliquis 2.5 mg BID (Weight and Age).
HFmEF:
-does not appear volume overloaded to assessment
-on bumex as OP
-follow volume
BS ICD in place:
-follow telemetry
Physical Exam
Vital Signs/Labs
Vital Signs
Temp Pulse Resp BP Pulse Ox
98.7 F 136 18 112/76 96
09/12/24 03:10 09/12/24 03:10 09/12/24 03:10 09/12/24 03:10 09/12/24 03:10
09/11/24 09/12/24 09/13/24
06:59 06:59 06:59
Actual Weight 58.695 kg 59.012 kg
09/12/24 06:23
09/12/24 06:23
PT 18.5 Sec (11.4-14.6) H 09/11/24 07:31
INR 1.49 09/11/24 07:31
APTT 42.0 Sec (23.4-35.0) H 09/11/24 07:31
Physical Exam
Constitutional: No acute distress and Comfortable
EENT: Anicteric and Moist mucous membranes
Cardiovascular: Rhythm/rate is irregular, JVD present and Systolic murmur present
Respiratory: Respiratory effort normal, Wheeze Absent and Crackles Absent
GI: Soft and Non tender
Neuro/Psych: Alert and Oriented
Data Reviewed
-
Date of Service: September 12, 2024
Medical Decision Making: Reviewed Test Results, Test Interpretation and Review of Case with other Provider
EKG: Tracing Personally Visualized and interpreted
Echo: Report Reviewed by me
Labs: Labs Reviewed by me
Old Records: Reviewed
[2024-09-12 08:21] LABS: Glucose - Point of Care 268 mg/dl (70-99)
--- NOTE | 2024-09-12 08:39 | W.PN.VS ---
Today's Communication / Plan
-
Discussed with Dr. Shaw
Assessment/Plan
-
Assessment: 88-year-old female POD #2
1. Duplex assisted cannulation of right lower extremity lateral plantar vein.
2. Duplex assisted cannulation of right distal common femoral/proximal superficial femoral artery.
3. Balloon angioplasty of proximal posterior tibial artery with 3 mm angioplasty balloon.
4. Transcatheter arterialization of the deep veins (TADV) right lower extremity - LimFlow procedure with placement of overlapping LimFlow stents (5.5 mm x 200 mm, 5.5 mm x 150 mm, 5.5 to 3.5 mm tapered 60 mm length). (CPT CODE 0620T)
5. Balloon angioplasty of deep veins including pedal venous system/pedal venous loop.
6. Supervision and interpretation.
Plan:
Appreciate cardiology, evaluating tachycardia
Continue Compass protocol of Xarelto 2.5 mg p.o. twice daily and aspirin 81 mg p.o. daily for newly placed stents
Possible discharge later today pending clearance by cardiology
Subjective Data
-
Date of Service: September 12, 2024
Patient seen at bedside this a.m. Patient offers no complaints at this time. Foot warm.
Objective Data
-
Vital Signs
Temp Pulse Resp BP Pulse Ox
98.7 F 136 18 112/76 96
09/12/24 03:10 09/12/24 03:10 09/12/24 03:10 09/12/24 03:10 09/12/24 03:10
Intake and Output
09/11/24 09/12/24 09/13/24
06:59 06:59 06:59
Intake Total 540 / 1020 1320 / 1320
Balance 540 / 1020 1320 / 1320
Intake:
Oral fluids 1320 / 1320
IV fluids (Total) 300 / 300
NSS 300 / 300
IV piggybacks 240 / 240
Other:
How many times incontinent 1
How many times incontinent 2
MODERATE amount urine
How many times incontinent 2
SATURATED amount urine
Lab Results
09/12/24 06:23
09/12/24 06:23
Calcium 8.5 mg/dl (8.4-10.2) 09/12/24 06:23
Physical Exam
-
No apparent distress, resting bed comfortably
Irregular rhythm
No dyspnea on room air
ABD flat, nontender, nondistended
Right groin site CDI, surrounding areas soft, no evidence of hematoma, right foot puncture site CDI
Doppler right foot DP and PT signal, bilateral feet warm
[2024-09-12] MEDS: NOVOLOG FLEXPEN-MODERATE RESISTANCE 5 UNITS SC ×2 (09:39→14:00)
[2024-09-12] MEDS: FEOSOL 325 MG PO (09:40)
[2024-09-12] MEDS: ASPIR LOW (ENTERIC COATED) 81 MG PO (09:40)
[2024-09-12] MEDS: KCL 20 MEQ PO (09:40)
[2024-09-12] MEDS: REFRESH EYE DROPS (PF) 1 DROPS BOTH EYES ×4 (09:41→22:33)
[2024-09-12] MEDS: PROTONIX 40 MG PO ×2 (09:41→20:02)
[2024-09-12] MEDS: CYMBALTA DELAYED RELEASE 20 MG PO (09:41)
[2024-09-12] MEDS: TOPROL XL 100 MG PO ×2 (09:41→20:02)
[2024-09-12] MEDS: BUMEX 0.5 MG PO (09:42)
[2024-09-12] MEDS: FARXIGA 10 MG PO (09:42)
[2024-09-12] MEDS: ZINC OXIDE OINTMENT 1 APPLIC TOPICAL ×2 (09:43→20:04)
[2024-09-12] MEDS: XARELTO 2.5 MG PO ×2 (09:43→20:02)
[2024-09-12 11:51] VITALS: BP 103/77
--- NOTE | 2024-09-12 12:18 | CM ---
Patient seen at bedside.
Resides at [facility] - bed hold per Francoise liaison
cardio to eval tachycardia
Called Francoise liaison & updated
PLAN: [facility] when medically stable
Report #: [phone]
Fax #: [phone]
Transportation forms on chart
[2024-09-12 12:37] LABS: Glucose - Point of Care 262 mg/dl (70-99)
--- NOTE | 2024-09-12 15:38 | W.PN.UPDATE ---
Update Note
Progress Note Update
Pts HR remains 115-135, I reached out to Cardiology for recommendations, they are evaluating.
[2024-09-12 15:45] VITALS: BP 111/69
[2024-09-12 17:37] LABS: Glucose - Point of Care 202 mg/dl (70-99)
[2024-09-12] MEDS: NOVOLOG FLEXPEN-HIGH RESISTANCE 4 UNITS SC (17:38)
[2024-09-12 19:20] VITALS: BP 118/77
[2024-09-12 21:33] LABS: Glucose - Point of Care 198 mg/dl (70-99)
[2024-09-12] MEDS: LIPITOR 20 MG PO (22:31)
[2024-09-12] MEDS: LANTUS 0.05 UNITS SC (22:31)
[2024-09-12] MEDS: NEURONTIN 400 MG PO (22:31)
[2024-09-12] MEDS: ZANAFLEX 2 MG PO (22:33)
[2024-09-12] MEDS: REMERON 7.5 MG PO (22:33)
[2024-09-12 23:04] VITALS: BP 99/65
[2024-09-13] VITALS (8 sets, daily range): BP systolic 98–120; BP diastolic 58–85; BMI 20.8
[2024-09-13 07:54] LABS: Glucose - Point of Care 159 mg/dl (70-99)
[2024-09-13] MEDS: BUMEX PO ×2 (08:30→09:31)
[2024-09-13] MEDS: ASPIR LOW (ENTERIC COATED) PO ×2 (08:31→09:31)
[2024-09-13] MEDS: FARXIGA PO ×2 (08:31→09:31)
[2024-09-13] MEDS: PROTONIX PO ×2 (08:31→09:28)
[2024-09-13] MEDS: CYMBALTA DELAYED RELEASE PO ×2 (08:31→09:31)
[2024-09-13] MEDS: REFRESH EYE DROPS (PF) 1 DROPS BOTH EYES ×4 (08:31→21:39)
[2024-09-13] MEDS: XARELTO PO ×2 (08:32→09:29)
[2024-09-13] MEDS: KCL PO ×2 (08:32→09:31)
[2024-09-13] MEDS: NOVOLOG FLEXPEN-HIGH RESISTANCE 2 UNITS SC ×2 (08:32→16:40)
[2024-09-13] MEDS: FEOSOL PO ×2 (08:32→09:31)
[2024-09-13] MEDS: TOPROL XL PO ×2 (08:33→09:28)
[2024-09-13] MEDS: ZINC OXIDE OINTMENT 1 APPLIC TOPICAL ×2 (08:34→21:40)
[2024-09-13 08:50] LABS: ALT (SGPT) 16 U/L (0-35); AST (SGOT) 36 U/L (14-36); Albumin 3.2 g/dl (3.5-5.0); Alkaline Phosphatase 95 U/L (38-126); Direct Bilirubin 0.3 mg/dl (0.0-0.4); Total Bilirubin 0.4 mg/dl (0.2-1.3); Total Protein 5.6 g/dl (6.3-8.2)
--- NOTE | 2024-09-13 08:58 | W.PN.CD ---
Today's Communication / Plan
-
Start amiodarone load with 400 mg twice daily
Continue metoprolol 100 mg twice daily
Impression / Plan
-
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
threatening ischemia to right lower extremity s/p surgery with Dr. Rowley 09/10/24. Cardiology is consulted for persistent atrial fibrillation with RVR.
AFIB, likely persistent or permanent at this point:
-per chart, not on OAC due to hx GIB
-CHADSVasc is at least 6 (Age, gender, HTN, PAD, DM, CHF)
-Continue metoprolol 100 mg twice daily. Further up titration is limited by borderline low blood pressures
-Not a candidate for digoxin due to fluctuating renal function (creatinine 1.1 today from baseline 0.7)
-Load with p.o. amiodarone given that we have no other option for rate/rhythm control
-Consider Watchman procedure as an outpatient
Chronic limb threatening ischemia to right lower extremity s/p surgery with Dr. Rowley 09/10/24:
-surgery details: Duplex assisted cannulation of right lower extremity lateral plantar vein. Duplex assisted cannulation of right distal common femoral/proximal superficial femoral artery. Balloon angioplasty of proximal posterior tibial artery
with 3 mm angioplasty balloon. Transcatheter arterialization of the deep veins right lower extremity - LimFlow procedure with placement of overlapping LimFlow stents. Balloon angioplasty of deep veins including pedal venous system/pedal venous loop.
-post-op management per vascular surgery
HFmEF:
-does not appear volume overloaded to assessment
-on bumex as OP, continue here
-follow volume
BS ICD in place:
-follow telemetry
Subjective: Patient is minimally interactive. She denies cardiovascular complaints. Telemetry reveals atrial fibrillation with heart rates in the 120s.
Physical Exam
Vital Signs/Labs
Vital Signs
Temp Pulse Resp BP Pulse Ox
98.1 F 106 20 99/68 93
09/13/24 08:00 09/13/24 08:33 09/13/24 08:00 09/13/24 08:33 09/13/24 08:00
09/12/24 09/13/24 09/14/24
06:59 06:59 06:59
Actual Weight 59.012 kg 56.654 kg
09/12/24 06:23
09/12/24 06:23
PT 18.5 Sec (11.4-14.6) H 09/11/24 07:31
INR 1.49 09/11/24 07:31
APTT 42.0 Sec (23.4-35.0) H 09/11/24 07:31
Physical Exam
Constitutional: No acute distress and Comfortable
Cardiovascular: Pedal edema is absent, Rhythm/rate is irregular and Murmur/rub/gallop absent
Respiratory: Respiratory effort normal
Data Reviewed
-
Date of Service: September 13, 2024
Medical Decision Making: Reviewed Test Results, Independent Historian Assessment, Test Interpretation and Review of Case with other Provider
EKG: Tracing Personally Visualized and interpreted
Echo: Report Reviewed by me
Labs: Labs Reviewed by me
[2024-09-13] MEDS: PACERONE PO (09:30)
[2024-09-13 09:49] LABS: TSH 4.32 uIU/ml (0.47-4.68)
--- NOTE | 2024-09-13 10:07 | PTCARENOTE ---
Pt lethargic this AM, per overnight RN pt was this way all night. Afebrile, AAOx2 (does not know location), arousable but falls back asleep within 10 seconds of conversation. Full bed bath provided, pt barely waking for oral care -- AM medications
held. Accucheck 159, 2 units of short acting insulin administered per protocol, MD made aware, stat labs and head CT ordered.
[2024-09-13 10:28] LABS: % Basophils 0.6 % (0-2); % Eosinophils 3.2 % (0-6); % Immature Granulocytes 0.1 % (0-0.5); % Lymphocytes 21.3 % (20.5-51.1); % Monocytes 14.7 % (1.7-9.3); % Neutrophils 60.1 % (42.2-75.2); Absolute Eosinophils 0.2 10^3/uL (0-0.7); Absolute Lymphocytes 1.6 10^3/uL (1.2-3.4); Absolute Monocytes 1.1 10^3/uL (0.1-0.6); Absolute Neutrophils 4.4 10^3/uL (1.4-6.5); Hematocrit 37.9 % (37.0-47.0); Hemoglobin 11.7 g/dL (12.0-16.0); Mean Corp Hgb Conc. 30.9 g/dL (33.0-37.0); Mean Corpuscular Hgb 31.1 pg (27.0-31.0); Mean Corpuscular Volume 100.8 fL (81.0-99.0); Mean Platelet Volume 10.9 fL (7.4-10.4); Nucleated Red Blood Cells % 0 %; Platelet Count 135 10^3/uL (130-400); Red Blood Cell Count 3.76 10^6/uL (4.20-5.40); Red Cell Dist. Width 15.4 % (11.5-14.5); White Blood Cell Count 7.3 10^3/uL (4.8-10.8)
[2024-09-13 11:20] LABS: Glucose - Point of Care 123 mg/dl (70-99)
--- NOTE | 2024-09-13 11:23 | W.PN.VS ---
Today's Communication / Plan
-
Plan:
Appreciate cardiology, evaluating tachycardia
Continue Compass protocol of Xarelto 2.5 mg p.o. twice daily and aspirin 81 mg p.o. daily for newly placed stents
Appreciate medicine evaluation and input.
Assessment/Plan
-
Assessment: 88-year-old female POD #2
1. Duplex assisted cannulation of right lower extremity lateral plantar vein.
2. Duplex assisted cannulation of right distal common femoral/proximal superficial femoral artery.
3. Balloon angioplasty of proximal posterior tibial artery with 3 mm angioplasty balloon.
4. Transcatheter arterialization of the deep veins (TADV) right lower extremity - LimFlow procedure with placement of overlapping LimFlow stents (5.5 mm x 200 mm, 5.5 mm x 150 mm, 5.5 to 3.5 mm tapered 60 mm length). (CPT CODE 0620T)
5. Balloon angioplasty of deep veins including pedal venous system/pedal venous loop.
6. Supervision and interpretation.
Plan:
Appreciate cardiology, evaluating tachycardia
Continue Compass protocol of Xarelto 2.5 mg p.o. twice daily and aspirin 81 mg p.o. daily for newly placed stents
Appreciate medicine evaluation and input.
Subjective Data
-
Date of Service: September 13, 2024
Assessment: 88-year-old female POD #3
1. Duplex assisted cannulation of right lower extremity lateral plantar vein.
2. Duplex assisted cannulation of right distal common femoral/proximal superficial femoral artery.
3. Balloon angioplasty of proximal posterior tibial artery with 3 mm angioplasty balloon.
4. Transcatheter arterialization of the deep veins (TADV) right lower extremity - LimFlow procedure with placement of overlapping LimFlow stents (5.5 mm x 200 mm, 5.5 mm x 150 mm, 5.5 to 3.5 mm tapered 60 mm length). (CPT CODE 0620T)
5. Balloon angioplasty of deep veins including pedal venous system/pedal venous loop.
Lethargic overnight
This morning was answering questions appropriately and could attend to an entire conversation
CT head with evidence of acute stroke by my interpretation
Medicine consulted for assistance with workup and management
no fevers
complaining of bilateral foot pain
Objective Data
-
Vital Signs
Temp Pulse Resp BP Pulse Ox
98.3 F 114 18 118/71 97
09/13/24 09:30 09/13/24 09:56 09/13/24 09:30 09/13/24 09:56 09/13/24 10:42
Intake and Output
09/12/24 09/13/24 09/14/24
06:59 06:59 06:59
Intake Total 1320 / 1320 60 / 60
Balance 1320 / 1320 60 / 60
Intake:
Oral fluids 1320 / 1320 60 / 60
Other:
How many times incontinent 2 1
MODERATE amount urine
How many times incontinent 2 1
SATURATED amount urine
Lab Results
09/13/24 10:09
Calcium Cancelled 09/13/24 10:09
Total Bilirubin 0.4 mg/dl (0.2-1.3) 09/12/24 06:23
Direct Bilirubin 0.3 mg/dl (0.0-0.4) 09/12/24 06:23
AST 36 U/L (14-36) 09/12/24 06:23
ALT 16 U/L (0-35) 09/12/24 06:23
Alkaline Phosphatase 95 U/L (38-126) 09/12/24 06:23
Total Protein 5.6 g/dl (6.3-8.2) L 09/12/24 06:23
Albumin 3.2 g/dl (3.5-5.0) L 09/12/24 06:23
Physical Exam
-
A x O x 3
attends to conversation
answers questions appropriately
feet motor/sensory intact
no focal neuro deficit - no facial droop, tongue midline, strength 5/5 in all 4
[2024-09-13 12:22] LABS: Blood Urea Nitrogen 54 mg/dl (7-17); Calcium 8.5 mg/dl (8.4-10.2); Carbon Dioxide 27 mmol/L (22-30); Chloride 101 mmol/L (98-107); Estimated Creatinine Clearance 39 ml/min; Glucose 125 mg/dl (70-99); Potassium 4.2 mmol/L (3.5-5.1); Sodium 135 mmol/L (135-145); eGFR > 60.00
[2024-09-13] MEDS: ASPIR LOW (ENTERIC COATED) 81 MG PO (13:10)
[2024-09-13] MEDS: NOVOLOG FLEXPEN-HIGH RESISTANCE 1 UNITS SC (13:11)
[2024-09-13] MEDS: XARELTO 2.5 MG PO ×2 (13:16→21:39)
[2024-09-13] MEDS: TYLENOL 650 MG PO (13:17)
[2024-09-13 16:40] LABS: Glucose - Point of Care 165 mg/dl (70-99)
--- NOTE | 2024-09-13 19:15 | CON.HOSP ---
Consultation
-
Date/Time Consultation Requested: 09/13/24
Date/Time Consultation Performed: 09/13/24
Requesting Provider: Dr. Henry Rowley
Performing Provider: Dr. Ras Rosales
Reason for Consultation: Altered Mental Status
Family Physician
-
Family Physician: INTERVIEWE UNKNOWN - PT NOT
Chief Complaint
-
Altered Mental Status
History of Present Illness
88 y/o female with past medical history of persistent atrial fibrillation (not on anticoagulation due to gastrointestinal bleeding), ICD ([employer]), HFrEF, cardiomyopathy with 45-50%, dyslipidemia, Type 2 DM, hypertension, GERD, PAD, and
BELKIS who presented for management of chronic limb threatening ischemia (CLTI) right lower extremity s/p surgery with Dr. Rowley 09/10/24. Hospitalist service is consulted for patient's altered mental status which developed overnight 09/12/24 to
09/13/24. When patient was seen, she was sleeping and did not answer questions.
Medical History
Past Medical History
Past Medical History: Reports Other (As per HPI above)
Past Surgical History: Reports Other (As in HPI above)
Social History
Tobacco: Non-smoker
Family History
Family History: Reviewed & Not Pertinent
Allergies / Home Medications
Allergies reflects when Allergies were last updated in [facility].
Home Medications with original date entered in [facility]
Allergy/Medication List:
Allergies
Allergy/AdvReac Type Severity Reaction Status Date / Time
codeine Allergy Unknown Hives and Verified 09/10/24 07:28
'sick to
my stomach'
dofetilide [From Tikosyn] Allergy 'took all Verified 09/10/24 07:28
the K out
of my body
and I got
really
sick'
morphine Allergy Unknown Verified 09/10/24 07:28
Home Medications
atorvastatin 20 mg tablet 20 mg PO HS High cholesterol 12/27/22
bisacodyl 10 mg rectal suppository (Dulcolax (bisacodyl)) 10 mg DE DAILY PRN if MOM ineffective 12/27/22
duloxetine 20 mg capsule,delayed release 20 mg PO DAILY depression/anxiety 12/27/22
insulin lispro 100 unit/mL subcutaneous solution 0 sliding scale dose SC MEALS Diabetes 12/27/22
magnesium hydroxide 400 mg/5 mL oral suspension (Milk of Magnesia) 30 ml PO DAILY PRN if no BM x 3 days 12/27/22
sodium phosphates 19 gram-7 gram/118 mL enema (Fleet Enema) 118 ml DE DAILY PRN if dulcolax ineffective 12/27/22
potassium chloride 20 mEq tablet,extended release 20 meq PO DAILY Electrolyte Repletion 08/19/23
mirtazapine 15 mg tablet (Remeron) 7.5 mg PO HS Mental Health/Anxiety 09/13/23
aspirin 81 mg tablet,delayed release 81 mg PO DAILY Blood Clot Prevention/Tx 09/14/23
ferrous sulfate 325 mg (65 mg iron) tablet 325 mg PO DAILY Supplement #1 tab 10/10/23
pantoprazole 40 mg tablet,delayed release 40 mg PO BID Gastrointestinal issue #0 tabs 10/10/23
acetaminophen 325 mg tablet (Tylenol) 650 mg PO TID Pain 03/14/24
bumetanide 0.5 mg tablet 0.5 mg PO DAILY Fluid retention/Swelling 03/14/24
peg [id number] 1 %-0.2 %-0.2 % eye drops (Artificial Tears ([id number])) 1 drp BOTH EYES QID Eye Condition 03/14/24
metoprolol succinate 25 mg tablet,extended release 24 hr 75 mg (3 x 25 mg) PO BID 30 days #180 tabs 04/04/24
tizanidine 2 mg tablet 2 mg PO HS 30 days #30 tabs 04/04/24
canagliflozin 100 mg tablet (Invokana) 100 mg PO DAILY Diabetes 09/09/24
cranberry fruit 450 mg tablet (cranberry) 450 mg PO DAILY Supplement 09/09/24
dextrose 40 % oral gel (Glucose Gel) 1 ea PO PRN PRN hypoglycemia 09/09/24
gabapentin 400 mg capsule 400 mg PO HS pain 09/09/24
glucagon HCl 1 mg solution for injection (Glucagon (HCl) Emergency Kit) 1 mg IM PRN PRN hypoglycemia 09/09/24
insulin glargine 100 unit/mL (3 mL) subcutaneous pen (Lantus Solostar U-100 Insulin) 5 unit SC HS Diabetes 09/09/24
oxycodone 5 mg tablet 5 mg PO Q8H Pain 09/09/24
zinc oxide 13 % topical cream 1 applic topical BID Skin Issues 09/09/24
rivaroxaban 2.5 mg tablet (Xarelto) 2.5 mg PO BID #180 tabs 09/11/24
Review of Systems
-
Unable to obtain full review of systems at this time due to: Patient Non-verbal
Physical Exam
Vital Signs
Vital Signs
Temp Pulse Resp BP Pulse Ox
97.3 F 102 18 104/68 98
09/13/24 15:19 09/13/24 15:19 09/13/24 15:19 09/13/24 15:19 09/13/24 15:19
Physical Exam
General: No Apparent Distress
HEENT: Normocephalic
Respiratory: Clear
Cardiac: S1/S2 and Irregular Rhythm
GI: Soft, Non Tender and Normal Bowel Sounds
Musculoskeletal: No Cyanosis
Skin: Warm and Dry
Psych: Confused
Laboratory Results
-
Laboratory Results
09/13/24 10:09
09/13/24 11:35
PT 18.5 Sec (11.4-14.6) H 09/11/24 07:31
INR 1.49 09/11/24 07:31
APTT 42.0 Sec (23.4-35.0) H 09/11/24 07:31
Total Bilirubin 0.4 mg/dl (0.2-1.3) 09/12/24 06:23
AST 36 U/L (14-36) 09/12/24 06:23
ALT 16 U/L (0-35) 09/12/24 06:23
Alkaline Phosphatase 95 U/L (38-126) 09/12/24 06:23
Impression / Plan
-
Assessment/Plan
Lethargy, Concern for Acute Toxic Metabolic Encephalopathy/Delirium
-WBC normal, no fever, no signs of infection from surgery as per vascular surgery note
-Check UA, CXR, COVID, Flu
-CT Head with a 'region of low-attenuation in the inferior left cerebellum favored to represent encephalomalacia from a chronic infarct'
-Electrolytes look okay, add mag and phos for tomorrow
-Check VBG
-Can look into reducing or taper Gabapentin, Cymbalta, Tizanidine --> hold Tizanidine, reduced Gabapentin from 400 mg HS to 300 mg HS
Persistent atrial fibrillation (not on anticoagulation due to gastrointestinal bleeding) - continue Xarelto, Toprol and Amiodarone as per cardiology.
ICD ([employer])
HFrEF - management as per cardiology, appreciated
Cardiomyopathy with 45-50%
Dyslipidemia - continue Lipitor
Type 2 DM - continue sliding scale Insulin and long-acting Insulin
Hypertension
GERD
PAD status post right LimFlow procedure+stents on 09/10/24 -- continue Xarelto and Aspirin
BELKIS
Thank you for the consult. We will follow.
[2024-09-13 20:56] LABS: COVID-19 Antigen Negative (Negative)
[2024-09-13 21:29] LABS: Glucose - Point of Care 102 mg/dl (70-99)
[2024-09-13] MEDS: LANTUS 0.05 UNITS SC (21:38)
[2024-09-13] MEDS: PACERONE 400 MG PO (21:38)
[2024-09-13] MEDS: LIPITOR 20 MG PO (21:39)
[2024-09-13] MEDS: NEURONTIN 300 MG PO (21:39)
[2024-09-13] MEDS: REMERON 7.5 MG PO (21:39)
[2024-09-13] MEDS: TOPROL XL 100 MG PO (21:39)
[2024-09-13] MEDS: PROTONIX 40 MG PO (21:39)
[2024-09-14 02:44] VITALS: BP 97/67
[2024-09-14 04:30] LABS: Venous Blood Gas B.E. 0.8 mmol/L (-4 to +4); Venous Blood Gas HCO3 25.3 mmol/L (22-27); Venous Blood Gas O2 Sat % 99.7 %; Venous Blood Gas pCO2 39 mmHg (35-48); Venous Blood Gas pH 7.42 (7.32-7.43); Venous Blood Gas pO2 128 mmHg (30-50)
[2024-09-14 04:31] LABS: Venous Blood Gas O2 Therapy 90%
[2024-09-14 05:32] LABS: Magnesium 2.1 mg/dl (1.6-2.3); Phosphorus 3.2 mg/dl (2.5-4.5)
[2024-09-14 06:00] VITALS: BMI 20.7
[2024-09-14 07:20] VITALS: BP 112/69
[2024-09-14 07:47] LABS: Glucose - Point of Care 74 mg/dl (70-99)
--- NOTE | 2024-09-14 07:47 | W.PN.VS ---
Today's Communication / Plan
-
Plan:
Appreciate cardiology, evaluating tachycardia
Continue Compass protocol of Xarelto 2.5 mg p.o. twice daily and aspirin 81 mg p.o. daily for newly placed stents
Appreciate medicine evaluation and input.
Assessment/Plan
-
Assessment: 88-year-old female POD #4
1. Duplex assisted cannulation of right lower extremity lateral plantar vein.
2. Duplex assisted cannulation of right distal common femoral/proximal superficial femoral artery.
3. Balloon angioplasty of proximal posterior tibial artery with 3 mm angioplasty balloon.
4. Transcatheter arterialization of the deep veins (TADV) right lower extremity - LimFlow procedure with placement of overlapping LimFlow stents (5.5 mm x 200 mm, 5.5 mm x 150 mm, 5.5 to 3.5 mm tapered 60 mm length). (CPT CODE 0620T)
5. Balloon angioplasty of deep veins including pedal venous system/pedal venous loop.
6. Supervision and interpretation.
Plan:
Appreciate cardiology, evaluating tachycardia
Continue Compass protocol of Xarelto 2.5 mg p.o. twice daily and aspirin 81 mg p.o. daily for newly placed stents
Appreciate medicine evaluation and input.
Subjective Data
-
Date of Service: September 14, 2024
88-year-old female POD #4
1. Duplex assisted cannulation of right lower extremity lateral plantar vein.
2. Duplex assisted cannulation of right distal common femoral/proximal superficial femoral artery.
3. Balloon angioplasty of proximal posterior tibial artery with 3 mm angioplasty balloon.
4. Transcatheter arterialization of the deep veins (TADV) right lower extremity - LimFlow procedure with placement of overlapping LimFlow stents (5.5 mm x 200 mm, 5.5 mm x 150 mm, 5.5 to 3.5 mm tapered 60 mm length). (CPT CODE 0620T)
5. Balloon angioplasty of deep veins including pedal venous system/pedal venous loop.
Feeling well
Denies chest pain, SOB, fevers, cough
Mild confusion but easily rousible and able to attend to a conversation and answer questions
Reports occasional pain in right foot
Objective Data
-
Vital Signs
Temp Pulse Resp BP Pulse Ox
98.3 F 124 18 97/67 97
09/14/24 02:44 09/14/24 02:44 09/14/24 02:44 09/14/24 02:44 09/14/24 02:44
Intake and Output
09/13/24 09/14/24 09/15/24
06:59 06:59 06:59
Intake Total 60 / 60 590 / 590
Balance 60 / 60 590 / 590
Intake:
Oral fluids 60 / 60 590 / 590
Other:
Number of approximated LARGE 1
amounts of urine
How many times incontinent 1 1
MODERATE amount urine
How many times incontinent 1 1
SATURATED amount urine
Lab Results
09/13/24 10:09
09/13/24 11:35
Calcium 8.5 mg/dl (8.4-10.2) 09/13/24 11:35
Phosphorus 3.2 mg/dl (2.5-4.5) 09/14/24 04:23
Magnesium 2.1 mg/dl (1.6-2.3) 09/14/24 04:23
Total Bilirubin 0.4 mg/dl (0.2-1.3) 09/12/24 06:23
Direct Bilirubin 0.3 mg/dl (0.0-0.4) 09/12/24 06:23
AST 36 U/L (14-36) 09/12/24 06:23
ALT 16 U/L (0-35) 09/12/24 06:23
Alkaline Phosphatase 95 U/L (38-126) 09/12/24 06:23
Total Protein 5.6 g/dl (6.3-8.2) L 09/12/24 06:23
Albumin 3.2 g/dl (3.5-5.0) L 09/12/24 06:23
Physical Exam
-
Bilateral dry eschar
No erythema or drainage
R DP and PT signals, L PT signal
awake and conversant
--- NOTE | 2024-09-14 08:10 | W.PN.HOSP.TC ---
Today's Communication/Plan
-
Patient's lethargy/encephalopathy has resolved.
-Can look into reducing or taper Gabapentin, Cymbalta, Tizanidine --> held Tizanidine, reduced Gabapentin from 400 mg HS to 300 mg HS
-Patient has not received any narcotic pain medications after 09/11/24 -- continue to hold narcotic pain meds as much as possible
Hospitalist service will sign off.
Assessment / Plan
Assessment / Plan
Physical Exam
General: No Apparent Distress
HEENT: Normocephalic
Respiratory: Clear to Auscultation Bilaterally
Cardiac: S1/S2 and Irregular Rhythm
GI: Soft, Non Tender and Normal Bowel Sounds
Musculoskeletal: No Cyanosis
Skin: Warm and Dry
Neuro: AAOx3.
Assessment/Plan
Lethargy, Concern for Acute Toxic Metabolic Encephalopathy/Delirium - RESOLVED
-WBC normal, no fever, no signs of infection from surgery as per vascular surgery note
-Patient not reporting any urinary signs and symptoms, UA not strongly suggestive of UTI either
-CXR with atelectasis vs. possible pneumonia -- but patient does not have symptoms of pneumonia and no leukocytosis or fever
-COVID negative. Influenza negative.
-CT Head with a 'region of low-attenuation in the inferior left cerebellum favored to represent encephalomalacia from a chronic infarct'
-Electrolytes look good
-VBG with no hypercapnia, unremarkable
-Can look into reducing or taper Gabapentin, Cymbalta, Tizanidine --> held Tizanidine, reduced Gabapentin from 400 mg HS to 300 mg HS
-Patient has not received any narcotic pain medications after 09/11/24 -- continue to hold narcotic pain meds as much as possible
Persistent atrial fibrillation (not on anticoagulation due to gastrointestinal bleeding) - continue Xarelto, Toprol and Amiodarone as per cardiology.
ICD ([employer])
HFrEF - management as per cardiology, appreciated
Cardiomyopathy with 45-50% - Continue Bumex, Toprol XL. Cardiology appreciated.
Dyslipidemia - continue Lipitor
Type 2 DM - continue sliding scale Insulin and long-acting Insulin
Hypertension - on Toprol XL
GERD
PAD status post right LimFlow procedure+stents on 09/10/24 -- continue Xarelto and Aspirin
BELKIS
Patient's lethargy/encephalopathy has resolved. Hospitalist service will sign off.
Anticipated Discharge: 24 - 48 hours
Subjective/Interval History
-
Date of Service: September 14, 2024
Patient was seen and examined. She was much more alert and awake today, denied any new symptoms or complaints.
Objective Data
-
Vital Signs:
Vital Signs
Temp Pulse Resp BP Pulse Ox
98.3 F 124 18 97/67 97
09/14/24 02:44 09/14/24 02:44 09/14/24 02:44 09/14/24 02:44 09/14/24 02:44
I&O
09/13/24 09/14/24 09/15/24
06:59 06:59 06:59
Intake Total 60 / 60 590 / 590
Balance 60 / 60 590 / 590
[2024-09-14] MEDS: PACERONE 400 MG PO ×2 (09:24→21:57)
[2024-09-14] MEDS: TOPROL XL 100 MG PO ×2 (09:25→21:57)
[2024-09-14] MEDS: FEOSOL 325 MG PO (09:25)
[2024-09-14] MEDS: BUMEX 0.5 MG PO (09:25)
[2024-09-14] MEDS: REFRESH EYE DROPS (PF) 1 DROPS BOTH EYES ×4 (09:25→21:55)
[2024-09-14] MEDS: XARELTO 2.5 MG PO ×2 (09:25→20:53)
[2024-09-14] MEDS: KCL 20 MEQ PO (09:25)
[2024-09-14] MEDS: FARXIGA 10 MG PO (09:25)
[2024-09-14] MEDS: CYMBALTA DELAYED RELEASE 20 MG PO (09:25)
[2024-09-14] MEDS: PROTONIX 40 MG PO ×2 (09:25→20:52)
[2024-09-14] MEDS: ASPIR LOW (ENTERIC COATED) 81 MG PO (09:25)
[2024-09-14] MEDS: ZINC OXIDE OINTMENT 1 APPLIC TOPICAL ×2 (09:26→20:54)
[2024-09-14] MEDS: NOVOLOG FLEXPEN-HIGH RESISTANCE SC (09:34)
--- NOTE | 2024-09-14 11:30 | CM ---
Patient out of room, plan continues to be return to [facility] with Bed hold. CM will continue to follow for discharge planning needs.
Plan; return to SNF when medically appropriate.
Report #: [phone]/ Fax #: [phone]
[2024-09-14 11:35] VITALS: BP 98/75
[2024-09-14 11:40] LABS: Hematocrit 36.3 % (37.0-47.0); Hemoglobin 11.8 g/dL (12.0-16.0); Mean Corp Hgb Conc. 32.5 g/dL (33.0-37.0); Mean Corpuscular Hgb 30.9 pg (27.0-31.0); Platelet Count 165 10^3/uL (130-400); Red Blood Cell Count 3.82 10^6/uL (4.20-5.40); Red Cell Dist. Width 15.4 % (11.5-14.5); White Blood Cell Count 7.4 10^3/uL (4.8-10.8)
[2024-09-14 11:53] LABS: Blood Urea Nitrogen 43 mg/dl (7-17); Calcium 8.3 mg/dl (8.4-10.2); Carbon Dioxide 25 mmol/L (22-30); Chloride 100 mmol/L (98-107); Estimated Creatinine Clearance 50 ml/min; Glucose 161 mg/dl (70-99); Potassium 4.1 mmol/L (3.5-5.1); Sodium 135 mmol/L (135-145); eGFR > 60.00
[2024-09-14 12:33] LABS: Glucose - Point of Care 162 mg/dl (70-99)
[2024-09-14] MEDS: NOVOLOG FLEXPEN-HIGH RESISTANCE 1 UNITS SC ×2 (13:42→18:04)
--- NOTE | 2024-09-14 15:03 | W.PN.CD ---
Today's Communication / Plan
-
Continue amiodarone 400 mg twice daily
Impression / Plan
-
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
threatening ischemia to right lower extremity s/p surgery with Dr. Rowley 09/10/24. Cardiology is consulted for persistent atrial fibrillation with RVR.
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
AFIB, likely persistent or permanent at this point:
-per chart, not on OAC due to hx GIB
-CHADSVasc is at least 6 (Age, gender, HTN, PAD, DM, CHF)
-Continue metoprolol 100 mg twice daily. Further up titration is limited by low blood pressures
-Not a candidate for digoxin due to fluctuating renal function (creatinine up to 1.1 this admission from baseline 0.7)
-Load with p.o. amiodarone given that we have no other option for rate/rhythm control. Continue 400 mg twice daily.
-Consider Watchman procedure as an outpatient
Chronic limb threatening ischemia to right lower extremity s/p surgery with Dr. Rowley 09/10/24:
-surgery details: Duplex assisted cannulation of right lower extremity lateral plantar vein. Duplex assisted cannulation of right distal common femoral/proximal superficial femoral artery. Balloon angioplasty of proximal posterior tibial artery
with 3 mm angioplasty balloon. Transcatheter arterialization of the deep veins right lower extremity - LimFlow procedure with placement of overlapping LimFlow stents. Balloon angioplasty of deep veins including pedal venous system/pedal venous loop.
-post-op management per vascular surgery
HFmEF:
-does not appear volume overloaded to assessment
-on bumex as OP, continue here
-follow volume
BS ICD in place:
-follow telemetry
Subjective: Mental status is much better today. She denies any cardiovascular complaints but feels overall fatigued and weak. She reports that she has been on amiodarone before but was taken off by the facility where she lives. Telemetry is
notable for atrial fibrillation with heart rates in the 110s to 120s.
Physical Exam
Vital Signs/Labs
Vital Signs
Temp Pulse Resp BP Pulse Ox
98.8 F 116 16 98/75 100
09/14/24 11:35 09/14/24 11:35 09/14/24 11:35 09/14/24 11:35 09/14/24 11:35
09/13/24 09/14/24 09/15/24
06:59 06:59 06:59
Actual Weight 56.654 kg
09/14/24 11:08
09/14/24 11:08
PT 18.5 Sec (11.4-14.6) H 09/11/24 07:31
INR 1.49 09/11/24 07:31
APTT 42.0 Sec (23.4-35.0) H 09/11/24 07:31
Magnesium 2.1 mg/dl (1.6-2.3) 09/14/24 04:23
TSH 4.32 uIU/ml (0.47-4.68) 09/12/24 06:23
Physical Exam
Constitutional: No acute distress and Comfortable
Cardiovascular: Pedal edema is absent, Rhythm/rate is irregular and Murmur/rub/gallop absent
Respiratory: Respiratory effort normal and Lungs clear to auscul.
Data Reviewed
-
Date of Service: September 14, 2024
Medical Decision Making: Reviewed Test Results, Independent Historian Assessment, Test Interpretation and Review of Case with other Provider
EKG: Tracing Personally Visualized and interpreted
Echo: Report Reviewed by me
X-Ray/CT/US/MRI/NUC/PET: Report Reviewed by me
Labs: Labs Reviewed by me
[2024-09-14 15:37] VITALS: BP 107/68
[2024-09-14 17:33] LABS: Glucose - Point of Care 312 mg/dl (70-99)
[2024-09-14 17:35] LABS: Glucose - Point of Care 190 mg/dl (70-99)
[2024-09-14] MEDS: TYLENOL 650 MG PO (18:04)
[2024-09-14 19:14] VITALS: BP 123/77
[2024-09-14] MEDS: TOPROL XL PO (20:54)
[2024-09-14] MEDS: PACERONE PO (20:56)
[2024-09-14 21:25] LABS: Glucose - Point of Care 255 mg/dl (70-99)
[2024-09-14] MEDS: LANTUS 0.05 UNITS SC (21:53)
[2024-09-14] MEDS: LIPITOR 20 MG PO (21:53)
[2024-09-14] MEDS: NEURONTIN 300 MG PO (21:53)
[2024-09-14] MEDS: REMERON 7.5 MG PO (21:53)
[2024-09-14 23:18] VITALS: BP 109/69
[2024-09-15 03:23] VITALS: BP 111/76
[2024-09-15] MEDS: TYLENOL 650 MG PO (03:29)
[2024-09-15 07:37] VITALS: BP 89/57
[2024-09-15 08:19] LABS: Glucose - Point of Care 177 mg/dl (70-99)
[2024-09-15] MEDS: NOVOLOG FLEXPEN-HIGH RESISTANCE 2 UNITS SC (08:34)
[2024-09-15] MEDS: PROTONIX 40 MG PO (08:35)
[2024-09-15] MEDS: ASPIR LOW (ENTERIC COATED) 81 MG PO (08:35)
[2024-09-15] MEDS: PACERONE 400 MG PO (08:35)
[2024-09-15] MEDS: BUMEX 0.5 MG PO (08:36)
[2024-09-15] MEDS: XARELTO 2.5 MG PO (08:36)
[2024-09-15] MEDS: FARXIGA 10 MG PO (08:36)
[2024-09-15] MEDS: FEOSOL 325 MG PO (08:36)
[2024-09-15] MEDS: CYMBALTA DELAYED RELEASE 20 MG PO (08:37)
[2024-09-15] MEDS: KCL 20 MEQ PO (08:37)
[2024-09-15] MEDS: REFRESH EYE DROPS (PF) BOTH EYES ×2 (08:37→12:35)
[2024-09-15] MEDS: TOPROL XL 100 MG PO (08:37)
[2024-09-15] MEDS: ZINC OXIDE OINTMENT 1 APPLIC TOPICAL (08:37)
--- NOTE | 2024-09-15 09:15 | W.PN.VS ---
Today's Communication / Plan
-
See plan below for today 09/15/2024.
Assessment/Plan
-
Assessment: 88-year-old female POD #5 RLE Lizzie (TADV).
Plan:
Appreciate hospitalist tay (signed off now) and cardiology, evaluating tachycardia
Continue Compass protocol of Xarelto 2.5 mg p.o. twice daily and aspirin 81 mg p.o. daily for newly placed stents
If okay from cardiology perspective today, will likely plan discharge. Will need staged left lower extremity angiography/revascularization.
-
Total Time Spent with Patient (in minutes): 15
Subjective Data
-
Date of Service: September 15, 2024
Seen and examined. Patient is without significant complaints this morning. Overall feels okay. She still has some foot pain in the right foot, more so tenderness. She notes some in the left foot as well.
Objective Data
-
Vital Signs
Temp Pulse Resp BP Pulse Ox
97.5 F 96 17 89/57 96
09/15/24 07:37 09/15/24 08:35 09/15/24 07:37 09/15/24 08:35 09/15/24 07:37
Intake and Output
09/14/24 09/15/24 09/16/24
06:59 06:59 06:59
Intake Total 590 / 590 1200 / 1200
Balance 590 / 590 1200 / 1200
Intake:
Oral fluids 590 / 590 1200 / 1200
Other:
Number of approximated MODERATE 1
amounts of urine
Number of approximated LARGE 1
amounts of urine
How many times incontinent 1 1
MODERATE amount urine
How many times incontinent 1 1
SATURATED amount urine
Lab Results
09/14/24 11:08
09/14/24 11:08
Calcium 8.3 mg/dl (8.4-10.2) L 09/14/24 11:08
Phosphorus 3.2 mg/dl (2.5-4.5) 09/14/24 04:23
Magnesium 2.1 mg/dl (1.6-2.3) 09/14/24 04:23
Total Bilirubin 0.4 mg/dl (0.2-1.3) 09/12/24 06:23
Direct Bilirubin 0.3 mg/dl (0.0-0.4) 09/12/24 06:23
AST 36 U/L (14-36) 09/12/24 06:23
ALT 16 U/L (0-35) 09/12/24 06:23
Alkaline Phosphatase 95 U/L (38-126) 09/12/24 06:23
Total Protein 5.6 g/dl (6.3-8.2) L 09/12/24 06:23
Albumin 3.2 g/dl (3.5-5.0) L 09/12/24 06:23
Physical Exam
-
Afebrile. Heart rate now in the 90s. Better controlled.
Awake and alert.
Breathing unlabored.
Abdomen soft, nondistended, nontender.
Right groin flat, no hematoma.
Right foot warm with excellent dopplerable signals (AV signals).
Left foot warm, stable small dry gangrene.
[2024-09-15 09:31] VITALS: BMI 20.7
--- NOTE | 2024-09-15 10:48 | W.PN.CD ---
Today's Communication / Plan
-
- Continue Metoprolol and Amiodarone
- Not on anticoagulation, patient understands the risk of stroke orquidea with amiodarone with conversion to sinus.
Impression / Plan
-
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
threatening ischemia to right lower extremity s/p surgery with Dr. Rowley 09/10/24. Cardiology is consulted for persistent atrial fibrillation with RVR.
Service Representative: AMS
AFIB, likely persistent or permanent at this point:
-per chart, not on OAC due to hx GIB (On ASA and low dose Xarelto)
-CHADSVasc is at least 6 (Age, gender, HTN, PAD, DM, CHF)
-Difficult to control rates - on metoprolol 100 mg BID and added Amiodarone 400 mg BID - day # 3 today
-Continue Metoprolol and Amiodarone
-If hypotension noted, can decrease metoprolol to add digoxin. Was avoided before due to fluctuating renal function (creatinine up to 1.1 this admission from baseline 0.7)
-Consider Watchman procedure as an outpatient
Chronic limb threatening ischemia to right lower extremity s/p surgery with Dr. Rowley 09/10/24:
-surgery details: Duplex assisted cannulation of right lower extremity lateral plantar vein. Duplex assisted cannulation of right distal common femoral/proximal superficial femoral artery. Balloon angioplasty of proximal posterior tibial artery
with 3 mm angioplasty balloon. Transcatheter arterialization of the deep veins right lower extremity - LimFlow procedure with placement of overlapping LimFlow stents. Balloon angioplasty of deep veins including pedal venous system/pedal venous loop.
-post-op management per vascular surgery
HFmEF:
-does not appear volume overloaded to assessment
-on bumex as OP, continue here
-follow volume
BS ICD in place:
-follow telemetry
Subjective: Mental status is much better today. She denies any cardiovascular complaints but feels overall fatigued and weak. AF rates are imporved.
Physical Exam
Vital Signs/Labs
Vital Signs
Temp Pulse Resp BP Pulse Ox
97.5 F 96 17 89/57 96
09/15/24 07:37 09/15/24 08:35 09/15/24 07:37 09/15/24 08:35 09/15/24 07:37
09/14/24 09/15/24 09/16/24
06:59 06:59 06:59
Actual Weight 56.501 kg 56.444 kg
09/14/24 11:08
09/14/24 11:08
PT 18.5 Sec (11.4-14.6) H 09/11/24 07:31
INR 1.49 09/11/24 07:31
APTT 42.0 Sec (23.4-35.0) H 09/11/24 07:31
Magnesium 2.1 mg/dl (1.6-2.3) 09/14/24 04:23
TSH 4.32 uIU/ml (0.47-4.68) 09/12/24 06:23
Physical Exam
Constitutional: No acute distress and Comfortable
EENT: Anicteric and Moist mucous membranes
Cardiovascular: Pedal edema is absent, JVD pressure is normal, Rhythm/rate is irregular and Systolic murmur present
Respiratory: Respiratory effort normal, Lungs clear to auscul. and Crackles Absent
GI: Soft, Non tender and Normal bowel sounds
Neuro/Psych: Alert, Oriented and AO x 3
Data Reviewed
-
Date of Service: September 15, 2024
Medical Decision Making: Reviewed Test Results
EKG: Tracing Personally Visualized and interpreted
Echo: Report Reviewed by me
Labs: Labs Reviewed by me
Old Records: Reviewed
--- NOTE | 2024-09-15 10:51 | PTCARENOTE ---
BP this AM was 89/57, cards and primary MD made aware. No new orders at this time.
--- NOTE | 2024-09-15 11:27 | W.DS.TRANS ---
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
-
Discharge Instructions:
Discharge Diagnosis/Procedures Transcatheter arterialization of the deep veins
(TADV) right lower extremity
Diet As tolerated,Diabetic, Carb Controlled
Activity No strenuous activity
Driving Restrictions No driving
Bathing Restrictions OK to Shower
Others Tests Your follow-up arterial ultrasound is scheduled
on 10/15/2024 at 8 AM here at [facility]
Instructions:
Stand-Alone Forms: DC Instr - Vascular OR
Changes to Home Medications: Yes
Discharge Medications:
DC Medications w/original date entered in [facility]
atorvastatin 20 mg tablet 20 mg PO HS High cholesterol 12/27/22
bisacodyl 10 mg rectal suppository (Dulcolax (bisacodyl)) 10 mg NJ DAILY PRN if MOM ineffective 12/27/22
duloxetine 20 mg capsule,delayed release 20 mg PO DAILY depression/anxiety 12/27/22
insulin lispro 100 unit/mL subcutaneous solution 0 sliding scale dose SC MEALS Diabetes 12/27/22
magnesium hydroxide 400 mg/5 mL oral suspension (Milk of Magnesia) 30 ml PO DAILY PRN if no BM x 3 days 12/27/22
sodium phosphates 19 gram-7 gram/118 mL enema (Fleet Enema) 118 ml NJ DAILY PRN if dulcolax ineffective 12/27/22
potassium chloride 20 mEq tablet,extended release 20 meq PO DAILY Electrolyte Repletion 08/19/23
mirtazapine 15 mg tablet (Remeron) 7.5 mg PO HS Mental Health/Anxiety 09/13/23
aspirin 81 mg tablet,delayed release 81 mg PO DAILY Blood Clot Prevention/Tx 09/14/23
ferrous sulfate 325 mg (65 mg iron) tablet 325 mg PO DAILY Supplement #1 tab 10/10/23
pantoprazole 40 mg tablet,delayed release 40 mg PO BID Gastrointestinal issue #0 tabs 10/10/23
acetaminophen 325 mg tablet (Tylenol) 650 mg PO TID Pain 03/14/24
bumetanide 0.5 mg tablet 0.5 mg PO DAILY Fluid retention/Swelling 03/14/24
peg [id number] 1 %-0.2 %-0.2 % eye drops (Artificial Tears ([id number])) 1 drp BOTH EYES QID Eye Condition 03/14/24
tizanidine 2 mg tablet 2 mg PO HS 30 days #30 tabs 04/04/24
canagliflozin 100 mg tablet (Invokana) 100 mg PO DAILY Diabetes 09/09/24
cranberry fruit 450 mg tablet (cranberry) 450 mg PO DAILY Supplement 09/09/24
dextrose 40 % oral gel (Glucose Gel) 1 ea PO PRN PRN hypoglycemia 09/09/24
gabapentin 400 mg capsule 400 mg PO HS pain 09/09/24
glucagon HCl 1 mg solution for injection (Glucagon (HCl) Emergency Kit) 1 mg IM PRN PRN hypoglycemia 09/09/24
insulin glargine 100 unit/mL (3 mL) subcutaneous pen (Lantus Solostar U-100 Insulin) 5 unit SC HS Diabetes 09/09/24
oxycodone 5 mg tablet 5 mg PO Q8H Pain 09/09/24
zinc oxide 13 % topical cream 1 applic topical BID Skin Issues 09/09/24
rivaroxaban 2.5 mg tablet (Xarelto) 2.5 mg PO BID #180 tabs 09/11/24
amiodarone 200 mg tablet 200 mg PO BID 2 months #120 tabs 09/15/24
amiodarone 400 mg tablet 400 mg PO BID 1 week #14 tabs 09/15/24
metoprolol succinate 100 mg tablet,extended release 24 hr 100 mg PO BID #120 tabs 09/15/24
Home Medication Changes
ADD rivaroxaban 2.5 mg tablet (Xarelto) 2.5 mg PO BID #180 tabs 09/11/24
amiodarone 400 mg tablet 400 mg PO BID 1 week #14 tabs 09/15/24 THEN
amiodarone 200 mg tablet 200 mg PO BID 2 months #120 tabs 09/15/24
Change dose: metoprolol succinate 100 mg tablet,extended release 24 hr 100 mg PO BID #120 tabs 09/15/24
HOLD zanaflex
Pending Results: No
[2024-09-15 11:28] VITALS: BP 113/68
[2024-09-15 12:29] LABS: Glucose - Point of Care 235 mg/dl (70-99)
[2024-09-15] MEDS: NOVOLOG FLEXPEN-HIGH RESISTANCE 4 UNITS SC (12:35)
--- NOTE | 2024-09-15 12:47 | CM ---
Addendum entered by Teena Peterson 09/15/24 12:49:
IMM explained & signed. in chart
Original Note:
Patient discharge to [facility] - she is resident LTC there
Notified Francoise liaison of time & updated careport.
transport forms on chart.
PLAN: Return to [facility]
Report #: [phone]/ Fax #: [phone]
transportation set for 1630 today
--- NOTE | 2024-09-15 14:30 | PTCARENOTE ---
Report called to REECE Meyers at [facility] ([phone]), instructed with call back number for any questions. Pickup time set for 1630 today with [facility].
[2024-09-15 15:55] VITALS: BP 107/60
--- NOTE | 2024-09-15 18:02 | PTCARENOTE ---
Acute Care called in order to find out status of patient's pickup time, pickup time changed to 1800 due to staffing issues. Pt informed. Acute Care here to pick patient up now.
== END 2024-09-15 18:13 | DRG 252 ==
LOC: 2 NORTH 06:25
PROVIDERS: Nurse Practitioner; ADMITTING PHYSICIAN Surgery Vascular Surgery; CONSULT PHYSICIAN Hospitalist; CONSULT PHYSICIAN Internal Medicine
PROC: 067Y3ZZ Dilation of Lower Vein, Percutaneous Approach (ICD-10-PCS; 2024-09-10)
PROC: 041R3JS Bypass Right Posterior Tibial Artery to Lower Extremity Vein with Synthetic Substitute, Percutaneous Approach (ICD-10-PCS; 2024-09-10)
PROC: 047R3ZZ Dilation of Right Posterior Tibial Artery, Percutaneous Approach (ICD-10-PCS; 2024-09-10)
DX: E11.51 Type 2 diabetes mellitus with diabetic peripheral angiopathy without gangrene (principal); G92.8 Other toxic encephalopathy; I42.9 Cardiomyopathy, unspecified; I48.19 Other persistent atrial fibrillation; L97.919 Non-pressure chronic ulcer of unspecified part of right lower leg with unspecified severity; I50.22 Chronic systolic (congestive) heart failure; K21.9 Gastro-esophageal reflux disease without esophagitis; E78.5 Hyperlipidemia, unspecified; E78.00 Pure hypercholesterolemia, unspecified; I11.0 Hypertensive heart disease with heart failure; G47.33 Obstructive sleep apnea (adult) (pediatric); I70.239 Atherosclerosis of native arteries of right leg with ulceration of unspecified site; Z88.5 Allergy status to narcotic agent; Z88.8 Allergy status to other drugs, medicaments and biological substances; Z95.810 Presence of automatic (implantable) cardiac defibrillator; Z79.82 Long term (current) use of aspirin; Z79.4 Long term (current) use of insulin; Z11.52 Encounter for screening for COVID-19
CPT/HCPCS: 0620T; 70450; 71046; 80048; 80076; 82805; 82962; 83735; 84100; 84443; 85025; 85027; 85610; 85730; 86850; 86900; 86901; 87070; 87147; 87502; 87811; 93005; C1725; C1769; C1894; Q9967

== ENCOUNTER 2024-09-30 05:28 | Inpatient (IN) | payer MEDICARE, BC, SELFPAY ==
[2024-09-30] VITALS (41 sets, daily range): BP systolic 71–158; BP diastolic 48–114; BMI 21.5
[2024-09-30] MEDS: ZOFRAN 4 MG IV (01:42)
[2024-09-30] MEDS: NSS 1000 IV ×2 (01:43→02:29)
[2024-09-30 01:49] LABS: % Basophils 0.5 % (0-2); % Eosinophils 1.2 % (0-6); % Immature Granulocytes 0.4 % (0-0.5); % Lymphocytes 14.7 % (20.5-51.1); % Monocytes 9.2 % (1.7-9.3); Absolute Basophils 0.1 10^3/uL (0-0.2); Absolute Eosinophils 0.1 10^3/uL (0-0.7); Absolute Lymphocytes 1.4 10^3/uL (1.2-3.4); Absolute Monocytes 0.8 10^3/uL (0.1-0.6); Absolute Neutrophils 6.8 10^3/uL (1.4-6.5); Hematocrit 30.3 % (37.0-47.0); Hemoglobin 9.8 g/dL (12.0-16.0); Mean Corp Hgb Conc. 32.3 g/dL (33.0-37.0); Mean Corpuscular Volume 92.7 fL (81.0-99.0); Nucleated Red Blood Cells % 0 %; Platelet Count 160 10^3/uL (130-400); Red Blood Cell Count 3.27 10^6/uL (4.20-5.40); White Blood Cell Count 9.2 10^3/uL (4.8-10.8)
--- NOTE | 2024-09-30 01:49 | ED.GENMED ---
History of Present Illness
General
Chief Complaint: Change Level of Consciousness
Time Seen by Provider: 09/30/24 01:31
History of Present Illness
History of Present Illness:
88-year-old female with history of A-fib on Xarelto, diabetes, CHF, pacemaker/AICD presenting for hypotension and weakness, presents from nursing facility. At facility, noted to have been started on antibiotics 1/3 for suspected pneumonia. Patient
is allegedly on 2 L of O2 at baseline. Prior to arrival, noted to be hypotensive and bradycardic with concern for dehydration. Patient is a limited historian. She reports feeling nauseous and short of breath with cough. She denies any present
abdominal pain. No additional history obtained at this time
Past History
Past History
ED Past Medical History: Arrthythmia (AFib), Cancer (basal cell, breast), CHF, HTN, NIDDM, Other (difficulty with balance, DM, neuropathy, pancreatitis chronic A. fib, status post pacer defibrillator, fibromyalgia, PMR, AVMs, colon polyps) and Other
ED Past Surgical History: Cholecystectomy and Other (hysterectomy)
Social History
Tobacco: Non-smoker
Alcohol: None
Drug: None
Living: alf
Family History
Family History: Other (Father with [place] in his 60s)
Phy Exam
Physical Exam
Physical Exam:
General: Pale, dry mucous membranes
HEENT: protecting airway
Neck: appears supple
CV: Bradycardic, regular rhythm, no evidence of cyanosis
Resp: No accessory muscle use, no increased work of breathing, lungs clear to auscultation bilaterally
Abd: Soft and non-distended, no tenderness to palpation
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
Neuro: alert, no focal neurologic deficit
: deferred
Rectal: deferred
Psych: Normal affect
Skin: Intact
Course
Orders/Labs/Results
Orders:
Orders
09/30/24 01:32
Electrocardiogram (*1) Urgent
Reason for Study: Other
Other Reason for Exam: sepsis
EKG- Treatment ONCE
Straight cath- Treatment ONCE
0.9% Sodium Chloride 1000 ml [Nss] 1,000 ml IV BOLUS
CR Chest Single View Urgent
Reason For Exam: pneumonia, sob
09/30/24 01:33
Ondansetron Injectable [Zofran] 4 mg IV NOW STA
09/30/24 01:39
COVID-19 Antigen Urgent
Source: Nasal Swab
Complete Blood Count/With Diff Urgent
Comprehensive Metabolic Panel Urgent
Glycohemoglobin (HgbA1c) Urgent
Lactic Acid Q4H
Comment: CANCEL 2nd LACTIC ACID IF 1st LACTIC ACID IS LESS THAN 2
PTT Urgent
Prothrombin Time Urgent
Troponin I Urgent
Influenza A+B Rapid Molecular Urgent
LEDA Source: Nasal Swab
Specimen Description:
09/30/24 02:10
CT Abd/pel Without Iv Or Oral Urgent
Reason For Exam: nausea, hypotension
09/30/24 02:16
0.9% Sodium Chloride 1000 ml [Nss] 1,000 ml IV BOLUS
09/30/24 02:27
Urinalysis Reflex To Culture Urgent
Date Specimen was Collected: 09/30/24
Time Specimen was Collected: 02:26
Urine Microscopic Reflex Cult Urgent
Blood Culture Q30M
LEDA Source: Blood/Venous
Specimen Description:
Blood Culture Q30M
LEDA Source: Blood/Venous
Specimen Description:
09/30/24 02:51
Cefepime HCl [Maxipime] 2,000 mg IV NOW STA
09/30/24 03:26
Vancomycin [Vancocin] 1,500 mg 0.9% Sodium Chloride 500 ml [Nss] 500 ml IV NOW
09/30/24 05:05
Admit/Transfer Patient As Directed
Co-Sign Provider:
Level of Care: Inpatient admission
Assign to:: IMU- Intermediate Care
Physician / Group: hospitalist
Diagnosis: sepsis, pneumonia
Reason for Hospitalization: hypotension
Expected length of stay greater than two midnights?: Yes
ELOS- Estimated Length of Stay in days: 2
I certify the patient meets the requirements for IP care: Yes
PRN Pain Medication Management As Directed
May give lesser potent ordered pain med per pt: Yes
preference::
Protocol:: Medication orders for pain may be administered in a
manner that supports deferring to patient preference
when the pt is:
- Requesting an ordered lesser potent pain medication.
Least to most potent pain medications are defined
as: acetaminophen < NSAID < tramadol < opioids
(morphine, oxycodone, hydromorphone).
- Requesting a lesser dose of the same medication IF
ORDERED.
- Requesting a less intrusive route of administration
if both routes are prescribed by the provider (PO <
IV).
09/30/24 05:09
Code Status As Directed
Resuscitation Status: Limited DNR
Limited DNR: -No intubation
09/30/24 05:53
Lactic Acid Q4H
Comment: CANCEL 2nd LACTIC ACID IF 1st LACTIC ACID IS LESS THAN 2
09/30/24 Breakfast
1800 calorie (15 carb) Diabetic
At Your Request: Limited, Tobacco Drier Operator Required
Flush (0.9% Sodium Chloride) [Flush (Nss)] See Dose Instructions IV PER PROTOCOL
09/30/24 06:16
Acetaminophen [Tylenol] 650 mg PO Q4HPRN PRN
Mag Hydrox/Al Hydrox/Simeth [Maalox] 15 ml PO QIDPRN PRN
Ondansetron Injectable [Zofran] 4 mg IV Q6HPRN PRN
Oxycodone [Roxicodone] 5 mg PO Q8H PRN
VANCOMYCIN Pharmacy to Dose [VANCOCIN Pharmacy to Dose] 1 each Pharmacy To Prepare [Call Pharmacy To Prepare] 0 ml IV PER PROTOCOL
09/30/24 06:16
CARDIOLOGY CONSULT Routine
Consulting Provider: Rex Sanchez
Was physician already notified: No
Reason for consult: bradycardia, paced @ 40bpm
Consult Notification Routine
Specialty to Notify: Cardiology
Date consulting provider notified: 09/30/24
Time consulting provider notified: 10:15
Notified:: Provider
VTE Contraindication Routine
VTE Mechanical Device Contraindication: Medical Contraindication
Pharmocologic Contraindication: Medical Contraindication
Activity As Directed
Activity Level: With Assistance
Bedside Glucose Monitoring As Directed
Frequency: AC&HS
Intake/ Output As Directed
Frequency: Per unit guidelines
Vital Signs As Directed
Frequency: Per unit guidelines
Weight As Directed
Frequency: Daily
Comment: on admission
O2 Therapy [RESP] Routine
Nasal Cannula Liter Flow: 4 LPM
Titrate/Wean O2 to maintain O2 sat greater than (%): 93
Special Instructions: Wean as tolerated
Pulse Ox/cont/shift [RESP] Routine
Quantity: 1
Special Instructions: notify provider if SPO2 < 91%
Pt Eval And Treat Routine
Activity Level: With Assistance
09/30/24 07:30
Insulin Aspart Corrective Low [Novolog Flexpen-Low Resistance] See Protocol SC AC
09/30/24 08:00
Aspirin Low Dose EC [Aspir Low (Enteric Coated)] 81 mg PO DAILY
Duloxetine Delayed Release [Cymbalta Delayed Release] 20 mg PO DAILY
Ferrous Sulfate [Feosol] 325 mg PO DAILY
Ipratropium/Albuterol Sulfate [Duoneb] 3 ml INH R QID
09/30/24 13:22
Legionella Urinary Antigen Routine
LEDA Source: Urine
Specimen Description:
09/30/24 14:00
Cefepime HCl [Maxipime] 1,000 mg IV Q12H
09/30/24 22:00
Atorvastatin [Lipitor] 20 mg PO HS
Gabapentin [Neurontin] 400 mg PO HS
Mirtazapine [Remeron] 7.5 mg PO HS
10/01/24 04:24
Basic Metabolic Panel IN AM
Complete Blood Count/No Diff IN AM
Abnormal Lab Results
09/30/24 09/30/24
01:39 02:27
RBC 3.27 L 10^6/uL
(4.20-5.40)
Hgb 9.8 L g/dL
(12.0-16.0)
Hct 30.3 L %
(37.0-47.0)
MCHC 32.3 L g/dL
(33.0-37.0)
RDW 15.0 H %
(11.5-14.5)
MPV 11.0 H fL
(7.4-10.4)
Absolute Neuts (auto) 6.8 H 10^3/uL
(1.4-6.5)
Absolute Monos (auto) 0.8 H 10^3/uL
(0.1-0.6)
Lymphocytes % 14.7 L %
(20.5-51.1)
PT 25.3 H Sec
(11.4-14.6)
APTT 52.5 H Sec
(23.4-35.0)
BUN 36 H mg/dl
(7-17)
Creatinine 1.2 H mg/dL
(0.6-1.0)
Glucose 144 H mg/dl
(70-99)
Hemoglobin A1c 8.5 H %
(4.0-5.6)
Lactic Acid 4.2 H* mmol/L
(0.7-2.0)
Calcium 7.6 L mg/dl
(8.4-10.2)
Total Protein 5.0 L g/dl
(6.3-8.2)
Albumin 2.6 L g/dl
(3.5-5.0)
Leukocyte Esterase Rfl Trace A
(Negative)
Urine RBC 3-6 A /HPF
(0-2)
Urine Bacteria (Reflex) Few A
(Negative)
Urine Glucose 3+ A
(Negative)
09/30/24 01:39
09/30/24 01:39
Vital Signs
Initial and Last Documented VS:
Initial Vital Signs
Temp Pulse Resp BP Pulse Ox
100.6 F H 40 22 94/48 93
09/30/24 01:24 09/30/24 01:24 09/30/24 01:24 09/30/24 01:24 09/30/24 01:24
Last Documented Vital Signs
Temp Pulse Resp BP Pulse Ox
97.5 F 20 9 54/27 85
10/01/24 03:27 10/01/24 16:45 10/01/24 16:30 10/01/24 14:54 10/01/24 16:30
MDM/Problems Addressed
MDM/Problems Addressed:
88-year-old female with history of A-fib on Xarelto, diabetes, CHF, pacemaker/AICD presenting for hypotension and generalized weakness. Vital signs on arrival significant for low blood pressure, bradycardia, fever.
On exam, patient appears pale, dehydrated with dry mucous membranes. Patient's vital signs are concerning for SIRS with suspected source being pulmonary, noted that patient is currently on antibiotics for suspected pneumonia. Viral syndrome is
also consideration, so will swab for COVID and flu. Will obtain chest x-ray imaging. Will check urinalysis. Will start patient on IV fluids given hypotension. Will obtain lactic acid and blood cultures.
02:10 -patient with markedly elevated lactic acid. Will continue IV fluids and proceed with CT imaging of the abdomen to ensure no additional acute infectious findings
04:00 - CT without obvious acute pathology. Chest x-ray does show concern for possible multifocal pneumonia with pleural effusions. Antibiotics administered. Again concern for dehydration and severe sepsis. Plan for admission. Will hold further
IV fluids, with findings of volume overload and anasarca with pleural effusions
*Critical Care Note
Total Time (30-74mins, 75-104mins- exclusive of procedures): 47
comment:
The high probability of a clinically significant, sudden or life threatening deterioration of the pulmonary system(s), severe sepsis, required my full and direct attention, intervention and personal management. The aggregate critical care time was
47 minutes. This time is in addition to time spent performing reported procedures but includes the following:
[x] Data Review and interpretation
[x] Patient assessment and monitoring of vital signs
[x] Documentation
[x] Medication orders and management
ED Attending Note
-
Portions of this chart may have been created with voice recognition software.� Occasional wrong word or��sound alike� substitutions may have occurred due to the inherent limitations of voice recognition software.
Discharge Plan
Departure
Patient Disposition: Admit
Date of Disposition: 09/30/24
Time of Disposition: 04:12
Presentation/result/management discussed w/ accepting MD/DO: Hospitalist
Patient with high blood pressure during this ER visit?: No
Condition: Critical
Discharge Problem:
Severe sepsis, Multifocal pneumonia, Hypotension
Interventions
Interventions:
*Risk Screen - Suicide Last Done: 09/30/24 01:24
*General Assessment Last Done: 09/30/24 01:24
*Neglect/Abuse Screening Last Done: 09/30/24 01:24
ED- Fall Risk Assessment Last Done: 09/30/24 02:52
*ED COVID-19 Vaccine History Last Done: 09/30/24 02:37
*Nursing Disposition Last Done: 09/30/24 11:11
ED- Cardiac Assessment Last Done: 09/30/24 02:52
ED- Neurological Assessment Last Done: 09/30/24 02:52
ED-Psychological Assessment Last Done: 09/30/24 02:52
ED- Pulmonary Assessment Last Done: 09/30/24 02:52
Discharge Date and Time
Discharge Date/Time: 09/30/24 11:12
[2024-09-30 01:56] LABS: INR 2.29; PT 25.3 Sec (11.4-14.6)
[2024-09-30 01:57] LABS: APTT 52.5 Sec (23.4-35.0)
[2024-09-30 02:06] LABS: Lactic Acid 4.2 mmol/L (0.7-2.0)
[2024-09-30 02:09] LABS: Troponin I < 0.012 ng/ml
[2024-09-30 02:10] LABS: ALT (SGPT) < 10 U/L (0-35); AST (SGOT) 19 U/L (14-36); Albumin 2.6 g/dl (3.5-5.0); Alkaline Phosphatase 83 U/L (38-126); Blood Urea Nitrogen 36 mg/dl (7-17); Calcium 7.6 mg/dl (8.4-10.2); Carbon Dioxide 22 mmol/L (22-30); Chloride 101 mmol/L (98-107); Estimated Creatinine Clearance 29 ml/min; Glucose 144 mg/dl (70-99); Potassium 4.7 mmol/L (3.5-5.1); Sodium 136 mmol/L (135-145); eGFR 43.54
[2024-09-30 02:46] LABS: Urine Albumin Trace (Neg - Trace); Urine Bilirubin Negative (Negative); Urine Character Clear (Clear); Urine Color Yellow; Urine Glucose 3+ (Negative); Urine Ketone Negative (Negative); Urine Leukocyte Trace (Negative); Urine Nitrite Negative (Negative); Urine Occult Blood Negative (Negative); Urine Specific Gravity 1.015 (<1.030); Urine Urobilinogen Negative (Neg - 1+)
[2024-09-30 03:20] LABS: COVID-19 Antigen Negative (Negative)
[2024-09-30 03:36] LABS: Urine Bacteria Few (Negative); Urine Hyaline Cast >15 /LPF (0-2)
[2024-09-30] MEDS: MAXIPIME 2000 MG IV (04:07)
[2024-09-30] MEDS: VANCOCIN 530 MG IV (04:08)
--- NOTE | 2024-09-30 04:36 | HPS.HSE ---
Family Physician
-
Family Physician: Baldo Martínez
Chief Complaint
-
Lethargy, bradycardia and hypotension
History of Present Illness
This is an 88-year-old female who has a past medical history of permanent atrial fibrillation status post pacemaker AICD, CHF with depressed EF of around 45%, insulin-dependent diabetes, peripheral arterial disease status post recent
revascularization to the right lower extremity, presenting to the ED from nursing facility for weakness and hypotension.
Patient he is really unable to provide much history. History obtained from prior records. It appears that the patient had developed symptoms consistent with pneumonia and had been started on antibiotics on September 26. She has been on levofloxacin
for 5 days now. She has had and no significant improvement. By this morning the patient had been found to be bradycardic and lethargic. She is on a baseline 2 L of oxygen. She complains of weakness and shortness of breath. She mostly complains
of trouble some nausea here. She denies vomiting. He has not had any melena or hematochezia.
When she arrived in the ED she was hypotensive with blood pressures in the 80s systolic, she was bradycardic to 40, respiratory was 19 and she was satting 93% on 2 L. Temperature was 100.6. White count was 9.2, hemoglobin was stable at 9.8 and
platelet count was normal at 160. Electrolytes were within normal limits. BUN and creatinine with elevated at 36 and 1.2 respectively. Troponin was 0.01. ECG showed a V paced rhythm at 40 which is replaces her prior atrial fibrillation. COVID
test was negative. Influenza was negative. Chest x-ray shows bilateral pleural effusions similar to prior and suspected multifocal opacities. Lactic acid was elevated at 4. Patient received 2 L of normal saline.
Medical History
Past Medical History
Past Medical History: Reports Arrhythmia (permanent afib), CHF (EF 45-50% s/p pacer-ICD), GERD, HTN, Hypercholesterolemia and IDDM
Additional Past Medical History:
PAD s/p right LimFlow procedure + stents on 08/1824
Past Surgical History: Reports Cholecystectomy and Gynocological (hysterectomy)
Social History
Tobacco: Non-smoker
Alcohol: None
Drug: None
Living: Care Home
Family History
Family History: Not pertinent
Allergies / Home Medications
Allergies reflects when Allergies were last updated in [facility].
Home Medications with original date entered in [facility]
Allergy/Medication List:
Allergies
Allergy/AdvReac Type Severity Reaction Status Date / Time
codeine Allergy Unknown Hives and Verified 09/30/24 02:37
'sick to
my stomach'
dofetilide [From Tikosyn] Allergy 'took all Verified 09/30/24 02:37
the K out
of my body
and I got
really
sick'
morphine Allergy Unknown Verified 09/30/24 02:37
Home Medications
atorvastatin 20 mg tablet 20 mg PO HS High cholesterol 12/27/22
bisacodyl 10 mg rectal suppository (Dulcolax (bisacodyl)) 10 mg AK DAILY PRN if MOM ineffective 12/27/22
duloxetine 20 mg capsule,delayed release 20 mg PO DAILY depression/anxiety 12/27/22
magnesium hydroxide 400 mg/5 mL oral suspension (Milk of Magnesia) 30 ml PO DAILY PRN if no BM x 3 days 12/27/22
sodium phosphates 19 gram-7 gram/118 mL enema (Fleet Enema) 118 ml AK DAILY PRN if dulcolax ineffective 12/27/22
potassium chloride 20 mEq tablet,extended release 20 meq PO DAILY Electrolyte Repletion 08/19/23
mirtazapine 15 mg tablet (Remeron) 7.5 mg PO HS Mental Health/Anxiety 09/13/23
aspirin 81 mg tablet,delayed release 81 mg PO DAILY Blood Clot Prevention/Tx 09/14/23
ferrous sulfate 325 mg (65 mg iron) tablet 325 mg PO DAILY Supplement #1 tab 10/10/23
pantoprazole 40 mg tablet,delayed release 40 mg PO BID Gastrointestinal issue #0 tabs 10/10/23
acetaminophen 325 mg tablet (Tylenol) 650 mg PO Q6 PRN mild pain/fever 03/14/24
bumetanide 0.5 mg tablet 0.5 mg PO DAILY Fluid retention/Swelling 03/14/24
peg [id number] 1 %-0.2 %-0.2 % eye drops (Artificial Tears ([id number])) 1 drp BOTH EYES QID Eye Condition 03/14/24
canagliflozin 100 mg tablet (Invokana) 100 mg PO DAILY Diabetes 09/09/24
cranberry fruit 450 mg tablet (cranberry) 450 mg PO DAILY Supplement 09/09/24
dextrose 40 % oral gel (Glucose Gel) 1 ea PO PRN PRN hypoglycemia 09/09/24
gabapentin 400 mg capsule 400 mg PO HS pain 09/09/24
insulin glargine 100 unit/mL (3 mL) subcutaneous pen (Lantus Solostar U-100 Insulin) 5 unit SC HS Diabetes 09/09/24
oxycodone 5 mg tablet 5 mg PO Q8H PRN Pain 09/09/24
rivaroxaban 2.5 mg tablet (Xarelto) 2.5 mg PO BID #180 tabs 09/11/24
amiodarone 200 mg tablet 200 mg PO BID 2 months #120 tabs 09/15/24
metoprolol succinate 100 mg tablet,extended release 24 hr 100 mg PO BID #120 tabs 09/15/24
glucagon 1 mg/0.2 mL subcutaneous auto-injector (Gvoke HypoPen 1-Pack) 1 mg SC ONCE PRN hypoglycemia 09/30/24
insulin aspart (niacinamide)(U-100) 100 unit/mL(3 mL) subcutaneous pen (Fiasp FlexTouch U-100 Insulin) 1 sliding scale dose SC DIRECTED 09/30/24
ipratropium 0.5 mg-albuterol 3 mg (2.5 mg base)/3 mL nebulization soln 3 ml inhalation QID SOB 09/30/24
levofloxacin 750 mg tablet 750 mg PO DAILY 09/30/24
Review of Systems
-
Constitutional: Reports Fatigue
EENT: Reports No Symptoms
Respiratory: Reports Trouble Breathing
Cardiac: Reports No Symptoms
Abdomen/GI: Reports Nausea
: Reports No Symptoms
Musculoskeletal: Reports No Symptoms
Skin: Reports No Symptoms
Neurological: Reports No Symptoms
Endocrine: Reports No Symptoms
Hematologic/Lymphatic: Reports No Symptoms
Psych: Reports No Symptoms
Physical Exam
Vital Signs
Vital Signs
Temp Pulse Resp BP Pulse Ox
100.6 F H 40 19 117/83 98
09/30/24 01:24 09/30/24 02:45 09/30/24 02:45 09/30/24 02:45 09/30/24 04:23
Physical Exam
General: Appears Chronically Ill
HEENT: NormoCephalic, Anicteric, Atraumatic, PERRLA and Oxygen
Respiratory: Clear (anteriorly)
Cardiac: S1/S2, Regular Rhythm and Bradycardia
Breast: Deferred by me
GI: Soft, Non Tender, Non Distended and Normal Bowel Sounds
Rectal: Deferred by Provider
Genito-urinary: Deferred by me
Musculoskeletal: No Clubbing, No Cyanosis, No Edema and Other (left great toe amputation with small eschar and some drainage. No open wounds or dry grangrene on the right.)
Skin: Warm
Neuro: Awake, Oriented (oriented to person) and Nonfocal/grossly intact
Hematologic/Lymphatic: No Lymphadenopathy
Laboratory Results
-
09/30/24 01:39
09/30/24 01:39
Laboratory Results
PT 25.3 Sec (11.4-14.6) H 09/30/24 01:39
INR 2.29 09/30/24 01:39
APTT 52.5 Sec (23.4-35.0) H 09/30/24 01:39
Lactic Acid 4.2 mmol/L (0.7-2.0) H* 09/30/24 01:39
Total Bilirubin 1.0 mg/dl (0.2-1.3) 09/30/24 01:39
AST 19 U/L (14-36) 09/30/24 01:39
ALT < 10 U/L (0-35) 09/30/24 01:39
Alkaline Phosphatase 83 U/L (38-126) 09/30/24 01:39
Troponin I < 0.012 ng/ml 09/30/24 01:39
Data Reviewed
-
Diagnostic Radiology: Image Personally Visualized and interpreted
Medical Tests (Nuc Med, Echo, EKG etc): Image Personally Visualized and interpreted
Lab Data: Labs Reviewed by me
Old Records: Reviewed
Impression/Plan
-
IMPRESSION:
88-year-old female with complex past medical history who was recently in the hospital for revised revascularization of the right lower extremity status post lymph lobe procedure plus stents on September 10. She spent several days in the hospital at
that time and was followed by cardiology for uncontrolled atrial fibrillation and cardiomyopathy where she was ultimately settled on amiodarone and metoprolol in an attempt to avoid using digoxin. She now comes to the emergency department with
hypotension and bradycardia as well as a fever of 100.6. Patient has been on Levaquin for 5 days for pneumonia at the [place] [facility]. She is on increased O2 to 4 L and has multiple opacities on x-ray with elevated lactic acid levels. COVID and flu
were negative. Any concern is that she has ongoing pneumonia that is likely hospital-acquired and complicated by bradycardia.
PLAN:
1. Pneumonia/sepsis - Apparent multifocal pneumonia with failure of outpatient levofloxacin.
- admit to IMU
- blood cultures sent
- continue cefepime and vancomycin (+mrsa) for now
- check procalcitonin
- s/p 2 L NS in ED with elevated lactate, repeat pending , hold off on additiona fluids
- hold diuretics for now
2. Bradycardia - V paced at 40. Patient on metoprolol succinate 100 bid. Suspect nausea may be due to bradycardia. Normal troponin.
- hold metoprolol for now
- hold amiodarone
- cardiology consult in am
3. CHF - small samantha pleural effusion but patient looks dy on exam
- hold lasix for now
- no additional fluids unless hypotensive
4. permanent afib - now V paced at 40, sss
- holding beta blockade and amiodarone
- continue Xarelto 2.5mg bid
5. PAD
- continue aspirin/statin and rivaroxaban
6. DM II
- sliding scale insulin for now
Code status - limited dnr, no not intubate
[2024-09-30 06:40] LABS: Lactic Acid 5.4 mmol/L (0.7-2.0)
[2024-09-30] MEDS: DUONEB 3 ML INH ×4 (07:10→20:14)
--- NOTE | 2024-09-30 08:11 | W.PN.HOSP.TC ---
Today's Communication/Plan
-
Volume overload, hypotension, bradycardia
Continue to monitor in ICU
Assessment / Plan
Assessment / Plan
Physical Exam
General: Appears Chronically Ill
HEENT: Normocephalic
Respiratory: Clear (anteriorly)
Cardiac: S1/S2, Regular Rhythm and Bradycardia
GI: Soft, Non Tender, Non Distended and Normal Bowel Sounds
Musculoskeletal: No Cyanosis, No Edema and Other (left great toe amputation with small eschar and some drainage covered in dressing. No open wounds or dry gangrene on the right.)
Skin: Warm
Neuro: Awake, Oriented (oriented to person) and Nonfocal/grossly intact
Hematologic/Lymphatic: No Lymphadenopathy
Assessment/Plan
88-year-old female with complex past medical history who was recently in the hospital for revised revascularization of the right lower extremity status post lymph lobe procedure plus stents on September 10. She spent several days in the hospital at
that time and was followed by cardiology for uncontrolled atrial fibrillation and cardiomyopathy where she was ultimately settled on amiodarone and metoprolol in an attempt to avoid using digoxin. She now comes to the emergency department with
hypotension and bradycardia as well as a fever of 100.6. Patient has been on Levaquin for 5 days for pneumonia at the [facility]. She is on increased O2 to 4 L and has multiple opacities on x-ray with elevated lactic acid levels. COVID and flu
were negative. Any concern is that she has ongoing pneumonia that is likely hospital-acquired and complicated by bradycardia.
Pneumonia/sepsis - Apparent multifocal pneumonia with failure of outpatient levofloxacin.
History of MRSA in foot wound in February 2024
Septic Shock
Lactic Acidosis
- Admit to ICU
- Blood cultures sent
- Continue vancomycin (+mrsa) and Merrem (to cover both Pseudomonas and anaerobes) and Doxycycline (to cover atypical organisms)
- check procalcitonin
- s/p fluid boluses in the ED for hypotension --> now with fluid overload
- Cautious small amount of diuretic given today
- Suspected her shock was driven by both symptomatic bradycardia and sepsis
Bradycardia - V paced at 40. Patient on metoprolol succinate 100 bid. Suspect nausea may be due to bradycardia. Normal troponin.
- New for the patient
- hold metoprolol for now
- hold amiodarone
- cardiology consulted: treated the bradycardia with ICD reprogramming
- Echo showed EF 45 to 50%, septal flattening throughout the cardiac cycle consistent with RV pressure and volume overload, enlarged right ventricular size with mildly reduced systolic function, severe biatrial enlargement, moderate mitral
regurgitation, mild
aortic stenosis, moderate to severe tricuspid regurgitation, only elevated pulmonary artery pressures (PASP 55-60 mmHg), pleural effusion, small pericardial effusion which is partially organized at the apex, ascending aorta dilatation measuring
4.2 cm.
CHF - small samantha pleural effusion
Fluid Overloaded State
- 1x dose Lasix given today
Permanent afib - now V paced at 40, sss
- holding beta blockade and amiodarone
- Not anticoagulated. Xarelto 2.5mg bid and Aspirin are for PAD -- holding Xarelto given current renal function.
PAD
- continue aspirin/statin. holding xarelto given current renal function.
Hypoglycemia
- Continue 250mL of D10 @ 50ml/hr
DM II
- sliding scale insulin for now
Diet: NPO due to lethargy
Code Status: Limited DNR, no not intubate
Shock needing monitoring in the ICU is a high risk encounter.
Anticipated Discharge: > 48 hours
Subjective/Interval History
-
Date of Service: September 30, 2024
Patient was seen and examined. She was hypotensive and critically ill this morning.
Objective Data
-
Labs:
Laboratory Results
09/30/24
01:39
WBC 9.2
Hgb 9.8 L
Hct 30.3 L
Plt Count 160
PT 25.3 H
INR 2.29
APTT 52.5 H
Sodium 136
Potassium 4.7
Chloride 101
Carbon Dioxide 22
BUN 36 H
Creatinine 1.2 H
Glucose 144 H
Calcium 7.6 L
Total Bilirubin 1.0
AST 19
ALT < 10
Alkaline Phosphatase 83
Vital Signs:
Vital Signs
Temp Pulse Resp BP Pulse Ox
100.6 F H 42 17 95/53 91
09/30/24 01:24 09/30/24 07:14 09/30/24 07:14 09/30/24 06:37 09/30/24 07:14
[2024-09-30 09:02] LABS: Lactic Acid 6.3 mmol/L (0.7-2.0)
--- NOTE | 2024-09-30 09:06 | CON.CAR ---
Addendum entered and electronically signed by Maxwell Vargas MD 09/30/24 11:57:
I saw and examined the patient.
The TEMPLATE STORAGE CLERK's note was reviewed and I agree with the note.
Comment:
Care is with [facility] Cardiology, but has not been seen there in over 1 yr
EP Issues
1. Bradycardia
- Meds had been increased recently for fast AFib
- Treated with ICD reprogramming => VVIR 80-120 bpm => later will decrease rate to minimize RVA pacing percentage
- Historically no bradycardia
2. AFib, almost certainly permanent, not anticoagulated (Xarelto / ASA is for PAD)
3. VT, last VT was 07/2024 in the 170s for 20-30 minutes, in a monitor zone
4. ICD is single chamber: VT/VF treated at 220 bpm, Monitor at 170 bpm
5. Going forward will plan on lower doses of Amio and metoprolol
CXR suspicious for heart failure
- At some point will diurese
Original Note:
Consultation
Consultation Request
Date/Time Consultation Requested: 09/30/2024 06:15
Date/Time Consultation Performed: 09/30/2024 09:00
Requesting Provider: Dr. Babb
Performing Provider: RONAL Hernandez for Dr. Vargas
Reason for Consultation: Bradycardia
Medical History
-
Chief Complaint: PAD
History of Present Illness:
Jessi Alfredo is an 88-year-old female (known to her primary manufacturing design engineer, Dr. Garcia at [facility]) with persistent atrial fibrillation (on low dose anticoagulation due to prior GIB), ICD ([employer]), HFrEF, CM (EF 45-50%), dyslipidemia,
NIDDM, PAD, and BELKIS presented with lethargy and found to have bradycardia and hypotension. She is very lethargic and is unable to contribute to this HPI. Cardiology was consulted for bradycardia. She is currently V paced at 40 bpm. She knows her
name. She does not answer any further questions.
Past Medical History
Past Medical History: Arrhythmias (Persistent atrial fibrillation), CHF, GERD, Hypercholesterolemia, NIDDM and Other (PAD, BELKIS)
Past Surgical History: Cholecystectomy and Gynecological
Social History
Tobacco: Non-Smoker
Alcohol: None
Living: Detention
Employment: Retired
Family History
Family History: Reviewed & Not Pertinent
Allergies / Home Medications
Allergy/AdvReac Type Severity Reaction Status Date / Time
codeine Allergy Unknown Hives and Verified 09/30/24 02:37
'sick to
my stomach'
dofetilide [From Tikosyn] Allergy 'took all Verified 09/30/24 02:37
the K out
of my body
and I got
really
sick'
morphine Allergy Unknown Verified 09/30/24 02:37
�Medication �Instructions �Recorded �Confirmed �Type
atorvastatin 20 mg tablet 20 mg PO HS High cholesterol 12/27/22 09/30/24 History
bisacodyl 10 mg rectal suppository 10 mg [place] DAILYPRN PRN if MOM 12/27/22 09/30/24 History
(Dulcolax (bisacodyl)) ineffective
duloxetine 20 mg capsule,delayed 20 mg PO DAILY depression/anxiety 12/27/22 09/30/24 History
release
magnesium hydroxide 400 mg/5 mL 30 ml PO DAILYPRN PRN if no BM x 3 12/27/22 09/30/24 History
oral suspension (Milk of Magnesia) days
sodium phosphates 19 gram-7 118 ml [place] DAILYPRN PRN if dulcolax 12/27/22 09/30/24 History
gram/118 mL enema (Fleet Enema) ineffective
potassium chloride 20 mEq 20 meq PO DAILY Electrolyte 08/19/23 09/30/24 History
tablet,extended release Repletion
mirtazapine 15 mg tablet (Remeron) 7.5 mg PO HS Mental Health/Anxiety 09/13/23 09/30/24 History
aspirin 81 mg tablet,delayed 81 mg PO DAILY Blood Clot 09/14/23 09/30/24 History
release Prevention/Tx
ferrous sulfate 325 mg (65 mg 325 mg PO DAILY Supplement #1 tab 10/10/23 09/30/24 Rx
iron) tablet
pantoprazole 40 mg tablet,delayed 40 mg PO BID Gastrointestinal 10/10/23 09/30/24 Rx
release issue #0 tabs
acetaminophen 325 mg tablet 650 mg PO Q6HPRN PRN mild 03/14/24 09/30/24 History
(Tylenol) pain/fever
bumetanide 0.5 mg tablet 0.5 mg PO DAILY Fluid 03/14/24 09/30/24 History
retention/Swelling
peg [id number] 1 1 drp BOTH EYES QID Eye Condition 03/14/24 09/30/24 History
%-0.2 %-0.2 % eye drops
(Artificial Tears
([id number]))
canagliflozin 100 mg tablet 100 mg PO DAILY Diabetes 09/09/24 09/30/24 History
(Invokana)
cranberry fruit 450 mg tablet 450 mg PO DAILY Supplement 09/09/24 09/30/24 History
(cranberry)
gabapentin 400 mg capsule 400 mg PO HS pain 09/09/24 09/30/24 History
insulin glargine 100 unit/mL (3 5 unit SC HS Diabetes 09/09/24 09/30/24 History
mL) subcutaneous pen (Lantus
Solostar U-100 Insulin)
oxycodone 5 mg tablet 5 mg PO Q8HPRN PRN severe Pain 09/09/24 09/30/24 History
rivaroxaban 2.5 mg tablet (Xarelto) 2.5 mg PO BID #180 tabs 09/11/24 09/30/24 Rx
amiodarone 200 mg tablet 200 mg PO BID 2 months #120 tabs 09/15/24 09/30/24 Rx
metoprolol succinate 100 mg 100 mg PO BID #120 tabs 09/15/24 09/30/24 Rx
tablet,extended release 24 hr
Saccharomyces boulardii 250 mg 250 mg PO BID 09/30/24 09/30/24 History
capsule (Florastor)
insulin aspart 0 sliding scale dose SC AC 09/30/24 09/30/24 History
(niacinamide)(U-100) 100 unit/mL(3
mL) subcutaneous pen (Fiasp
FlexTouch U-100 Insulin)
ipratropium 0.5 mg-albuterol 3 mg 3 ml inhalation R QID SOB 09/30/24 09/30/24 History
(2.5 mg base)/3 mL nebulization
soln
levofloxacin 750 mg tablet 750 mg PO DAILY 09/30/24 09/30/24 History
Review of Systems
-
Unable to obtain full review of systems at this time due to: Acuity
Physical Exam
Vital Signs
Temp Pulse Resp BP Pulse Ox
97.9 F 40 19 86/49 96
09/30/24 08:41 09/30/24 08:30 09/30/24 08:30 09/30/24 08:30 09/30/24 08:41
Lab Results
09/30/24 01:39
Troponin I < 0.012 ng/ml 09/30/24 01:39
Physical Exam
General: Well Developed, Well Nourished and Respiratory Distress (mild)
HEENT: Normocephalic, Anicteric and Moist Mucous Membranes
Respiratory: Crackles and Rhonchi
Cardiac: S1/S2 and Regular Rhythm; Negative Peripheral Edema
Breast: Deferred by me
GI: Soft, Non Tender, Non Distended and Normal Bowel Sounds
Rectal: Deferred by Provider
Genito-urinary: No Costovertebral Tender
Musculoskeletal: No Clubbing and No Cyanosis
Skin: Warm and Dry
Neuro: Awake and Oriented (To herself)
Hematologic/Lymphatic: No Lymphadenopathy
Psych: Other (restless)
Impression / Plan
-
IMPRESSION/PLAN: 88F with persistent atrial fibrillation (on low dose anticoagulation due to prior GIB), ICD ([employer]), HFrEF, CM (EF 45-50%), dyslipidemia, NIDDM, PAD, and BELKIS presented with lethargy and found to have bradycardia and
hypotension
Primary Cardioloist: Dr. Garcia at [facility]
Sepsis, in the setting of pneumonia
-Lactic acidosis increasing, currently 6.3
-She is currently hypotensive and is receiving IV fluids, she may require vasopressor support
-Blood cultures are pending, she had MRSA in her foot wound in February
Bradycardia
-Increase rate to 80 bpm, the [employer] has been contacted
-I anticipate that increasing her heart rate will help with blood pressure but she still may need a touch of vasopressor
HFmrEF, acute on chronic
-Volume overloaded on CT scan, no diuresis given her acute illness
-Trend daily weight, I/O, and BMP
-Echocardiogram today
Persistent atrial fibrillation
-Hold AV cesar agents for now
-Rate to be increased as above
-After she improves, consider resuming amiodarone at lower dose of 200 mg daily
-Anticoagulation: Rivaroxaban 2.5 mg BID & ASA -> this is for her PAD, she had GIB in the past with full dose
TATIANA, per primary
Hyperkalemia, per primary
[employer] ICD, reprogram as above
PAD, on aspirin/rivaroxaban
NIDDM, per primary
[2024-09-30 09:09] LABS: NT-proBNP 11600 pg/ml
[2024-09-30 09:23] LABS: Blood Urea Nitrogen 39 mg/dl (7-17); Calcium 7.7 mg/dl (8.4-10.2); Carbon Dioxide 18 mmol/L (22-30); Chloride 103 mmol/L (98-107); Estimated Creatinine Clearance 25 ml/min; Glucose 51 mg/dl (70-99); Potassium 5.9 mmol/L (3.5-5.1); Sodium 135 mmol/L (135-145); eGFR 36.19
[2024-09-30] MEDS: DEXTROSE 50% SYRINGE 12.5 GRAMS IV ×2 (09:30→13:22)
--- NOTE | 2024-09-30 09:34 | PHA.VAN.IN ---
Assessment
- Assessment
Renal Function: Appears elevated from baseline (SCR 1.4 vs ~0.7)
Concomitant Antimicrobials: cefepime
- Previous Dosing Experience
Previous Regimen: Vanc 750mg Q24H
Date of Regimen: February 2024
Provided Trough of: 14.3
Provided AUC of: 421
Patient's SCR is: Elevated compared to previous dosing experience (SCR 1.4 vs ~0.8)
Patient's weight is: Similar to previous dosing experience
Regimen provided the following additional patient-specific PK:
Extrapolated Cmax (mcg/mL): 21.2 (Peak level was drawn appropriately (drawn ~1.9H after end of previous infusion))
Extrapolated Cmin (mcg/mL): 14.3 (trough Drawn appropriately; levels drawn at steady state after 3rd maintenance dose)
Calculated ke: 0.0171
Calculated half life (H): 40.6
Calculated Vd (L): 105 (~1.9 L/kg)
Calculated Vanc CL (ml/min): 29.7
Patient had slowly increasing BUN during prior experience (BUN 17-->19-->23-->27-->29) that may have contributed to prolonged half-life
Plan
- Plan
Initial / Loading Dose: 1500mg - 09/30 04:08
Maintenance Regimen: dosing by level
Monitoring: random 10/01 06
Pharmacokinetics Vancomycin I
- -
Patient Age: 88
Patient Sex: Female
Vancomycin Day #: 1
Indication: Pulmonary/Respiratory
Requesting Provider: Dr. Babb
Pertinent Antimicrobial Allergies:
no pertinent antibiotic allergies
Height / Weight:
Height 5 ft 5 in
Actual Weight 59 kg
Pertinent Past Medical History: DM II, PAD
- Vital Signs / Lab Results
Temp Pulse Resp BP Pulse Ox
97.9 F 40 19 86/49 96
09/30/24 08:41 09/30/24 08:30 09/30/24 08:30 09/30/24 08:30 09/30/24 08:41
Lab Results - Hematology
09/30/24
01:39
WBC 9.2
Lab Results - Chemistry
09/30/24 09/30/24
01:39 08:32
BUN 36 H 39 H
Creatinine 1.2 H 1.4 H
Estimated Creat Clear 29 25
Albumin 2.6 L
09/30/24 09/30/24 09/30/24
01:39 05:53 08:32
Lactic Acid 4.2 H* 5.4 H* 6.3 H*
Lab Results - Urine
09/30/24
02:27
Urine Nitrite (Reflex) Negative
Leukocyte Esterase Rfl Trace A
Urine WBC (Reflex) 6-10
Ur Squamous Epith Cells 3-5
Urine Bacteria (Reflex) Few A
Microbiology Results
09/30/24 01:39 Influenza Types A & B (GRACE) - Final
Nasal Swab Negative for Influenza A & B, NAAT
Negative results must be combined with clinical observations
and patient history.
Nucleic Acid Amplification test (NAAT)performed on the
[employer] platform.
[2024-09-30 09:54] LABS: Glucose - Point of Care 89 mg/dl (70-99)
[2024-09-30] MEDS: LR 500 IV ×2 (10:02→10:12)
[2024-09-30] MEDS: LEVOPHED 250 IV ×2 (10:11→21:23)
--- NOTE | 2024-09-30 10:41 | PTCARENOTE ---
pt received from instructional aide. pt lethargic oriented to self. unable to take pills. labs sent. dr samuels notified of low bp. ivf ordered bp became lower into 60 sys. second ivf bolus given a d levo gtt started. glucose 51 on labs dextrose iv
given per protocol.
--- NOTE | 2024-09-30 11:00 | PTCARENOTE ---
Addendum entered by Mellissa Velázquez RN 09/30/24 18:49:
Old bloody drainage noted in mouth.Mouth care given.Possible laceration on pt's anterior tongue noted.
Original Note:
Received pt from ED via stretcher.Pt is awake with confused speech.+ ADAMS with restlessness.Oriented to person and year,not place or situation.c/o vague abdominal pain.100% V paced noted.Received pt with Levophed at 3 mcg.Pt for PICC placement as
ordered.O2 2l NC.Unable to obtain pleth POX.Denies SOB.Crackles noted bl 1/2 up.NPO.Awaiting Speech Therapist for evaluation.No BM.Shaw inserted as ordered with jayden urine.Skin integrity as documented.Plan of care discussed with pt.
--- NOTE | 2024-09-30 12:21 | CON.INTV ---
Consultation
Consultation Request
Date/Time Consultation Requested: 09/30/24
Date/Time Consultation Performed: 09/30/24
Performing Provider: Chris
Reason for Consultation: ICU
Medical History
-
History of Present Illness:
Patient is an 88-year-old female w/ history of permanent atrial fibrillation s/p PPM/ICD, CHF with depressed EF of around 45%, insulin-dependent diabetes, peripheral arterial disease status post recent revascularization to the right lower extremity,
presenting to ED from nursing facility for weakness and hypotension.
Patient was being treated for outpatient pneumonia with antibiotics. She was notably bradycardic and lethargic with shortness of breath. She is on baseline use of oxygen at 2 L. On arrival to ER she was noted to be hypotensive with systolic in
the 80s, bradycardic with heart rate in the 40s, satting 93% on 2 L. She was admitted to IMU, developed worsening hypotension with escalating doses of pressors. Suspicion for sepsis with recent episode of pneumonia and elevated lactate. She is
now transferred to ICU for further management.
She is a limited DNR, no intubation.
Past Medical History
Past Medical History: Other (see list below)
Allergies / Home Medications
Allergies
Allergy/AdvReac Type Severity Reaction Status Date / Time
codeine Allergy Unknown Hives and Verified 09/30/24 02:37
'sick to
my stomach'
dofetilide [From Tikosyn] Allergy 'took all Verified 09/30/24 02:37
the K out
of my body
and I got
really
sick'
morphine Allergy Unknown Verified 09/30/24 02:37
Home Medications
�Medication �Instructions �Recorded �Confirmed �Last Taken �Type
atorvastatin 20 mg tablet 20 mg PO HS High cholesterol 12/27/22 09/30/24 12/26/22 20:00 History
bisacodyl 10 mg rectal suppository 10 mg SD DAILYPRN PRN if MOM 12/27/22 09/30/24 Unknown History
(Dulcolax (bisacodyl)) ineffective
duloxetine 20 mg capsule,delayed 20 mg PO DAILY depression/anxiety 12/27/22 09/30/24 09/09/24 08:00 History
release
magnesium hydroxide 400 mg/5 mL 30 ml PO DAILYPRN PRN if no BM x 3 12/27/22 09/30/24 Unknown History
oral suspension (Milk of Magnesia) days
sodium phosphates 19 gram-7 118 ml SD DAILYPRN PRN if dulcolax 12/27/22 09/30/24 Unknown History
gram/118 mL enema (Fleet Enema) ineffective
potassium chloride 20 mEq 20 meq PO DAILY Electrolyte 08/19/23 09/30/24 09/09/24 08:00 History
tablet,extended release Repletion
mirtazapine 15 mg tablet (Remeron) 7.5 mg PO HS Mental Health/Anxiety 09/13/23 09/30/24 09/09/24 21:00 History
aspirin 81 mg tablet,delayed 81 mg PO DAILY Blood Clot 09/14/23 09/30/24 09/09/24 08:00 History
release Prevention/Tx
ferrous sulfate 325 mg (65 mg 325 mg PO DAILY Supplement #1 tab 10/10/23 09/30/24 09/09/24 08:00 Rx
iron) tablet
pantoprazole 40 mg tablet,delayed 40 mg PO BID Gastrointestinal 10/10/23 09/30/24 09/09/24 21:00 Rx
release issue #0 tabs
acetaminophen 325 mg tablet 650 mg PO Q6HPRN PRN mild 03/14/24 09/30/24 09/09/24 21:00 History
(Tylenol) pain/fever
bumetanide 0.5 mg tablet 0.5 mg PO DAILY Fluid 03/14/24 09/30/24 09/09/24 08:00 History
retention/Swelling
peg [id number] 1 1 drp BOTH EYES QID Eye Condition 03/14/24 09/30/24 09/09/24 20:00 History
%-0.2 %-0.2 % eye drops
(Artificial Tears
([id number]))
canagliflozin 100 mg tablet 100 mg PO DAILY Diabetes 09/09/24 09/30/24 09/09/24 08:00 History
(Invokana)
cranberry fruit 450 mg tablet 450 mg PO DAILY Supplement 09/09/24 09/30/24 09/09/24 08:00 History
(cranberry)
gabapentin 400 mg capsule 400 mg PO HS pain 09/09/24 09/30/24 09/09/24 21:00 History
insulin glargine 100 unit/mL (3 5 unit SC HS Diabetes 09/09/24 09/30/24 09/09/24 21:00 History
mL) subcutaneous pen (Lantus
Solostar U-100 Insulin)
oxycodone 5 mg tablet 5 mg PO Q8HPRN PRN severe Pain 09/09/24 09/30/24 09/10/24 00:00 History
rivaroxaban 2.5 mg tablet (Xarelto) 2.5 mg PO BID #180 tabs 09/11/24 09/30/24 Unknown Rx
amiodarone 200 mg tablet 200 mg PO BID 2 months #120 tabs 09/15/24 09/30/24 Unknown Rx
metoprolol succinate 100 mg 100 mg PO BID #120 tabs 09/15/24 09/30/24 Unknown Rx
tablet,extended release 24 hr
Saccharomyces boulardii 250 mg 250 mg PO BID 09/30/24 09/30/24 Unknown History
capsule (Florastor)
insulin aspart 0 sliding scale dose SC AC 09/30/24 09/30/24 Unknown History
(niacinamide)(U-100) 100 unit/mL(3
mL) subcutaneous pen (Fiasp
FlexTouch U-100 Insulin)
ipratropium 0.5 mg-albuterol 3 mg 3 ml inhalation R QID SOB 09/30/24 09/30/24 Unknown History
(2.5 mg base)/3 mL nebulization
soln
levofloxacin 750 mg tablet 750 mg PO DAILY 09/30/24 09/30/24 Unknown History
Review of Systems
-
History Source: Patient
All other systems: Negative unless noted
Vitals / Labs / Diagnostic Testing
Vital Signs
Temp Pulse Resp BP Pulse Ox
97.6 F 40 19 86/49 96
09/30/24 11:53 09/30/24 08:30 09/30/24 08:30 09/30/24 08:30 09/30/24 08:41
Lab Data
09/30/24 01:39
09/30/24 08:32
Laboratory Results
09/30/24
01:39
PT 25.3 H
INR 2.29
APTT 52.5 H
Microbiology
09/30/24 01:39 Nasal Swab Influenza Types A & B ([facility]) - Final
Negative for Influenza A & B, NAAT
Negative results must be combined with clinical observations
and patient history.
Nucleic Acid Amplification test (NAAT)performed on the
[employer] platform.
Diagnostic Testing:
Physical Exam
-
HEENT: Normocephalic, Anicteric and Other (dry MM, bleeding in mouth with dried blood clots)
Cardiovascular: S1/S2 and Regular Rhythm
Respiratory: Clear and Non-Labored Respirations
GI: Soft, Non Distended and Non Tender
Neurology: Awake and Other (confused, does not answer questions appropriately at times)
Skin: Warm, Dry and Other (bilateral toe amputations)
General: Comfortable, Poor Appetite and Other (NAD, thin appearing, chronically ill in appearance)
Assessment
-
Patient is an 88-year-old female w/ history of permanent atrial fibrillation s/p PPM/ICD, CHF with depressed EF of around 45%, insulin-dependent diabetes, peripheral arterial disease status post recent revascularization to the right lower extremity,
chronic hypoxemia on 2L at baseline, presenting to ED from nursing facility for weakness and hypotension. She was admitted to IMU, developed worsening hypotension with escalating doses of pressors. Suspicion for sepsis with recent episode of
pneumonia and elevated lactate. She is now transferred to ICU for further management.
Septic shock on pressors
Symptomatic bradycardia, paced
Acute decompensated heart failure, chronic systolic heart failure history
Hypoglycemia
Metabolic acidosis, increased lactate
TATIANA
OP treatment for PNA
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
Cardiomyopathy, EF 45% s/p ICD
AFIB s/p PPM, on Xarelto
type 2 diabetic, insulin dependant
HTN
CKD
acid reflux
PAD s/p multiple toe amputations
Depression/anxiety
Plan
Currently confused, not answering appropriately
Baseline MS reported as confused/possible dementia (not listed in record)
Psychiatric history noted above including anxiety/depression
Denies pain at this time.
Pain/sedation: PRN, resume home meds
RASS goals: 0
Hemodynamically stable, not requiring pressors.
Requiring pressors: levo initiated at ER, turned off now
Cardiac history reviewed--HTN, CMrEF s/p ICD
HF exacerbation with elevated proBNP, diuresis per team
Cards eval
Prior ECHO reviewed indicating reduced EF
Monitor on telemetry
Oxygen needs: on room air
Prior history of lung disease: none
Supplemental O2 as indicated to maintain sats > 89%
CXR/CT reviewed indicating basilar effusions, edema
Recent treatment for PNA noted
Recheck cultures
NPO, resume diet when able
Mouth has blood, may need ENT consult if ongoing
Lease Out Man recommendations
Aspiration precautions, HOB > 30 degrees
Speech therapy eval
GI prophylaxis if indicated for mechanical ventilation >48 hours, prior history of GERD, stress ulcer formation in the critically ill
TATIANA present
H/o CKD noted in chart
Void trials
Follow urine output, critical I/Os
Replete electrolytes as needed
Possible sepsis, r/o given shock
Started on empiric antibiotics
Cultures sent/pending
Follow fever trend, WBC count
Lactate elevated on admission, continue to trend until <2
CBC stable, no signs of bleeding or coagulopathy.
DVT prophylaxis as assessed based on risk, including mechanical SCDs
Can transfuse if indicated for Hb <7, plt < 10
No prior h/o thyroid disease
H/o diabetes, she is notably hypoglycemic, s/p 2 amps D50
Will start 250mL of D10 @ 50ml/hr
HbA1c add on
Will resume regiment following diet assessment
She is DNI, GOC with family would be warranted
We will follow
Diagnostic Data
Chest X-Ray: 09/30/24- 1. Moderate-sized left and small right pleural effusions.
2. Moderate airspace consolidation in the left lower lobe and lingula. Diagnostic possibilities are (1) left upper and lower lobe pneumonia or (2) compressive atelectasis secondary to the adjacent moderate size left pleural effusion.
3. Mild right lower lobe airspace disease.
4. Moderate cardiomegaly.
5. Left-sided AICD in place.
CT Scan: AP 09/30/24- Lower Chest: Small to moderate bilateral pleural effusions. Bibasilar airspace consolidation, which may represent subsegmental atelectasis or pneumonia.
There is diffuse soft tissue anasarca, mild. Mild cardiomegaly. Moderate coronary arterial calcification. No significant pericardial effusion.
Echo: 09/30/24- Left ventricle is normal in size with mildly reduced LV systolic function. LVEF 45-50%. Septal flattening throughout the cardiac cycle consistent with RV pressure and volume overload. Enlarged right ventricular size with mildly
reduced systolic function. Severe biatrial enlargement. Moderate mitral regurgitation. Mild aortic stenosis. Moderate to severe tricuspid regurgitation. Only elevated pulmonary artery pressures (PASP 55-60 mmHg). Pleural effusion present. Small
pericardial effusion which is partially organized at the apex. Ascending aorta dilatation measuring 4.2 cm. Compared to prior echocardiogram on 03/21/2024, there is now evidence of RV volume and pressure overload. PASP has increased from 40 mmHg
to 55-60 mmHg. Small pericardial effusion is also new.
PFT's:
Reports and relevant images were personally reviewed.
-----
Critical care time 55 mins -- this includes review of history, physical exam, medications, hemodynamic/ventilator parameters, laboratory data, imaging and discussion with house staff, pharmacy, respiratory therapy, cleaning and washing equipment operator, and nursing.
--- NOTE | 2024-09-30 12:30 | PTCARENOTE ---
Pt assessed.No change in assessment.Levophed weaned off.Midline IV access placed by VAT RN.Blood glucose 62.Dextrose given as ordered.Dr Bernard made aware.
[2024-09-30] MEDS: VIBRAMYCIN 260 MG IV (13:25)
[2024-09-30 13:31] LABS: Glucose - Point of Care 62 mg/dl (70-99)
[2024-09-30 13:45] LABS: Phosphorus 5.6 mg/dl (2.5-4.5)
[2024-09-30 13:56] LABS: Glucose - Point of Care 105 mg/dl (70-99)
[2024-09-30] MEDS: MERREM 1000 MG IV (14:46)
[2024-09-30] MEDS: PROTONIX IV 40 MG IV ×2 (14:47→20:27)
[2024-09-30] MEDS: LASIX 20 MG IV (14:47)
[2024-09-30] MEDS: THIAMINE INJECTION 200 MG IV (14:47)
[2024-09-30] MEDS: NSS (PRESERVATIVE FREE) 10 ML IV ×2 (14:47→20:27)
[2024-09-30] MEDS: STERILE WATER FOR INJECTION 20 ML IV (14:47)
--- NOTE | 2024-09-30 15:12 | PTOTSP ---
Dysphagia Evaluation
Patient is at an elevated risk for acute dysphagia and aspiration given altered mental status, brief alert periods, and poor awareness of feeding related tasks.
Recommend:
1. Temporary NPO
2. Non-oral means of medication, hydration
3. Oral care 3x daily as tolerated
4. Aspiration Risk Hydration Protocol is not appropriate
5. Will re-assess if/when SHARA and mentation improves, pending GOC.
[2024-09-30] MEDS: D10W 250 IV (15:38)
--- NOTE | 2024-09-30 16:00 | PTCARENOTE ---
Pt assessed.No change in assessment noted.Dobbhoff placement will be deferred until tomorrow as per MD order.
[2024-09-30 18:04] LABS: Glucose - Point of Care 110 mg/dl (70-99)
[2024-09-30] MEDS: HEPARIN 5000 UNITS SC (18:07)
--- NOTE | 2024-09-30 20:30 | PTCARENOTE ---
casting machine set up operator, pt oriented to self/birthday/sometimes current year. appears restless at times with frequent movements. Vpaced. BP difficult to obtain consistently as pt constantly moving- extremity stabilized when obtaining to ensure accuracy. 02Sat
also intermittently not reading- multiple sites attempted- Sat reading 90% on 2LNC- increased to 4LNC. Shaw cath WNL with minimal amt jayden urine. RUE IV WNL, LUE midline patent- dressing saturated with blood- will reach out to IV team to re-dress.
bed alarm on. will continue to monitor.
--- NOTE | 2024-09-30 22:00 | PTCARENOTE ---
pt with 15cc UO for [id number]- BDoughertyNP aware. no new orders at this time, plan to monitor.
--- NOTE | 2024-09-30 22:23 | VATNOTE ---
called by CORPORATE AUDITOR for blood soaked midline dsg.; entire dsg. bloody. Changed dsg. per protocol. Biopatch applied since no active bleeding from insertion site. PCN updated.
[2024-10-01] VITALS (23 sets, daily range): BP systolic 48–144; BP diastolic 27–117; BMI 22.1
--- NOTE | 2024-10-01 | PTCARENOTE ---
pt continues w/minimal UO. BDoughertyNP aware. continues to be restless. no further changes.
[2024-10-01 00:09] LABS: Glucose - Point of Care 116 mg/dl (70-99)
[2024-10-01 00:10] LABS: Lactic Acid 9.8 mmol/L (0.7-2.0)
[2024-10-01 00:13] LABS: Blood Urea Nitrogen 43 mg/dl (7-17); Calcium 7.4 mg/dl (8.4-10.2); Carbon Dioxide 19 mmol/L (22-30); Chloride 98 mmol/L (98-107); Estimated Creatinine Clearance 19 ml/min; Glucose 110 mg/dl (70-99); Magnesium 1.8 mg/dl (1.6-2.3); Potassium 5.5 mmol/L (3.5-5.1); Sodium 134 mmol/L (135-145); eGFR 26.77
[2024-10-01] MEDS: VIBRAMYCIN 260 MG IV (01:00)
[2024-10-01] MEDS: HEPARIN 5000 UNITS SC (01:00)
[2024-10-01] MEDS: STERILE WATER FOR INJECTION 20 ML IV (01:00)
[2024-10-01] MEDS: MERREM 1000 MG IV (01:00)
[2024-10-01] MEDS: CALCIUM GLUCONATE 100 IV (02:29)
--- NOTE | 2024-10-01 03:04 | PTCARENOTE ---
02 Sat not reading, RN to bedside to assess, pt found with NC removed/gasping/decreased responsiveness. SBP 70s. pt slightly more responsive when NC back on, levo titrated. BDoughertyNP aware and at bedside during this time. ELECTRICAL EXPERIMENTAL MECHANIC called family to
discuss event/code status, awaiting call back.
[2024-10-01 04:32] LABS: Venous Blood Gas B.E. -13.1 mmol/L (-4 to +4); Venous Blood Gas HCO3 15.6 mmol/L (22-27); Venous Blood Gas O2 Sat % 68.2 %; Venous Blood Gas pCO2 47 mmHg (35-48); Venous Blood Gas pO2 48 mmHg (30-50)
[2024-10-01 04:36] LABS: Venous Blood Gas O2 Therapy 60%; Venous Blood Gas pH 7.13 (7.32-7.43)
[2024-10-01 04:41] LABS: Hematocrit 32.5 % (37.0-47.0); Hemoglobin 10.1 g/dL (12.0-16.0); Mean Corp Hgb Conc. 31.1 g/dL (33.0-37.0); Mean Corpuscular Volume 99.7 fL (81.0-99.0); Mean Platelet Volume 12.4 fL (7.4-10.4); Platelet Count 121 10^3/uL (130-400); Red Blood Cell Count 3.26 10^6/uL (4.20-5.40); Red Cell Dist. Width 15.5 % (11.5-14.5); White Blood Cell Count 21.8 10^3/uL (4.8-10.8)
--- NOTE | 2024-10-01 04:42 | W.PN.UPDATE ---
Addendum entered and electronically signed by RONAL Mckeon 10/01/24 06:12:
Multiple attempts to update family, however no success.
Original Note:
Update Note
Progress Note Update
Continue decline overnight, more lethargic, remains on levophod, renal function worsening cr 1.8, oliguric urine output, Lactic acid continues to rises. Left message with family to discuss goals of care.� Currently patient is DNI.
[2024-10-01 05:04] LABS: Blood Urea Nitrogen 43 mg/dl (7-17); Carbon Dioxide 15 mmol/L (22-30); Chloride 99 mmol/L (98-107); Estimated Creatinine Clearance 17 ml/min; Glucose 78 mg/dl (70-99); Potassium 5.6 mmol/L (3.5-5.1); Sodium 137 mmol/L (135-145); eGFR 23.59
[2024-10-01 05:04] LABS: Vancomycin Random 10.9 ug/ml
--- NOTE | 2024-10-01 05:05 | PTCARENOTE ---
0500 SBP reading 40s, pt found with NC removed again, Sat not reading, minimally responsive; levo titrated, NRB added with 4LNC, pt back to baseline (restless, fidgeting) within 10 mins. BDoughertyNP at bedside during this time. B/L mitts applied.
[2024-10-01 05:19] LABS: Lactic Acid 11.6 mmol/L (0.7-2.0)
[2024-10-01] MEDS: SODIUM BICARBONATE 50 MEQ IV ×2 (05:59→07:54)
[2024-10-01 06:15] LABS: Glucose - Point of Care 76 mg/dl (70-99)
--- NOTE | 2024-10-01 07:15 | W.PN.INTV ---
Addendum entered and electronically signed by Virginia Perez DO 10/01/24 11:38:
Family at beside, on comfort measures
Will transfer to med-surg, sign off upon transfer
Original Note:
Today's Communication / Plan
Recommendations
Clinically worsening status, she is now full DNR
Discussed numerous times with family, they have made her comfortable
Will add morphine PRN, they are coming in to visit
Discussed case extensively with care team
Prognosis very poor
Assessment
-
Patient is an 88-year-old female w/ history of permanent atrial fibrillation s/p PPM/ICD, CHF with depressed EF of around 45%, insulin-dependent diabetes, peripheral arterial disease status post recent revascularization to the right lower extremity,
chronic hypoxemia on 2L at baseline, presenting to ED from nursing facility for weakness and hypotension. She was admitted to IMU, developed worsening hypotension with escalating doses of pressors. Suspicion for sepsis with recent episode of
pneumonia and elevated lactate. She is now transferred to ICU for further management.
Septic shock on pressors
Suspect LLE infection
Symptomatic bradycardia, paced
Acute decompensated heart failure, chronic systolic heart failure history
Hypoglycemia
Metabolic acidosis, increased lactate
TATIANA
OP treatment for PNA
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
Cardiomyopathy, EF 45% s/p ICD
AFIB s/p PPM, on Xarelto
type 2 diabetic, insulin dependant
HTN
CKD
acid reflux
PAD s/p multiple toe amputations
Depression/anxiety
Plan
Initially confused, not answering appropriately--worsening/somnolent/lethargic this AM
Baseline MS reported as confused/possible dementia (not listed in record)
Psychiatric history noted above including anxiety/depression
Denies pain at this time.
Pain/sedation: PRN, resume home meds
RASS goals: 0
Hemodynamically stable, not requiring pressors.
Requiring pressors: levo initiated at ER, turned off now
Cardiac history reviewed--HTN, CMrEF s/p ICD
HF exacerbation with elevated proBNP, diuresis per team
Cards eval
Prior ECHO reviewed indicating reduced EF
Monitor on telemetry
Oxygen needs: supplemental O2 as needed
Prior history of lung disease: none
Supplemental O2 as indicated to maintain sats > 89%
CXR/CT reviewed indicating basilar effusions, edema
Recent treatment for PNA noted
Recheck cultures
NPO, resume diet when able
Mouth has blood, may need ENT consult if ongoing
Information Security Specialist recommendations
Aspiration precautions, HOB > 30 degrees
Speech therapy eval
GI prophylaxis if indicated for mechanical ventilation >48 hours, prior history of GERD, stress ulcer formation in the critically ill
TATIANA present--worsening
H/o CKD noted in chart
Void trials
Follow urine output, critical I/Os
Replete electrolytes as needed
Possible sepsis, r/o given shock
Started on empiric antibiotics
Cultures sent/pending
Follow fever trend, WBC count
Lactate elevated on admission, worsening as well
CBC stable, no signs of bleeding or coagulopathy.
DVT prophylaxis as assessed based on risk, including mechanical SCDs
Can transfuse if indicated for Hb <7, plt < 10
No prior h/o thyroid disease
H/o diabetes, she is notably hypoglycemic, s/p 2 amps D50
Will start 250mL of D10 @ 50ml/hr
HbA1c add on
Will resume regiment following diet assessment
She is DNI, GOC with family would be warranted
Chris 10/01/24- Discussed case with son and daughter on the phone, explained risk while on 2 pressors/increasing somnolence and clinically deterioration that she is currently DNI. They understand her risk at age 88 even with full measures that her
prognosis overall is poor. We discussed what her LLE surgical option would entail including full amputation for source control. I also explained that a surgery on that level while on 2 pressors at age 88 carries its own intra-op risk, including
high mortality during the procedure. They feel this would place her through too much for little benefit. Archana has decided that she would like to make her mother comfortable and will call her siblings to confirm they agree and will be coming in to
visit. I pressed the urgency of the situation to them as well.
Diagnostic Data
Chest X-Ray: 09/30/24- 1. Moderate-sized left and small right pleural effusions.
2. Moderate airspace consolidation in the left lower lobe and lingula. Diagnostic possibilities are (1) left upper and lower lobe pneumonia or (2) compressive atelectasis secondary to the adjacent moderate size left pleural effusion.
3. Mild right lower lobe airspace disease.
4. Moderate cardiomegaly.
5. Left-sided AICD in place.
CT Scan: AP 09/30/24- Lower Chest: Small to moderate bilateral pleural effusions. Bibasilar airspace consolidation, which may represent subsegmental atelectasis or pneumonia.
There is diffuse soft tissue anasarca, mild. Mild cardiomegaly. Moderate coronary arterial calcification. No significant pericardial effusion.
Echo: 09/30/24- Left ventricle is normal in size with mildly reduced LV systolic function. LVEF 45-50%. Septal flattening throughout the cardiac cycle consistent with RV pressure and volume overload. Enlarged right ventricular size with mildly
reduced systolic function. Severe biatrial enlargement. Moderate mitral regurgitation. Mild aortic stenosis. Moderate to severe tricuspid regurgitation. Only elevated pulmonary artery pressures (PASP 55-60 mmHg). Pleural effusion present. Small
pericardial effusion which is partially organized at the apex. Ascending aorta dilatation measuring 4.2 cm. Compared to prior echocardiogram on 03/21/2024, there is now evidence of RV volume and pressure overload. PASP has increased from 40 mmHg
to 55-60 mmHg. Small pericardial effusion is also new.
PFT's:
Reports and relevant images were personally reviewed.
-----
Critical care time 75 mins -- this includes review of history, physical exam, medications, hemodynamic/ventilator parameters, laboratory data, imaging and discussion with house staff, pharmacy, respiratory therapy, wrapper sorter, and nursing.
Subjective Dataa
Subjective Data
Date of Service:
Date of Service: October 01, 2024
Chief Complaint: Optimization Engineer Follow Up
Subjective:
clinically deteriorating throughout the night, events noted
levo @18, adding vasopressin
more somnolent on exam
discussed with family members this AM GOCs
Objective Data
Data Reviewed
Vital Signs / I&O / Oxygen:
Vital Signs
Temp Pulse Resp BP Pulse Ox
97.5 F 80 21 99/58 95
10/01/24 03:27 10/01/24 06:06 10/01/24 06:06 10/01/24 06:06 10/01/24 05:30
Intake and Output
09/30/24 10/01/24 10/02/24
06:59 06:59 06:59
Intake Total 426.4 / 426.4
Output Total 355 / 355
Balance 71.4 / 71.4
SaO2 95
Nasal Cannula flow liters per 4
minute
Physical Exam
General: Respiratory Distress and Other (somnolent)
HEENT: Normocephalic and Anicteric
Cardiovascular: S1-S2 and Regular Rhythm
Respiratory: Clear and Non-Labored Respirations
GI: Soft, Non Distended and Non Tender
Neurology: Lethargic and Non Verbal
Skin: Warm, Dry and Good Color
Labs/Micro/Reports
Lab Data
10/01/24 04:24
10/01/24 04:24
Microbiology
09/30/24 02:27 Blood/Venous Blood Culture - Preliminary
Positive culture in progress
09/30/24 02:27 Blood/Venous Gram Stain - Final
09/30/24 02:27 Blood/Venous Blood Culture - Preliminary
Positive culture in progress
09/30/24 02:27 Blood/Venous Gram Stain - Final
09/30/24 13:22 Urine Legionella Urinary Antigen - Final
Negative for Legionella pneumophila Serogroup 1 antigen.
A negative result does not rule out the possiblity of
Legionella infection due to other serogroups or species of
Legionella. Clinical correlation is recommended.
09/30/24 01:39 Nasal Swab Influenza Types A & B ([facility]) - Final
Negative for Influenza A & B, NAAT
Negative results must be combined with clinical observations
and patient history.
Nucleic Acid Amplification test (NAAT)performed on the
[employer] platform.
--- NOTE | 2024-10-01 07:39 | W.PN.HOSP.TC ---
Today's Communication/Plan
-
Comfort care
later in the day today
Assessment / Plan
Assessment / Plan
Physical Exam
General: Appears Chronically Ill
HEENT: Normocephalic
Respiratory: Clear (anteriorly)
Cardiac: S1/S2, Regular Rhythm and Bradycardia
GI: Soft, Non Tender, Non Distended and Normal Bowel Sounds
Musculoskeletal: No Cyanosis, No Edema and Other (left great toe amputation with small eschar and some drainage covered in dressing. No open wounds or dry gangrene on the right.)
Skin: Warm
Neuro: Awake, Oriented (oriented to person) and Nonfocal/grossly intact
Hematologic/Lymphatic: No Lymphadenopathy
Assessment/Plan
88-year-old female with complex past medical history who was recently in the hospital for revised revascularization of the right lower extremity status post lymph lobe procedure plus stents on September 10. She spent several days in the hospital at
that time and was followed by cardiology for uncontrolled atrial fibrillation and cardiomyopathy where she was ultimately settled on amiodarone and metoprolol in an attempt to avoid using digoxin. She now comes to the emergency department with
hypotension and bradycardia as well as a fever of 100.6. Patient has been on Levaquin for 5 days for pneumonia at the half-way. She is on increased O2 to 4 L and has multiple opacities on x-ray with elevated lactic acid levels. COVID and flu
were negative. Any concern is that she has ongoing pneumonia that is likely hospital-acquired and complicated by bradycardia.
Pneumonia/sepsis - Apparent multifocal pneumonia with failure of outpatient levofloxacin.
History of MRSA in foot wound in February 2024
Septic Shock
Lactic Acidosis
Bradycardia - V paced at 40.
CHF - small samantha pleural effusion
Fluid Overloaded State
Permanent afib - now V paced at 40, sss
PAD
Hypoglycemia
DM II
-After Instrument Worker discussion with patient's family today, patient was made comfort care
-Patient later today (see note)
Anticipated Discharge: Today
Subjective/Interval History
-
Date of Service: October 01, 2024
Patient was seen and examined. She appeared comfortable earlier in the day, later in the day, she .
Objective Data
-
Labs:
Laboratory Results
09/30/24 10/01/24
23:41 04:24
WBC 21.8 H
Hgb 10.1 L
Hct 32.5 L
Plt Count 121 L D
Sodium 134 L 137
Potassium 5.5 H 5.6 H
Chloride 98 99
Carbon Dioxide 19 L 15 L
BUN 43 H 43 H
Creatinine 1.8 H 2.0 H
Glucose 110 H 78
Calcium 7.4 L 8.0 L
Vital Signs:
Vital Signs
Temp Pulse Resp BP Pulse Ox
97.5 F 80 21 99/58 95
10/01/24 03:27 10/01/24 06:06 10/01/24 06:06 10/01/24 06:06 10/01/24 05:30
I&O
09/30/24 10/01/24 10/02/24
06:59 06:59 06:59
Intake Total 426.4 / 426.4
Output Total 355 / 355
Balance 71.4 / 71.4
--- NOTE | 2024-10-01 07:51 | W.PN.UPDATE ---
Update Note
Progress Note Update
Seen and examined with XEROX MACHINE MECHANIC. Full consultation to follow. Briefly 88-year-old female well-known to me with history of peripheral arterial disease status post recent right lower extremity LimFlow revascularization procedure (TADV -transcatheter
arterialization of the deep veins). This was performed secondary to right foot nonhealing wound/dry gangrene chronically with no further distal revascularization options. Patient during the workup of this time had developed new onset left foot
ulceration that initially began as superficial. This was along the site of a prior TMA. The plan was staged left lower extremity arteriogram to be done to see if there is any revascularization options for that side. In the interval now patient
has been admitted with concern for sepsis. Asked to evaluate urgently this a.m. Patient with elevated white blood cell count, low-grade fever, mental status changes, elevated lactate. History is limited secondary to her confusion. Vital signs as
recorded. She is awake currently. Right lower extremity actually has a palpable pulse in the venous system beyond the LimFlow stent. Confirmed excellent Doppler signal. The right foot wound appears dry. No definitive wet gangrene. No
cellulitis. No crepitus.
Left foot examined. The left foot wound appears to be slightly purulent with possible wet gangrene. There is no surrounding cellulitis or crepitus.
Plan/sepsis. Discussed with hospitalist. Could be pneumonia. Although could be related to wounds. If anything I would favor that the left foot wound is likely the source if it is a wound related problem. Right side looks dry. Recommend
evaluation by celery cutter (already consulted) for possible debridement. Discussions with family regarding level of aggressiveness (patient currently DNI/DNR). Extensively discussed case with bronc breaker in person, hospitalist via [place] text.
[2024-10-01] MEDS: THIAMINE INJECTION IV (08:02)
[2024-10-01] MEDS: NSS (PRESERVATIVE FREE) IV (08:02)
[2024-10-01] MEDS: HEPARIN SC (08:02)
[2024-10-01] MEDS: PROTONIX IV IV (08:02)
--- NOTE | 2024-10-01 08:03 | PTCARENOTE ---
recd pt 0715 restless, swinging legs over bed, c/o pain, twitchy at intervals when not restlessly moving. levophed as noted, difficult to obtain accurate BP as well as pulse ox, new probe, see VS. given 1 amp sodium bicarb, at end, IV site
swollen, received approx 40 ml of [address] Bernard updated, in room, multiple updates with family, presently full DNR with comfort orders. spoke wtih daughter, will be coming to hospital. support given, positioned for comfort, denies need
to listen to music, nods head when informed family is coming. Also seen by Dr. Rowley. Levophed via midline continues.
[2024-10-01] MEDS: LEVOPHED 250 IV ×2 (08:14→11:02)
--- NOTE | 2024-10-01 08:22 | CON.VAS ---
Consultation
Consultation Request
Performing Provider: Amrik
Reason for Consultation: Nonhealing foot wound
Medical History
-
Chief Complaint: Foot pain
History of Present Illness:
88-year-old female well-known to me with history of A-fib, heart failure with preserved ejection fraction, diabetes, hyperlipidemia, history of left foot toe amputations, peripheral arterial disease status post recent right lower extremity LimFlow
revascularization procedure (TADV -transcatheter arterialization of the deep veins). This was performed secondary to right foot nonhealing wound/dry gangrene chronically with no further distal revascularization options. Patient during the workup
of this time had developed new onset left foot ulceration that initially began as superficial. This was along the site of a prior TMA. The plan was staged left lower extremity arteriogram to be done to see if there is any revascularization options
for that side. In the interval now patient has been admitted with concern for sepsis. Asked to evaluate urgently this a.m. Patient with elevated white blood cell count, low-grade fever, mental status changes, elevated lactate. History is limited
secondary to her confusion. Vital signs as recorded. She is awake currently. Right lower extremity actually has a palpable pulse in the venous system beyond the LimFlow stent. Confirmed excellent Doppler signal. The right foot wound appears
dry. No definitive wet gangrene. No cellulitis. No crepitus.
Left foot examined. The left foot wound appears to be slightly purulent with possible wet gangrene. There is no surrounding cellulitis or crepitus.
Past Medical History
Past Medical History: Other (Arrhythmias (afib, not on anticoagulation due to hx GI bleeds), CHF, HTN, IDDM, Valvular Disease, Psychiatric and Other (bilateral breast masses, hyperlipidemia, fibromyalgia, obstructive sleep apnea, anemia, rectal
bleed, recent COVID))
Past Surgical History: Other (Cardiac (AICD) and Other (Left foot toe amputations))
Social History
Tobacco: Non-Smoker
Alcohol: None
Drug: None
Personal:
Living: Correction
Family History
Family History: Reviewed & Not Pertinent
Allergies / Home Medications
Allergy/AdvReac Type Severity Reaction Status Date / Time
codeine Allergy Unknown Hives and Verified 09/30/24 02:37
'sick to
my stomach'
dofetilide [From Tikosyn] Allergy 'took all Verified 09/30/24 02:37
the K out
of my body
and I got
really
sick'
morphine Allergy Unknown Verified 09/30/24 02:37
�Medication �Instructions �Recorded �Confirmed �Type
atorvastatin 20 mg tablet 20 mg PO HS High cholesterol 12/27/22 09/30/24 History
bisacodyl 10 mg rectal suppository 10 mg VA DAILYPRN PRN if MOM 12/27/22 09/30/24 History
(Dulcolax (bisacodyl)) ineffective
duloxetine 20 mg capsule,delayed 20 mg PO DAILY depression/anxiety 12/27/22 09/30/24 History
release
magnesium hydroxide 400 mg/5 mL 30 ml PO DAILYPRN PRN if no BM x 3 12/27/22 09/30/24 History
oral suspension (Milk of Magnesia) days
sodium phosphates 19 gram-7 118 ml VA DAILYPRN PRN if dulcolax 12/27/22 09/30/24 History
gram/118 mL enema (Fleet Enema) ineffective
potassium chloride 20 mEq 20 meq PO DAILY Electrolyte 08/19/23 09/30/24 History
tablet,extended release Repletion
mirtazapine 15 mg tablet (Remeron) 7.5 mg PO HS Mental Health/Anxiety 09/13/23 09/30/24 History
aspirin 81 mg tablet,delayed 81 mg PO DAILY Blood Clot 09/14/23 09/30/24 History
release Prevention/Tx
ferrous sulfate 325 mg (65 mg 325 mg PO DAILY Supplement #1 tab 10/10/23 09/30/24 Rx
iron) tablet
pantoprazole 40 mg tablet,delayed 40 mg PO BID Gastrointestinal 10/10/23 09/30/24 Rx
release issue #0 tabs
acetaminophen 325 mg tablet 650 mg PO Q6HPRN PRN mild 03/14/24 09/30/24 History
(Tylenol) pain/fever
bumetanide 0.5 mg tablet 0.5 mg PO DAILY Fluid 03/14/24 09/30/24 History
retention/Swelling
peg [id number] 1 1 drp BOTH EYES QID Eye Condition 03/14/24 09/30/24 History
%-0.2 %-0.2 % eye drops
(Artificial Tears
([id number]))
canagliflozin 100 mg tablet 100 mg PO DAILY Diabetes 09/09/24 09/30/24 History
(Invokana)
cranberry fruit 450 mg tablet 450 mg PO DAILY Supplement 09/09/24 09/30/24 History
(cranberry)
gabapentin 400 mg capsule 400 mg PO HS pain 09/09/24 09/30/24 History
insulin glargine 100 unit/mL (3 5 unit SC HS Diabetes 09/09/24 09/30/24 History
mL) subcutaneous pen (Lantus
Solostar U-100 Insulin)
oxycodone 5 mg tablet 5 mg PO Q8HPRN PRN severe Pain 09/09/24 09/30/24 History
rivaroxaban 2.5 mg tablet (Xarelto) 2.5 mg PO BID #180 tabs 09/11/24 09/30/24 Rx
amiodarone 200 mg tablet 200 mg PO BID 2 months #120 tabs 09/15/24 09/30/24 Rx
metoprolol succinate 100 mg 100 mg PO BID #120 tabs 09/15/24 09/30/24 Rx
tablet,extended release 24 hr
Saccharomyces boulardii 250 mg 250 mg PO BID 09/30/24 09/30/24 History
capsule (Florastor)
insulin aspart 0 sliding scale dose SC AC 09/30/24 09/30/24 History
(niacinamide)(U-100) 100 unit/mL(3
mL) subcutaneous pen (Fiasp
FlexTouch U-100 Insulin)
ipratropium 0.5 mg-albuterol 3 mg 3 ml inhalation R QID SOB 09/30/24 09/30/24 History
(2.5 mg base)/3 mL nebulization
soln
levofloxacin 750 mg tablet 750 mg PO DAILY 09/30/24 09/30/24 History
Review of Systems
-
Unable to obtain full review of systems at this time due to: Dementia and Acuity
All other systems: Negative unless noted
Skin: Reports Other (Wounds BL feet)
Endocrine: Reports No Symptoms
Physical Exam
Vital Signs
Temp Pulse Resp BP Pulse Ox
97.5 F 80 30 101/87 80
10/01/24 03:27 10/01/24 08:00 10/01/24 08:00 10/01/24 08:00 10/01/24 08:06
Lab Results
10/01/24 04:24
10/01/24 04:24
Troponin I < 0.012 ng/ml 09/30/24 01:39
Agw-G-Ojyjtthktac Pept 92671 pg/ml 09/30/24 08:32
Physical Exam
General: No Apparent Distress
HEENT: Normocephalic and Atraumatic
Respiratory: Non Labored Respirations
GI: Soft
Skin: Other (left foot wound appears to be slightly purulent with possible wet gangrene. There is no surrounding cellulitis or crepitus.)
Neuro: Awake and Alert
Pulses: Right Posterior Tibial: Doppler (Palp pulse in venous sys, confirmed by doppler)
Assessment / Plan
-
Plan/sepsis. Discussed with hospitalist. Could be pneumonia. Although could be related to wounds. If anything I would favor that the left foot wound is likely the source if it is a wound related problem. Right side looks dry. Recommend
evaluation by nocturnist physician (already consulted) for possible debridement. Discussions with family regarding level of aggressiveness (patient currently DNI/DNR). Extensively discussed case with mainspring torque tester in person, hospitalist via [place] text.
[2024-10-01] MEDS: MORPHINE SULFATE 1 MG IV ×4 (08:57→16:09)
[2024-10-01 09:03] LABS: Glycohemoglobin (HgbA1c) 8.5 % (4.0-5.6)
--- NOTE | 2024-10-01 09:04 | PTOTSP ---
MARBLE SETTER HELPER note
Per chart review, patient now DNR, on comfort care measures. Patient not appropriate to see to assess for PO for comfort/pleasure. Will sign off. Please reconsult as appropriate.
--- NOTE | 2024-10-01 09:08 | PHA.VAN.FU ---
Vancomycin Assessment / Plan
- Assessment
Renal Function: SCR Increasing
WBC's are: Trending Up
In the past 24 hrs, patient has been: Afebrile
Concomitant Antimicrobials: doxycycline, meropenem
- Assessment - Therapeutic Drug Monitoring
Random Level: 10.9 - drawn ~24.5H after 1500mg loading dose
- Dosing Plan
Dosing by Level: Re-dose today (Vanc 750mg)
- Monitoring Plan
Random Level: 10/02 06
- Follow Up
Pharmacy will continue to follow.
Vancomycin Follow UP
- -
Patient Age: 88
Patient Sex: Female
Vancomycin Day #: 2
Indication: Pulmonary/Respiratory
Requesting Provider: Dr. Babb
Pertinent Antimicrobial Allergies:
no pertinent antibiotic allergies
Height / Weight:
Height 5 ft 5 in
Actual Weight 60.3 kg
Pertinent Past Medical History: DM II, PAD
- Vital Signs / Lab Results
Temp Pulse Resp BP Pulse Ox
97.5 F 80 30 101/87 80
10/01/24 03:27 10/01/24 08:00 10/01/24 08:00 10/01/24 08:00 10/01/24 08:06
Lab Results - Hematology
09/30/24 10/01/24
01:39 04:24
WBC 9.2 21.8 H
Lab Results - Chemistry
09/30/24 09/30/24 09/30/24
01:39 08:32 23:41
BUN 36 H 39 H 43 H
Creatinine 1.2 H 1.4 H 1.8 H
Estimated Creat Clear 29 25 19
Albumin 2.6 L
10/01/24
04:24
BUN 43 H
Creatinine 2.0 H
Estimated Creat Clear 17
Albumin
09/30/24 09/30/24 09/30/24
01:39 05:53 08:32
Lactic Acid 4.2 H* 5.4 H* 6.3 H*
09/30/24 10/01/24
23:41 04:24
Lactic Acid 9.8 H* 11.6 H*
Microbiology Results
09/30/24 02:27 Blood Culture - Preliminary
Blood/Venous Staph aureus MRSA
Gram Stain - Final
09/30/24 02:27 Blood Culture - Preliminary
Blood/Venous Positive culture in progress
Gram Stain - Final
09/30/24 13:22 Legionella Urinary Antigen - Final
Urine Negative for Legionella pneumophila Serogroup 1 antigen.
A negative result does not rule out the possiblity of
Legionella infection due to other serogroups or species of
Legionella. Clinical correlation is recommended.
09/30/24 01:39 Influenza Types A & B (GRACE) - Final
Nasal Swab Negative for Influenza A & B, NAAT
Negative results must be combined with clinical observations
and patient history.
Nucleic Acid Amplification test (NAAT)performed on the
[employer] platform.
Therapeutic Drug Monitoring
Random Vancomycin 10.9 ug/ml 10/01/24 04:23
--- NOTE | 2024-10-01 09:28 | W.PN.CD ---
Today's Communication / Plan
-
Patient is now comfort care given worsening clinical status
We will sign off please call with questions/concerns.
Impression / Plan
-
IMPRESSION/PLAN: 88F with persistent atrial fibrillation (on low dose anticoagulation due to prior GIB), ICD ([employer]), HFrEF, CM (EF 45-50%), dyslipidemia, NIDDM, PAD, and BELKIS presented with lethargy and found to have bradycardia and
hypotension
Primary Cardioloist: Dr. Garcia at [facility]
Patient is now comfort care given worsening clinical status
Sepsis, in the setting of pneumonia
-Lactic acidosis increasing, currently 6.3
-She is currently hypotensive and is receiving IV fluids, she may require vasopressor support
-Blood cultures positive
Bradycardia
-Increase rate to 80 bpm, the CaseReader Rep has been contacted
-I anticipate that increasing her heart rate will help with blood pressure but she still may need a touch of vasopressor
HFmrEF, acute on chronic
-Volume overloaded on CT scan, no diuresis given her acute illness
-Trend daily weight, I/O, and BMP
-Echocardiogram today
Persistent atrial fibrillation
-Hold AV cesar agents for now
-Rate to be increased as above
-After she improves, consider resuming amiodarone at lower dose of 200 mg daily
-Anticoagulation: Rivaroxaban 2.5 mg BID & ASA -> this is for her PAD, she had GIB in the past with full dose
TATIANA, per primary
Hyperkalemia, per primary
[employer] ICD, reprogram as above
PAD, on aspirin/rivaroxaban
NIDDM, per primary
Physical Exam
Vital Signs/Labs
Vital Signs
Temp Pulse Resp BP Pulse Ox
97.5 F 80 30 101/87 80
10/01/24 03:27 10/01/24 08:00 10/01/24 08:00 10/01/24 08:00 10/01/24 08:06
09/30/24 10/01/24 10/02/24
06:59 06:59 06:59
Actual Weight 130 lb 1.164 oz 132 lb 15.02 oz
10/01/24 04:24
10/01/24 04:24
PT 25.3 Sec (11.4-14.6) H 09/30/24 01:39
INR 2.29 09/30/24 01:39
APTT 52.5 Sec (23.4-35.0) H 09/30/24 01:39
Magnesium 2.0 mg/dl (1.6-2.3) 10/01/24 04:24
09/30/24
08:32
Rlz-Q-Tbmzxirmzvt Pept [id number]
LAB Results
09/30/24
01:39
Troponin I < 0.012
Physical Exam
Constitutional: No acute distress
EENT: Anicteric
Cardiovascular: Rhythm & rate is regular
Respiratory: Labored respirations
GI: Soft
Data Reviewed
-
Date of Service: October 01, 2024
EKG: Tracing Personally Visualized and interpreted (paced)
Labs: Labs Reviewed by me
[2024-10-01] MEDS: DUONEB INH (10:17)
--- NOTE | 2024-10-01 10:20 | PTCARENOTE ---
family requested nonrebreather mask removed for comfort. family visiting.
--- NOTE | 2024-10-01 10:24 | CHAP ---
request relayed to on-call , who anticipates arriving before noon today. Prayer blanket given. Will follow.
--- NOTE | 2024-10-01 12:01 | PTCARENOTE ---
clerical receptionist here for [facility]. family present, rotating in and out of room. last awake, denied need for pain med.
--- NOTE | 2024-10-01 12:07 | CM ---
CM following re: discharge planning.
Discussed in Rounds, reviewed pt's chart, met with pt, family at bedside.
Pt is an 88 year old female, admitted with primary dx of Sepsis.
Pt is a [facility] resident at [facility], requires total care, has supportive family and family members at bedside. Per Rounds meeting, patient is comfort care given worsening clinical status.
D/C plan: comfort care.
CM is available for emotional support.
--- NOTE | 2024-10-01 12:41 | PTCARENOTE ---
med for pain, turned, positioned for comfort. resting when undisturbed.
--- NOTE | 2024-10-01 16:41 | PTCARENOTE ---
some failure to capture on monitor, resps much more shallow, unresponsive to voice at this time. eyes now closed. daughter Kirstin updated to change in status, held phone to patient to hear daughter's voice/support. unable to obtain pulse ox. BP
now unobtainable. resps remain shallow.
--- NOTE | 2024-10-01 17:07 | PTCARENOTE ---
164 pacer spikes only, apneic. TT to Dr. Skaggs. daughter updated by phone, support given. Awaiting pronouncement. See strips.
--- NOTE | 2024-10-01 17:26 | PTCARENOTE ---
Dr Rosales here to pronounce.
--- NOTE | 2024-10-01 17:28 | W.PN.DEATH ---
Pronouncement of
-
Called to see patient to pronounce.
No spontaneous heart tones or respirations noted.
Patient not responsive to verbal stimuli.
Patient is pronounced .
Time of : 17:25
Date of : 10/01/24
Cause of : Septic Shock
Family Notified: Yes
--- NOTE | 2024-10-01 18:21 | PTCARENOTE ---
GOL notified. Taken to [place] with belongings.
== END 2024-10-01 17:25 | disposition expired | DRG 871 ==
LOC: ICU 05:28
PROVIDERS: Nurse Practitioner Primary Care; ADMITTING PHYSICIAN Internal Medicine; ATTENDING PHYSICIAN Hospitalist; CONSULT PHYSICIAN Surgery Vascular Surgery; EMERGENCY PHYSICIAN Student in an Organized Health Care Education/Training Program; FAMILY PHYSICIAN Internal Medicine; OTHER PHYSICIAN Internal Medicine; OTHER PHYSICIAN Internal Medicine Cardiovascular Disease
DX: A41.89 Other specified sepsis (principal); J18.9 Pneumonia, unspecified organism; R65.21 Severe sepsis with septic shock; I48.21 Permanent atrial fibrillation; E11.52 Type 2 diabetes mellitus with diabetic peripheral angiopathy with gangrene; Z66 Do not resuscitate; Z51.5 Encounter for palliative care; I49.5 Sick sinus syndrome; E11.40 Type 2 diabetes mellitus with diabetic neuropathy, unspecified; E11.22 Type 2 diabetes mellitus with diabetic chronic kidney disease; N18.9 Chronic kidney disease, unspecified
CPT/HCPCS: 71045; 74176; 80048; 80053; 80202; 81003; 81015; 82805; 82962; 83036; 83605; 83735; 83880; 84100; 84484; 85025; 85027; 85610; 85730; 87040; 87150; 87186; 87205; 87449; 87502; 87811; 92610; 93005; 93306; 94640; 96361; 96374; 96375; 99291; J2185